=== PATIENT | female | born 1950 | race Caucasian/White ===

== ENCOUNTER → 2018-08-23 | Outpatient (CLI) | payer MEDICARE | LOC: LAB FS 15:24 | PROVIDERS: ATTEND Emergency Medicine | DX: Z22.322 Carrier or suspected carrier of Methicillin resistant Staphylococcus aureus (principal) | CPT/HCPCS: 87081 ==

== ENCOUNTER 2018-12-04 14:20 | Observation (INO) | payer MEDICARE ==
[~2018-12-04] VITALS: Ht 152.4 cm; Wt 79.5 kg
[2018-12-04] MEDS ORDERED: KETOROLAC 15 MG/ML VIAL IVP ONE (14:45)
[2018-12-04] MEDS ORDERED: NS IV 1000 ML 1,000 ML IV SCH (14:45)
[2018-12-04] MEDS ORDERED: ONDANSETRON 4 MG/2 ML (SDV) Z0FRAN IVP ONE (14:45)
--- NOTE | 2018-12-04 15:13 | ED General ---
General Chief Complaint: Abdominal/GI Problems Stated Complaint: SLURRED SPEECH History of Present Illness Date Seen by Provider: Dec 04, 2018 Time Seen by Provider: 15:08 Initial Comments Patient presenting to emergency department for evaluation of multiple symptoms including abdominal pain nausea vomiting diarrhea that started 4-5 days ago and today she has been quite dizzy lightheaded having difficulty ambulating and unsteady as well as slurred speech per the . Patient is chronically ill with some back pain issues and is on chronic pain medications and has decreased mobility. She says her emesis has been nonbloody nonbilious and the diarrhea has been yellowish and nonbloody. Abdominal pain is diffuse crampy. She says she has also been having left-sided chest pain that is sharp off and on for the past month as well. She has had an EKG before in the past and has had a stress test she thinks about 6 years ago that was normal. She appears nontoxic with normal vital signs. Allergies and Home Medications Allergies Coded Allergies: Penicillins (Verified Allergy, Unknown, 12/04/18) sumatriptan (Verified Allergy, Unknown, 12/04/18) Patient Home Medication List Home Medication List Reviewed: Yes Review of Systems Review of Systems Constitutional: no symptoms reported EENTM: no symptoms reported Respiratory: no symptoms reported Cardiovascular: chest pain Gastrointestinal: abdominal pain, diarrhea, nausea, vomiting Genitourinary: no symptoms reported Musculoskeletal: back pain Skin: no symptoms reported Psychiatric/Neurological: Weakness All Other Systems Reviewed Negative Unless Noted: Yes Physical Exam Vital Signs Vital Signs - First Documented 12/04/18 14:25 Temp 36.6 Pulse 70 Resp 18 B/P (MAP) 133/84 (100) Pulse Ox 95 O2 Delivery Room Air Capillary Refill : Height, Weight, BMI Height: 5'0.00" Weight: 175lbs. 0.0oz. 79.325782vh; 34.2 BMI Method: General Appearance: No Apparent Distress, Chronically ill HEENT: PERRL/EOMI Neck: Supple Respiratory: Lungs Clear, No Respiratory Distress Cardiovascular: Regular Rate, Rhythm Gastrointestinal: Soft, Tenderness (diffusely with no rebound or guarding.) Rectal: Deferred Back: Normal Inspection Extremity: Normal Capillary Refill Neurologic/Psychiatric: Alert, Oriented x3 Skin: Warm/Dry Progress/Results/Core Measures Suspected Sepsis SIRS Temperature: Pulse: Respiratory Rate: Laboratory Tests 12/04/18 15:07: White Blood Count 6.2 Blood Pressure / Mean: Laboratory Tests 12/04/18 15:07: Creatinine 0.73, Platelet Count 286, Total Bilirubin 0.4 Results/Orders Lab Results Laboratory Tests Test 12/04/18 15:05 12/04/18 15:07 Range/Units Urine Color YELLOW Urine Clarity SLT CLOUDY Urine pH 6.5 5-9 Urine Specific [place] <1.005 1.016-1.022 Urine Protein NEGATIVE NEGATIVE Urine Glucose (UA) NEGATIVE NEGATIVE Urine Ketones NEGATIVE NEGATIVE Urine Nitrite POSITIVE H NEGATIVE Urine Bilirubin 1+ H NEGATIVE Urine Urobilinogen 0.2 NORMAL MG/DL Urine Leukocyte Esterase 2+ H NEGATIVE Urine RBC (Auto) NEGATIVE NEGATIVE Urine RBC NONE /HPF Urine WBC 10-25 H /HPF Urine Squamous Epithelial Cells 2-5 /HPF Urine Crystals NONE /LPF Urine Bacteria LARGE H /HPF Urine Casts NONE /LPF Urine Mucus NONE /LPF Urine Culture Indicated YES White Blood Count 6.2 4.3-11.0 10^3/uL Red Blood Count 4.86 4.35-5.85 10^6/uL Hemoglobin 13.3 11.5-16.0 G/DL Hematocrit 41 35-52 % Mean Corpuscular Volume 85 80-99 FL Mean Corpuscular Hemoglobin 27 25-34 PG Mean Corpuscular Hemoglobin Concent 32 32-36 G/DL Red Cell Distribution Width 14.6 H 10.0-14.5 % Platelet Count 286 130-400 10^3/uL Mean Platelet Volume 9.3 7.4-10.4 FL Neutrophils (%) (Auto) 59 42-75 % Lymphocytes (%) (Auto) 30 12-44 % Monocytes (%) (Auto) 8 0-12 % Eosinophils (%) (Auto) 3 0-10 % Basophils (%) (Auto) 0 0-10 % Neutrophils # (Auto) 3.7 1.8-7.8 X 10^3 Lymphocytes # (Auto) 1.8 1.0-4.0 X 10^3 Monocytes # (Auto) 0.5 0.0-1.0 X 10^3 Eosinophils # (Auto) 0.2 0.0-0.3 10^3/uL Basophils # (Auto) 0.0 0.0-0.1 10^3/uL Sodium Level 144 135-145 MMOL/L Potassium Level 2.8 L 3.6-5.0 MMOL/L Chloride Level 97 L 98-107 MMOL/L Carbon Dioxide Level 33 H 21-32 MMOL/L Anion Gap 14 5-14 MMOL/L Blood Urea Nitrogen 9 7-18 MG/DL Creatinine 0.73 0.60-1.30 MG/DL Estimat Glomerular Filtration Rate > 60 BUN/Creatinine Ratio 12 Glucose Level 114 H 70-105 MG/DL Calcium Level 8.1 L 8.5-10.1 MG/DL Corrected Calcium 8.3 L 8.5-10.1 MG/DL Magnesium Level 1.6 1.6-2.4 MG/DL Total Bilirubin 0.4 0.1-1.0 MG/DL Aspartate Amino Transf (AST/SGOT) 18 5-34 U/L Alanine Aminotransferase (ALT/SGPT) 9 0-55 U/L Alkaline Phosphatase 100 40-136 U/L Troponin I < 0.30 <0.30 NG/ML Pro-B-Type Natriuretic Peptide 94.3 H <75.0 PG/ML Total Protein 6.1 L 6.4-8.2 GM/DL Albumin 3.7 3.2-4.5 GM/DL Lipase 24 8-78 U/L My Orders Orders - ZAIRA COWAN DO Cbc With Automated Diff (12/04/18 14:33) Comprehensive Metabolic Panel (12/04/18 14:33) Lipase (12/04/18 14:33) Magnesium (12/04/18 14:33) Ua Culture If Indicated (12/04/18 14:33) Ct Abdomen/Pelvis W (12/04/18 14:33) Ns Iv 1000 Ml (Sodium Chloride 0.9%) (12/04/18 14:45) Ondansetron Injection (Zofran Injectio (12/04/18 14:45) Ketorolac Injection (Toradol Injection) (12/04/18 14:45) Troponin I (12/04/18 15:21) Probnp Fs (12/04/18 15:21) Chest 1 View Ap/Pa Only (12/04/18 15:21) Ekg Tracing (12/04/18 15:21) Aspirin Chewable Tablet (Baby Aspirin Ch (12/04/18 15:30) Urine Culture (12/04/18 15:05) Iohexol Injection (Omnipaque 350 Mg/Ml 1 (12/04/18 16:00) Received Contrast (Hold Metformin- Contr (12/04/18 16:00) Sodium Chloride Flush (Catheter Flush Sy (12/04/18 16:00) Ns (Ivpb) (Sodium Chloride 0.9% Ivpb Bag (12/04/18 16:00) Ceftriaxone For Iv Use (Rocephin For I (12/04/18 16:00) Blood Culture (12/04/18 15:55) Lactic Acid Analyzer (12/04/18 15:55) Ns W/Kcl 20 Meq/L (Ns Iv W/Kcl 20 Meq/L) (12/04/18 16:00) Magnesium 1 Gm/100 Ml Ivpb (Magnesium [place] (12/04/18 16:00) Potassium Chloride (Tablet) (K Dur Table (12/04/18 16:00) Magnesium 1 Gm/100 Ml Ivpb (Magnesium [place] (12/04/18 16:15) Medications Given in ED Current Medications Medications Dose Ordered Sig/Mishel Route Start Time Stop Time Status Last Admin Dose Admin Aspirin 324 mg ONCE ONCE PO 12/04/18 15:30 12/04/18 15:31 DC 12/04/18 15:40 324 MG Ketorolac Tromethamine 15 mg ONCE ONCE IVP 12/04/18 14:45 12/04/18 14:46 DC 12/04/18 15:15 15 MG Ondansetron HCl 4 mg ONCE ONCE IVP 12/04/18 14:45 12/04/18 14:46 DC 12/04/18 15:15 4 MG Vital Signs/I&O 12/04/18 14:25 Temp 36.6 Pulse 70 Resp 18 B/P (MAP) 133/84 (100) Pulse Ox 95 O2 Delivery Room Air Capillary Refill : Progress Note : Progress Note Patient does not appear toxic however she has multiple issues going on at this time including the nausea vomiting and diarrhea that is causing her potassium to be low and her magnesium is likely low as well. She has a prolonged QTC possibly related to her electrolytes. She also has a urinary tract infection. We discussed potential outpatient treatment plans however given the conglomeration of all issues going on and being quite immobile and not eating or drinking well home with an abnormal EKG the decision was made for her to be admitted to the hospital. I spoke to Dr. James and the plan is to continue to treat her hypokalemia try and her troponin keep her on antibiotics and IV fluids and have the computer support specialist consult in the morning. Patient will be transferred in stable condition. Departure Impression Primary Impression: Abdominal pain Additional Impressions: Nausea and vomiting Diarrhea Urinary tract infection Chest pain Hypokalemia Abnormal EKG Prolonged Q-T interval on ECG Disposition: ADMITTED INPATIENT Condition: Stable Departure-Patient Inst. Referrals: YOANNA CHAMBERS DO (PCP/Family) Primary Care Physician ZAIRA COWAN DO Dec 04, 2018 15:13
[2018-12-04 15:24] LABS: HEMATOCRIT 41 % (35-52); HEMOGLOBIN 13.3 G/DL (11.5-16.0); MEAN CORPUSCULAR HEMOGLOBIN 27 PG (25-34); MEAN CORPUSCULAR VOLUME 85 FL (80-99); WHITE BLOOD COUNT 6.2 10^3/uL (4.3-11.0)
[2018-12-04 15:25] LABS: BASOPHILS % (AUTO) 0 % (0-10); EOSINOPHILS # (AUTO) 0.2 10^3/uL (0.0-0.3); EOSINOPHILS % (AUTO) 3 % (0-10); LYMPHOCYTES # (AUTO) 1.8 X 10^3 (1.0-4.0); LYMPHOCYTES % (AUTO) 30 % (12-44); MEAN CORPUSCULAR HGB CONC 32 G/DL (32-36); MEAN PLATELET VOLUME 9.3 FL (7.4-10.4); MONOCYTES # (AUTO) 0.5 X 10^3 (0.0-1.0); MONOCYTES % (AUTO) 8 % (0-12); NEUTROPHILS # (AUTO) 3.7 X 10^3 (1.8-7.8); NEUTROPHILS % (AUTO) 59 % (42-75); PLATELET COUNT 286 10^3/uL (130-400); RED CELL DISTRIBUTION WIDTH 14.6 % (10.0-14.5)
[2018-12-04 15:29] LABS: CLARITY,URINE SLT CLOUDY; COLOR,URINE YELLOW; PH,URINE 6.5 (5-9)
[2018-12-04 15:30] LABS: BILIRUBIN,URINE 1+ (NEGATIVE); GLUCOSE, URINE (UA) NEGATIVE (NEGATIVE); KETONES,URINE NEGATIVE (NEGATIVE); NITRITE,URINE POSITIVE (NEGATIVE); PROTEIN,URINE NEGATIVE (NEGATIVE)
[2018-12-04] MEDS ORDERED: ASPIRIN 81 MG CHEW (CHILDREN'S ASA) PO ONE (15:30)
[2018-12-04 15:31] LABS: BACTERIA,URINE LARGE /HPF; LEUKOCYTE ESTERASE ,URINE 2+ (NEGATIVE); UROBILINOGEN,URINE 0.2 MG/DL (NORMAL)
[2018-12-04 15:46] LABS: ALKALINE PHOSPHATASE 100 U/L (40-136); BILIRUBIN,TOTAL 0.4 MG/DL (0.1-1.0); BUN/CREATININE RATIO 12; CALCIUM 8.1 MG/DL (8.5-10.1); CARBON DIOXIDE 33 MMOL/L (21-32); CHLORIDE 97 MMOL/L (98-107); CREATININE SERUM 0.73 MG/DL (0.60-1.30); GFR ESTIMATED > 60; GLUCOSE 114 MG/DL (70-105); MAGNESIUM 1.6 MG/DL (1.6-2.4); POTASSIUM 2.8 MMOL/L (3.6-5.0); SODIUM 144 MMOL/L (135-145)
[2018-12-04 15:47] LABS: ALANINE AMINOTRANSFERASE 9 U/L (0-55); ALBUMIN 3.7 GM/DL (3.2-4.5); LIPASE 24 U/L (8-78); TOTAL PROTEIN 6.1 GM/DL (6.4-8.2)
[2018-12-04] MEDS ORDERED: MAGNESIUM 1 GM/100 ML IVPB 100 ML IV ONE ×2 (16:00→16:15)
[2018-12-04] MEDS ORDERED: NS 100 ML (IVPB) BAG IV ONE (16:00)
[2018-12-04] MEDS ORDERED: IOHEXOL 350 MG/ML 100 ML (OMNIPAQUE 350) VIAL IV ONE (16:00)
[2018-12-04] MEDS ORDERED: KCL 20 MEQ TAB (K-DUR) PO ONE (16:00)
[2018-12-04] MEDS ORDERED: cefTRIAXone FOR IV USE 2,000 MG in WATER (STERILE) FOR INJECTION 20 ML IV ONE (16:00)
[2018-12-04] MEDS ORDERED: NS W/KCL 20 MEQ/L 1,000 ML IV SCH (16:00)
[2018-12-04] MEDS ORDERED: HOLD METFORMIN - RECEIVED CONTRAST 20 ML VIAL IV SCH (16:00)
[2018-12-04] MEDS: CATHETER FLUSH 10 ML SYR IV PRN (16:09)
[2018-12-04] MEDS ORDERED: POTASSIUM CL 10MEQ/50ML IVPB 50 ML IV ONE (16:10)
--- NOTE | 2018-12-04 16:33 | Diagnostic Imaging Report ---
PROCEDURE: CT abdomen and pelvis with contrast. TECHNIQUE: Multiple contiguous axial images were obtained through the abdomen and pelvis after administration of intravenous contrast. Auto Exposure Controls were utilized during the CT exam to meet ALARA standards for radiation dose reduction. INDICATION: Abdominal pain, nausea, and vomiting. COMPARISON: None. FINDINGS: The lung bases are clear. The heart is normal in size. There is no pericardial effusion. The liver demonstrates no focal lesions. There is mild intrahepatic biliary dilatation with marked dilatation of the common bile duct. This may be due to post cholecystectomy changes, although it is greater than typical, with the common bile duct measuring up to 15 mm. The spleen appears normal. The pancreas is normal. The adrenal glands appear normal. The kidneys demonstrate no focal lesions. The bowel loops are nondistended and without obstruction. There are a few mildly prominent loops of jejunum. The stomach is decompressed. The appendix is not seen, but no secondary findings of appendicitis are seen. No free fluid or free air is seen. No lymphadenopathy is seen. No acute osseous abnormality is seen. IMPRESSION: 1. Mildly prominent loops of jejunum, could represent gastroenteritis. No bowel obstruction is seen. 2. Mild intrahepatic biliary dilatation with marked dilatation of the common bile duct. This could be due to post cholecystectomy change, but is greater than typical. Recommend correlation with liver function tests. No calcified stone is seen in the distal bile duct. Dictated by: Dictated on workstation # [id number]
--- NOTE | 2018-12-04 16:33 | Diagnostic Imaging Report ---
PATIENT HISTORY: Nausea, vomiting, dizziness, diarrhea. TECHNIQUE: Single frontal view of the chest. COMPARISON: None. FINDINGS: The lung volumes are large. No focal consolidation is seen. No large pleural effusion or pneumothorax is seen. The cardiomediastinal silhouette is normal in size and contour. No acute osseous abnormality is seen. IMPRESSION: No acute pulmonary abnormality seen. Dictated by: Dictated on workstation # [id number]
[2018-12-04] MEDS: POTASSIUM CL 10MEQ/50ML IVPB 50 ML IV SCH ×2 (16:43→20:22)
--- NOTE | 2018-12-04 18:26 | NUR ---
ALE MORGAN Socorro admitted to room 417-1, with an admitting diagnosis of UTI, on 12/04/18 from [facility] ED via ambulance, accompanied by EMS. ALE MORGAN introduced to surroundings, call light, bed controls, phone, TV, temperature control, lights, meal times, smoking policy, visitor policy, side rail policy, bathrooms and showers. Patient Rights given to patient in the handbook. ALE MORGAN verbalizes understanding that [facility] is not responsible for the loss or damage to any personal effects or valuables that are kept in the patients possession during their hospitalization. The following Patient Care Plans were discussed with the patient: Discharge Planning, medications,pain management, and dehydration. ALE MORGAN verbalizes understanding of Interdisciplinary Patient Education. Patient and/or family were informed about the Rapid Response Team and its purpose.
[2018-12-04] MEDS ORDERED: morphine INJ 4 MG/ML 1 ML (VIAL/SYRINGE) IV PRN (19:30)
[2018-12-04] MEDS ORDERED: CATHETER FLUSH 10 ML SYR IV PRN (19:30)
[2018-12-04] MEDS ORDERED: ONDANSETRON 4 MG/2 ML (SDV) Z0FRAN IV PRN (19:30)
[2018-12-04] MEDS: SODIUM CHLORIDE IV SCH ×2 (20:20)
[2018-12-04] MEDS: POTASSIUM CHLORIDE IV SCH ×2 (20:20)
[2018-12-04 20:39] VITALS: BP 139/63
--- NOTE | 2018-12-04 22:05 | NUR ---
CALLED DR. LINDER AND INFORMED HIM THAT ALTHOUGH PATIENT WILL ANSWER QUESTIONS APPROPRIATELY REGARDING BEING ORIENTED TO SELF, PLACE, AND TIME, PATIENT HAS MADE COMMENTS THAT DO NOT MAKE SENSE AND HAS PULLED OUT NUMEROUS IVs. ATTEMPTED TO EXPLAIN TO PATIENT THE IMPORTANCE OF IV FLUIDS AT THIS TIME. NO NEW ORDERS. WILL CONTINUE TO MONITOR.
[2018-12-05 00:39] VITALS: BP 108/67
[2018-12-05 04:00] VITALS: BP 136/76
[2018-12-05 05:48] LABS: BASOPHILS % (AUTO) 0 % (0-10); EOSINOPHILS # (AUTO) 0.3 10^3/uL (0.0-0.3); EOSINOPHILS % (AUTO) 4 % (0-10); HEMATOCRIT 44 % (35-52); HEMOGLOBIN 13.7 G/DL (11.5-16.0); LYMPHOCYTES # (AUTO) 1.8 X 10^3 (1.0-4.0); LYMPHOCYTES % (AUTO) 28 % (12-44); MEAN CORPUSCULAR HEMOGLOBIN 27 PG (25-34); MEAN CORPUSCULAR HGB CONC 31 G/DL (32-36); MEAN CORPUSCULAR VOLUME 86 FL (80-99); MEAN PLATELET VOLUME 8.8 FL (7.4-10.4); MONOCYTES # (AUTO) 0.7 X 10^3 (0.0-1.0); MONOCYTES % (AUTO) 11 % (0-12); NEUTROPHILS # (AUTO) 3.6 X 10^3 (1.8-7.8); NEUTROPHILS % (AUTO) 57 % (42-75); PLATELET COUNT 279 10^3/uL (130-400); RED CELL DISTRIBUTION WIDTH 15.5 % (10.0-14.5); WHITE BLOOD COUNT 6.3 10^3/uL (4.3-11.0)
[2018-12-05] MEDS: POTASSIUM CHLORIDE IV SCH ×4 (06:06→11:06)
[2018-12-05] MEDS: SODIUM CHLORIDE IV SCH ×4 (06:06→11:06)
[2018-12-05 06:10] LABS: BUN/CREATININE RATIO 10; CALCIUM 8.1 MG/DL (8.5-10.1); CARBON DIOXIDE 32 MMOL/L (21-32); CHLORIDE 104 MMOL/L (98-107); CREATININE SERUM 0.78 MG/DL (0.60-1.30); GFR ESTIMATED > 60; GLUCOSE 92 MG/DL (70-105); MAGNESIUM 2.6 MG/DL (1.6-2.4); POTASSIUM 4.1 MMOL/L (3.6-5.0); SODIUM 143 MMOL/L (135-145)
[2018-12-05 08:00] VITALS: BP 115/89
[2018-12-05] MEDS ORDERED: OMEP40CA36 PO (08:34)
[2018-12-05] MEDS ORDERED: CYCL10TA9 PO (08:34)
[2018-12-05] MEDS ORDERED: ZOLP5TAB7 PO (08:34)
[2018-12-05] MEDS ORDERED: OXYC-465 PO (08:34)
[2018-12-05] MEDS ORDERED: NYST60PO TOP (08:34)
[2018-12-05] MEDS ORDERED: DULO60CA59 PO (08:34)
[2018-12-05] MEDS ORDERED: IPRA4AER IH (08:34)
[2018-12-05] MEDS ORDERED: PROP40TA5 PO (08:34)
[2018-12-05] MEDS ORDERED: ALPR0.5T7 PO (08:34)
[2018-12-05] MEDS ORDERED: OXYC10TA55 PO (08:34)
--- NOTE | 2018-12-05 08:42 | NUR ---
PATIENT HAD HER BOTTLES WITH HER, I WENT OVER THEM WELL THE EXT MED HX AND SHE VERIFIED HOW SHE TAKES THEM. SHE STATES SHE DOES NOT TAKE ANYTHING OTC THAT SHE CAN THINK OF.
[2018-12-05] MEDS: cefTRIAXone 1,000 MG/SWFI 10 ML IV PUSH IV SCH ×2 (09:20)
--- NOTE | 2018-12-05 09:27 | Consultation-Cardiology ---
HPI-Cardiology Cardiology Consultation: Date of Consultation 12/05/18 Time Seen by a Provider: 09:20 Date of Admission Attending Physician Alejandrina James MD Admitting Physician Jacobo Ramos DO Consulting Physician TAMMI DELA CRUZ MD, FACP, FACC, [facility], [facility] Physician requesting consult: Dr James HPI: Chief Complaint: CC: Nausea, vomiting, abdominal and chest pain HPI 68 yo who has been under emotional stress for the past week (ex ) and has been having diarrhea for 4 days. Had had nausea and vomiting for 1-2 days prior to presentation to ER yesterday. Had also had upper abd and l ower cp yesterday. Chest pain: 1st episode yesterday, none since, mid chest, mod in intensity, burning feeling, lasted an hour or so, w/o radiation, w/o aggravating or relieving factors Review of Systems-Cardiology Review of Systems Constitutional: malaise, tiredness; No weight loss, No weight gain Eyes: No vision change Ears/Nose/Throat: No ear discharge, No nasal drainage, No recent hearing loss Respiratory: As described under HPI Cardiovascular: As described under HPI Gastrointestinal: As described under HPI Genitourinary: No dysuria, No hematuria, No urine frequency changes Musculoskeletal: back pain (chronic), joint pain (chronic) Skin: No rash, No ulcerations Psychiatric/Neurological: No seizure, No focal weakness, No syncope Hematologic: No bleeding abnormalities All Other Systems Reviewed Negative Unless Noted: Yes GFP-[id number]-Icfjrz Hx Patient Social History Recent Foreign Travel: No Recent Infectious Disease Expo: No Hospitalization with Isolation: Denies Past Medical History PMH As described under Assessment. Family Medical History Family Medical History: No fam h/o early CAD or SCD Allergies and Home Medications Allergies Coded Allergies: Penicillins (Verified Allergy, Unknown, 12/04/18) sumatriptan (Verified Allergy, Unknown, 12/04/18) Home Medications Albuterol/Ipratropium 4 Gm Aero, 1 PUFF IH QID PRN for SHORTNESS OF BREATH, (Reported) Alprazolam 0.5 Mg Tablet, 0.5 MG PO TID PRN for ANXIETY, (Reported) Cyclobenzaprine HCl 10 Mg Tablet, 10 MG PO TID PRN for MUSCLE SPASMS, (Reported) Duloxetine HCl 60 Mg Capsule.dr, 60 MG PO DAILY, (Reported) Nystatin 60 Gm Powder, TOP TID PRN for RASH, (Reported) Omeprazole 40 Mg Capsule.dr, 40 MG PO DAILY, (Reported) Oxycodone HCl 10 Mg Tab.er.12h, 10 MG PO BID, (Reported) Oxycodone HCl/Acetaminophen 1 Each Tablet, 1 TAB PO TID PRN for BREAKTHROUGH PAIN, (Reported) Propranolol HCl 40 Mg Tablet, 40 MG PO BID, (Reported) Zolpidem Tartrate 5 Mg Tablet, 5 MG PO HS PRN for SLEEP, (Reported) Patient Home Medication List Home Medication List Reviewed: Yes Physical Exam-Cardiology Physical Exam Vital Signs/I&O 12/05/18 12/05/18 12/05/18 12/05/18 00:39 01:00 04:00 07:00 Temp 36.8 36.6 Pulse 75 67 68 65 Resp 19 18 B/P (MAP) 108/67 (81) 136/76 (96) Pulse Ox 96 98 O2 Delivery Room Air Room Air 12/05/18 08:00 Temp 36.7 Pulse 75 Resp 18 B/P (MAP) 115/89 (98) Pulse Ox 93 O2 Delivery Room Air 12/05/18 00:00 Intake Total 1740 ml Output Total 200 ml Balance 1540 ml Capillary Refill : Less Than 3 Seconds Constitutional: AAO x 3, well-developed, well-nourished HEENT: EOMI, hearing is well preserved; No xanthelasmas are seen Neck: carotid pulses are 2 + bilaterally, with good upstrokes Respiratory: No accessory muscle use; other (good bilat air entry) Cardiovascular: regular rate-rhythm, S1 and S2, systolic murmur Gastrointestinal: No tender; soft; No guarding, No rebound; audible bowel sounds Extremities: No clubbing, No cyanosis, No significant edema Neurologic/Psychiatric: oriented x 3, grossly intact, power is 5/5 both on sides Skin: No rash on exposed areas, No ulcerations on exposed areas Data Review Labs Laboratory Tests 12/04/18 15:05: Urine Color YELLOW, Urine Clarity SLT CLOUDY, Urine pH 6.5, Urine Specific [place] <1.005, Urine Protein NEGATIVE, Urine Glucose (UA) NEGATIVE, Urine Ketones NEGATIVE, Urine Nitrite POSITIVEH, Urine Bilirubin 1+H, Urine Urobilinogen 0.2, Urine Leukocyte Esterase 2+H, Urine RBC (Auto) NEGATIVE, Urine RBC NONE, Urine WBC 10-25H, Urine Squamous Epithelial Cells 2-5, Urine Crystals NONE, Urine Bacteria LARGEH, Urine Casts NONE, Urine Mucus NONE, Urine Culture Indicated YES 12/04/18 15:07: White Blood Count 6.2, Red Blood Count 4.86, Hemoglobin 13.3, Hematocrit 41, Mean Corpuscular Volume 85, Mean Corpuscular Hemoglobin 27, Mean Corpuscular Hemoglobin Concent 32, Red Cell Distribution Width 14.6H, Platelet Count 286, Mean Platelet Volume 9.3, Neutrophils (%) (Auto) 59, Lymphocytes (%) (Auto) 30, Monocytes (%) (Auto) 8, Eosinophils (%) (Auto) 3, Basophils (%) (Auto) 0, Neutrophils # (Auto) 3.7, Lymphocytes # (Auto) 1.8, Monocytes # (Auto) 0.5, Eosinophils # (Auto) 0.2, Basophils # (Auto) 0.0, Sodium Level 144, Potassium Level 2.8L, Chloride Level 97L, Carbon Dioxide Level 33H, Anion Gap 14, Blood Urea Nitrogen 9, Creatinine 0.73, Estimat Glomerular Filtration Rate > 60, BUN/Creatinine Ratio 12, Glucose Level 114H, Calcium Level 8.1L, Corrected Calcium 8.3L, Magnesium Level 1.6, Total Bilirubin 0.4, Aspartate Amino Transf (AST/SGOT) 18, Alanine Aminotransferase (ALT/SGPT) 9, Alkaline Phosphatase 100, Troponin I < 0.30, Pro-B-Type Natriuretic Peptide 94.3H, Total Protein 6.1L, Albumin 3.7, Lipase 24 12/04/18 16:37: Lactic Acid Level 1.11 12/04/18 18:40: Troponin I < 0.028 12/05/18 00:45: Troponin I < 0.028 12/05/18 05:05: White Blood Count 6.3, Red Blood Count 5.10, Hemoglobin 13.7, Hematocrit 44, Mean Corpuscular Volume 86, Mean Corpuscular Hemoglobin 27, Mean Corpuscular Hemoglobin Concent 31L, Red Cell Distribution Width 15.5H, Platelet Count 279, Mean Platelet Volume 8.8, Neutrophils (%) (Auto) 57, Lymphocytes (%) (Auto) 28, Monocytes (%) (Auto) 11, Eosinophils (%) (Auto) 4, Basophils (%) (Auto) 0, Neutrophils # (Auto) 3.6, Lymphocytes # (Auto) 1.8, Monocytes # (Auto) 0.7, Eosinophils # (Auto) 0.3, Basophils # (Auto) 0.0 12/05/18 05:30: Sodium Level 143, Potassium Level 4.1, Chloride Level 104, Carbon Dioxide Level 32, Anion Gap 7, Blood Urea Nitrogen 8, Creatinine 0.78, Estimat Glomerular Filtration Rate > 60, BUN/Creatinine Ratio 10, Glucose Level 92, Calcium Level 8.1L, Magnesium Level 2.6H Laboratory Tests 12/04/18 15:07 12/05/18 05:05 12/05/18 05:30 A/P-Cardiology Assessment/Admission Diagnosis Chest discomfort w/o evidence of acute MT, etiology un-established Hypertension GERD Quit tobacco use 2009 H/o COPD Anxiety, by history, controlled Probable acute gastroenteritis, improving, managed Med Svce Hypokalemia due to vomiting and diarrhea, corrected UTI, managed by the Med Svce Discussion and Recomendations * Repeat ECG * Echo * MPI to eval for cor ischemia * Monitor labs * Advised to continue to refrain from tobacco use Clinical Quality Measures DVT/VTE Risk/Contraindication: Risk Factor Score Per Nursin RFS Level Per Nursing on Admit: 4+=Very High TAMMI DELA CRUZ MD FACP [facility] Dec 05, 2018 09:26
[2018-12-05] MEDS ORDERED: REGADENOSON 0.4 MG/5 ML SYR (LEXISCAN) IV ONE (09:45)
[2018-12-05 12:00] VITALS: BP 122/81
[2018-12-05] MEDS: NS W/KCL 40 MEQ/L 1,000 ML IV SCH ×2 (12:00→20:37)
[2018-12-05] MEDS ORDERED: CYCLOBENZAPRINE 10 MG (FLEXERIL) TAB PO PRN (15:00)
[2018-12-05] MEDS ORDERED: POLYETHYLENE GLYCOL 17 GM (MIRALAX) PACK PO PRN (15:00)
[2018-12-05] MEDS ORDERED: NON-FORMULARY MEDICATION 1 EA EA (Zolpidem Tartrate 5 MG) PO PRN (15:00)
[2018-12-05] MEDS ORDERED: oxyCODONE/APAP 10/325MG (PERCOCET 10) TABLET PO PRN (15:00)
[2018-12-05] MEDS ORDERED: NON-FORMULARY MEDICATION 1 EA EA (Albuterol/Ipratropium (Combivent Respimat Inhal Spray) 1 IH PRN (15:00)
[2018-12-05] MEDS ORDERED: MELATONIN 3 MG TABLET PO PRN (15:00)
--- NOTE | 2018-12-05 15:06 | History & Physical-Hospitalist ---
History of Present Illness HPI/Chief Complaint Mariza Marshall is a 68-year-old female who presented with chest pain. She states that her ex- a few days ago of ALS. She states that she has a long history of depression and anxiety. She reports that she has been feeling anxious and tearful. She reports nausea and vomiting yesterday which have resolved. She denies any chest pain on my exam. She denies any fevers or chills. She denies any shortness of breath. She denies any abdominal pain. She denies any constipation or diarrhea. She denies urinary symptoms but does state that she feels like her urine was malodorous. Source: patient Exam Limitations: no limitations Date Seen 12/05/18 Time Seen by a Provider: 09:45 Attending Physician Alejandrina Butler MD PCP Jacobo Ramos DO Referring Physician Date of Admission Dec 04, 2018 at 16:00 Home Medications & Allergies Home Medications Reviewed patient Home Medication Reconciliation performed by pharmacy medication reconciliations automated access systems technician and/or nursing. Patients Allergies have been reviewed. Allergies Allergies Coded Allergies Penicillins (Verified Allergy, Unknown, 12/04/18) sumatriptan (Verified Allergy, Unknown, 12/04/18) Past [id number] Hx Past Med/Social Hx: Reviewed Nursing Past Med/Soc Hx Patient Social History Recent Foreign Travel: No Contact w/other who traveled: No Recent Hopitalizations: No Recent Infectious Disease Expo: No Seasonal Allergies Seasonal Allergies: No Past Medical History Surgeries: Gallbladder, Hysterectomy Neurological: Stroke : No Gastrointestinal: Ulcer Review of Systems Constitutional: no symptoms reported EENTM: no symptoms reported Respiratory: no symptoms reported Cardiovascular: chest pain Gastrointestinal: no symptoms reported Genitourinary: no symptoms reported Musculoskeletal: no symptoms reported Skin: no symptoms reported Psychiatric/Neurological: Anxiety, Depressed Physical Exam Physical Exam Vital Signs Vital Signs - First Documented 12/04/18 14:25 Temp 36.6 Pulse 70 Resp 18 B/P (MAP) 133/84 (100) Pulse Ox 95 O2 Delivery Room Air Capillary Refill : Less Than 3 Seconds Height, Weight, BMI Height: 5'0.00" Weight: 175lbs. 4.3oz. 79.842282bd; 34.00 BMI Method: General Appearance: No Apparent Distress, WD/WN, Anxious HEENT: PERRL/EOMI, Pharynx Normal Neck: Normal Inspection, Supple Respiratory: Lungs Clear, Normal Breath Sounds, No Respiratory Distress Cardiovascular: Regular Rate, Rhythm, No Edema, No Murmur Gastrointestinal: Normal Bowel Sounds, Non Tender, Soft Extremity: Normal Inspection, Non Tender, No Pedal Edema Neurologic/Psychiatric: Alert, Oriented x3 Skin: Normal Color, Warm/Dry Lymphatic: No Adenopathy Results Results/Procedures Labs Laboratory Tests 12/04/18 15:07 12/05/18 05:05 12/05/18 05:30 Patient resulted labs reviewed. Imaging: Reviewed Imaging Report Assessment/Plan Admission Diagnosis Acute gastroenteritis Admission Status: Inpatient Order (span 2 midnights) Reason for Inpatient Admission: Chest pain UTI Hypokalemia Assessment and Plan Acute gastroenteritis CT abdomen with jejunal inflammation indicative of gastroenteritis Nausea and vomiting resolved at this point Continue to monitor Chest pain Hypokalemia EKG with T-wave inversions Troponin normal Potassium 2.8 on admission Magnesium 1.6 Monitor and replace electrolytes as needed Echocardiogram ordered Cardiology consulted, appreciate assistance Planning for stress test tomorrow Anxiety Depression Possibly contributing to chest pain with anxiety attacks Continue antidepressants and anxiolytics Diagnosis/Problems Diagnosis/Problems (1) Urinary tract infection Status: Acute (2) Hypokalemia Status: Acute (3) Nausea and vomiting Status: Acute (4) Abnormal EKG Status: Acute (5) Chest pain Status: Acute (6) Abdominal pain Status: Acute Clinical Quality Measures DVT/VTE Risk/Contraindication: Risk Factor Score Per Nursin RFS Level Per Nursing on Admit: 4+=Very High ALEJANDRINA BUTLER MD Dec 05, 2018 15:06
--- NOTE | 2018-12-05 15:08 | NUR ---
Chaplain Monique Keller provided pastoral support through compassionate presence and active listening. Pt states she is awaiting diagnosis. No spiritual affiliation. Addendum: 12/05/18 at 1510 by RAMIN JOHNSON PAST WRONG PT: Pt reports doing well.
[2018-12-05] MEDS ORDERED: RT-ALBUTEROL/IPRATROPIUM 3 ML (DUONEB) VIAL IH PRN (15:15)
[2018-12-05] MEDS ORDERED: ZOLPIDEM 5 MG (AMBIEN) TAB PO PRN (15:15)
[2018-12-05 16:00] VITALS: BP 149/87
[2018-12-05] MEDS: ALPRAZolam 0.5 MG (XANAX) TAB PO PRN ×2 (16:45→20:37)
[2018-12-05 20:00] VITALS: BP 123/92
[2018-12-05] MEDS: oxyCODONE ER 10 MG (OxyCONTIN CR) TAB PO SCH (20:37)
[2018-12-05] MEDS: PROPRANOLOL 20 MG (INDERAL) TABLET PO SCH (20:37)
[2018-12-05] MEDS: SENNA W/DOCUSATE (SENOKOT S) TABLET PO SCH (20:39)
[2018-12-05] MEDS: DOCUSATE SODIUM 100 MG (COLACE) CAP PO SCH (20:39)
[2018-12-05] MEDS ORDERED: OXYCODONE HCL 10 MG PO SCH (21:00)
[2018-12-05] MEDS ORDERED: NON-FORMULARY MEDICATION 1 EA EA (Propranolol HCl 40 MG) PO SCH (21:00)
[2018-12-06 00:25] VITALS: BP 166/65
[2018-12-06 04:20] VITALS: BP 138/76
[2018-12-06] MEDS: NS W/KCL 40 MEQ/L 1,000 ML IV SCH (06:25)
[2018-12-06 06:29] LABS: BASOPHILS % (AUTO) 0 % (0-10); EOSINOPHILS # (AUTO) 0.3 10^3/uL (0.0-0.3); EOSINOPHILS % (AUTO) 4 % (0-10); HEMATOCRIT 43 % (35-52); HEMOGLOBIN 13.7 G/DL (11.5-16.0); LYMPHOCYTES # (AUTO) 1.7 X 10^3 (1.0-4.0); LYMPHOCYTES % (AUTO) 25 % (12-44); MEAN CORPUSCULAR HEMOGLOBIN 27 PG (25-34); MEAN CORPUSCULAR HGB CONC 32 G/DL (32-36); MEAN CORPUSCULAR VOLUME 86 FL (80-99); MONOCYTES # (AUTO) 0.6 X 10^3 (0.0-1.0); MONOCYTES % (AUTO) 9 % (0-12); NEUTROPHILS # (AUTO) 4.1 X 10^3 (1.8-7.8); NEUTROPHILS % (AUTO) 62 % (42-75); PLATELET COUNT 260 10^3/uL (130-400); RED CELL DISTRIBUTION WIDTH 15.3 % (10.0-14.5); WHITE BLOOD COUNT 6.7 10^3/uL (4.3-11.0)
[2018-12-06 06:51] LABS: BUN/CREATININE RATIO 7; CALCIUM 8.3 MG/DL (8.5-10.1); CARBON DIOXIDE 26 MMOL/L (21-32); CHLORIDE 108 MMOL/L (98-107); CREATININE SERUM 0.67 MG/DL (0.60-1.30); GFR ESTIMATED > 60; GLUCOSE 81 MG/DL (70-105); POTASSIUM 4.1 MMOL/L (3.6-5.0); SODIUM 145 MMOL/L (135-145)
[2018-12-06] MEDS ORDERED: PANTOPRAZOLE 40 MG (PROTONIX) TAB PO SCH (07:00)
--- NOTE | 2018-12-06 07:14 | NUR ---
TAKEN DWON FOR ROSIBEL SCAN
[2018-12-06] MEDS: CATHETER FLUSH 10 ML SYR IV PRN ×2 (07:28→08:18)
[2018-12-06 08:00] VITALS: BP 161/100
[2018-12-06] MEDS ORDERED: REGADENOSON 0.4 MG/5 ML SYR (LEXISCAN) IV ONE (08:02)
[2018-12-06] MEDS ORDERED: ONDANSETRON 4 MG/2 ML (SDV) Z0FRAN ONE (08:07)
[2018-12-06 08:16] VITALS: BP 161/104
--- NOTE | 2018-12-06 08:49 | Progress Note - Cardiology ---
Cardiology SOAP Progress Note Subjective: C/O abdominal pain with n/v this morning, somewhat worse after stress test. No c/o CP, palpitations, syncope, near syncope or dyspnea. Objective: I&O/Vital Signs 12/06/18 12/06/18 12/06/18 12/06/18 01:00 04:20 07:00 08:00 Temp 36.6 36.3 Pulse 69 83 83 81 Resp 18 16 B/P (MAP) 138/76 (96) 161/100 (120) Pulse Ox 95 96 O2 Delivery Room Air Room Air 12/06/18 12/06/18 12/06/18 08:16 09:20 10:40 Temp 36.6 Pulse 106 Resp 16 B/P (MAP) 161/104 (123) Pulse Ox 96 O2 Delivery Room Air Room Air 12/06/18 00:00 Intake Total 1680 ml Balance 1680 ml Weight (Pounds): 175 Weight (Ounces): 4.3 Weight (Calculated Kilograms): 79.688044 Constitutional: AAO x 3, well-developed, well-nourished Respiratory: No accessory muscle use; other (good bilat air entry) Cardiovascular: regular rate-rhythm, S1 and S2, systolic murmur Gastrointestional: No tender; soft; No guarding, No rebound; audible bowel sounds Extremities: No clubbing, No cyanosis, No significant edema Neurologic/Psychiatric: oriented x 3, grossly intact, power is 5/5 both on s ides Skin: No rash on exposed areas, No ulcerations on exposed areas Results/Procedures: Labs Laboratory Tests 12/06/18 05:58: White Blood Count 6.7, Red Blood Count 5.05, Hemoglobin 13.7, Hematocrit 43, Mean Corpuscular Volume 86, Mean Corpuscular Hemoglobin 27, Mean Corpuscular Hemoglobin Concent 32, Red Cell Distribution Width 15.3H, Platelet Count 260, Mean Platelet Volume 9.0, Neutrophils (%) (Auto) 62, Lymphocytes (%) (Auto) 25, Monocytes (%) (Auto) 9, Eosinophils (%) (Auto) 4, Basophils (%) (Auto) 0, Neutrophils # (Auto) 4.1, Lymphocytes # (Auto) 1.7, Monocytes # (Auto) 0.6, Eosinophils # (Auto) 0.3, Basophils # (Auto) 0.0, Sodium Level 145, Potassium Level 4.1, Chloride Level 108H, Carbon Dioxide Level 26, Anion Gap 11, Blood Urea Nitrogen 5L, Creatinine 0.67, Estimat Glomerular Filtration Rate > 60, BUN/Creatinine Ratio 7, Glucose Level 81, Calcium Level 8.3L Microbiology 12/04/18 Blood Culture - Preliminary, Resulted No growth 12/04/18 Urine Culture - Preliminary, Resulted A/P: Assessment: Chest discomfort w/o evidence of acute WI, etiology un-established Hypertension GERD Probable ac gastroenteritis, managed by the [facility] Svce Echo of 12/05/18: LVEF 65-70%, PASP 15 mmHg, grade 1 diastolic dysfunction MPI of 12/06/18: difficult study due to significant patient motion, no distinct evidence of ischemia, LVEF 82% Quit tobacco use 2009 H/o COPD Anxiety, by history, controlled Hypokalemia due to vomiting and diarrhea, corrected UTI, managed by the [facility] Svce Plan: * Echo - pending * MPI to eval for cor ischemia - pending * Monitor labs * Advised to continue to refrain from tobacco use Physician Assessment Physician Assessment Continues with nausea No cp or palp or syncope Gen malaise and tiredness Lungs: good bilat air entry Cor: reg Ext: no c/c/e A&R: * As documented in our note above that I updated (italics) and as noted below * I discussed her CV w/u with her * Monitor labs EMMA PALACIOS IP LITIGATION PAR[place]GAL Dec 06, 2018 08:49 TAMMI DELA CRUZ MD [facility] Dec 06, 2018 12:52
[2018-12-06] MEDS ORDERED: ASPIRIN E.C. 81 MG (ECOTRIN) TAB PO SCH (09:00)
[2018-12-06] MEDS ORDERED: NON-FORMULARY MEDICATION 1 EA EA (Omeprazole 40 MG) PO SCH (09:00)
[2018-12-06] MEDS ORDERED: NON-FORMULARY MEDICATION 1 EA EA (Duloxetine HCl 60 MG) PO SCH (09:00)
[2018-12-06] MEDS ORDERED: DULoxetine 30 MG (CYMBALTA) CAP PO SCH (09:00)
--- NOTE | 2018-12-06 09:13 | NUR ---
pt back on aurelia laurent in rm and voiced pt could drink and eat
[2018-12-06] MEDS: SENNA W/DOCUSATE (SENOKOT S) TABLET PO SCH (10:06)
[2018-12-06] MEDS: DOCUSATE SODIUM 100 MG (COLACE) CAP PO SCH (10:06)
[2018-12-06] MEDS: PROPRANOLOL 20 MG (INDERAL) TABLET PO SCH (10:06)
[2018-12-06] MEDS: oxyCODONE ER 10 MG (OxyCONTIN CR) TAB PO SCH (10:07)
[2018-12-06] MEDS: cefTRIAXone 1,000 MG/SWFI 10 ML IV PUSH IV SCH ×2 (10:36)
--- NOTE | 2018-12-06 13:08 | STRESS TEST ---
DATE OF SERVICE: 12/06/2018 RESTING AND POST REGADENOSON TECHNETIUM-99M TETROFOSMIN SPECT CT IMAGING Baseline images were carried out after injection of 9.94 mCi of technetium-99m Tetrofosmin. This was followed by 0.4 mg regadenoson and 30.1 mCi of technetium-99m Tetrofosmin for stress imaging. The electrocardiogram showed sinus rhythm with subtle nonspecific ST and T-wave abnormality and in the inferolateral leads. The electrocardiogram did not change significantly with regadenoson infusion. The patient noted nausea and headache following regadenoson infusion, which gradually improved. The patient had considerable motion during image acquisition, which limits interpretation. There does not appear to be distinct evidence of myocardial ischemia or infarction on the views available. Gated images show normal global left ventricular systolic function with normal regional wall motion. Left ventricular ejection fraction is calculated to be 83%. Left ventricular end diastolic volume is 15 mL. TID is absent (1.12). CONCLUSIONS: 1. The study is limited by considerable patient motion. 2. No distinct evidence of myocardial ischemia or infarction on this study. 3. Normal to hyperdynamic left ventricular systolic function with a calculated ejection fraction 83%. 4. No regional wall motion abnormalities seen on this study. Job ID: [id number] DocumentID: [id number] Dictated Date: 12/06/2018 09:53:35 [employer] Date: 12/06/2018 13:07:41 Dictated By: TAMMI DELA CRUZ MD, MA, FACP, FACC, MTDD
[2018-12-06] MEDS: ALPRAZolam 0.5 MG (XANAX) TAB PO PRN (13:10)
[2018-12-06] MEDS ORDERED: NITR100C10 PO (13:58)
--- NOTE | 2018-12-06 14:04 | Discharge Summary ---
Discharge Summary Hospital Course Problems/Dx: (1) Urinary tract infection Status: Acute (2) Hypokalemia Status: Resolved (3) Nausea and vomiting Status: Resolved (4) Abnormal EKG Status: Acute (5) Chest pain Status: Resolved (6) Abdominal pain Status: Resolved Hospital Course Date of Admission: Dec 04, 2018 at 16:00 Admission Diagnosis : Chest pain Family Physician/Provider: Jacobo Ramos DO Date of Discharge: 12/06/18 Discharge Diagnosis: Anxiety, Hypokalemia, Urinary Tract Infection Hospital Course: 68-year-old female who presented with chest pain and was found to be severely hypokalemic and also have a urinary tract infection. Her chest pain was thought to be due to an anxiety attack related to the recent passing of her ex-. She will complete a course of Macrobid for her UTI. Cardiology was consulted for her chest pain and she underwent a cardiac stress test which revealed no abnormalities. She will follow up with cardiology in about 2 weeks. She will follow up with her PCP. Labs and Pending Lab Test: Laboratory Tests 12/06/18 05:58: White Blood Count 6.7, Red Blood Count 5.05, Hemoglobin 13.7, Hematocrit 43, Mean Corpuscular Volume 86, Mean Corpuscular Hemoglobin 27, Mean Corpuscular Hemoglobin Concent 32, Red Cell Distribution Width 15.3H, Platelet Count 260, Mean Platelet Volume 9.0, Neutrophils (%) (Auto) 62, Lymphocytes (%) (Auto) 25, Monocytes (%) (Auto) 9, Eosinophils (%) (Auto) 4, Basophils (%) (Auto) 0, Neutrophils # (Auto) 4.1, Lymphocytes # (Auto) 1.7, Monocytes # (Auto) 0.6, Eosinophils # (Auto) 0.3, Basophils # (Auto) 0.0, Sodium Level 145, Potassium Level 4.1, Chloride Level 108H, Carbon Dioxide Level 26, Anion Gap 11, Blood Urea Nitrogen 5L, Creatinine 0.67, Estimat Glomerular Filtration Rate > 60, BUN/Creatinine Ratio 7, Glucose Level 81, Calcium Level 8.3L Microbiology 12/04/18 Blood Culture - Preliminary, Resulted No growth 12/04/18 Urine Culture - Preliminary, Resulted Gram Negative Bacillus 1 Home Meds Active Nitrofurantoin [place]-Mcr 100 mg (Nitrofurantoin Monohyd/M-Cryst) 100 Mg Capsule 100 Mg PO BID 3 Days Reported Combivent Respimat Inhal Zeigler (Albuterol/Ipratropium) 4 Gm Aero 1 Puff IH QID PRN Alprazolam 0.5 Mg Tablet 0.5 Mg PO TID PRN Propranolol HCl 40 Mg Tablet 40 Mg PO BID Omeprazole 40 Mg Capsule.dr 40 Mg PO DAILY Nystop (Nystatin) 60 Gm Powder TOP TID PRN Oxycontin (Oxycodone HCl) 10 Mg Tab.er.12h 10 Mg PO BID Duloxetine HCl 60 Mg Capsule.dr 60 Mg PO DAILY Oxycodone-Acetaminophen 10-325 (Oxycodone HCl/Acetaminophen) 1 Each Tablet 1 Tab PO TID PRN Zolpidem Tartrate 5 Mg Tablet 5 Mg PO HS PRN Cyclobenzaprine HCl 10 Mg Tablet 10 Mg PO TID PRN Assessment/Pt Instructions Take medications as prescribed. Take your full course of antibiotics even if you are feeling better. Follow up with your PCP. Follow up with Dr. Ferraro in about two weeks. Discharge Planning: <30 minutes discharge planning Discharge Instructions Discharge Diet: No Restrictions Activity as Tolerated: Yes Discharge Physical Examination Vital Signs Vital Signs Date Time Temp Pulse Resp B/P (MAP) Pulse Ox O2 Delivery O2 Flow Rate FiO2 12/06/18 10:40 36.6 12/06/18 09:20 Room Air 12/06/18 08:16 106 16 161/104 (123) 96 General Appearance: No Apparent Distress, WD/WN HEENT: PERRL/EOMI, Pharynx Normal Respiratory: Lungs Clear, Normal Breath Sounds, No Respiratory Distress Cardiovascular: Regular Rate, Rhythm, No Edema, No Murmur Gastrointestinal: Normal Bowel Sounds, Non Tender, Soft Extremity: Normal Inspection, Non Tender, No Pedal Edema Skin: Normal Color, Warm/Dry Neurologic/Psychiatric: Alert, Oriented x3 Allergies: Coded Allergies: Penicillins (Verified Allergy, Unknown, 12/04/18) sumatriptan (Verified Allergy, Unknown, 12/04/18) Discharge Summary Date of Admission Dec 04, 2018 at 16:00 Date of Discharge Discharge Date: Dec 06, 2018 Discharge Time: 14:03 Admission Diagnosis Acute gastroenteritis Consults/Procedures Consulations Cardiology Procedures Myocardial perfusion imaging Discharge Diagnosis Acute gastroenteritis CT abdomen with jejunal inflammation indicative of gastroenteritis Nausea and vomiting resolved at this point Continue to monitor Chest pain Hypokalemia EKG with T-wave inversions Troponin normal Potassium 2.8 on admission Magnesium 1.6 Monitor and replace electrolytes as needed Echocardiogram ordered Cardiology consulted, appreciate assistance Planning for stress test tomorrow Anxiety Depression Possibly contributing to chest pain with anxiety attacks Continue antidepressants and anxiolytics (1) Urinary tract infection Status: Acute (2) Hypokalemia Status: Resolved (3) Nausea and vomiting Status: Resolved (4) Abnormal EKG Status: Acute (5) Chest pain Status: Resolved (6) Abdominal pain Status: Resolved Clinical Quality Measures DVT/VTE Risk/Contraindication: Risk Factor Score Per Nursin RFS Level Per Nursing on Admit: 4+=Very High SRINIVAS BUTLER MD Dec 06, 2018 14:04
[2018-12-06 15:50] VITALS: BP 119/86
[2018-12-06 16:00] VITALS: BP 119/86
[2018-12-06] MEDS ORDERED: NITROFURANTOIN 100 MG (MACROBID) CAPSULE PO SCH (21:00)
--- OUTSIDE RECORDS SUMMARY | 2018-12-25 20:22 | XMS REPORT | Encounter Summary ---
Author Author [facility] Organization [facility] Address Unknown Phone Unavailable Care Team Providers Care Piano And Organ Refinisher Name Role Phone PCP Unavailable Encounter Details Care Team Description Date Type Department Keyshawn Burnett MD [address] [place] [address] [phone] Josef Virk DO [address], [facility] [address] [place] [address] [phone] Other encephalopathy 02/13/2012 [facility] - Encounter [address] 02/19/2012 [place] [address] Social History Date Tobacco Use Types Packs/Day Years Used Never Assessed Sex Assigned at Date Recorded Not on file Industry Job Start Date Occupation Not on file Not on file Not on file Travel End Travel History Travel Start No recent travel history available. documented as of this encounter Discharge Summaries * Keyshawn Burnett MD - 05/17/2013 6:59 PM COUNSELLING PSYCHOLOGIST REPORT Name: MARIZA MORGAN Date of : 1950 Attending Physician: PHYSICIAN LIZABETH Date of Admission: 02/13/2012 Date of Discharge: 02/19/2012 DISCHARGE DIAGNOSES: 1. Progressive reversible encephalopathy syndrome or PRES. 2. Hypertension. 3. Acute delirium. 4. Chronic obstructive pulmonary disease. 5. Hypokalemia. 6. Fibromyalgia. 7. Anxiety and depression. HOSPITAL COURSE: The patient is a 61-year-old white female who was transferred to [facility] for further evaluation and management for confusion. A CT scan of her head was suggestive of bilateral occipital lobe infarcts. The patient was placed on stroke pathway and consultation was obtained from Dr. Bhavani Botello from Neurology and Dr. Chris Andrew from Rehabilitation Services. MRA of head and neck did not show any significant stenosis or aneurysm. The patient was unable to complete MRI of her head, but as per Dr. Botello, she does have changes consistent with PRES. She recommended control of her blood pressure for which I initiated treatment with amlodipine and also add beta-blockers subsequently. The patient was treated with haloperidol and olanzapine for her delirium with progressive improvement. At this point her delirium has mostly resolved and her blood pressure is under good control with her most recent blood pressure being 134/77. The patient is ambulatory and very functional and is stable for discharge. She does not have any acute rehabilitation needs. Also note that her echocardiogram was within normal limits. Her HDL was 56. LDL 116. Hemoglobin A1c was 5.5%. I have advised the patient to follow up with Dr. Bhavani Botello MD in 1 month. More than 30 minutes were spent on this discharge. DISCHARGE MEDICATIONS: Electronically generated summary for 1. ADULT LOW DOSE ASPIRIN ORAL 81 mg Daily 2. ALBUTEROL SULFATE INHL 1 puff Every 4 hours PRN as needed for shortness of air 3. ALPRAZOLAM ORAL 0.5 MG 0.5 mg 4 times per day PRN as needed for anxiety 4. AMLODIPINE ORAL 10 mg Daily 5. ATORVASTATIN ORAL 20 mg Bedtime 6. CYMBALTA ORAL 60 MG 60 mg Daily 7. METOPROLOL TARTRATE ORAL 50 mg 2 times per day 8. SPIRIVA WITH HANDIHALER INHL 18 MCG Daily 9. TEMAZEPAM ORAL 15-30 mg Bedtime PRN 10. ZYPREXA ORAL 2.5 mg Bedtime for 7 days then stop Keyshawn Burnett MD Dictated By: cc: Bhavani Botello MD SELLING PSYCHOLOGIST documented in this encounter H&P Notes * Josef Virk, - 05/17/2013 7:04 PM COUNSELLING PSYCHOLOGIST REPORT Name: MARIZA MORGAN Date of : 1950 Attending Physician: PHYSICIAN LIZABETH Date of Admission: 02/13/2012 PRIMARY CARE PHYSICIAN: Jacobo Chambers DO. REASON FOR ADMISSION: The patient was transferred from [place] with bilateral parietal infarctions noted on the CT with change in mental status. HISTORY OF PRESENT ILLNESS: This is a 61-year-old female with a history of hypertension and chronic back pain, who presented to [facility] in [place], [place], after 3 days of progressive symptoms of confusion. I had to Warner Morgan, her , via telephone, to get an accurate history. The patient is confused. He told me that in the last year she has had a progressive decline in terms of her chronic pain and also was diagnosed last fall with COPD. She also was recently diagnosed with fibromyalgia. Her primary care physician had taken her off of oxycodone and started her on some hydrocodone. Subsequently, there was some suspicion that she was depressed and she was started on Cymbalta. However, the patient had some side effects with Cymbalta including somnolence and feeling very sleepy. However, it did help her with her panic attacks. The tells me that she was alert and oriented x3 up until probably Monday. Monday night she had trouble sleeping. She had 1 bout of diarrhea, which has now resolved. She had episodes of nausea and vomiting until Monday morning. The patient told her that she had fallen on Monday. This fall was unwitnessed. She said that she had hit her head at that time. By Monday her confusion continued to worsen. He called the ED in [place], and he was told to give her some Gatorade because they thought that perhaps the nausea and vomiting had caused some electrolyte abnormalities. He tried this, and because her confusion continued to get worse, he called EMS. In the ED the T-max was 100.3. She was in sinus tachycardia with heart rate of [address] scan of her head showed bilateral infarctions with left and right parietal lesions, questionable mass effect versus infarctions. She had some acute delirium and they gave her some Ativan, morphine, and also some normal saline. The decision was made over there to transfer the patient to [facility] for further care. The patient was transported to [facility]. It should be noted that her blood pressure in the hospital per chart review was 157/89. She has been saturating well at 97% on room air. REVIEW OF SYSTEMS: All 12 systems were assessed and are negative except for change in mental status, acute delirium, nausea, and vomiting. She had 1 episode of diarrhea, which has resolved. PAST MEDICAL HISTORY: 1. Chronic back pain. 2. Hypertension. 3. Fibromyalgia. 4. History of migraines. 5. History of history of COPD. 6. History of depression. PAST SURGICAL HISTORY: Hysterectomy. ALLERGIES: PENICILLAMINE, VIBRAMYCIN, AND SULFA. MEDICATIONS ON ADMISSION: I see per the transferring facility paperwork, that this has not been reconciled as of yet. I see - 1. Norvasc 10 mg p.o. daily. 2. Benazepril 10 mg p.o. daily. 3. Wellbutrin 75 mg p.o. b.i.d. 4. Diltiazem CD 120 mg p.o. daily. 5. Fluticasone 1 spray both nostrils. 6. Advair 250/50 mcg 1 puff inhaled b.i.d. 7. Amenia p.r.n. 8. Dulera (mometasone/formoterol). 9. Ambien 10 mg p.o. at bedtime p.r.n. FAMILY HISTORY: Negative for coronary artery disease or cancer. SOCIAL HISTORY: She has a smoking history of 1 pack per day for about 40 years. No alcohol use or illegal drug use. CODE STATUS/ADVANCED DIRECTIVES: She is a full code. The designee is Warner Morgan. He does not have DPOA paperwork he tells me. PHYSICAL EXAMINATION: VITAL SIGNS: Temperature is 99.9, pulse 95, respirations 20, blood pressure 136/83 and oxygen saturation 97% on room air. GENERAL: She is acutely confused. HEENT: Head is normocephalic. Her pupils are mildly dilated bilaterally. HEART: Regular rate and rhythm. No murmurs auscultated. LUNGS: Clear to auscultation bilaterally. ABDOMEN: Soft, nondistended, nontender. LOWER EXTREMITIES: No peripheral edema is seen. She does have a scab on her left anterior tibia. NEUROLOGIC: I was unable to obtain an accurate neurologic exam as the patient is acutely confused and does not participate. However, on muscle strength testing she does have +4/5 muscle strength equally bilaterally in the upper and lower extremities. She is able to get passively elevate her legs bilaterally. LABORATORY DATA/STUDIES: From [facility] a lipase is 121. Alcohol level less than 10. Urine drug screen was negative. Ammonia was 27. Her white count was 15.32, hemoglobin 14.6, platelets of 342,000. Her creatinine was 0.67, sodium 135, potassium 4.3, alkaline phosphatase 159 (elevated). AST and ALT were within normal limits. She did have 84% neutrophils on her CBC differential. CT scan of her head showed parietal lucencies bilaterally, suggestive of bilateral infarction or mass effect. KUB was negative. CT scan of her cervical spine showed no acute fracture, just showed some spondylosis. EKG from the [facility] showed some sinus tachycardia. ASSESSMENT/PLANS: This is a 61-year-old female with the following - 1. Acute cerebrovascular accident: We will initiate the cerebrovascular accident order set. We will check an MRI/MRA of the head and neck. We will get an echocardiogram and Physical Therapy and Speech Therapy evaluations. We will await Neurology evaluation as well. We will initiate aspirin therapy as well. She does have some word-finding difficulty and trouble with speech on my evaluation. 2. Hypertension: Blood pressure is stable at this time. We will allow for some permissive hypertension. 3. Acute delirium, likely secondary to central nervous system process: Given the questionable mass effect noted on the CT scan we will follow up on MRI as well. On my review of the CT scan from the outside facility, I do not see any edema or midline shift where Decadron would be indicated. 4. Fevers: Given the leukocytosis and elevated temperature of 100.9 here (I am told by the nursing staff) and with the elevation of neutrophils, I will cover her with Rocephin at this time. We will see how she does and how the fever curve goes into tomorrow. She certainly can have a lumbar puncture tomorrow if the MRI is unrevealing. However, I strongly suspect that she is suffering from an acute cerebrovascular accident and this may be an inflammatory fever. 5. Chronic pain syndrome: We will make IV Dilaudid p.r.n. available. 6. Disposition: The patient is a full code at this time. She will have SCDs for deep venous thrombosis prophylaxis and we will try to control her agitation with IV Haldol p.r.n. Follow up with Neurology recommendations and imaging studies. Josef Virk DO Dictated By: cc: Jacobo Chambers DO, [place], [place] SELLING PSYCHOLOGIST documented in this encounter Consult Notes * Chris Andrew MD - 05/17/2013 7:03 PM COUNSELLING PSYCHOLOGIST REPORT Name: MARIZA MORGAN Date of : 1950 Attending Physician: LIZABETH, PHYSICIAN Consulting Physician: Chris Andrew MD Date of Consultation: 02/14/2012 Referring physician: Bhavani Botello MD REASON FOR CONSULTATION: Evaluate for rehabilitation needs in a patient with confusion and stroke. HISTORY OF PRESENT ILLNESS: The patient is a 61-year-old female who has had about a 1-year history of chronic pain syndrome consistent with fibromyalgia, who was admitted after she developed somnolence and confusion over the weekend. She apparently went to the local hospital in [facility] and was found to have evidence of bifrontal lobe stroke versus a mass. Transferred here for further workup. Here, she did have a low-grade fever; temperature of 100.3. In any event, she remains confused. She states that she is thinking about the same. She has noted that her short-term memory has been impaired. She denies any focal weakness. She does endorse blurred vision. She believe she may have some diplopia as well. She denies any focal weakness. She states she has had multiple falls at home. She lives with her of 14 years in [place], [place]. She ambulated without assistive devices and independent with basic ADLs. 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 She has about a 30-pack year history of smoking and quit about a year ago. Denies use of alcohol. ALLERGIES: PENICILLAMINE, SULFA, VIBRAMYCIN, CEPHALEXIN. PAST MEDICAL HISTORY: Notable for what is described above as well as hypertension, chronic low back pain, COPD, history of migraines. She has had some depression. MEDICATIONS: Reviewed and noted on the electronic medical record. PRIOR FUNCTION/SOCIAL HISTORY: As described above. She lives in a single-level dwelling with a couple of steps into it. CURRENT FUNCTION: She has not been seen by therapy as of yet. FAMILY HISTORY: Notable for polio, diabetes. REVIEW OF SYSTEMS: A 14-point review of systems is noted for what is described above. In addition, she has had some nausea, vomiting. She has had some loose stools and diarrhea. The rest of her 14-point review of systems is negative. PHYSICAL EXAMINATION: VITAL SIGNS: Temperature 98.5, pulse 93, blood pressure 174/99, respirations 18, oxygen saturation 96% on room air. GENERAL: She is cooperative to examination. HEENT: She will scan to the right and left. Visual thacker appear to be intact. Oral mucosa is pink and moist. Visual acuity appears to be generally intact. Extraocular movements intact. NECK: Supple with no lymphadenopathy. CHEST: Clear to auscultation. HEART: Regular rate and rhythm. ABDOMEN: Soft, nontender, nondistended. Normoactive bowel sounds. EXTREMITIES: Negative for cyanosis or clubbing. She has some ecchymoses on the right knee and right forearm. NEUROLOGIC: She is alert and oriented to name and location but details remain sketchy. Her speech is fluent with good repetition and comprehension. Strength to the upper limbs showed her abductors and flexors, although flexor extensors and block operator grade out 5/5 through the legs, hip flexors, knee extensors, plantar flexors 5/5. Motor movements are somewhat slow but there is no cogwheeling. IMPRESSION: Confusion/encephalopathy. She has a gait disturbance with history of falls and evidence of bilateral strokes. PLAN: 1. Agree with MRI of the head. 2. Will get speech therapy working on cognitive issues. 3. Will have PT and OT work on mobility and self care as well as coordination of strength and visual scanning. 4. She may need acute inpatient rehabilitation once her workup is completed and she is medically stabilized. Given the fact that she lives in [facility], the [facility] has a small rehabilitation unit; that would be a good option for her. Thank you for this consultation. Hopefully these efforts are helpful to you. I will follow along with you. Chris Andrew MD Dictated By: cc: Jacobo Courtney DO SELLING PSYCHOLOGIST * Bhavani Botello MD - 05/17/2013 7:03 PM COUNSELLING PSYCHOLOGIST REPORT Name: MARIZA MORGAN Date of : 1950 Attending Physician: PHYSICIAN LIZABETH Consulting Physician: Bhavani Botello MD Date of Consultation: 02/14/2012 REASON FOR CONSULTATION: Stroke. HISTORY OF PRESENT ILLNESS: The patient is a 61-year-old right-handed white female who was transferred from [facility] to [facility] yesterday for an abnormal CAT scan and abnormal behaviors. She was really not able to provide much history, but her was present. About 5 days ago she became very hot. She turned up the heat in the room, so he went to sleep in a different room. She apparently was up all night with nausea and vomiting. She did better the next day, but 3 days ago became very confused. This is very different from her baseline. She was unstable in her walking and she was not sleeping. Her became very concerned about leaving her alone. She was doing a lot of bizarre behaviors like trying to lie down on the dining room table or on the bathroom counter. She was doing things that did not make sense. Her speech then became unintelligible. She did not seem to recognize her . He called her physician to schedule an appointment. When things progressively worsened, EMS was called as she was uncooperative to go to the hospital and then transferred here. She is much better today. There has never been similar episodes. There was some concern that this was related to medications as she has taken multiple medications for her mood, fibromyalgia, and chronic pain. There was also a concern that this was related to her chronic narcotics. The patient feels much better. She has never had similar prior episodes. She does report that about a year ago she had some unsteadiness with walking, but did not have cognitive issues. Over those several months though, he has noted some forgetfulness at times and some difficulty performing more complex tasks such as learning new things on a computer. She denies headache or changes in her vision. There has been no facial numbness or droop. No trouble with swallowing. No focal weakness. In fact, he reports that she was quite agitated and required multiple assistance at the outside emergency room with no evidence of weakness. PAST MEDICAL HISTORY: Positive for fibromyalgia with chronic pain on narcotics, panic attacks and anxiety disorder and depression. She also was recently diagnosed with COPD and hypertension. There is a remote history of migraines. PAST SURGICAL HISTORY: Hysterectomy. MEDICATIONS: Medications at home are: 1. Norvasc. 2. Benazepril. 3. Wellbutrin. 4. Diltiazem. 5. Fluticasone. 6. Advair. 7. Amenia p.r.n. 8. Sular. 9. Ambien. 10. She was treated with vancomycin and Rocephin, at least one dose. ALLERGIES: SHE IS ALLERGIC TO CEPHALEXIN, PENICILLAMINE, SULFA, AND VIBRAMYCIN. SOCIAL HISTORY: The patient is and lives with her for the past 15 years. 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 She and he quit smoking a year ago. She does not drink alcohol. FAMILY HISTORY: Mother with polio. Father with diabetes and tobaccoism. REVIEW OF SYSTEMS: There had been nausea, vomiting, and subjective fevers several days ago. There were also issues with sleep. She denies chest pain, shortness of breath, cough, abdominal pain, or pedal edema. The remainder of twelve-point review of systems is negative and is documented in the chart. PHYSICAL EXAMINATION: VITAL SIGNS: Temperature 98.5, pulse 107, respiratory rate 20, blood pressure 141/96. On admit, blood pressure was 136/83. GENERAL: She is a well-developed, well-nourished pleasant female who is resting in bed comfortably in no acute distress. NECK: Her neck is supple. There is no nuchal rigidity. No carotid bruits. CARDIOVASCULAR: Regular rate and rhythm without murmur. MENTAL STATUS: She is alert to person, place, and time. She recognizes her . She is able to name simple objects. Her attention and concentration are intact. She knew the month and the year. She had trouble stating the President and named President Ant, although she did start to say President Obronnell. She was able to follow commands. She was a bit repetitive. Fundi: Left disk is without edema. Cranial nerves: Her pupils are dilated, but reactive and equal. Extraocular movements are full without nystagmus. Face symmetric, facial sensation is intact to light touch. Tongue midline, palate elevates bilaterally. Shoulder shrug is equal. Hearing is intact to finger rubbing bilaterally. There appears to be a left upper quadranopsia on visual thacker to confrontation. MOTOR: Strength is 5/5 throughout. Her tone is normal. There are no involuntary movements. Sensation is intact to light touch and pinprick throughout. DTRs are 2/4 throughout. Plantar responses are downgoing. COORDINATION: No dysmetria on [id number] or metd-oe-omym. Gait deferred. LABORATORY, X-RAY AND SPECIAL PROCEDURES: I reviewed the noncontrasted CT scan of her head, which showed bilateral occipital areas of hypodensity seen bilaterally. There is no bleed. EKG - sinus rhythm. PT 13.9, INR 1.1, PTT 26. TSH 1.42. Total thyroxine 5.2. Cholesterol 200, triglycerides 141, HDL 56, LDL 116, albumin 4. Urinalysis - nitrite negative, leukocyte esterase negative. Sodium 141, potassium 3.1, chloride 107, CO2 23, BUN 23, creatinine 0. glucose 97. White blood cell count 12.8, hemoglobin 13.4, hematocrit 40, platelet count 286,000. IMPRESSION: 1. Stroke, multiple and bilaterally with evidence of bilateral parieto-occipital hypodensities in a patient with encephalopathy and delirium over the course of several days. Must rule out embolic phenomenon. Rule out posterior reversible leukoencephalopathy related to hypertension, although blood pressure was not significantly elevated here, she has had problems with blood pressure issues in the past. I am also concerned about infectious process. I am concerned about the possibility of brainstem ischemia as well, with her symptomatology of nausea, vomiting, and gait ataxia. 2. Hypertension. 3. Fibromyalgia with chronic pain syndrome and chronic narcotics. 4. Fever and leukocytosis. 5. Chronic obstructive pulmonary disease. 6. Anxiety and depression. RECOMMENDATIONS: 1. MRI of the brain. 2. MR angiogram of the head and neck. 3. Telemetry monitoring. 4. Stroke pathway. 5. Would recommend beginning statin for a goal LDL less than 100. 6. Hemoglobin A1c. 7. Echocardiogram with bubble study. 8. Check sedimentation rate, ASIYA, and RPR. 9. Would consider spinal fluid analysis pending above results to exclude infectious process or evidence of inflammatory conditions such as DIRECTOR OF [employer] SALES vasculitis. 10. The above was discussed in detail with the patient and her . 11. We will follow along with you. Thank you for this consultation. Bhavani Botello MD Dictated By: cc: SELLING PSYCHOLOGIST documented in this encounter Plan of Treatment Not on filedocumented as of this encounter Procedures Comments Procedure Name Priority Date/Time Associated Diagnosis GLUCOSE POC Routine 02/18/2012 7:41 AM COUNSELLING PSYCHOLOGIST GLUCOSE POC Routine 02/18/2012 1:11 AM COUNSELLING PSYCHOLOGIST GLUCOSE POC Routine 02/17/2012 5:03 PM COUNSELLING PSYCHOLOGIST GLUCOSE POC Routine 02/17/2012 12:20 PM COUNSELLING PSYCHOLOGIST GLUCOSE POC Routine 02/17/2012 8:32 AM COUNSELLING PSYCHOLOGIST BASIC METABOLIC PANEL Routine 02/17/2012 1:36 AM COUNSELLING PSYCHOLOGIST GLUCOSE POC Routine 02/16/2012 9:11 PM COUNSELLING PSYCHOLOGIST GLUCOSE POC Routine 02/16/2012 6:03 PM COUNSELLING PSYCHOLOGIST GLUCOSE POC Routine 02/16/2012 11:36 AM COUNSELLING PSYCHOLOGIST GLUCOSE POC Routine 02/16/2012 7:24 AM COUNSELLING PSYCHOLOGIST GLUCOSE POC Routine 02/16/2012 4:54 AM COUNSELLING PSYCHOLOGIST BASIC METABOLIC PANEL Routine 02/16/2012 1:32 AM COUNSELLING PSYCHOLOGIST GLUCOSE POC Routine 02/16/2012 1:03 AM COUNSELLING PSYCHOLOGIST GLUCOSE POC Routine 02/15/2012 5:50 PM COUNSELLING PSYCHOLOGIST GLUCOSE POC Routine 02/15/2012 11:29 AM COUNSELLING PSYCHOLOGIST VANCOMYCIN TROUGH Routine 02/15/2012 10:22 AM COUNSELLING PSYCHOLOGIST GLUCOSE POC Routine 02/15/2012 7:52 AM COUNSELLING PSYCHOLOGIST CBC AND DIFF (MANUAL DIFF Routine 02/15/2012 IF NECESSARY) 1:16 AM COUNSELLING PSYCHOLOGIST BASIC METABOLIC PANEL Routine 02/15/2012 1:16 AM COUNSELLING PSYCHOLOGIST MRA HEAD WO CONTRAST Routine 02/14/2012 8:54 PM COUNSELLING PSYCHOLOGIST GLUCOSE POC Routine 02/14/2012 5:03 PM COUNSELLING PSYCHOLOGIST ECHO TRANSTHORACIC Routine 02/14/2012 4:37 PM COUNSELLING PSYCHOLOGIST GLUCOSE POC Routine 02/14/2012 1:25 PM COUNSELLING PSYCHOLOGIST GLUCOSE POC Routine 02/14/2012 9:58 AM COUNSELLING PSYCHOLOGIST CULTURE, BLOOD WITH SANDY Routine 02/14/2012 3:50 AM COUNSELLING PSYCHOLOGIST LIPID PANEL Routine 02/14/2012 3:50 AM COUNSELLING PSYCHOLOGIST HEMOGLOBIN A1C Routine 02/14/2012 3:50 AM COUNSELLING PSYCHOLOGIST ERYTHROCYTE SEDIMENTATION Routine 02/14/2012 RATE 3:50 AM COUNSELLING PSYCHOLOGIST CREATINE KINASE Routine 02/14/2012 3:50 AM COUNSELLING PSYCHOLOGIST COMPREHENSIVE METABOLIC Routine 02/14/2012 PANEL 3:[address] HEAD WO CONTRAST Routine 02/14/2012 1:51 AM COUNSELLING PSYCHOLOGIST GLUCOSE POC Routine 02/14/2012 1:40 AM COUNSELLING PSYCHOLOGIST GLUCOSE POC Routine 02/14/2012 12:08 AM COUNSELLING PSYCHOLOGIST ASIYA QUALITATIVE Routine 02/13/2012 9:45 PM COUNSELLING PSYCHOLOGIST CULTURE, BLOOD Routine 02/13/2012 9:43 PM COUNSELLING PSYCHOLOGIST TROPONIN Routine 02/13/2012 9:43 PM COUNSELLING PSYCHOLOGIST TOTAL THYROXINE Routine 02/13/2012 9:43 PM COUNSELLING PSYCHOLOGIST THYROID STIMULATING Routine 02/13/2012 [place] 9:43 PM COUNSELLING PSYCHOLOGIST RAPID PLASMA REAGIN Routine 02/13/2012 9:43 PM COUNSELLING PSYCHOLOGIST MAGNESIUM Routine 02/13/2012 9:43 PM COUNSELLING PSYCHOLOGIST COMPLETE BLOOD COUNT Routine 02/13/2012 9:43 PM COUNSELLING PSYCHOLOGIST COAGULATION SCREEN Routine 02/13/2012 9:43 PM COUNSELLING PSYCHOLOGIST BASIC METABOLIC PANEL Routine 02/13/2012 9:43 PM COUNSELLING PSYCHOLOGIST GLUCOSE POC Routine 02/13/2012 8:29 PM COUNSELLING PSYCHOLOGIST URINE NITRITE Routine 02/13/2012 6:40 PM COUNSELLING PSYCHOLOGIST URINALYSIS (INCLUDES Routine 02/13/2012 MICROSCOPIC REVIEW, IF 6:40 PM COUNSELLING PSYCHOLOGIST INDICATED) CULTURE, URINE Routine 02/13/2012 6:40 PM COUNSELLING PSYCHOLOGIST documented in this encounter Results * GLUCOSE POC (02/18/2012 7:41 AM COUNSELLING PSYCHOLOGIST) Only the most recent of 20 results within the time period is included. Glucose POC 97 70 - 100 MG/DL [facility] Specimen Blood Performing Organization Address City/State/Zipcode Phone Number [facility] [address] [place] [address] [facility] * Basic Metabolic Panel (02/17/2012 1:36 AM COUNSELLING PSYCHOLOGIST) Only the most recent of 4 results within the time period is included. Sodium 136 133 - 147 MEQ/L [facility] Potassium 3.8 3.5 - 5.1 MEQ/L [facility] Chloride 104 96 - 112 MEQ/L [facility] Carbon Dioxide 25 20 - 30 MEQ/L [facility] Anion Gap 6 5 - 17 [facility] Creatinine 0.6 0.4 - 1.1 MG/DL [facility] Blood Urea 16 7 - 26 MG/DL [facility] Nitrogen Glucose 102 (H) 70 - 100 MG/DL [facility] Calcium 9.8 8.4 - 10.2 MG/DL [facility] eGFR Female AA 123 [facility] Comment: Chronic Kidney Disease less than 60 mL/min/1.73 sq.m Kidney failure less than 15 mL/min/1.73 sq.m eGFR Female 102 [facility] Non-AA Comment: Chronic Kidney Disease less than 60 mL/min/1.73 sq.m Kidney failure less than 15 mL/min/1.73 sq.m Specimen Blood Performing Organization Address [facility] Phone Number [facility] [address] [place] [address] [facility] * Vancomycin Trough (02/15/2012 10:22 AM COUNSELLING PSYCHOLOGIST) VANCOMYCIN 5 (L) 10 - 20 UG/ML [facility] TROUGH Specimen Blood Performing Organization Address [facility] Phone Number [facility] [address] [place] [address] [facility] * CBC and Diff (manual diff if necessary) (02/15/2012 1:16 AM COUNSELLING PSYCHOLOGIST) WBC 10.61 4.00 - 11.00 TH/UL [facility] RBC 4.66 4.00 - 5.00 MIL/UL [facility] Hemoglobin 12.5 12.0 - 15.0 G/DL [facility] Hematocrit 37 36 - 45 % [facility] MCV 79 (L) 80 - 99 FL [facility] MCH 27 27 - 34 PG [facility] MCHC 34 32 - 36 % [facility] RDW 13.4 9.0 - 14.5 % [facility] Platelet Count 273 140 - 400 TH/UL [facility] MPV 9.0 (L) 9.4 - 12.3 FL [facility]QUEST % Neutrophils 76 45 - 78 % [facility] %Lymphocytes 17 15 - 47 % [facility] %Monocytes 7 0 - 12 % [facility] # Basophils 0.02 0.00 - 0.10 TH/UL [facility] %Basophils 0 0 - 2 % [facility] # Monocytes 0.72 0.20 - 0.90 TH/UL [facility] # Lymphocytes 1.80 1.00 - 3.30 TH/UL [facility] # Granulocytes 8.07 (H) 1.70 - 6.80 TH/UL [facility] Specimen Blood Performing Organization Address City/State/Zipcode Phone Number [facility] [address] [place] [address] [facility] * MRA Head wo contrast (02/14/2012 8:54 PM COUNSELLING PSYCHOLOGIST) Specimen Narrative Performed At REPORT [facility] Patient: MARIZA MORGAN Phone #: Med Rec#: [id number] Sex: F : 1950 [place]#: [id number] Location: EA9 9434 01 Check-in#: [id number] Procedure Requested: [id number] MRA HEAD WO CONTRAST Reason For Exam: KNOWN CVA Exam Ordered: 02/13/20122035 Exam Date/Time: 02/14/20122143 Check-in Date/Time: 02/14/20122152 Attendin HOSPITALIST, PHYSICIAN "" Requestin HOSPITALIST, PHYSICIAN "" Referrin DELVIS, REFERRING DR Primary Care: [id number] JACOBO CHAMBERS "" DO MRA HEAD WO CONTRAST DATE: Feb 14, 2012 09:44:00 PM INDICATION: Confusion. TIA Technique: 3D time of flight MRA of the [place] was performed without contrast. MIP reconstruction was performed. Limited diffusion weighted sequences were additionally performed. Findings: Both distal internal carotid, anterior, middle and posterior cerebral arteries are normal. The vertebrobasilar system is normal. The right posterior cerebral artery is in origin. No aneurysm or AVM is seen. No stenosis or occlusion is identified. Small areas of subcortical restricted diffusion in the bilateral posterior occipital lobes consistent with infarct. IMPRESSION: Normal MRA of the [place]. Small areas of subcortical restricted diffusion in the bilateral posterior occipital lobes consistent with infarct/hypertensive encephalopathy. READING SITE: [facility]. ATTESTATION STATEMENT: The Staff Radiologist has personally reviewed the images and dictated, reviewed, or edited the final report. Signed (Authenticated, Released) Date-Time: 02/15/2012 0951 [employer] Operator Truck Driver- KELLEY YANES M.D., Staff Radiologist Dictated By- BRONWYN HANSEN M.D., Resident Staff Physician- KELLEY YANES M.D., Staff Radiologist Authenticated By- KELLEY JOAQUÍN M.D., Staff Radiologist Procedure Note Interface, Rad Conversion - 05/17/2013 10:15 PM COUNSELLING PSYCHOLOGIST REPORT Patient: MARIZA MORGAN Phone #: Elevate HR Rec#: [id number] Sex: F : 1950 [place]#: [id number] Location: [facility] 9434 Check-in#: [id number] Procedure Requested: [id number] MRA HEAD WO CONTRAST Reason For Exam: KNOWN CVA Exam Ordered: 02/13/20122035 Exam Date/Time: 02/14/20122143 Check-in Date/Time: 02/14/20122152 Attendin HOSPITALIST PHYSICIAN "" Requestin HOSPITALIST PHYSICIAN "" Referrin DELVIS, REFERRING Primary Care: [id number] JACOBO CHAMBERS "" DO MRA HEAD WO CONTRAST DATE: Feb 14, 2012 09:44:00 PM INDICATION: Confusion. TIA Technique: 3D time of flight MRA of the [place] was performed without contrast. MIP reconstruction was performed. Limited diffusion weighted sequences were additionally performed. Findings: Both distal internal carotid, anterior, middle and posterior cerebral arteries are normal. The vertebrobasilar system is normal. The right posterior cerebral artery is in origin. No aneurysm or AVM is seen. No stenosis or occlusion is identified. Small areas of subcortical restricted diffusion in the bilateral posterior occipital lobes consistent with infarct. IMPRESSION: Normal MRA of the [place]. Small areas of subcortical restricted diffusion in the bilateral posterior occipital lobes consistent with infarct/hypertensive encephalopathy. READING SITE: [facility]. ATTESTATION STATEMENT: The Staff Radiologist has personally reviewed the images and dictated, reviewed, or edited the final report. Signed (Authenticated, Released) Date-Time: 02/15/2012 0951 [employer] Owner Operator Truck Driver- KELLEY YANES M.D., Staff Radiologist Dictated By- BRONWYN HANSEN M.D., Resident Staff Physician- KELLEY YANES M.D., Staff Radiologist Authenticated By- KELLEY YANES M.D., Staff Radiologist Performing Organization Address City/State/[facility] Phone Number [facility] * ECHO TRANSTHORACIC (02/14/2012 4:37 PM COUNSELLING PSYCHOLOGIST) Specimen Narrative Performed At [facility] RAD ECHOCARDIOGRAM REPORT [facility] Name: MARIZA MORGAN Date: 02/14/2012 16:37 Chart #: [id number] : 1950 Location: [facility] IP Sono: lmurrell Age: 61 Gender: F Referring: KEYSHAWN DICKEY Room #: 9434 Fellow: Indication -TIA Procedure -[id number] Complete Echo 2D/Colorflow/Doppler [id number] BP: 174 / 99 HR: 89 Ht: 62 Wt: 121 BSA: 1.5 2D ECHO MEASUREMENTS LV Diastolic Diameter Bas 3.2 cm 3.6-5.4 IVS Diastolic Thickness 0.89 cm 0.6-1.1 LV Systolic Diameter Base 1.7 cm 2.3-4.0 LVPW Diastolic Thickness 0.86 cm 0.6-1.1 LA Systolic Diameter LX 2.4 cm 2.3-3.8 AORTIC VALVE DOPPLER AV Peak Velocity 111 cm/s LVOT AV Melchor Ratio 0.86 AV Peak Gradient 4.9 mmHg WALL SEGMENT ANALYSIS: ROUTINE LVSI : 1 %FM : 100 LAD : 1 LCX : 1 RCA : 1 FINDINGS LV Ejection Fraction: 60 Technically difficult study. Optison was injected to enhance left ventricular border definition. Normal left ventricular systolic function, with an estimated ejection fraction of 60%. Normal wall thickness. Normal wall motion. Normal left ventricular chamber dimensions. Normal right ventricular size and systolic function. Normal right and left atrial size. Aortic valve is not well visualized. Normal mitral valve with trivial regurgitation. Normal pulmonic valve with trivial regurgitation. Normal tricuspid valve with trivial regurgitation. Unable to accurately estimate pulmonary artery pressure. No pericardial effusion. IVC is responsive to inspiration indicating normal RA pressure. Normal ascending aorta. No obvious intracardiac masses or thrombi. No evidence for right to left shunting, following an injection of agitated saline. CONCLUSIONS: 1. Normal left ventricular systolic function, with an estimated ejection fraction of 60%. 2. No significant valvular disease. 3. No evidence for asfet-xo-jmaw-shunting following an injection of agitated saline. Dr Leta Blackburn (Electronically Signed) Final Date: 14 February 2012 18:13 Procedure Note Interface, Rad Conversion - 05/28/2013 11:34 AM CDT RESULT ECHOCARDIOGRAM REPORT [facility] Name: MARIZA MORGAN Date: 02/14/2012 16:37 Chart #: [id number] : 1950 Location: [facility] Sono: ana maría Age: 61 Gender: F Referring: KEYSHAWN DICKEY Room #: 9434 Fellow: Indication -TIA Procedure -[id number] Complete Echo 2D/Colorflow/Doppler [id number] BP: 174 / 99 HR: 89 Ht: 62 Wt: 121 BSA: 1.5 2D ECHO MEASUREMENTS LV Diastolic Diameter Bas 3.2 cm 3.6-5.4 IVS Diastolic Thickness 0.89 cm 0.6-1.1 LV Systolic Diameter Base 1.7 cm 2.3-4.0 LVPW Diastolic Thickness 0.86 cm 0.6-1.1 LA Systolic Diameter LX 2.4 cm 2.3-3.8 AORTIC VALVE DOPPLER AV Peak Velocity 111 cm/s LVOT AV Melchor Ratio 0.86 AV Peak Gradient 4.9 mmHg WALL SEGMENT ANALYSIS: ROUTINE LVSI : 1 %FM : 100 LAD : 1 LCX : 1 RCA : 1 FINDINGS LV Ejection Fraction: 60 Technically difficult study. Optison was injected to enhance left ventricular border definition. Normal left ventricular systolic function, with an estimated ejection fraction of 60%. Normal wall thickness. Normal wall motion. Normal left ventricular chamber dimensions. Normal right ventricular size and systolic function. Normal right and left atrial size. Aortic valve is not well visualized. Normal mitral valve with trivial regurgitation. Normal pulmonic valve with trivial regurgitation. Normal tricuspid valve with trivial regurgitation. Unable to accurately estimate pulmonary artery pressure. No pericardial effusion. IVC is responsive to inspiration indicating normal RA pressure. Normal ascending aorta. No obvious intracardiac masses or thrombi. No evidence for right to left shunting, following an injection of agitated saline. CONCLUSIONS: 1. Normal left ventricular systolic function, with an estimated ejection fraction of 60%. 2. No significant valvular disease. 3. No evidence for egqhz-tm-fkop-shunting following an injection of agitated saline. Dr Leta Blackburn (Electronically Signed) Final Date: 14 February 2012 18:13 Performing Organization Address City/State/Zipcode Phone Number [facility] [address] [facility] [place] [address] * Culture, Blood with SANDY (02/14/2012 3:50 AM COUNSELLING PSYCHOLOGIST) Specimen Blood Narrative Performed At [facility] Specimen/Source: BLOOD/BLOOD Collected: 02/14/2012 03:50 Status: Final Last Updated: 02/20/2012 08:40 Culture result (Final) No Growth at 5 days Performing Organization Address City/[facility]/[employer] Phone Number RL [address] [place] [address] [facility] * Comprehensive Metabolic Panel (02/14/2012 3:50 AM COUNSELLING PSYCHOLOGIST) Albumin 4.0 3.5 - 5.0 G/DL [facility] Aspartate 24 15 - 46 IU/L [facility] Aminotransferas e Bilirubin Total 0.8 0.2 - 1.3 MG/DL [facility] Protein Total 6.2 6.0 - 8.2 G/DL [facility] Serum Calcium 9.5 8.4 - 10.2 MG/DL [facility] Creatinine 0.6 0.4 - 1.1 MG/DL [facility] Glucose 97 70 - 100 MG/DL [facility] Alkaline 109 42 - 140 IU/L [facility] Phosphatase Sodium 141 133 - 147 MEQ/L [facility] Potassium 3.1 (L) 3.5 - 5.1 MEQ/L [facility] Chloride 107 96 - 112 MEQ/L [facility] Carbon Dioxide 23 20 - 30 MEQ/L [facility] Blood Urea 23 7 - 26 MG/DL [facility] Nitrogen Anion Gap 12 5 - 17 [facility] Alanine 31 13 - 69 IU/L [facility] Aminotransferas e eGFR Female AA 123 [facility] Comment: Chronic Kidney Disease less than 60 mL/min/1.73 sq.m Kidney failure less than 15 mL/min/1.73 sq.m eGFR Female 102 [facility] Non-AA Comment: Chronic Kidney Disease less than 60 mL/min/1.73 sq.m Kidney failure less than 15 mL/min/1.73 sq.m Specimen Blood Performing Organization Address City/State/Zipcode Phone Number [facility] [address] [place] [address] [facility] * Creatine Kinase (02/14/2012 3:50 AM COUNSELLING PSYCHOLOGIST) Creatine Kinase 81 IU/L [facility] Comment: White Female: 30 - 160 IU/L Black Female: 30 - 430 IU/L White Male: 40 - 425 IU/L Black Male: 50 - 850 IU/L Specimen Blood Performing Organization Address [facility] Phone Number RL [address] [place] [address] [facility] * Lipid Panel (02/14/2012 3:50 AM COUNSELLING PSYCHOLOGIST) Cholesterol 200 100 - 200 MG/DL [facility] Triglycerides 141 0 - 150 MG/DL [facility] HDL Cholesterol 56 40 - 110 MG/DL [facility] LDL Cholesterol 116 (H) 0 - 99 MG/DL [facility] Cholesterol/HDL 3.6 0.0 - 4.5 [facility] Ratio Non-HDL 144 (H) 0 - 130 MG/DL [facility] Cholesterol Specimen Blood Performing Organization Address [facility] Phone Number R [address] [place] [address] [facility] * Hemoglobin A1C (02/14/2012 3:50 AM COUNSELLING PSYCHOLOGIST) HEMOGLOBIN A1C 5.5 4.0 - 5.6 % [facility] Comment: Non-diabetic 4.0 - 5.6 % Prediabetes 5.7 - 6.4 % Diabetes >=6.5 % Specimen Blood Performing Organization Address [facility] Phone Number [address] [place] [address] [facility] * Erythrocyte Sedimentation Rate (02/14/2012 3:50 AM COUNSELLING PSYCHOLOGIST) Sed Rate 7 0 - 17 MM/H [facility] Specimen Blood Performing Organization Address [facility] Phone Number [facility] [address] [place] [address] [facility] * CT Head wo contrast (02/14/2012 1:51 AM COUNSELLING PSYCHOLOGIST) Specimen Narrative Performed At [facility] Patient: MARIZA MORGAN Phone #: Elevate HR Rec#: [id number] Sex: F : 1950 [place]#: [id number] Location: [facility] [address] [place] [address]-in#: [id number] Procedure Requested: [id number] CT HEAD WO CONTRAST Reason For Exam: MENTAL STATUS CHANGE Exam Ordered: 02/14/2012 014 Exam Date/Time: 02/14/2012 0217 Check-in Date/Time: 02/14/2012 0144 Attendin HOSPITALIST, PHYSICIAN "" Requestin JOSEF VIRK Referrin NO, REFERRING Primary Care: [id number] JACOBO CHAMBERS "" DO CT HEAD WO CONTRAST DATE: Feb 14, 2012 02:17:00 AM INDICATION: MENTAL STATUS CHANGE Comparison: CT head from [facility] dated February 13, 2012 Technique: Multiple axial tomographic images were obtained through the head without contrast enhancement. Findings: There is no midline shift. No intra or extra-axial mass or hemorrhage is identified. Unchanged ill-defined hypoattenuation the bilateral posterior occipital lobes. Cerebral volume loss. Periventricular hypoattenuation consistent with chronic small vessel ischemic disease. The castro-white matter junction is otherwise normal. The ventricles are age appropriate in size shape and location. Opacification of the left frontal sinus. Otherwise the visible sinuses and orbits are normal. No soft tissue abnormality seen. No acute osseous abnormality. No lytic calvarial lesions. IMPRESSION: Stable ill-defined hypoattenuation in the bilateral posterior occipital lobes suggestive of acute infarct/ hypertensive encephalopathy. No intracranial hemorrhage. Cerebral atrophy and chronic small vessel ischemic disease. READING SITE: [facility]. ATTESTATION STATEMENT: The Staff Radiologist has personally reviewed the images and dictated, reviewed, or edited the final report. Signed (Authenticated, Released) Date-Time: 02/14/2012 1312 [employer] Operator Truck Driver- KELLEY YANES M.D., Staff Radiologist Dictated By- BRONWYN HANSEN M.D., Resident Staff Physician- KELLEY YANES M.D., Staff Radiologist Authenticated By- KELLEY YANES M.D., Staff Radiologist Procedure Note Interface, Rad Conversion - 05/17/2013 10:17 PM COUNSELLING PSYCHOLOGIST REPORT Patient: MARIZA MORGAN Phone #: Med Rec#: [id number] Sex: F : 1950 [place]#: [id number] Location: EA9 9434 01 Check-in#: [id number] Procedure Requested: [id number] CT HEAD WO CONTRAST Reason For Exam: MENTAL STATUS CHANGE Exam Ordered: 02/14/2012 0142 Exam Date/Time: 02/14/2012216 Check-in Date/Time: 02/14/2012143 Attendin HOSPITALIST, PHYSICIAN "" Requestin JOSEF VIRK Referrin DELVIS, REFERRING DR Primary Care: [id number] JACOBO CHAMBERS "" DO CT HEAD WO CONTRAST DATE: Feb 14, 2012 02:17:00 AM INDICATION: MENTAL STATUS CHANGE Comparison: CT head from [facility] dated February 13, 2012 Technique: Multiple axial tomographic images were obtained through the head without contrast enhancement. Findings: There is no midline shift. No intra or extra-axial mass or hemorrhage is identified. Unchanged ill-defined hypoattenuation the bilateral posterior occipital lobes. Cerebral volume loss. Periventricular hypoattenuation consistent with chronic small vessel ischemic disease. The castro-white matter junction is otherwise normal. The ventricles are age appropriate in size shape and location. Opacification of the left frontal sinus. Otherwise the visible sinuses and orbits are normal. No soft tissue abnormality seen. No acute osseous abnormality. No lytic calvarial lesions. IMPRESSION: Stable ill-defined hypoattenuation in the bilateral posterior occipital lobes suggestive of acute infarct/ hypertensive encephalopathy. No intracranial hemorrhage. Cerebral atrophy and chronic small vessel ischemic disease. READING SITE: [facility]. ATTESTATION STATEMENT: The Staff Radiologist has personally reviewed the images and dictated, reviewed, or edited the final report. Signed (Authenticated, Released) Date-Time: 02/14/2012 1312 [employer] Driver- KELLEY YANES M.D., Staff Radiologist Dictated By- BRONWYN HANSEN M.D., Resident Staff Physician- KELLEY YANES M.D., Staff Radiologist Authenticated By- KELLEY YANES M.D., Staff Radiologist Performing Organization Address [facility] Phone Number [facility] * ASIYA Qualitative (02/13/2012 9:45 PM COUNSELLING PSYCHOLOGIST) Pathologist [facility] ASIYA Qualitative Negative Negative [facility] Specimen Blood Performing Organization Address [facility] Phone Number [facility] [address] [place] [address] [facility]QUEST * Rapid Plasma Reagin (02/13/2012 9:43 PM COUNSELLING PSYCHOLOGIST) Pathologist [facility] RPR Non-reactive Non-reactive [facility]QUEST Specimen Blood Performing [facility] Phone Number [address] [place] [address] [facility]QUEST * Culture, Blood (02/13/2012 9:43 PM COUNSELLING PSYCHOLOGIST) Specimen Blood Narrative Performed At REPORT [facility] Specimen/Source: BLOOD/BLOOD Collected: 02/13/2012 21:43 Status: Final Last Updated: 02/18/2012 22:42 Culture result (Final) No Growth at 5 days Performing [facility] Address [facility] Phone Number [facility] [address] [place] [address] SUNQUEST * Complete Blood Count (02/13/2012 9:43 PM COUNSELLING PSYCHOLOGIST) Pathologist [facility] WBC 12.83 (H) 4.00 - 11.00 TH/UL [facility]QUEST RBC 5.08 (H) 4.00 - 5.00 MIL/UL [facility]QUEST Hemoglobin 13.4 12.0 - 15.0 G/DL [facility]QUEST Hematocrit 40 36 - 45 % SUNQUEST MCV 79 (L) 80 - 99 FL SUNQUEST MCH 26 (L) 27 - 34 PG SUNQUEST MCHC 34 32 - 36 % SUNQUEST RDW 13.8 9.0 - 14.5 % SUNQUEST Platelet Count 286 140 - 400 TH/UL SUNQUEST MPV 9.0 (L) 9.4 - 12.3 FL SUNQUEST Specimen Blood Performing Organization Address [facility] Phone Number [facility] [address] [place] [address] [facility]QUEST * Coagulation Screen (02/13/2012 9:43 PM COUNSELLING PSYCHOLOGIST) Protime 13.9 11.7 - 14.3 SEC [facility]QUEST INR 1.1 0.9 - 1.1 [facility]QUEST APTT 26 22 - 34 SEC [facility]QUEST Fibrinogen 343 146 - 390 MG/DL SUNQUEST Assay Specimen Blood Performing Organization Address [facility] Phone Number [address] [place] [address] [facility]QUEST * Troponin (02/13/2012 9:43 PM COUNSELLING PSYCHOLOGIST) Troponin 0.02 0.00 - 0.03 NG/ML SUNQUEST Comment: Troponin Value Interpretation 0.00 - 0.03 Healthy 0.04 - 0.12 Increased Cardiac Risk >0.12 Myocardial Infarction Troponin may not become elevated until 6 to 8 hours after onset of symptoms. Specimen Blood Performing Organization Address [facility] Phone Number [address] [place] [address] [facility] * Magnesium (02/13/2012 9:43 PM COUNSELLING PSYCHOLOGIST) Magnesium 2.0 1.4 - 2.7 MG/DL [facility] Specimen Blood Performing Organization Address [facility] Phone Number [address] [place] [address] [facility] * Thyroid Stimulating Hormone (02/13/2012 9:43 PM COUNSELLING PSYCHOLOGIST) Thyroid 1.42 0.47 - 4.68 UIU/ML [facility] Stimulating Hormone Specimen Blood Performing Organization Address [facility] Phone Number [address] [place] [address] [facility] * Total Thyroxine (02/13/2012 9:43 PM COUNSELLING PSYCHOLOGIST) Total Thyroxine 5.2 (L) 5.5 - 11.0 UG/DL [facility] Specimen Blood Performing Organization Address [facility] Phone Number [address] [place] [address] [facility] * Culture, Urine (02/13/2012 6:40 PM COUNSELLING PSYCHOLOGIST) Specimen Urine Narrative Performed At REPORT [facility] Specimen/Source: URINE/CATHETER URINE Collected: 02/13/2012 18:40 Status: Final Last Updated: 02/14/2012 22:14 Culture result (Final) No growth Performing Organization Address [facility] Phone Number R [address] [place] [address] [facility]QUEST * Urine Nitrite (02/13/2012 6:40 PM COUNSELLING PSYCHOLOGIST) Nitrite Urine Negative Negative [facility] Specimen Urine Performing Organization Address [facility] Phone Number R [address] [place] [address] [facility]QUEST * Urinalysis (02/13/2012 6:40 PM COUNSELLING PSYCHOLOGIST) Appearance, Dark Yellow [facility] Urine Specific 1.036 (H) 1.001 - 1.030 SUNQUEST [place], [facility]A PH Urine 5.5 5.0 - 8.0 [facility]QUEST Hemoglobin Negative Negative [facility] Urine Leukocyte Negative Negative [facility] Esterase Bilirubin Urine Small (A) Negative [facility] Glucose Urine Negative Negative MG/DL SUNQUEST Ketones Urine Trace (A) Negative MG/DL [facility] Protein Urine 30 (A) Negative MG/DL [facility]QUEST Qual Urobilinogen Negative Negative EU/DL [facility]QUEST Urine Specimen Urine Performing Organization Address [facility] Phone Number R [address] [place] [address] SUNQUEST documented in this encounter Visit Diagnoses Diagnosis Other encephalopathy documented in this encounter
--- OUTSIDE RECORDS SUMMARY | 2018-12-25 20:22 | XMS REPORT | Encounter Summary ---
Author Author [facility] Organization [facility] Address Unknown Phone Unavailable Care Team Providers Care Mutton Puncher Name Role Phone PCP Unavailable Encounter Details Care Team Description Date Type Department Mehdi Acosta MD [address] [place] [id number] 06/17/2013 Immunization [facility] Social History Date Tobacco Use Types Packs/Day Years Used Never Assessed Sex Assigned at Date Recorded Not on file Industry Job Start Date Occupation Not on file Not on file Not on file Travel End Travel History Travel Start No recent travel history available. documented as of this encounter Miscellaneous Notes * Immunizations - Historical - Mehdi Acosta MD - 06/17/2013 9:55 AM CDT Name: MARIZA MARSHALL CPI: [id number] : 1950 Code: 140 Immunization: Influenza, seasonal, injectable, preservative free Admin date: 02/18/2012 Administered By: Type/Amt/Units: Single dose - 0.5 ml Lot#: [id number] [employer] Worker: emily Comment: documented in this encounter Plan of Treatment Not on filedocumented as of this encounter Visit Diagnoses Not on filedocumented in this encounter
--- OUTSIDE RECORDS SUMMARY | 2018-12-25 20:22 | XMS REPORT | Clinical Summary ---
Author Author [facility] Organization [facility] Address Unknown Phone Unavailable Care Team Providers Care Back Tender Cylinder Name Role Phone PCP Unavailable Allergies Not on File Medications Not on file Active Problems Not on file Social History Date Tobacco Use Types Packs/Day Years Used Never Assessed Sex Assigned at Date Recorded Not on file Industry Job Start Date Occupation Not on file Not on file Not on file Travel End Travel History Travel Start No recent travel history available. Last Filed Vital Signs Not on file Plan of Treatment Not on file Results Not on filefrom Last 3 Months
--- OUTSIDE RECORDS SUMMARY | 2018-12-25 20:23 | XMS REPORT | Continuity of Care Document ---
Author Organization Unknown Address Unknown Phone Unavailable Allergies Active Description Code Type Severity Reaction Onset Reported/Identified Relationship to Patient Clinical Status Yes No Known Drug Allergies [id number] Drug Allergy Unknown N/A 12/04/2018 Yes Penicillins [id number] Drug Allergy Unknown N/A 12/04/2018 Yes sumatriptan [id number] Drug Allergy Unknown N/A 12/04/2018 Medications There is no data. Problems Date Dx Coded Attending Type Code Diagnosis Diagnosed By 11/27/2015 JOHN BARTHOLOMEW MD, Ot G89.4 CHRONIC PAIN SYNDROME 11/27/2015 JOHN BARTHOLOMEW MD, Ot M51.16 INTERVERTEBRAL DISC DISORDERS W RADICULO 11/27/2015 JOHN BARTHOLOMEW MD, Ot Z79.899 OTHER SENIOR LIVING (CURRENT) DRUG THERAPY 12/28/2015 JOHN BARTHOLOMEW MD, Ot G89.4 CHRONIC PAIN SYNDROME 12/28/2015 JOHN BARTHOLOMEW MD, Ot M51.16 INTERVERTEBRAL DISC DISORDERS W RADICULO 12/28/2015 JOHN BARTHOLOMEW MD, Ot Z79.899 OTHER SENIOR LIVING (CURRENT) DRUG THERAPY 12/31/2015 JOHN BARTHOLOMEW MD, Ot G89.4 CHRONIC PAIN SYNDROME 12/31/2015 JOHN BARTHOLOMEW MD, Ot M51.16 INTERVERTEBRAL DISC DISORDERS W RADICULO 12/31/2015 JOHN BARTHOLOMEW MD, Ot 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 08/28/2018 YOANNA CHAMBERS DO Ot Z22.322 CARRIER OR SUSPECTED CARRIER OF METHICIL 09/10/2018 YOANNA CHAMBERS DO Ot Z22.322 CARRIER OR SUSPECTED CARRIER OF METHICIL 12/05/2018 YOANNA CHAMBERS DO Ot Z22.322 CARRIER OR SUSPECTED CARRIER OF METHICIL 12/06/2018 SRINIVAS BUTLER MD Ot E87.6 HYPOKALEMIA 12/06/2018 SRINIVAS BUTLER MD Ot F41.9 ANXIETY DISORDER, UNSPECIFIED 12/06/2018 SRINIVAS BUTLER MD Ot F43.9 REACTION TO SEVERE STRESS, UNSPECIFIED 12/06/2018 SRINIVAS BUTLER MD Ot G89.29 OTHER CHRONIC PAIN 12/06/2018 SRINIVAS BUTLER MD, Ot I10 ESSENTIAL (PRIMARY) HYPERTENSION 12/06/2018 SRINIVAS BUTLER MD, Ot I45.81 LONG QT SYNDROME 12/06/2018 SRINIVAS BUTLER MD, Ot J44.9 CHRONIC OBSTRUCTIVE PULMONARY DISEASE, U 12/06/2018 SRINIVAS BUTLER MD, Ot K21.9 GASTRO-ESOPHAGEAL REFLUX DISEASE WITHOUT 12/06/2018 SRINIVAS BUTLER MD, Ot K52.9 NONINFECTIVE GASTROENTERITIS AND COLITIS 12/06/2018 SRINIVAS BUTLER MD, Ot N39.0 URINARY TRACT INFECTION, SITE NOT SPECIF 12/06/2018 SRINIVAS BUTLER MD, Ot R07.89 OTHER CHEST PAIN 12/06/2018 SRINIVAS BUTLER MD, Ot R26.81 UNSTEADINESS ON FEET 12/06/2018 SRINIVAS BUTLER MD, Ot R47.81 SLURRED SPEECH 12/06/2018 SRINIVAS BUTLER MD Ot R53.1 WEAKNESS 12/06/2018 SRINIVAS BUTLER MD, Ot R94.31 ABNORMAL ELECTROCARDIOGRAM [ECG] [EKG] 12/06/2018 SRINIVAS BUTLER MD, Ot Z87.891 PERSONAL HISTORY OF NICOTINE DEPENDENCE Procedures There is no data. Results Test Result Range Methicillin resistant Staphylococcus aureus (MRSA) screening culture - 08/23/18 15:47 Methicillin resistant Staphylococcus aureus (MRSA) screening culture NEG NRG Complete urinalysis with reflex to culture - 12/04/18 15:05 Urine color determination YELLOW NRG Urine clarity determination SLT CLOUDY NRG Urine pH measurement by test strip 6.5 5-9 Specific gravity of urine by test strip < 1.016-1.022 Urine protein assay by test strip, semi-quantitative NEGATIVE NEGATIVE Urine glucose detection by automated test strip NEGATIVE NEGATIVE Erythrocytes detection in urine sediment by light microscopy NEGATIVE NEGATIVE Urine ketones detection by automated test strip NEGATIVE NEGATIVE Urine nitrite detection by test strip POSITIVE NEGATIVE Urine total bilirubin detection by test strip 1+ NEGATIVE Urine urobilinogen measurement by automated test strip (mass/volume) 0.2 mg/dL NORMAL Urine leukocyte esterase detection by dipstick 2+ NEGATIVE Automated urine sediment erythrocyte count by microscopy (number/high power field) NONE NRG Automated urine sediment leukocyte count by microscopy (number/high power field) [HPF] NRG Bacteria detection in urine sediment by light microscopy LARGE NRG Squamous epithelial cells detection in urine sediment by light microscopy 2-5 NRG Crystals detection in urine sediment by light microscopy NONE NRG Casts detection in urine sediment by light microscopy NONE NRG Mucus detection in urine sediment by light microscopy NONE NRG Complete urinalysis with reflex to culture YES NRG Bacterial urine culture - 12/04/18 15:05 Bacterial urine culture [id number] NRG COLONY COUNT >100,000/ML NRG FTX;REPORTABLE SUSCEPTIBILITY REPORTED [id number]. NRG Dirithromycin susceptibility test by disk diffusion - 12/04/18 15:05 Gentamicin susceptibility test by minimum inhibitory concentration <= NRG Trimethoprim/sulfamethoxazole susceptibility test by minimum inhibitoryconcentration <= NRG Levofloxacin susceptibility test by minimum inhibitory concentration <= NRG Ampicillin susceptibility test by minimum inhibitory concentration <= NRG Cefazolin susceptibility test by minimum inhibitory concentration <= NRG Ceftriaxone susceptibility test by minimum inhibitory concentration <= NRG Ciprofloxacin susceptibility test by minimum inhibitory concentration <= NRG Meropenem susceptibility test by minimum inhibitory concentration <= NRG Nitrofurantoin susceptibility test by minimum inhibitory concentration <= NRG Amoxicillin and clavulanate potassium susc HIPOLITO <= NRG Complete blood count (CBC) with automated white blood cell (WBC) differential - 12/04/18 15:07 Blood leukocytes automated count (number/volume) 6.2 10*3/uL 4.3-11.0 Blood erythrocytes automated count (number/volume) 4.86 10*6/uL 4.35-5.85 Venous blood hemoglobin measurement (mass/volume) 13.3 g/dL 11.5-16.0 Blood hematocrit (volume fraction) 41 % 35-52 Automated erythrocyte mean corpuscular volume 85 [foz_us] 80-99 Automated erythrocyte mean corpuscular hemoglobin (mass per erythrocyte) 27 pg 25-34 Automated erythrocyte mean corpuscular hemoglobin concentration measurement (mass/volume) 32 g/dL 32-36 Automated erythrocyte distribution width ratio 14.6 % 10.0- 14.5 Automated blood platelet count (count/volume) 286 10*3/uL 130-400 Automated blood platelet mean volume measurement 9.3 [foz_us] 7.4-10.4 Automated blood neutrophils/100 leukocytes 59 % 42-75 Automated blood lymphocytes/100 leukocytes 30 % 12-44 Blood monocytes/100 leukocytes 8 % 0-12 Automated blood eosinophils/100 leukocytes 3 % 0-10 Automated blood basophils/100 leukocytes 0 % 0-10 Blood neutrophils automated count (number/volume) 3.7 10*3 1.8-7.8 Blood lymphocytes automated count (number/volume) 1.8 10*3 1.0-4.0 Blood monocytes automated count (number/volume) 0.5 10*3 0.0- 1.0 Automated eosinophil count 0.2 10*3/uL 0.0-0.3 Automated blood basophil count (count/volume) 0.0 10*3/uL 0.0-0.1 Comprehensive metabolic panel - 12/04/18 15:07 Serum or plasma sodium measurement (moles/volume) 144 mmol/L 135-145 Serum or plasma potassium measurement (moles/volume) 2.8 mmol/L 3.6-5.0 Serum or plasma chloride measurement (moles/volume) 97 mmol/L 98-107 Carbon dioxide 33 mmol/L 21-32 Serum or plasma anion gap determination (moles/volume) 14 mmol/L 5-14 Serum or plasma urea nitrogen measurement (mass/volume) 9 mg/dL 7-18 Serum or plasma creatinine measurement (mass/volume) 0.73 mg/dL 0.60-1.30 Serum or plasma urea nitrogen/creatinine mass ratio 12 NRG Serum or plasma creatinine measurement with calculation of estimated glomerular filtration rate > NRG Serum or plasma glucose measurement (mass/volume) 114 mg/dL 70-105 Serum or plasma calcium measurement (mass/volume) 8.1 mg/dL 8.5-10.1 Serum or plasma total bilirubin measurement (mass/volume) 0.4 mg/dL 0.1-1.0 Serum or plasma alkaline phosphatase measurement (enzymatic activity/volume) 100 U/L 40-136 Serum or plasma aspartate aminotransferase measurement (enzymatic activity/volume) 18 U/L 5-34 Serum or plasma alanine aminotransferase measurement (enzymatic activity/volume) 9 U/L 0-55 Serum or plasma protein measurement (mass/volume) 6.1 g/dL 6.4-8.2 Serum or plasma albumin measurement (mass/volume) 3.7 g/dL 3.2-4.5 CALCIUM CORRECTED 8.3 mg/dL 8.5-10.1 Magnesium - 12/04/18 15:07 Magnesium 1.6 mg/dL 1.6-2.4 Lipase - 12/04/18 15:07 Lipase 24 U/L 8-78 Serum or plasma troponin i.cardiac measurement (mass/volume) - 12/04/18 15:07 Serum or plasma troponin i.cardiac measurement (mass/volume) < ng/mL <0.30 PROBNP FS - 12/04/18 15:07 PROBNP FS 94.3 pg/mL <75.0 Blood lactic acid measurement (moles/volume) - 12/04/18 16:37 Blood lactic acid measurement (moles/volume) 1.11 mmol/L 0.50- 2.00 Bacterial blood culture - 12/04/18 16:37 QUANTITY OF GROWTH . [facility] Bacterial blood culture SEE COMMEN [facility] Bacterial blood culture - 12/04/18 16:45 Bacterial blood culture NG [facility] Serum or plasma troponin i.cardiac measurement (mass/volume) - 12/04/18 18:40 Serum or plasma troponin i.cardiac measurement (mass/volume) < ng/mL <0.028 Serum or plasma troponin i.cardiac measurement (mass/volume) - 12/05/18 00:45 Serum or plasma troponin i.cardiac measurement (mass/volume) < ng/mL <0.028 Complete blood count (CBC) with automated white blood cell (WBC) differential - 12/05/18 05:05 Blood leukocytes automated count (number/volume) 6.3 10*3/uL 4.3-11.0 Blood erythrocytes automated count (number/volume) 5.10 10*6/uL 4.35-5.85 Venous blood hemoglobin measurement (mass/volume) 13.7 g/dL 11.5-16.0 Blood hematocrit (volume fraction) 44 % 35-52 Automated erythrocyte mean corpuscular volume 86 [foz_us] 80-99 Automated erythrocyte mean corpuscular hemoglobin (mass per erythrocyte) 27 pg 25-34 Automated erythrocyte mean corpuscular hemoglobin concentration measurement (mass/volume) 31 g/dL 32-36 Automated erythrocyte distribution width ratio 15.5 % 10.0- 14.5 Automated blood platelet count (count/volume) 279 10*3/uL 130-400 Automated blood platelet mean volume measurement 8.8 [foz_us] 7.4-10.4 Automated blood neutrophils/100 leukocytes 57 % 42-75 Automated blood lymphocytes/100 leukocytes 28 % 12-44 Blood monocytes/100 leukocytes 11 % 0-12 Automated blood eosinophils/100 leukocytes 4 % 0-10 Automated blood basophils/100 leukocytes 0 % 0-10 Blood neutrophils automated count (number/volume) 3.6 10*3 1.8-7.8 Blood lymphocytes automated count (number/volume) 1.8 10*3 1.0-4.0 Blood monocytes automated count (number/volume) 0.7 10*3 0.0- 1.0 Automated eosinophil count 0.3 10*3/uL 0.0-0.3 Automated blood basophil count (count/volume) 0.0 10*3/uL 0.0-0.1 Whole blood basic metabolic panel - 12/05/18 05:30 Serum or plasma sodium measurement (moles/volume) 143 mmol/L 135-145 Serum or plasma potassium measurement (moles/volume) 4.1 mmol/L 3.6-5.0 Serum or plasma chloride measurement (moles/volume) 104 mmol/L 98-107 Carbon dioxide 32 mmol/L 21-32 Serum or plasma anion gap determination (moles/volume) 7 mmol/L 5-14 Serum or plasma urea nitrogen measurement (mass/volume) 8 mg/dL 7-18 Serum or plasma creatinine measurement (mass/volume) 0.78 mg/dL 0.60-1.30 Serum or plasma urea nitrogen/creatinine mass ratio 10 NRG Serum or plasma creatinine measurement with calculation of estimated glomerular filtration rate > NRG Serum or plasma glucose measurement (mass/volume) 92 mg/dL 70-105 Serum or plasma calcium measurement (mass/volume) 8.1 mg/dL 8.5-10.1 Magnesium - 12/05/18 05:30 Magnesium 2.6 mg/dL 1.6-2.4 Complete blood count (CBC) with automated white blood cell (WBC) differential - 12/06/18 05:58 Blood leukocytes automated count (number/volume) 6.7 10*3/uL 4.3-11.0 Blood erythrocytes automated count (number/volume) 5.05 10*6/uL 4.35-5.85 Venous blood hemoglobin measurement (mass/volume) 13.7 g/dL 11.5-16.0 Blood hematocrit (volume fraction) 43 % 35-52 Automated erythrocyte mean corpuscular volume 86 [foz_us] 80-99 Automated erythrocyte mean corpuscular hemoglobin (mass per erythrocyte) 27 pg 25-34 Automated erythrocyte mean corpuscular hemoglobin concentration measurement (mass/volume) 32 g/dL 32-36 Automated erythrocyte distribution width ratio 15.3 % 10.0- 14.5 Automated blood platelet count (count/volume) 260 10*3/uL 130-400 Automated blood platelet mean volume measurement 9.0 [foz_us] 7.4-10.4 Automated blood neutrophils/100 leukocytes 62 % 42-75 Automated blood lymphocytes/100 leukocytes 25 % 12-44 Blood monocytes/100 leukocytes 9 % 0-12 Automated blood eosinophils/100 leukocytes 4 % 0-10 Automated blood basophils/100 leukocytes 0 % 0-10 Blood neutrophils automated count (number/volume) 4.1 10*3 1.8-7.8 Blood lymphocytes automated count (number/volume) 1.7 10*3 1.0-4.0 Blood monocytes automated count (number/volume) 0.6 10*3 0.0- 1.0 Automated eosinophil count 0.3 10*3/uL 0.0-0.3 Automated blood basophil count (count/volume) 0.0 10*3/uL 0.0-0.1 Whole blood basic metabolic panel - 12/06/18 05:58 Serum or plasma sodium measurement (moles/volume) 145 mmol/L 135-145 Serum or plasma potassium measurement (moles/volume) 4.1 mmol/L 3.6-5.0 Serum or plasma chloride measurement (moles/volume) 108 mmol/L 98-107 Carbon dioxide 26 mmol/L 21-32 Serum or plasma anion gap determination (moles/volume) 11 mmol/L 5-14 Serum or plasma urea nitrogen measurement (mass/volume) 5 mg/dL 7-18 Serum or plasma creatinine measurement (mass/volume) 0.67 mg/dL 0.60-1.30 Serum or plasma urea nitrogen/creatinine mass ratio 7 NRG Serum or plasma creatinine measurement with calculation of estimated glomerular filtration rate > NRG Serum or plasma glucose measurement (mass/volume) 81 mg/dL 70-105 Serum or plasma calcium measurement (mass/volume) 8.3 mg/dL 8.5-10.1 Encounters ACCT No. Visit Date/Time Discharge Status Pt. Type Provider Facility Loc./Unit Complaint [id number] 12/04/2018 18:26:00 12/06/2018 13:48:00 DIS Inpatient CARRIE TATUM, SRINIVAS Gold [facility] 4TH UTI, HYPOKALEMIA, CHEST PAIN, ABNORMAL EKG [id number] 08/23/2018 15:24:00 08/23/2018 23:59:59 CLS Outpatient YOANNA CHAMBERS DO [facility] LAB FS Z22.32 [id number] 12/31/2015 13:45:00 12/31/2015 15:35:00 DIS Outpatient JOHN BARTHOLOMEW MD [facility] CARD DISC DISORDER [id number] 11/27/2015 09:22:00 11/27/2015 11:07:00 DIS Outpatient JOHN BARTHOLOMEW MD [facility] CARD DISC DISORDER W/RADICULOPATHY
--- OUTSIDE RECORDS SUMMARY | 2018-12-25 20:23 | XMS REPORT | Clinical Summary ---
Author Author [facility] Organization [facility] Address Unknown Phone Unavailable Care Team Providers Care Non Clinical Advisor Name Role Phone Jacobo Ramos PCP Source Comments Some departments are not documenting in the electronic medical record. If you d o not see the information that you expected, contact Release of Information in [facility] Information Management department at [phone] for further assistan ce in locating additional records.[facility] Allergies Comments Active Allergy Reactions Severity Noted Date Patient states she cannot take this medication due to history of bleeding ulcers. Aspirin SEE COMMENTS Low 04/05/2016 States she cannot take this medication due to 2 strokes Sumatriptan Succinate SEE COMMENTS Low 04/05/2016 Penicillins FLUSHING Medium 04/05/2016 (SKIN), NAUSEA ONLY, RASH Sulfa (Sulfonamide ITCHING Low 04/05/2016 Antibiotics) Medications End Date Status Medication Sig Dispensed Refills Start Date Active pantoprazole DR Take 40 mg by 0 (PROTONIX) 40 mg tablet mouth daily. Active duloxetine DR (CYMBALTA) Take 60 mg by 0 60 mg capsule mouth daily. Active amLODIPine (NORVASC) 10 Take 10 mg by 0 mg tablet mouth daily. Active traZODone (DESYREL) 50 mg Take 50 mg by 0 tablet mouth at bedtime as needed for Sleep. Active oxyCODONE (OXYCONTIN) 30 Take 30 mg by 0 mg tablet mouth every 12 hours Active oxyCODONE/acetaminophen Take 4 Tabs 0 (PERCOCET; ENDOCET) by mouth 10/325 mg tablet every 4 hours as needed for Pain Active butalbital/acetaminophen/ Take 1 Tab by 0 caffeine(+) (FIORICET) mouth every 4 50/325/40 mg tablet hours as needed for Headache. Active metaxalone(+) (SKELAXIN) Take 400 mg 0 800 mg tablet by mouth three times daily. Active ALPRAZolam (XANAX) 0.5 mg Take 0.25 mg 0 tablet by mouth at bedtime as needed for Anxiety. Active lidocaine HCl (ASPERCREME Apply 0 (LIDOCAINE)) 4 % crea topically to affected area. Active zolpidem (AMBIEN) 5 mg Take 5 mg by 0 tablet mouth at bedtime as needed for Sleep. Active pregabalin (LYRICA) 25 mg one tab po 60 Cap 1 capsuleIndications: qhs x 1 week, 7 fibromyalgia then take one tab po bid Indications: FIBROMYALGIA Active Problems Problem Noted Date Pain in both lower legs 06/28/2016 Family History Medical History Relation Name Comments Heart problem Mother Stroke Mother Relation Name Status Comments Father Mother Alive Social History Date Tobacco Use Types Packs/Day Years Used Former Smoker Drinks/Week oz/Week Comments Alcohol Use No Sex Assigned at Date Recorded Not on file Industry Job Start Date Occupation Not on file Not on file Not on file Travel End Travel History Travel Start No recent travel history available. Last Filed Vital Signs Reading Time Taken Comments Vital Sign 122/79 09/06/2016 2:15 PM CDT Blood Pressure 117 09/06/2016 2:15 PM CDT Pulse 36.6 C (97.9 F) 07/20/2016 3:23 PM CDT Temperature 16 09/06/2016 2:15 PM CDT Respiratory Rate 98% 09/06/2016 2:15 PM CDT Oxygen Saturation - - Inhaled Oxygen Concentration 76.2 kg (168 lb) 09/06/2016 2:15 PM CDT Weight 152.4 cm (5') 09/06/2016 2:15 PM CDT Height 32.81 09/06/2016 2:15 PM CDT Body Mass Index Plan of Treatment Health Maintenance Due Date Last Done Comments HEPATITIS C SCREENING 1950 DTAP/TDAP VACCINES (1 - 1970 Tdap) PHYSICAL (COMPREHENSIVE) 1970 EXAM BREAST CANCER SCREENING 1992 COLORECTAL CANCER 2002 SCREENING SHINGLES RECOMBINANT 2002 VACCINE (1 of 2) OSTEOPOROSIS 2017 SCREENING/MONITORING PNEUMONIA (PCV13/PPSV23) 2017 VACCINES (1 of 2 - PCV13) INFLUENZA VACCINE 10/18/2018 Results Not on filefrom Last 3 Months Insurance Type Payer Benefit Subscriber ID Effective Phone Address Plan / Dates Group MEDICA MEDICA xxxxxxxxxx [id number] [place] (Home) [place] [id number] Advance 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
== END 2018-12-06 13:48 | disposition home or self-care (01) ==
LOC: EDUNIT# 14:20 → ER FS 14:22 → UNDOADMIN 16:00 → 4TH 16:00 → UNDODISIN 12-06 16:47
PROVIDERS: ADMIT Internal Medicine; ATTEND Internal Medicine
DX: N39.0 Urinary tract infection, site not specified (principal); E87.6 Hypokalemia; K52.9 Noninfective gastroenteritis and colitis, unspecified; I45.81 Long QT syndrome; I10 Essential (primary) hypertension; K21.9 Gastro-esophageal reflux disease without esophagitis; J44.9 Chronic obstructive pulmonary disease, unspecified; F43.9 Reaction to severe stress, unspecified; G89.29 Other chronic pain; R47.81 Slurred speech; R53.1 Weakness; R26.81 Unsteadiness on feet; Z87.891 Personal history of nicotine dependence; F41.0 Panic disorder [episodic paroxysmal anxiety]
CPT/HCPCS: 36415; 71045; 74177; 78452; 80048; 80053; 81000; 83605; 83690; 83735; 83880; 84484; 85025; 87040; 87077; 87088; 87186; 93005; 93017; 93306; 96361; 96365; 96375; G0378

== ENCOUNTER 2019-03-19 07:25 | Emergency (ER) | payer MEDICARE ==
[~2019-03-19] VITALS: Ht 152.4 cm; Wt 75.0 kg
[~2019-03-19 07:25] MED LIST: ALPR0.5T7 PO; CYCL10TA9 PO; DULO60CA59 PO; IPRA4AER IH; NITR100C10 PO; NYST60PO TOP; OMEP40CA36 PO; OXYC-465 PO; OXYC10TA55 PO; PROP40TA5 PO; ZOLP5TAB7 PO
[2019-03-19] MEDS ORDERED: ONDANSETRON 4 MG/2 ML (SDV) Z0FRAN ONE (07:38)
--- NOTE | 2019-03-19 07:44 | ED Dyspnea ---
General Stated Complaint: SOB Source of Information: Patient, EMS Exam Limitations: No Limitations History of Present Illness Date Seen by Provider: Mar 19, 2019 Time Seen by Provider: 07:30 Initial Comments The patient is a pleasant 68-year-old female who presents for evaluation of shortness of breath which began earlier this morning. She reports some sub jective chills but does not believe that she had a fever. The patient mentions that she was recently at [facility] in [place] after having had a stroke 2 weeks ago. She is speaking clearly and arrives via EMS. Her only complaint is shortness of breath at this time. EMS reports that the patient is slightly tachycardic to approximately 112 but is saturating well on room air. The patient reports a history of COPD and states that she quit smoking cigarettes when she was diagnosed. The patient and her mention that her kidney function was recently elevated with a creatinine of 1.7 which was later repeated at her doctor's office and decreased to 1.3. Timing/Duration: 1 Hour Severity: Moderate Associated Symptoms: Denies Symptoms Allergies and Home Medications Allergies Coded Allergies: Penicillins (Verified Allergy, Unknown, 12/04/18) sumatriptan (Verified Allergy, Unknown, 12/04/18) Home Medications Albuterol/Ipratropium 4 Gm Aero, 1 PUFF IH QID PRN for SHORTNESS OF BREATH, (Reported) Alprazolam 0.5 Mg Tablet, 0.5 MG PO TID PRN for ANXIETY, (Reported) Cyclobenzaprine HCl 10 Mg Tablet, 10 MG PO TID PRN for MUSCLE SPASMS, (Reported) Duloxetine HCl 60 Mg Capsule.dr, 60 MG PO DAILY, (Reported) Nitrofurantoin Monohyd/M-Cryst 100 Mg Capsule, 100 MG PO BID Prescribed by: SRINIVAS BUTLER on 12/06/18 1358 Nystatin 60 Gm Powder, TOP TID PRN for RASH, (Reported) Omeprazole 40 Mg Capsule.dr, 40 MG PO DAILY, (Reported) Oxycodone HCl 10 Mg Tab.er.12h, 10 MG PO BID, (Reported) Oxycodone HCl/Acetaminophen 1 Each Tablet, 1 TAB PO TID PRN for BREAKTHROUGH PAIN, (Reported) Propranolol HCl 40 Mg Tablet, 40 MG PO BID, (Reported) Zolpidem Tartrate 5 Mg Tablet, 5 MG PO HS PRN for SLEEP, (Reported) Patient Home Medication List Home Medication List Reviewed: Yes Review of Systems Review of Systems Constitutional: chills EENTM: no symptoms reported Respiratory: short of breath Cardiovascular: no symptoms reported Gastrointestinal: no symptoms reported Genitourinary: no symptoms reported : No Musculoskeletal: no symptoms reported Skin: no symptoms reported Psychiatric/Neurological: No Symptoms Reported Endocrine: No Symptoms Reported Hematologic/Lymphatic: No Symptoms Reported All Other Systems Reviewed Negative Unless Noted: Yes Past Zlfomsh-Wojpvf-Okyjnp Hx Past Med/Social Hx: Reviewed Nursing Past Med/Soc Hx Patient Social History Recent Foreign Travel: Yes Recent Hopitalizations: No Seasonal Allergies Seasonal Allergies: No Past Medical History Surgeries: Yes Gallbladder, Hysterectomy Respiratory: No Cardiac: No Neurological: Yes Stroke Genitourinary: No Gastrointestinal: Yes Ulcer Musculoskeletal: No Endocrine: No HEENT: No Cancer: No Psychosocial: No Integumentary: No Physical Exam Vital Signs Vital Signs - First Documented 03/19/19 07:26 Temp 36.4 Pulse 115 Resp 16 B/P (MAP) 176/108 (130) Pulse Ox 96 O2 Delivery Room Air Capillary Refill : Height, Weight, BMI Height: 5'0.00" Weight: 175lbs. 4.3oz. 79.922641fo; 34.00 BMI Method: General Appearance: No Apparent Distress, WD/WN HEENT: PERRL/EOMI, TMs Normal Neck: Full Range of Motion, Normal Inspection, Non Tender, Supple Respiratory: Chest Non Tender, Lungs Clear, Normal Breath Sounds, No Accessory Muscle Use, No Respiratory Distress Cardiovascular: No Edema, No Gallop, No JVD, Tachycardia Gastrointestinal: Normal Bowel Sounds, No Pulsatile Mass, Non Tender, Soft Extremity: Normal Capillary Refill, Normal Range of Motion, Non Tender, No Calf Tenderness Neurologic/Psychiatric: Alert, Oriented x3, No Motor/Sensory Deficits, Normal Mood/Affect Skin: Normal Color, Warm/Dry Focused Exam Lactate Level 03/19/19 07:30: Lactic Acid Level 1.84 Lactic Acid Level Laboratory Tests Test 03/19/19 07:30 Lactic Acid Level 1.84 MMOL/L (0.50-2.00) Progress/Results/Core Measures Results/Orders Lab Results Laboratory Tests Test 03/19/19 07:30 Range/Units White Blood Count 11.5 H 4.3-11.0 10^3/uL Red Blood Count 4.79 4.35-5.85 10^6/uL Hemoglobin 13.3 11.5-16.0 G/DL Hematocrit 41 35-52 % Mean Corpuscular Volume 86 80-99 FL Mean Corpuscular Hemoglobin 28 25-34 PG Mean Corpuscular Hemoglobin Concent 32 32-36 G/DL Red Cell Distribution Width 14.4 10.0-14.5 % Platelet Count 363 130-400 10^3/uL Mean Platelet Volume 9.0 7.4-10.4 FL Neutrophils (%) (Auto) 70 42-75 % Lymphocytes (%) (Auto) 17 12-44 % Monocytes (%) (Auto) 9 0-12 % Eosinophils (%) (Auto) 3 0-10 % Basophils (%) (Auto) 0 0-10 % Neutrophils # (Auto) 8.1 H 1.8-7.8 X 10^3 Lymphocytes # (Auto) 1.9 1.0-4.0 X 10^3 Monocytes # (Auto) 1.0 0.0-1.0 X 10^3 Eosinophils # (Auto) 0.4 H 0.0-0.3 10^3/uL Basophils # (Auto) 0.0 0.0-0.1 10^3/uL D-Dimer 0.78 H 0.00-0.49 UG/ML Sodium Level 142 135-145 MMOL/L Potassium Level 2.9 L 3.6-5.0 MMOL/L Chloride Level 96 L 98-107 MMOL/L Carbon Dioxide Level 32 21-32 MMOL/L Anion Gap 14 5-14 MMOL/L Blood Urea Nitrogen 13 7-18 MG/DL Creatinine 1.38 H 0.60-1.30 MG/DL Estimat Glomerular Filtration Rate 38 BUN/Creatinine Ratio 9 Glucose Level 127 H 70-105 MG/DL Lactic Acid Level 1.84 0.50-2.00 MMOL/L Calcium Level 9.4 8.5-10.1 MG/DL Corrected Calcium 9.6 8.5-10.1 MG/DL Magnesium Level 1.6 1.6-2.4 MG/DL Total Bilirubin 0.3 0.1-1.0 MG/DL Aspartate Amino Transf (AST/SGOT) 18 5-34 U/L Alanine Aminotransferase (ALT/SGPT) 10 0-55 U/L Alkaline Phosphatase 110 40-136 U/L Troponin I < 0.30 <0.30 NG/ML Pro-B-Type Natriuretic Peptide 212.0 H <75.0 PG/ML Total Protein 6.9 6.4-8.2 GM/DL Albumin 3.7 3.2-4.5 GM/DL Amylase Level 85 25-125 U/L Lipase 24 8-78 U/L My Orders Orders - VICTOR [place]GO BOB DO Cbc With Automated Diff (03/19/19 07:30) Comprehensive Metabolic Panel (03/19/19 07:30) Blood Culture (03/19/19 07:30) Chest 1 View Ap/Pa Only (03/19/19 07:30) Fibrin Degradation Products (03/19/19 07:30) Ekg Tracing (03/19/19 07:30) O2 (03/19/19 07:30) Ed Iv/Invasive Line Start (03/19/19 07:30) Monitor-Rhythm Ecg Trace Only (03/19/19 07:30) Lactic Acid Analyzer (03/19/19 07:30) Probnp Fs (03/19/19 07:30) Troponin I Fs (03/19/19 07:30) Ondansetron Injection (Zofran Injectio (03/19/19 07:38) Ondansetron Injection (Zofran Injectio (03/19/19 07:45) Lipase (03/19/19 08:04) Amylase (03/19/19 08:04) Potassium Chloride (Tablet) (K Dur Table (03/19/19 08:45) Potassium Cl 10meq/50ml Ivpb (Kcl 10 Meq (03/19/19 08:45) Magnesium (03/19/19 08:44) Albuterol/Ipra Inhalation Soln (Duoneb I (03/19/19 09:15) Svn Small Volume Nebulizer (03/19/19 09:05) Methylprednisolone Sod Succ (Solu-Medrol (03/19/19 09:15) Aspirin Chewable Tablet (Baby Aspirin Ch (03/19/19 09:30) Medications Given in ED Current Medications Medications Dose Ordered Sig/Mishel Route Start Time Stop Time Status Last Admin Dose Admin Ondansetron HCl 4 mg ONCE ONCE IVP 03/19/19 07:45 03/19/19 07:47 DC 03/19/19 07:54 4 MG Vital Signs/I&O 03/19/19 07:26 Temp 36.4 Pulse 115 Resp 16 B/P (MAP) 176/108 (130) Pulse Ox 96 O2 Delivery Room Air Progress Progress Note : Progress Note @0905 - Pt and updated on lab and imaging results. Pt informed she will need VQ scan and admission. Pt refuses [facility] admission and prefers [facility] as she was there a few weeks ago for her stroke care and was very happy with the care. @0910 - [facility] transfer line called at this time. Initial ECG Impression Date: Mar 19, 2019 Initial ECG Impression Time: 07:39 Comment @0739 - Sinus tachycardia, rate of 107, left axis deviation, no acute ischemic findings noted, no STEMI, reviewed and interpreted by myself Diagnostic Imaging Diagonstic Imaging: Xray Comments [facility], [facility]. [place], [place] NAME: ALE MORGAN MED REC#: [id number] PT STATUS: REG ER : 1950 PHYSICIAN: VICTOR [place] BOB DO ADMIT DATE: 03/19/19/ER FS Draft Date of Exam:03/19/19 CHEST 1 VIEW AP/PA ONLY INDICATION: Shortness of breath. Comparison made with prior examination 12/04/2018 FINDINGS: The heart size is normal. Lungs are clear. There is no pleural effusion or pneumothorax. Mediastinum is unremarkable. IMPRESSION: No acute cardiopulmonary abnormality. Dictated on workstation # [id number] Dict: 03/19/19 0758 Trans: 03/19/19 0811 [id number] Interpreted by: JARROD HURD MD Electronically signed by: Departure Impression Primary Impression: Hypokalemia Additional Impressions: Tachycardia Dyspnea D-dimer, elevated Chest pain Renal insufficiency Disposition: XF SHT-TRM HOSP Condition: Stable Transfer Transfer Reason: Patient preference Time Spoke to Accepting Phy: 09:18 Transfer Progress Notes @0918 - Dr. Aiden Hyde accepts the transfer to [facility]. He states he will perform imaging there to r/o PE. (unable to perform VQ here) Departure-Patient Inst. Referrals: YOANNA CHAMBERS DO (PCP/Family) Primary Care Physician VICTOR [place]GO BOB DO Mar 19, 2019 07:44
[2019-03-19] MEDS ORDERED: ONDANSETRON 4 MG/2 ML (SDV) Z0FRAN IVP ONE ×2 (07:45→09:45)
[2019-03-19 07:51] LABS: HEMATOCRIT 41 % (35-52); HEMOGLOBIN 13.3 G/DL (11.5-16.0); MEAN CORPUSCULAR HEMOGLOBIN 28 PG (25-34); MEAN CORPUSCULAR HGB CONC 32 G/DL (32-36); MEAN CORPUSCULAR VOLUME 86 FL (80-99); PLATELET COUNT 363 10^3/uL (130-400); RED CELL DISTRIBUTION WIDTH 14.4 % (10.0-14.5); WHITE BLOOD COUNT 11.5 10^3/uL (4.3-11.0)
[2019-03-19 07:52] LABS: BASOPHILS % (AUTO) 0 % (0-10); EOSINOPHILS # (AUTO) 0.4 10^3/uL (0.0-0.3); EOSINOPHILS % (AUTO) 3 % (0-10); LYMPHOCYTES # (AUTO) 1.9 X 10^3 (1.0-4.0); LYMPHOCYTES % (AUTO) 17 % (12-44); MONOCYTES % (AUTO) 9 % (0-12); NEUTROPHILS # (AUTO) 8.1 X 10^3 (1.8-7.8); NEUTROPHILS % (AUTO) 70 % (42-75)
[2019-03-19 08:10] LABS: CHLORIDE 96 MMOL/L (98-107); POTASSIUM 2.9 MMOL/L (3.6-5.0); SODIUM 142 MMOL/L (135-145)
[2019-03-19 08:11] LABS: ALANINE AMINOTRANSFERASE 10 U/L (0-55); ALKALINE PHOSPHATASE 110 U/L (40-136); BILIRUBIN,TOTAL 0.3 MG/DL (0.1-1.0); BUN/CREATININE RATIO 9; CALCIUM 9.4 MG/DL (8.5-10.1); CARBON DIOXIDE 32 MMOL/L (21-32); CREATININE SERUM 1.38 MG/DL (0.60-1.30); GFR ESTIMATED 38; GLUCOSE 127 MG/DL (70-105)
[2019-03-19 08:12] LABS: ALBUMIN 3.7 GM/DL (3.2-4.5); TOTAL PROTEIN 6.9 GM/DL (6.4-8.2)
--- NOTE | 2019-03-19 08:12 | Diagnostic Imaging Report ---
INDICATION: Shortness of breath. Comparison made with prior examination 12/04/2018 FINDINGS: The heart size is normal. Lungs are clear. There is no pleural effusion or pneumothorax. Mediastinum is unremarkable. IMPRESSION: No acute cardiopulmonary abnormality. Dictated by: Dictated on workstation # [id number]
[2019-03-19 08:24] LABS: AMYLASE 85 U/L (25-125); LIPASE 24 U/L (8-78)
[2019-03-19] MEDS ORDERED: KCL 20 MEQ TAB (K-DUR) PO ONE (08:45)
[2019-03-19] MEDS ORDERED: methylPREDNISolone 125 MG (Solu-MEDROL) VIAL IVP ONE (09:15)
[2019-03-19] MEDS ORDERED: RT-ALBUTEROL/IPRATROPIUM 3 ML (DUONEB) VIAL INH ONE (09:15)
[2019-03-19] MEDS: POTASSIUM CL 10MEQ/50ML IVPB 50 ML IV SCH ×3 (09:18→10:20)
[2019-03-19] MEDS ORDERED: ASPIRIN 81 MG CHEW (CHILDREN'S ASA) PO ONE (09:30)
[2019-03-19] MEDS ORDERED: morphine INJ 10 MG/ML 1ML (SYR OR VIAL) IVP STA (09:31)
[2019-03-19] MEDS ORDERED: KETOROLAC 30 MG/ML VIAL IVP ONE (10:15)
[2019-03-19] MEDS ORDERED: NS IV 1000 ML 1,000 ML ONE (10:22)
[2019-03-19 10:53] VITALS: BP 152/93
== END 2019-03-19 10:53 | disposition short-term general hospital (02) ==
LOC: EDUNIT# 07:25 → ER FS 07:27
DX: E87.6 Hypokalemia (principal); R00.0 Tachycardia, unspecified; R06.00 Dyspnea, unspecified; R07.9 Chest pain, unspecified; R79.1 Abnormal coagulation profile; N28.9 Disorder of kidney and ureter, unspecified; J44.9 Chronic obstructive pulmonary disease, unspecified; Z87.891 Personal history of nicotine dependence; Z88.0 Allergy status to penicillin; Z88.8 Allergy status to other drugs, medicaments and biological substances; Z90.710 Acquired absence of both cervix and uterus; Z86.73 Personal history of transient ischemic attack (TIA), and cerebral infarction without residual deficits
CPT/HCPCS: 36415; 71045; 80053; 82150; 83605; 83690; 83735; 83880; 84484; 85025; 85379; 87040; 93041; 96361; 96374; 96375; 96376

== ENCOUNTER 2019-12-12 14:08 | Inpatient (IN) | payer MEDICARE ==
[~2019-12-12] VITALS: Ht 152 cm; Wt 75.6 kg
[2019-12-12] VITALS (9 sets, daily range): BP systolic 130–195; BP diastolic 60–112
[~2019-12-12 14:08] MED LIST changes: +EZET10TA49 PO; +HYDR-3923 PO; +OMEP40CA27 PO; -OMEP40CA36 PO; -OXYC-465 PO; +OXYC-556 PO; +PROP60TA17 PO; +SUCR1TAB
[2019-12-12] MEDS ORDERED: CATHETER FLUSH 10 ML SYR IV PRN ×2 (14:30→20:00)
[2019-12-12] MEDS ORDERED: DICYCLOMINE 10 MG/ML (BENTYL) 2 ML AMP IM ONE (14:30)
[2019-12-12] MEDS ORDERED: HOLD METFORMIN - RECEIVED CONTRAST 20 ML VIAL IV SCH (14:30)
[2019-12-12] MEDS ORDERED: KETOROLAC 30 MG/ML VIAL IVP ONE (14:30)
[2019-12-12] MEDS ORDERED: IOHEXOL 350 MG/ML 100 ML (OMNIPAQUE 350) VIAL IV ONE (14:30)
[2019-12-12] MEDS ORDERED: NS 100 ML (IVPB) BAG IV ONE (14:30)
[2019-12-12] MEDS ORDERED: ONDANSETRON 4 MG/2 ML (SDV) Z0FRAN IVP ONE (14:30)
[2019-12-12] MEDS ORDERED: NS IV 1000 ML 1,000 ML IV SCH (14:30)
--- NOTE | 2019-12-12 14:31 | ED GI ---
General Chief Complaint: Abdominal/GI Problems Stated Complaint: NAUSEA; VOMITING; DIARRHEA Nursing Triage Note: Started having nausea, vomiting, and diarrhea yesterday. Has had chills. States several weeks ago she was seen and had swallowed a coin. Sepsis Screen: No Definite Risk Source of Information: Patient Exam Limitations: No Limitations History of Present Illness Date Seen by Provider: Dec 12, 2019 Time Seen by Provider: 14:15 Initial Comments The patient is a pleasant 69-year-old female who presents via EMS for evaluation of nausea, vomiting, and diarrhea since yesterday as well as some chills. She is also complaining of some generalized abdominal discomfort and mentions that he she had an x-ray of her abdomen recently which showed evidence of a foreign body which appeared to be a coin. She states she does not recall swallowing a coin and does not know why there would be coin inside of her. She is alert and o riented 4, calm, and appears to be in no distress. She denies fever, chest pain or shortness of breath, back or flank pain, urinary complaints, hematemesis, rectal bleeding, dizziness or syncope. She is also complaining of some chronic right ear discomfort. She denies any recent antibiotics, travel, or sick contacts. Allergies and Home Medications Allergies Coded Allergies: Penicillins (Verified Allergy, Unknown, 12/04/18) atorvastatin (Verified Allergy, Unknown, 03/19/19) sumatriptan (Verified Allergy, Unknown, 12/04/18) Home Medications Albuterol/Ipratropium 4 Gm Aero, 1 PUFF IH QID PRN for SHORTNESS OF BREATH, (Reported) Alprazolam 0.5 Mg Tablet, 0.5 MG PO TID PRN for ANXIETY, (Reported) Cyclobenzaprine HCl 10 Mg Tablet, 10 MG PO TID PRN for MUSCLE SPASMS, (Reported) Duloxetine HCl 60 Mg Capsule.dr, 60 MG PO DAILY, (Reported) Omeprazole 40 Mg Capsule.dr, 40 MG PO DAILY, (Reported) Oxycodone HCl 10 Mg Tab.er.12h, 10 MG PO BID, (Reported) Oxycodone HCl/Acetaminophen 1 Each Tablet, 1 TAB PO TID PRN for BREAKTHROUGH PAIN, (Reported) Propranolol HCl 60 Mg Tablet, 60 MG PO BID, (Reported) Zolpidem Tartrate 5 Mg Tablet, 5 MG PO HS PRN for SLEEP, (Reported) Patient Home Medication List Home Medication List Reviewed: Yes Review of Systems Review of Systems Constitutional: no symptoms reported EENTM: No Symptoms Reported, Ear Pain (chronic right ear discomfort) Respiratory: No Symptoms Reported Cardiovascular: No Symptoms Reported Gastrointestinal: Abdominal Pain, Diarrhea, Nausea, Vomiting Genitourinary: No Symptoms Reported Musculoskeletal: no symptoms reported Skin: no symptoms reported Psychiatric/Neurological: No Symptoms Reported Endocrine: No Symptoms Reported Hematologic/Lymphatic: No Symptoms Reported All Other Systems Reviewed Negative Unless Noted: Yes Past Eerphhn-Nxecjz-Zfgbep Hx Past Med/Social Hx: Reviewed Nursing Past Med/Soc Hx Patient Social History Alcohol Use: Denies Use Recreational Drug Use: Yes Drug of Choice: marijuana occasionally Smoking Status: Former Smoker Type Used: Cigarettes Former Smoker, Quit: Mar 20, 2010 2nd Hand Smoke Exposure: No Recent Foreign Travel: No Contact w/Someone Who Travel: No Recent Infectious Disease Expo: No Recent Hopitalizations: No Seasonal Allergies Seasonal Allergies: No Past Medical History Surgeries: Yes Appendectomy, Gallbladder, Hysterectomy, Orthopedic Respiratory: Yes COPD Cardiac: Yes Hypertension 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 4.3oz. 79.595926ul; 32.00 BMI Method: General Appearance: WD/WN, no apparent distress HEENT: normal ENT inspection, pharynx normal, other (right TM with mild fluid, no erythema, no bulging/perforation, canal normal) Respiratory: lungs clear, normal breath sounds, no respiratory distress, no accessory muscle use Cardiovascular: regular rate, rhythm, no edema, no JVD Gastrointestinal: normal bowel sounds, non tender, soft, no pulsatile mass Progress/Results/Core Measures Results/Orders Lab Results Laboratory Tests Test 12/12/19 15:33 Range/Units White Blood Count 15.0 H 4.3-11.0 10^3/uL Red Blood Count 5.19 4.35-5.85 10^6/uL Hemoglobin 14.4 11.5-16.0 G/DL Hematocrit 44 35-52 % Mean Corpuscular Volume 85 80-99 FL Mean Corpuscular Hemoglobin 28 25-34 PG Mean Corpuscular Hemoglobin Concent 33 32-36 G/DL Red Cell Distribution Width 13.2 10.0-14.5 % Platelet Count 412 H 130-400 10^3/uL Mean Platelet Volume 8.2 7.4-10.4 FL Immature Granulocyte % (Auto) 0 % Neutrophils (%) (Auto) 87 H 42-75 % Lymphocytes (%) (Auto) 9 L 12-44 % Monocytes (%) (Auto) 4 0-12 % Eosinophils (%) (Auto) 0 0-10 % Basophils (%) (Auto) 0 0-10 % Neutrophils # (Auto) 13.0 H 1.8-7.8 X 10^3 Lymphocytes # (Auto) 1.3 1.0-4.0 X 10^3 Monocytes # (Auto) 0.6 0.0-1.0 X 10^3 Eosinophils # (Auto) 0.0 0.0-0.3 10^3/uL Basophils # (Auto) 0.0 0.0-0.1 10^3/uL Immature Granulocyte # (Auto) 0.1 0.0-0.1 10^3/uL Neutrophils % (Manual) 84 % Lymphocytes % (Manual) 12 % Monocytes % (Manual) 4 % Eosinophils % (Manual) 0 % Basophils % (Manual) 0 % Band Neutrophils 0 % Sodium Level 140 135-145 MMOL/L Potassium Level 4.1 3.6-5.0 MMOL/L Chloride Level 99 98-107 MMOL/L Carbon Dioxide Level 26 21-32 MMOL/L Anion Gap 15 H 5-14 MMOL/L Blood Urea Nitrogen 12 7-18 MG/DL Creatinine 1.02 0.60-1.30 MG/DL Estimat Glomerular Filtration Rate 54 BUN/Creatinine Ratio 12 Glucose Level 122 H 70-105 MG/DL Calcium Level 9.5 8.5-10.1 MG/DL Corrected Calcium 9.2 8.5-10.1 MG/DL Magnesium Level 2.1 1.6-2.4 MG/DL Total Bilirubin 0.3 0.1-1.0 MG/DL Aspartate Amino Transf (AST/SGOT) 17 5-34 U/L Alanine Aminotransferase (ALT/SGPT) 9 0-55 U/L Alkaline Phosphatase 97 40-136 U/L Troponin I < 0.30 <0.30 NG/ML Pro-B-Type Natriuretic Peptide 37.8 <75.0 PG/ML Total Protein 7.4 6.4-8.2 GM/DL Albumin 4.4 3.2-4.5 GM/DL Amylase Level 120 25-125 U/L Lipase 20 8-78 U/L My Orders Orders - VICTOR [place] BOB DO Cbc With Automated Diff (12/12/19 14:16) Comprehensive Metabolic Panel (12/12/19 14:16) Lipase (12/12/19 14:16) Magnesium (12/12/19 14:16) Ua Culture If Indicated (12/12/19 14:16) Ed Iv/Invasive Line Start (12/12/19 14:16) Ns Iv 1000 Ml (Sodium Chloride 0.9%) (12/12/19 14:30) Ondansetron Injection (Zofran Injectio (12/12/19 14:30) Continuous Ekg Monitoring (12/12/19 14:16) Ekg Tracing (12/12/19 14:16) Troponin I Fs (12/12/19 14:16) Probnp Fs (12/12/19 14:16) Amylase (12/12/19 14:16) Ketorolac Injection (Toradol Injection) (12/12/19 14:30) Dicyclomine Injection (Bentyl Injection) (12/12/19 14:30) Iohexol Injection (Omnipaque 350 Mg/Ml 1 (12/12/19 14:30) Received Contrast (Hold Metformin- Contr (12/12/19 14:30) Sodium Chloride Flush (Catheter Flush Sy (12/12/19 14:30) Ns (Ivpb) (Sodium Chloride 0.9% Ivpb Bag (12/12/19 14:30) Ct Abdomen/Pelvis Wo (12/12/19 14:16) Ondansetron Oral Dissolve Tab (Zofran (12/12/19 15:00) Morphine Injection (Morphine Injection (12/12/19 15:00) Ondansetron Oral Dissolve Tab (Zofran (12/12/19 14:55) Ondansetron Injection (Zofran Injectio (12/12/19 15:30) Manual Differential (12/12/19 15:33) Medications Given in ED Current Medications Medications Dose Ordered Sig/Mishel Route Start Time Stop Time Status Last Admin Dose Admin Dicyclomine HCl 20 mg ONCE ONCE IM 12/12/19 14:30 12/12/19 14:31 DC 12/12/19 15:24 20 MG Ketorolac Tromethamine 30 mg ONCE ONCE IVP 12/12/19 14:30 12/12/19 14:31 DC 12/12/19 15:24 30 MG Ondansetron HCl 4 mg ONCE ONCE IVP 12/12/19 14:30 12/12/19 14:31 DC 12/12/19 15:23 4 MG Vital Signs/I&O 12/12/19 14:15 Temp 36.5 Pulse 123 Resp 13 B/P (MAP) 177/81 (113) Pulse Ox 97 Blood Pressure Mean: 113 Progress Progress Note : Progress Note @1620 - Patient updated on lab and imaging results and is agreeable to admission. Dr. Wallace excepts admission at [facility] at this time. Comment EKG@1424 - Sinus tachycardia, rate of 121, left axis deviation is present, no acute ischemic findings noted, no STEMI, reviewed and interpreted by myself Diagnostic Imaging Diagonstic Imaging: CT Comments PHYSICIAN: VICTOR [place] BOB DO ADMIT DATE: 12/12/19/ER FS Draft Date of Exam:12/12/19 CT ABDOMEN/PELVIS WO EXAMINATION: CT Abdomen Pelvis without contrast. TECHNIQUE: Multiple contiguous axial images were obtained through the abdomen and pelvis without the use of intravenous contrast. All CT scans use one or more of the following dose optimizing techniques: automated exposure control, MA and/or KvP adjustment based on a patient size and exam type, or iterative reconstruction. HISTORY: Abdominal pain, nausea and vomiting COMPARISON: 02/07/2020 FINDINGS: Limited views of the lower thorax are unremarkable. The liver is normal without focal lesion. There is no biliary ductal dilation. Gallbladder is surgically absent. Pancreas is normal. Spleen is normal. Adrenal glands are normal. The kidneys are normal. There is no hydronephrosis. Urinary bladder is normal. Visualized bowel is normal in caliber without obstruction or inflammation. Again seen is a round and thin foreign body dependently within the stomach. No bowel obstruction or inflammation. Ingested contents are present in the stomach. No free fluid or air. No abdominal or pelvic lymphadenopathy. Aorta is normal in caliber without aneurysm. There are no suspicious osseus lesions. IMPRESSION: 1. Thin and round foreign body within the stomach in a similar position to the last exam with the shape of a coin. Dictated on workstation # [id number] Dict: 12/12/19 1530 Trans: 12/12/[address] [facility] [id number] Interpreted by: ESDRAS LICONA MD Electronically signed by: Departure Communication (Admissions) Time/Spoke to Admitting Phy: 16:22 Dr. Wallace excepts the admission at [facility] Impression Primary Impression: Nausea vomiting and diarrhea Additional Impressions: Dehydration Foreign body in stomach Disposition: ADMITTED INPATIENT Condition: Stable Admissions Decision to Admit Reason: Admit from ER (General) Decision to Admit/Date: Dec 12, 2019 Time/Decision to Admit Time: 16:25 Departure-Patient Inst. Referrals: YOANNA CHAMBERS DO (PCP/Family) Primary Care Physician VICTOR [place] BOB DO Dec 12, 2019 14:31
[2019-12-12] MEDS ORDERED: ONDANSETRON 4 MG (ZOFRAN) ORAL DISSOLVE TAB ONE (14:55)
[2019-12-12] MEDS ORDERED: ONDANSETRON 4 MG (ZOFRAN) ORAL DISSOLVE TAB PO STA (15:00)
[2019-12-12] MEDS ORDERED: morphine INJ 10 MG/ML 1ML (SYR OR VIAL) IM STA (15:00)
[2019-12-12] MEDS ORDERED: ONDANSETRON 4 MG/2 ML (SDV) Z0FRAN IM ONE (15:30)
--- NOTE | 2019-12-12 15:36 | Diagnostic Imaging Report ---
EXAMINATION: CT Abdomen Pelvis without contrast. TECHNIQUE: Multiple contiguous axial images were obtained through the abdomen and pelvis without the use of intravenous contrast. All CT scans use one or more of the following dose optimizing techniques: automated exposure control, MA and/or KvP adjustment based on a patient size and exam type, or iterative reconstruction. HISTORY: Abdominal pain, nausea and vomiting COMPARISON: 02/07/2020 FINDINGS: Limited views of the lower thorax are unremarkable. The liver is normal without focal lesion. There is no biliary ductal dilation. Gallbladder is surgically absent. Pancreas is normal. Spleen is normal. Adrenal glands are normal. The kidneys are normal. There is no hydronephrosis. Urinary bladder is normal. Visualized bowel is normal in caliber without obstruction or inflammation. Again seen is a round and thin foreign body dependently within the stomach. No bowel obstruction or inflammation. Ingested contents are present in the stomach. No free fluid or air. No abdominal or pelvic lymphadenopathy. Aorta is normal in caliber without aneurysm. There are no suspicious osseus lesions. IMPRESSION: 1. Thin and round foreign body within the stomach in a similar position to the last exam with the shape of a coin. Dictated by: Dictated on workstation # [id number]
[2019-12-12 15:45] LABS: HEMATOCRIT 44 % (35-52); HEMOGLOBIN 14.4 G/DL (11.5-16.0); MEAN CORPUSCULAR HEMOGLOBIN 28 PG (25-34); MEAN CORPUSCULAR HGB CONC 33 G/DL (32-36); MEAN CORPUSCULAR VOLUME 85 FL (80-99)
[2019-12-12 15:46] LABS: BASOPHILS % (AUTO) 0 % (0-10); EOSINOPHILS % (AUTO) 0 % (0-10); LYMPHOCYTES # (AUTO) 1.3 X 10^3 (1.0-4.0); LYMPHOCYTES % (AUTO) 9 % (12-44); MEAN PLATELET VOLUME 8.2 FL (7.4-10.4); MONOCYTES # (AUTO) 0.6 X 10^3 (0.0-1.0); MONOCYTES % (AUTO) 4 % (0-12); NEUTROPHILS % (AUTO) 87 % (42-75); PLATELET COUNT 412 10^3/uL (130-400)
--- NOTE | 2019-12-12 16:00 | NUR ---
Attempted to call , Warner, with no answer.
[2019-12-12 16:03] LABS: BAND NEUTROPHILS 0 %; BASOPHILS % (MANUAL) 0 %; EOSINOPHILS % (MANUAL) 0 %; LYMPHOCYTES % (MANUAL) 12 %; MONOCYTES % (MANUAL) 4 %; NEUTROPHILS % (MANUAL) 84 %
[2019-12-12 16:14] LABS: ALANINE AMINOTRANSFERASE 9 U/L (0-55); ALBUMIN 4.4 GM/DL (3.2-4.5); ALKALINE PHOSPHATASE 97 U/L (40-136); BILIRUBIN,TOTAL 0.3 MG/DL (0.1-1.0); BUN/CREATININE RATIO 12; CALCIUM 9.5 MG/DL (8.5-10.1); CARBON DIOXIDE 26 MMOL/L (21-32); CHLORIDE 99 MMOL/L (98-107); CREATININE SERUM 1.02 MG/DL (0.60-1.30); GFR ESTIMATED 54; GLUCOSE 122 MG/DL (70-105); MAGNESIUM 2.1 MG/DL (1.6-2.4); POTASSIUM 4.1 MMOL/L (3.6-5.0); SODIUM 140 MMOL/L (135-145); TOTAL PROTEIN 7.4 GM/DL (6.4-8.2)
[2019-12-12 16:15] LABS: AMYLASE 120 U/L (25-125); LIPASE 20 U/L (8-78)
[2019-12-12] MEDS ORDERED: morphine INJ 10 MG/ML 1ML (SYR OR VIAL) IVP STA (16:29)
--- NOTE | 2019-12-12 19:20 | NUR ---
ALE MORGAN [place] admitted to room 412-1, with an admitting diagnosis of N/V/D, METALLIC FB IN STOMACH, DEHYDRATION, on 12/12/19 from [facility] via [facility], accompanied by EMS.ALE MORGAN introduced to surroundings, call light, bed controls, phone, TV, temperature control, lights, meal times, smoking policy, visitor policy, side rail policy, bathrooms and showers. Patient Rights given to patient in the handbook. ALE MORGAN verbalizes understanding that [facility] is not responsible for the loss or damage to any personal effects or valuables that are kept in the patients posession during their hospitalization. ALE MORGAN verbalizes understanding of Interdisciplinary Patient Education. Patient and/or family were informed about the Rapid Response Team and its purpose.
--- NOTE | 2019-12-12 19:53 | NUR ---
CONSENT OBTAINED FOR EGD AT THIS TIME BY THIS RN.
--- NOTE | 2019-12-12 19:56 | NUR ---
PT DOWN TO ENDO AT THIS TIME VIA WHEELCHAIR.
[2019-12-12] MEDS ORDERED: fentaNYL INJECTION 100 MCG/2 ML AMP ONE (20:04)
[2019-12-12] MEDS ORDERED: LIDOCAINE JELLY 2% 6 ML SYRINGE ONE (20:04)
--- NOTE | 2019-12-12 20:04 | Conscious Sedation/ASA ---
Conscious Sedation Pre-Proced Time 20:00 ASA Score 2 For ASA 3 and 4: Consider anesthesia and medical clearance. Also, for patients with a history of failed moderate sedation consider anesthesia. Airway Lungs Heart ASA score ASA 1: a normal healthy patient ASA 2: a patient with a mild systemic disease (mid diabetes, controlled hypertension, obesity ASA 3: a patient with a severe systemic disease that limits activity (angina, COPD, prior Myocardial infarction) ASA 4: a patient with an incapacitating disease that is a constant threat to life (CHF, renal failure) ASA 5: a moribund patient not expected to survive 24 hrs. (ruptured aneurysm) ASA 6: a declared brain- patient whose organs are being harvested. For emergent operations, add the letter E after the classification Mallampati Classification Grade 2 Sedation Plan Analgesia, Amnesia, Plan communicated to team members, Discussed options with patient/fam, Discussed risks with patient/fam The patient is an appropriate candidate to undergo the planned procedure, sedation, and anesthesia. The patient immediately re-assessed prior to indication. BERNARD LEUNG MD Dec 12, 2019 20:04
--- NOTE | 2019-12-12 20:04 | Progress Note-Pre Operative ---
Pre-Operative Progress Note H&P Reviewed The H&P was reviewed, patient examined and no changes noted. Date Seen by Provider: Dec 12, 2019 Time Seen by Provider: 20:00 Date H&P Reviewed: Dec 12, 2019 Time H&P Reviewed: 20:00 Pre-Operative Diagnosis: gastric foreign body with nausea/vomiting BERNARD LEUNG MD Dec 12, 2019 20:04
[2019-12-12] MEDS ORDERED: HURRICAINE EXT TUBE (BENZOCAINE) ONE (20:05)
[2019-12-12] MEDS ORDERED: MIDAZOLAM 5 MG/5 ML (VERSED) VIAL ONE ×2 (20:05)
[2019-12-12] MEDS ORDERED: PANT40TA2 PO (20:06)
--- NOTE | 2019-12-12 20:07 | Discharge Inst-Surgical ---
D/C Lap Instructions-KIDO New, Converted, or Re-Newed RX: RX on Chart Follow Up PRN Activity as tolerated High Fiber Diet 25g or more per day Avoid Alcohol, Caffeine, Spicy [place] and Acid foods. Drink 64 fluid oz or more of fluids per day. Symptoms to Report: Fever over 101 degree F, Nausea/Vomiting If any problems/questions: Contact your physician or go to Emergency Room BERNARD LEUNG MD Dec 12, 2019 20:07
--- NOTE | 2019-12-12 20:21 | CONSULTATION REPORT ---
DATE OF SERVICE: HISTORY OF PRESENT ILLNESS: The patient is a 69-year-old female who presented to [facility] with nausea and vomiting as well as diarrhea. She states that she had some crampy abdominal pain approximately 6 weeks ago and she had an x-ray performed, which did show evidence of a foreign body, which appeared to be a coin. She does not recall ever swallowing a coin. She is in no acute distress; however, it appears that she is slightly dehydrated and will be admitted. A CT scan was performed, which did show the same foreign body in the dependent portion of the stomach. She does not report any hematemesis nor coffee ground emesis. PAST MEDICAL HISTORY: Gastroesophageal reflux disease, history of stroke 02/2019, degenerative joint disease, low back, COPD, hypertension. PAST SURGICAL HISTORY: Appendectomy, cholecystectomy and hysterectomy. ALLERGIES: PENICILLIN, ATORVASTATIN and SUMATRIPTAN. MEDICATIONS: Albuterol 1 puff q.i.d. p.r.n., Alprazolam 0.5 mg t.i.d., cyclobenzaprine 10 mg t.i.d., duloxetine 60 mg daily, omeprazole 40 mg daily, oxycodone 10 mg b.i.d., propranolol 60 mg b.i.d., zolpidem 5 mg at bedtime p.r.n. SOCIAL HISTORY: Previous smoker, quit 2010, 40 pack years. Negative alcohol. FAMILY HISTORY: Noncontributory. VITAL SIGNS: Temperature 36.5, blood pressure 177/81, pulse 123, respirations 13, pulse ox 97% on room air. REVIEW OF SYSTEMS: A well-nourished female, currently in no acute distress. She is not experiencing any shortness of breath or difficulty breathing. No chest pain, palpitations, diaphoresis. Intermittent episodes of nausea and vomiting for the past two days. No hematemesis, no coffee ground emesis. She also has had some diarrhea, no red blood per rectum, no dark tarry stools. No fever, chills, no recent inadvertent weight loss. All other review of systems negative. PHYSICAL EXAMINATION: CHEST: Clear. Good breath sounds bilaterally. HEART: Regular, no murmurs. EXTREMITIES: No lower extremity edema, negative Homans sign. HEENT: No scleral icterus or cervical lymphadenopathy. ABDOMEN: Soft, nondistended. There is mild discomfort in the epigastric region upon deep palpation. No peritoneal signs. No hernias. SKIN: Warm, dry. LABORATORY DATA: WBC 15.0, hemoglobin 14.4, hematocrit 44, platelets 412. BUN 12, creatinine 1.02). ASSESSMENT AND PLAN: A 69-year-old female with retained foreign body of the stomach, which may be responsible for intermittent episodes of nausea and vomiting and we will proceed with an EGD as well as removal of foreign body as well as biopsies as appropriate. Job ID: [id number] DocumentID: [id number] Dictated Date: 12/12/2019 16:45:33 Plant Sprayer Date: 12/12/2019 20:20:13 Dictated By: BERNARD LEUNG MD
--- NOTE | 2019-12-12 21:10 | NUR ---
PT RETURNED FROM ENDO AT THIS TIME.
--- NOTE | 2019-12-12 21:10 | Progress Note-Post Operative ---
Post-Operative Progess Note Surgeon (s)/Printmaker (s) Surgeon BERNARD LEUNG MD Printmaker: none Pre-Operative Diagnosis gastric foreign body with nausea/vomiting Post-Operative Diagnosis same with gastric outlet obstruction. Procedure & Operative Findings Date of Procedure 12/12/19 Procedure Performed/Findings EGD Anesthesia Type cs Estimated Blood Loss Estimated blood loss (mL): minimal Specimens/Packing Specimens Removed none BERNARD LEUNG MD Dec 12, 2019 21:10
--- NOTE | 2019-12-12 21:30 | NUR ---
NOTIFIED DR. NEVAREZ OF PT BEING ADMITTED WITH N/V/D AND ABD. PAIN WITH NO MEDICATIONS ORDERED FOR NAUSEA OR PAIN. NEW ORDERS RECEIVED AT THIS TIME.
[2019-12-12] MEDS ORDERED: fentaNYL INJECTION 100 MCG/2 ML AMP IVP ONE (21:45)
[2019-12-12] MEDS ORDERED: MIDAZOLAM 5 MG/5 ML (VERSED) VIAL IV ONE (21:45)
[2019-12-12] MEDS ORDERED: ONDANSETRON 4 MG/2 ML (SDV) Z0FRAN IVP PRN (21:45)
[2019-12-12] MEDS ORDERED: HURRICAINE EXT TUBE (BENZOCAINE) XX PRN (21:45)
[2019-12-12] MEDS ORDERED: LIDOCAINE JELLY 2% 6 ML SYRINGE MM PRN (21:45)
[2019-12-12] MEDS: PANTOPRAZOLE 40 MG (PROTONIX) VIAL IV SCH (22:15)
[2019-12-12] MEDS: NS IV 1000 ML 1,000 ML IV SCH (22:15)
--- NOTE | 2019-12-12 22:32 | OPERATIVE REPORT ---
DATE OF SERVICE: 12/12/2019 ATTENDING PRIMARY CARE PHYSICIAN: Jacobo Ramos DO PREOPERATIVE DIAGNOSES: Nausea, vomiting with the retained gastric foreign body. POSTOPERATIVE DIAGNOSES: Nausea, vomiting with the retained gastric foreign body with gastric outlet obstruction. PROCEDURE: EGD. SURGEON: Bernard Leung MD ANESTHESIA: Conscious sedation. ESTIMATED BLOOD LOSS: Minimal. FINDINGS: Reflux esophagitis between stage II and III, small hiatal hernia 2 cm in size, retained food within the stomach, gastric outlet obstruction and the endoscope was unable to pass through this region. DISPOSITION: The patient tolerated the procedure well. INDICATIONS: The patient is a 69-year-old female who presented to [facility] with nausea and vomiting as well as diarrhea. She has had some crampy abdominal pain for 6 weeks. An x-ray was performed, which did show evidence of a foreign body at that time. She was supposed to follow up with surgery; however, was not able to. Upon further questioning, she reports that she has had issues with taking in solids for several months if not years. She was admitted for dehydration. A CT scan was performed, which did show the retained foreign body in the dependent portion of the stomach again. She does not report any hematemesis, no coffee ground emesis. DESCRIPTION OF PROCEDURE: The patient was brought to the endoscopy suite, laid in the left lateral decubitus position with head elevated. After adequate IV pain and stated medications and conscious sedation anesthesia, the mouthpiece was applied. The endoscope was placed in the mouth, visualizing the pharynx and hypopharyngeal region. Vocal cords, epiglottis and vallecula identified and appeared to be normal. The endoscope was then gently intubated into the esophageal opening and esophagus insufflated. The endoscope was then advanced to the first, second and third portion of esophagus. At the level of the GE junction, a reflux esophagitis stage II and III identified. There were no ulcers or strictures identified in this region. The endoscope was then advanced to the stomach and endoscope retroflexed, visualizing a small hiatal hernia approximately 2 cm in size. There was significant amount of retained food substance within the stomach and it was unable to visualize the foreign body. Upon further exploration, there was a gastric outlet obstruction at the distal antrum likely consistent with severe peptic ulcer disease. The stricture was so small that the endoscope was unable to pass through this region. The endoscope was then slowly withdrawn while taking a second look and suctioning of residual air with no additional findings. The patient tolerated the procedure well. We will start her on Protonix 40 mg b.i.d. as well as a clear liquid diet. We will also consult another surgeon to see if he does do antrectomies or Billroth II bypasses. If not, he may need to be referred to a tertiary center. Job ID: [id number] DocumentID: [id number] Dictated Date: 12/12/2019 21:15:53 Rail Car Repairman Date: 12/12/2019 22:31:55 Dictated By: BERNARD LEUNG MD
[2019-12-13] VITALS (11 sets, daily range): BP systolic 136–197; BP diastolic 83–107
[2019-12-13] MEDS: ACETAMINOPHEN 325 MG TABLET PO PRN ×4 (02:57→22:36)
[2019-12-13] MEDS: NS IV 1000 ML 1,000 ML IV SCH ×3 (05:39→17:56)
[2019-12-13] MEDS: PANTOPRAZOLE 40 MG (PROTONIX) VIAL IV SCH ×2 (07:38→20:02)
[2019-12-13] MEDS ORDERED: KETOROLAC 30 MG/ML VIAL IVP ONE (08:45)
[2019-12-13] MEDS ORDERED: PANTOPRAZOLE 40 MG (PROTONIX) VIAL IV SCH (09:00)
[2019-12-13] MEDS: ALPRAZolam 0.5 MG (XANAX) TAB PO PRN ×2 (09:05→20:02)
--- NOTE | 2019-12-13 09:14 | Progress Note ---
LUCIO MESSER PRESS OPERATOR ASSISTANT 12/13/19 0914: Subjective Date Seen by a Provider: Dec 13, 2019 Time Seen by a Provider: 08:15 Subjective/Events-last exam Patient reports that she is feeling better this morning and her nausea is improved but still there. Denies any vomiting since last night. Minimal a bdominal pain. Reports that she was having heartburn earlier. She reports that she is a very anxious person is has been under lots of stress lately due to her mother not doing well and helping to take care of her. She does report a headache. She reports that she has not tried any liquids yet. She reports a history of bleeding peptic ulcers in the past. Objective Exam Vital Signs Date Time Temp Pulse Resp B/P (MAP) Pulse Ox O2 Delivery O2 Flow Rate FiO2 12/13/19 03:47 36.5 98 20 136/83 (100) 95 Room Air 12/13/19 00:00 36.7 105 18 139/85 (103) 94 Room Air 12/12/19 20:50 112 20 98 Room Air 12/12/19 20:45 116 20 100 OxyMask 10 12/12/19 20:40 120 20 100 OxyMask 10 12/12/19 20:35 115 20 100 OxyMask 10 12/12/19 20:32 36.8 118 20 130/60 97 12/12/19 20:30 112 20 100 OxyMask 10 12/12/19 20:25 123 20 100 OxyMask 10 12/12/19 20:20 117 20 100 OxyMask 10 12/12/19 20:15 113 20 100 OxyMask 10 12/12/19 19:20 Room Air 12/12/19 18:40 112 13 154/91 95 12/12/19 14:15 36.5 123 13 177/81 (113) 97 I & O 12/13/19 07:00 Intake Total 800 ml Balance 800 ml Capillary Refill : Less Than 3 Seconds General Appearance: No Apparent Distress, WD/WN Neck: Normal Inspection, Supple Respiratory: Normal Breath Sounds, No Accessory Muscle Use, No Respiratory Distress Cardiovascular: Regular Rate, Rhythm, No Edema Gastrointestinal: soft, tenderness (minimal) Extremity: Normal Inspection, Normal Range of Motion Neurologic/Psychiatric: Alert, Oriented x3 Skin: Normal Color, Warm/Dry Results Lab Laboratory Tests 9/24/20 15:33: White Blood Count 15.0H, Red Blood Count 5.19, Hemoglobin 14.4, Hematocrit 44, Mean Corpuscular Volume 85, Mean Corpuscular Hemoglobin 28, Mean Corpuscular Hemoglobin Concent 33, Red Cell Distribution Width 13.2, Platelet Count 412H, Mean Platelet Volume 8.2, Immature Granulocyte % (Auto) 0, Neutrophils (%) (Auto) 87H, Lymphocytes (%) (Auto) 9L, Monocytes (%) (Auto) 4, Eosinophils (%) (Auto) 0, Basophils (%) (Auto) 0, Neutrophils # (Auto) 13.0H, Lymphocytes # (Auto) 1.3, Monocytes # (Auto) 0.6, Eosinophils # (Auto) 0.0, Basophils # (Auto) 0.0, Immature Granulocyte # (Auto) 0.1, Neutrophils % (Manual) 84, Lymphocytes % (Manual) 12, Monocytes % (Manual) 4, Eosinophils % (Manual) 0, Basophils % (Manual) 0, Band Neutrophils 0, Sodium Level 140, Potassium Level 4.1, Chloride Level 99, Carbon Dioxide Level 26, Anion Gap 15H, Blood Urea Nitrogen 12, Creatinine 1.02, Estimat Glomerular Filtration Rate 54, BUN/Creatinine Ratio 12, Glucose Level 122H, Calcium Level 9.5, Corrected Calcium 9.2, Magnesium Level 2.1, Total Bilirubin 0.3, Aspartate Amino Transf (AST/SGOT) 17, Alanine Aminotransferase (ALT/SGPT) 9, Alkaline Phosphatase 97, Troponin I < 0.30, Pro-B-Type Natriuretic Peptide 37.8, Total Protein 7.4, Albumin 4.4, Amylase Level 120, Lipase 20 Assessment/Plan Assessment/Plan Assess & Plan/Chief Complaint A 69-year-old female with retained foreign body of the stomach, which may be responsible for intermittent episodes of nausea and vomiting, gastric outlet obstruction VSS Will continue with Protonix BID Will start carafate QID Toradol 30 mg IV for her headache Restart her xanax as needed for anxiety Continue with clear liquid diet Will await to see if patient needs transfer to another surgeon to see if he does do antrectomies or Billroth II bypasses. If not, he may need to be referred to a tertiary center. Clinical Quality Measures DVT/VTE Risk/Contraindication: Risk Factor Score Per Nursin RFS Level Per Nursing on Admit: 4+=Very High FARRAH BOLES DO 12/13/19 1035: Subjective Time Seen by a Provider: 09:51 Subjective/Events-last exam Pt seen and examined, states she is doing ok but very anxious. Denies abdominal pain. Review of Systems General: No Chills, No Night Sweats Pulmonary: No Dyspnea, No Cough Cardiovascular: No: Chest Pain, Palpitations Gastrointestinal: No: Nausea, Vomiting, Abdominal Pain Objective Exam General Appearance: No Apparent Distress, Anxious Respiratory: Lungs Clear, Normal Breath Sounds, No Accessory Muscle Use, No Respiratory Distress Cardiovascular: Regular Rate, Rhythm, No Murmur Gastrointestinal: non tender, soft, no organomegaly Skin: Normal Color, Warm/Dry Assessment/Plan Assessment/Plan Assess & Plan/Chief Complaint Retained Foreign object Pylorus stricture Pt was put on clears to try and wash out stomach, Dr. Ryder unable to find the object (possible coin) because of retained food in stomach. She also has pylo agustina stricture and may need surgical bypass. Plan to repeat EGD tomorrow hoping that the clear liquids flush out some of the food. Will relook at pylorus and then discuss with pt the next step. LUCIO MESSER PRESS OPERATOR ASSISTANT Dec 13, 2019 09:14 FARRAH BOLES DO Dec 13, 2019 10:35
--- NOTE | 2019-12-13 10:00 | NUR ---
BP 177/94, XANAX GIVEN FOR ANXIETY, TORDAL 30MG GIVEN IV TIMES ONE FOR HEADACHE ORDERED BY DAVONTE, BP 171/83 DR MORALES NOTIFIED OF ELEVATED BP
--- NOTE | 2019-12-13 11:34 | History & Physical-Hospitalist ---
History of Present Illness HPI/Chief Complaint Pt is a 69yoCF with a PMH of HTN, CVA, anxiety, GERD who presented to the ER due to intractable nausea and vomiting. She was seen in the ER on 10/28 for similar symptoms and was found to have a foreign body in her stomach that was presumed to be a coin. Repaet imaging in the ER revealed the foreign object was still there. She reports her symptoms have not persisted since October but just started yesterday. She has been unable to keep anything down. She has no recollection of ingesting a coin or any small metallic objects. Source: patient Date Seen 12/13/19 Time Seen by a Provider: 11:29 Attending Physician Darci Wallace MD PCP Jacobo Ramos DO Referring Physician Date of Admission Dec 12, 2019 at 19:36 Home Medications & Allergies Home Medications Reviewed patient Home Medication Reconciliation performed by pharmacy medication reconciliations polygraph technician and/or nursing. Patients Allergies have been reviewed. Allergies Allergies Coded Allergies Penicillins (Verified Allergy, Unknown, 12/04/18) atorvastatin (Verified Allergy, Unknown, 03/19/19) sumatriptan (Verified Allergy, Unknown, 12/04/18) Past Kefcnup-Ghfeac-Ehepzl Hx Past Med/Social Hx: Reviewed Nursing Past Med/Soc Hx Patient Social History Alcohol Use: Denies Use Recreational Drug Use: Yes Drug of Choice: marijuana occasionally Smoking Status: Former Smoker Former Smoker, Quit: Mar 20, 2010 Type Used: Cigarettes 2nd Hand Smoke Exposure: No Recent Foreign Travel: No Contact w/other who traveled: No Recent Hopitalizations: No Recent Infectious Disease Expo: No Immunizations Up To Date Date of Pneumonia Vaccine: Nov 19, 2015 Seasonal Allergies Seasonal Allergies: No Past Medical History Surgeries: Appendectomy, Gallbladder, Hysterectomy, Orthopedic Cardiac: Hypertension Neurological: Stroke : No Gastrointestinal: Ulcer Musculoskeletal: Chronic Back Pain History of Blood Disorders: No Review of Systems Constitutional: No chills, No fever EENTM: no symptoms reported Respiratory: No cough, No short of breath Cardiovascular: No chest pain, No palpitations Gastrointestinal: No abdominal pain; diarrhea, nausea, vomiting Genitourinary: No dysuria, No frequency Musculoskeletal: no symptoms reported Skin: no symptoms reported Psychiatric/Neurological: Anxiety, Headache Physical Exam Physical Exam Vital Signs Vital Signs - First Documented 12/12/19 12/12/19 12/12/19 14:15 19:20 20:15 Temp 36.5 Pulse 123 Resp 13 B/P (MAP) 177/81 (113) Pulse Ox 97 O2 Delivery Room Air O2 Flow Rate 10 Capillary Refill : Less Than 3 Seconds Height, Weight, BMI Height: 5'0.00" Weight: 175lbs. 4.3oz. 79.809888hr; 32.46 BMI Method: General Appearance: No Apparent Distress, WD/WN, Anxious HEENT: PERRL/EOMI, Moist Mucous Membranes Neck: Normal Inspection, Supple Respiratory: Lungs Clear, No Accessory Muscle Use, No Respiratory Distress Cardiovascular: Regular Rate, Rhythm, No JVD, No Murmur Gastrointestinal: Normal Bowel Sounds, Non Tender, Soft Extremity: Normal Capillary Refill, No Calf Tenderness, No Pedal Edema Neurologic/Psychiatric: Alert, Oriented x3, Other (very anxious, to the point of tears) Skin: Normal Color, Warm/Dry Results Results/Procedures Labs Laboratory Tests 12/12/19 15:33 Patient resulted labs reviewed. Imaging: Reviewed Imaging Report Imaging [facility], [place] NAME: [facility] REC#: [id number] PT STATUS: ADM IN : 1950 PHYSICIAN: VICTOR HUGO BOB DO ADMIT DATE: 12/12/19 Signed Date of Exam:12/12/19 CT ABDOMEN/PELVIS WO EXAMINATION: CT Abdomen Pelvis without contrast. TECHNIQUE: Multiple contiguous axial images were obtained through the abdomen and pelvis without the use of intravenous contrast. All CT scans use one or more of the following dose optimizing techniques: automated exposure control, MA and/or KvP adjustment based on a patient size and exam type, or iterative reconstruction. HISTORY: Abdominal pain, nausea and vomiting COMPARISON: 02/07/2020 FINDINGS: Limited views of the lower thorax are unremarkable. The liver is normal without focal lesion. There is no biliary ductal dilation. Gallbladder is surgically absent. Pancreas is normal. Spleen is normal. Adrenal glands are normal. The kidneys are normal. There is no hydronephrosis. Urinary bladder is normal. Visualized bowel is normal in caliber without obstruction or inflammation. Again seen is a round and thin foreign body dependently within the stomach. No bowel obstruction or inflammation. Ingested contents are present in the stomach. No free fluid or air. No abdominal or pelvic lymphadenopathy. Aorta is normal in caliber without aneurysm. There are no suspicious osseus lesions. IMPRESSION: 1. Thin and round foreign body within the stomach in a similar position to the last exam with the shape of a coin. Dictated by: Dictated on workstation # [id number] Dict: 12/12/19 1530 Trans: 12/13/19 1446 [facility] [phone] Interpreted by: ESDRAS LICONA MD Electronically signed by: ESDRAS LICONA MD 12/13/19 1446 Assessment/Plan Admission Diagnosis Intractable Nausea and vomiting Admission Status: Inpatient Order (span 2 midnights) Reason for Inpatient Admission: see below Assessment and Plan Intractable Nausea and vomiting Foreign body in stomach pyloric stricture Continue with IVF Continue antiemetics CLD EGD revealed pyloric stricture, unable to locate foreign body due to food contents may need surgical bypass, surgery consulted, appreciate recs Continue carafate and PPI Anxiety disorder Resume home benzos HTN continue home meds Diagnosis/Problems Diagnosis/Problems (1) metalic foreign body in stomach Status: Acute (2) Nausea vomiting and diarrhea Status: Acute (3) Dehydration Status: Acute (4) Pyloric antral stenosis Status: Acute (5) Anxiety Status: Chronic (6) Hyperlipidemia Status: Chronic Qualifiers: Hyperlipidemia type: unspecified Qualified Codes: E78.5 - Hyperlipidemia, unspecified (7) Essential (primary) hypertension Status: Chronic (8) GERD (gastroesophageal reflux disease) Status: Acute Qualifiers: Esophagitis presence: with esophagitis Qualified Codes: K21.0 - Gastro- esophageal reflux disease with esophagitis Clinical Quality Measures DVT/VTE Risk/Contraindication: Risk Factor Score Per Nursin RFS Level Per Nursing on Admit: 4+=Very High DARCI WALLACE MD Dec 13, 2019 11:34
[2019-12-13] MEDS ORDERED: NITROGLYCERIN 2% OINT 1 GM UNIT DOSE PACKET TOP PRN (12:15)
[2019-12-13] MEDS: SUCRALFATE 1 GM (CARAFATE) TAB PO SCH ×3 (12:28→20:02)
--- NOTE | 2019-12-13 13:49 | NUR ---
BP 193/88, NITRO PASTE APPLIED ORDERED, CONSENT SIGNED FOR EGD WITH ISIAH BREWSTER SWAB DONE PER PROTOCOL.
--- NOTE | 2019-12-13 13:59 | NUR ---
RD ASSESSMENT PMHx: GERD; stroke; COPD; HTN PT INTERACTION: Pt was awake and pleasant during nutrition assessment. Pt states current appetite is not good, and has been this way for a few days. Note avg PO intake <25% x2meal, per chart review. Pt became tearful during nutrition assessment, explaining that she was admitted for swallowing a coin, "but I don't remember swallowing a coin." Pt states following a regular diet at home, and has some issues with chewing food, as she is missing teeth. Pt states some recent issues with nausea, constipation, and diarrhea, and that her last BM was 12/10. Note pt is not currently on bowel regimen per chart review. Pt states recent wt loss of "a little bit." Note recent 14# wt loss x3w, per chart review. ABNORMAL NUTRITION-RELATED LAB VALUES LOW: HIGH: glu 122 Est. kcal needs: 1125 kcal | 15 kcal/kg Est. Pro needs: 60 g Pro | 0.8 g Pro/kg PES STATEMENT: Inadequate oral intake (NI-2.1) related to loss of appetite | nausea | constipation | diarrhea as evidenced by pt interview | avg PO intake <25% x2meal INTERVENTION: Note pt currently NPO, pending procedure. Would recommend diet advancement when medically able and as tolerated. Will continue to follow and reassess as pt needs, intake, and status change. Fam Lora, MS, RD, LD
[2019-12-13] MEDS ORDERED: ZOLP10TA PO (14:29)
[2019-12-13] MEDS ORDERED: POLY17PO6 PO (14:29)
[2019-12-13] MEDS ORDERED: PEG15DRO9 OU (14:29)
[2019-12-13] MEDS ORDERED: MULT-1136 PO (14:29)
[2019-12-13] MEDS ORDERED: POTA-51 PO (14:29)
[2019-12-13] MEDS ORDERED: ACET-2267 PO (14:29)
[2019-12-13] MEDS ORDERED: DULO30CA49 PO (14:29)
[2019-12-13] MEDS ORDERED: CHOL200074 PO (14:29)
--- NOTE | 2019-12-13 14:53 | NUR ---
SPOKE WITH THE PT AND WENT THRU THE EXT MED HISTORY TO COMPLETE THE MED REC WHEN I FIRST SAW THE PT THIS MORNING SHE WANTED ME TO WAIT UNTIL HER GOT HERE SINCE HE TAKES CARE OF HER MEDICATIONS. I CHECKED BACK LATER IN THE DAY AND ACCORDING TO THE PT HER WAS NO LONGER COMING HERE DUE TO A MIGRAINE. BUPROPION IS LISTED ON THE EXT MED HISTORY HOWEVER PT SAYS DUE TO THE SIDE EFFECTS SHE IS NO LONGER TAKING DULOXETINE- PT IS TAKING 60MG DAILY AND 30MG @ 1999 PT WAS ABLE TO TELL ME HOW SHE TAKES HER MEDICATIONS TO THE BEST OF HER ABILITY. ALE KEPT APOLOGIZING THAT SHE DIDNT KNOW MORE AND WISHING HER WAS HERE- I REASSURED HER THAT SHE WAS DOING GREAT AND EVERYTHING WOULD BE OK. OTC MEDS: TYLENOL VIT D MTV VISINE MIRALAX
[2019-12-13] MEDS ORDERED: hydrALAZINE (APESOLINE) 20 MG/ML VIAL IV NR (16:15)
[2019-12-13] MEDS: fentaNYL INJECTION 100 MCG/2 ML AMP IVP PRN ×3 (16:23→23:20)
--- NOTE | 2019-12-13 16:36 | NUR ---
c/o headache and dizziness since nitro paste applied, Dr Wallace notified and order given to remove nitropaste patch, and give hydralize 5mg iv times one for elevated blood pressure
[2019-12-13] MEDS ORDERED: hydrALAZINE (APESOLINE) 20 MG/ML VIAL IV PRN (20:45)
[2019-12-14] VITALS (10 sets, daily range): BP systolic 109–184; BP diastolic 63–97
--- NOTE | 2019-12-14 00:01 | NUR ---
2245- PT'S BP 185/107 WITH A PULSE OF 108- PT RATING PAIN 8/10 D/T HEADACHE. 2246- HYDRALAZINE 5MG IV PRN Q4 GIVEN PER ORDER AT THIS TIME. PRN TYLENOL AND FENTANYL GIVEN PER ORDERS, ALSO. 2356- 197/104 WITH A PULSE OF 111. PT STATES "I FEEL LIKE MY HEAD IS GOING TO EXPLODE." WHILE RATING PAIN 10/10 D/T HEADACHE. 0001- DR MORALES NOTIFIED OF EVENTS. ORDERS TO GIVE ANOTHER DOSE OF FENTANYL 25 MCG IV TO HELP CONTROL HEADACHE. IF STILL NO CHANGES, GIVE ANOTHER DOSE OF HYDRALAZINE 5MG IV X1 NOW.
[2019-12-14] MEDS ORDERED: fentaNYL INJECTION 100 MCG/2 ML AMP IVP ONE (00:15)
[2019-12-14] MEDS ORDERED: hydrALAZINE (APESOLINE) 20 MG/ML VIAL IV ONE (00:15)
[2019-12-14] MEDS: ALPRAZolam 0.5 MG (XANAX) TAB PO PRN ×3 (00:22→21:15)
[2019-12-14] MEDS: fentaNYL INJECTION 100 MCG/2 ML AMP IVP PRN (03:54)
[2019-12-14] MEDS: SUCRALFATE 1 GM (CARAFATE) TAB PO SCH ×4 (04:55→21:13)
--- NOTE | 2019-12-14 05:04 | NUR ---
0340- PT'S BLOOD PRESSURE 200/101 WITH PULSE OF 115. PT SHOWING SIGNS OF EXTREME ANXIETY- SOBBING, FIXATING ON HER HEADACHE, STATING, "I HOPE I'M NOT HAVING A STROKE." "DO YOU THINK I'M DYING." "I DON'T WANT TO END UP IN A USP." THIS RN HELPED PT CALM DOWN THROUGH DEEP BREATHING EXERCISES AND THERAPEUTIC COMMUNICATION. ONCE CALMED, PT STILL RATING HEADACHE 8/10 ON THE PAIN SCALE. 0354- GAVE FENTANYL PAIN MEDICATION PER ORDER AT THIS TIME. 0405- RECHECKED VS- BP 139/70 WITH A PULSE OF 109. PT'S RATING HER PAIN 1/10, STATING HER HEAD, "FEELS MUCH BETTER, THANK YOU." PT ENCOURAGED TO CONTINUE TAKING DEEP BREATHS IN THROUGH HER NOSE AND OUT THROUGH HER MOUTH TO HELP RELAX. PT ACKNOWLEDGES AND AGREES. ANXIETY SEEMS TO BE THE CAUSATIVE FACTOR BEHIND HYPERTENSION EPISODES THIS EVENING. WILL CONTINUE TO MONITOR AND UTILIZE ANXIETY-RELIEVING TECHNIQUES.
[2019-12-14] MEDS: NS IV 1000 ML 1,000 ML IV SCH ×2 (05:23→15:10)
--- NOTE | 2019-12-14 08:32 | Diagnostic Imaging Report ---
Indication: Abdominal pain, foreign body ingestion. Comparison: 10/29/2019. Discussion: Single supine view of the abdomen was obtained. There is a metallic foreign body projected over the L1-L2 vertebral body, either within the stomach or likely the transverse colon. No evidence of obstruction. No pneumatosis or pneumoperitoneum on this supine view. No acute osseous abnormality. Impression: 1. Metallic rounded foreign body projected over the upper abdomen. Dictated by: Dictated on workstation # [id number]
[2019-12-14] MEDS: PANTOPRAZOLE 40 MG (PROTONIX) VIAL IV SCH ×2 (08:36→21:15)
[2019-12-14] MEDS ORDERED: LACTATED RINGERS 1,000 ML IV ONE (08:45)
[2019-12-14] MEDS ORDERED: PROPOFOL INJECTION 50 ML IV ONE (08:50)
[2019-12-14] MEDS ORDERED: MIDAZOLAM 2 MG/2 ML (VERSED) VIAL ONE (08:50)
--- NOTE | 2019-12-14 09:00 | NUR ---
SCOPE ROOM NURSE AWARE OF BP-169/98 P=110
[2019-12-14] MEDS ORDERED: ESMOLOL 100 MG/10 ML (BREVIBLOC) VIAL ONE (09:04)
--- NOTE | 2019-12-14 09:04 | Progress Note - Surgery ---
Subjective Time Seen by a Provider: 08:56 Subjective/Events-last exam Pt seen and examined, no new complaints. Has been NPO since midnight and stated she had no trouble with the clear liquid yesterday. Review of Systems General: No Chills, No Night Sweats Pulmonary: No Dyspnea, No Cough Cardiovascular: No: Chest Pain, Palpitations Gastrointestinal: No: Nausea, Vomiting, Abdominal Pain Objective Exam Vital Signs Date Time Temp Pulse Resp B/P (MAP) Pulse Ox O2 Delivery O2 Flow Rate FiO2 12/14/19 08:00 37.1 118 18 166/94 (118) 96 Room Air 12/14/19 04:05 37.2 109 22 139/70 (93) 98 Room Air 12/14/19 02:17 37.1 114 20 184/86 (118) 96 Room Air 12/13/19 23:56 111 197/104 (135) 12/13/19 23:08 37.0 104 16 184/100 (128) 94 Room Air 12/13/19 22:46 185/107 (133) 12/13/19 20:16 37.8 108 20 174/106 (128) 98 Room Air 12/13/19 20:00 Room Air 12/13/19 18:43 35.7 108 20 171/83 (112) 97 Room Air 12/13/19 16:12 37.1 105 18 182/91 (121) 95 Room Air 12/13/19 12:00 37.3 99 20 193/88 (123) 97 Room Air 12/13/19 09:59 102 171/83 (112) 12/13/19 09:16 Room Air I & O 12/14/19 07:00 Intake Total 4872 ml Balance 4872 ml Capillary Refill : Less Than 3 Seconds General Appearance: No Apparent Distress, Anxious Respiratory: Lungs Clear, Normal Breath Sounds, No Accessory Muscle Use, No Respiratory Distress Cardiovascular: Regular Rate, Rhythm, No Murmur Gastrointestinal: non tender, soft, no organomegaly Extremity: No Calf Tenderness, No Pedal Edema Neurologic/Psychiatric: Alert, Oriented x3 Skin: Normal Color, Warm/Dry Results Lab Laboratory Tests 12/13/19 13:55: Coronavirus (COVID-19)(PCR) Negative Assessment/Plan Assessment/Plan Assessment/Plan Retained Foreign object Pylorus stricture Pt had clears yesterday to try and wash out stomach, will try today to find the object in stomach; hopefully food had been flushed out. She also has pylorus stricture and may need surgical bypass; will look again today and take pictures. Plan EGD today. Clinical Quality Measures DVT/VTE Risk/Contraindication: Risk Factor Score Per Nursin RFS Level Per Nursing on Admit: 4+=Very High Contraindications-Pharm: Other *list below* Other: EDG in FARRAH BOO DO Dec 14, 2019 09:03
--- NOTE | 2019-12-14 09:05 | NUR ---
TO SCOPE ROOM PER W/C.
[2019-12-14] MEDS ORDERED: LACTATED RINGERS 1,000 ML IV STA (09:12)
[2019-12-14] MEDS ORDERED: HURRICAINE EXT TUBE (BENZOCAINE) XX PRN (09:15)
--- NOTE | 2019-12-14 09:30 | Progress Note - Hospitalist ---
Subjective HPI/CC On Admission Date Seen by Provider: Dec 14, 2019 Time Seen by Provider: 09:30 Pt is a 69yoCF with a PMH of HTN, CVA, anxiety, GERD who presented to the ER due to intractable nausea and vomiting. Sh Subjective/Events-last exam Pt reports feeling very relieved post EGD. Quarter was removed this morning. Will start on CLD. Patient sitting on toilet during my interview so exam limited Objective Exam Vital Signs Vital Signs Date Time Temp Pulse Resp B/P (MAP) Pulse Ox O2 Delivery O2 Flow Rate FiO2 12/14/19 10:00 37.0 98 18 170/97 (121) 96 Room Air 12/14/19 09:33 10 Capillary Refill : Less Than 3 Seconds General Appearance: No Apparent Distress, WD/WN, Anxious Respiratory: No Accessory Muscle Use, No Respiratory Distress Neurologic/Psychiatric: Alert, Oriented x3 Results/Procedures Lab Patient resulted labs reviewed. Assessment/Plan Assessment and Plan Assess & Plan/Chief Complaint Intractable Nausea and vomiting Foreign body in stomach pyloric stricture Continue with IVF Continue antiemetics as needed CLD EGD today was able to retrieve foreign body (quarter)- patient still unsure how she swallowed a quarter may need surgical bypass, surgery consulted, appreciate recs Continue carafate and PPI Anxiety disorder home Xanax prn HTN BP very elevated overnight, associated with anxiety Will resume home antihypertensives, prns available as well DVT ppx: Lovenox Diagnosis/Problems Diagnosis/Problems (1) metalic foreign body in stomach Status: Acute (2) Nausea vomiting and diarrhea Status: Acute (3) Dehydration Status: Acute (4) Pyloric antral stenosis Status: Acute (5) Anxiety Status: Chronic (6) Hyperlipidemia Status: Chronic Qualifiers: Hyperlipidemia type: unspecified Qualified Codes: E78.5 - Hyperlipidemia, unspecified (7) Essential (primary) hypertension Status: Chronic (8) GERD (gastroesophageal reflux disease) Status: Acute Qualifiers: Esophagitis presence: with esophagitis Qualified Codes: K21.0 - Gastro- esophageal reflux disease with esophagitis Clinical Quality Measures DVT/VTE Risk/Contraindication: Risk Factor Score Per Nursin RFS Level Per Nursing on Admit: 4+=Very High Contraindications-Pharm: Other *list below* Other: EDG in DARCI HERNANDEZ MD Dec 14, 2019 09:30
[2019-12-14] MEDS ORDERED: HURRICAINE EXT TUBE (BENZOCAINE) ONE (09:31)
--- NOTE | 2019-12-14 09:31 | Progress Note-Post Operative ---
Post-Operative Progess Note Surgeon (s)/Milk Wagon Driver (s) Surgeon FARRAH BOLES DO Milk Wagon Driver: none Pre-Operative Diagnosis gastric foreign body with nausea/vomiting Post-Operative Diagnosis Retained foreign body (quarter) pyloric stenosis Procedure & Operative Findings Date of Procedure 12/14/19 Procedure Performed/Findings EGD with removal of foreign object EGD with bx Anesthesia Type IV sedation by JOB SETTER Estimated Blood Loss Estimated blood loss (mL): scant Specimens/Packing Specimens Removed pyloric bx quarter FARRAH BOLES DO Dec 14, 2019 09:31
--- NOTE | 2019-12-14 09:31 | Anesthesia-General Post-Op ---
MAC Patient Condition Mental Status/LOC: Same as Preop Cardiovascular: Satisfactory Nausea/Vomiting: Absent Respiratory: Satisfactory Pain: Controlled Complications: Absent Post Op Complications Complications None Follow Up Care/Instructions Patient Instructions None needed. Anesthesiology Discharge Order Discharge Order Patient is doing well, no complaints, stable vital signs, no apparent adverse anesthesia problems. No complications reported per nursing. CHARITY OCAMPO CRNA Dec 14, 2019 09:31
--- NOTE | 2019-12-14 09:41 | NUR ---
DR. MORALES HERE AND AWARE OF PTS. HIGH BP
--- NOTE | 2019-12-14 09:55 | NUR ---
RETURNED FROM SCOPE ROOM. NJ=473/90 P=98 O2 SAT=99 ON R/A. ALERT AND ORIENTED. SKIN W/D. RESP. REGULAR. DEEP BREATHING ENCOURAGED. C/O OF FEELING ANXIOUS. VERY TALKATIVE AND NERVOUS ACTING. STAYED WITH PT. AND TALKED FOR A WHILE TO CALM HER.
[2019-12-14] MEDS ORDERED: ENOXAPARIN 40 MG/0.4 ML (LOVENOX) SYR SQ SCH (12:00)
[2019-12-14] MEDS: oxyCODONE/APAP 10/325MG (PERCOCET 10) TABLET PO PRN ×4 (12:17→21:14)
[2019-12-14] MEDS: DULoxetine 30 MG (CYMBALTA) CAP PO SCH (12:17)
[2019-12-14] MEDS: PROPRANOLOL 20 MG (INDERAL) TABLET PO SCH ×2 (12:18→21:14)
[2019-12-14] MEDS: hydrALAZINE (APRESOLINE) 25 MG TAB PO SCH ×2 (12:18→21:15)
[2019-12-14] MEDS: eZETimibe 10 MG (ZETIA) TABLET PO SCH (12:21)
--- NOTE | 2019-12-14 16:23 | OPERATIVE REPORT ---
DATE OF SERVICE: 12/14/2019 PREOPERATIVE DIAGNOSES: Retained foreign object and pyloric stenosis. POSTOPERATIVE DIAGNOSIS: Retained foreign object and pyloric stenosis. It was a quarter. Hiatal Hernia PROCEDURES PERFORMED: 1. EGD with removal of foreign object. 2. EGD with biopsy. SURGEON: Fran Miller DO STAMP MACHINE SERVICER: None. ANESTHESIA: IV sedation by the BAND SPLICER. SPECIMEN: Biopsy from the pylorus as well as foreign object, which was a quarter. BLOOD LOSS: Scant. FLUIDS: Per anesthesia. POSTOPERATIVE CONDITION: Stable. INDICATION FOR PROCEDURE: The patient is a 69-year-old female, who has a foreign object in her stomach and also noted to have a pyloric stenosis and needed to try and retrieve this object and check on the pyloric stenosis. FINDINGS: The patient had a quarter in her stomach. We were able to remove this. The pyloric stenosis was very small, maybe 2 to 3 mm opening. Biopsy was done. PROCEDURE NOTE: After informed consent was obtained, the patient was brought to the endoscopy suite and placed in bed in a left lateral decubitus position. She was administered IV sedation by the BAND SPLICER, who then monitored her vitals the entire time, heart rate, blood pressure and pulse ox and the scope was inserted down the mouth through the esophagus into the stomach. Comparing to the picture from yesterday there was much less food in the stomach. I was able to actually visualize what looked like a coin. I elected to try and grab it; had actually pulled out some of the food that was in there that was still covering the coin. So, I actually grasped some food with a William Net, pulled it out and then pushed the scope back in and then I was able to visualize the coin and able to get the William Net completely around the coin and then slowly start pulling it out. There was some resistance right at the GE junction, so had to gently pull and able to finally pop this through the GE junction. There was also a hiatal hernia here. I was able to then pull this coin and the scope all the way up and out the esophagus. I placed the scope back down. It looked like there was a just a small tear in the serosa from where the coin popped through. I pushed in and then went and looked at the pylorus; it was very small, about 2 or 3 mm. I elected to do a biopsy of this, grasped with a biopsy forceps. I could kind of see past this. There was definitely an opening, but it was very small, did a biopsy of the pylorus. Retroflexed the scope and saw hiatal hernia, took a picture of this. Biopsy was taken out and put in formalin to be sent to pathology. At this point, the esophagus looked good. Very minimal tear with some bleeding. At this point, then suctioned out the stomach, took all the air out and then pulled the scope up the esophagus and out the mouth. The patient tolerated the procedure. She was recovered in the endoscopy suite. Job ID: [id number] DocumentID: [id number] Dictated Date: 12/14/2019 09:34:36 Shipping Agent Date: 12/14/2019 13:58:21 Dictated By: DO AL RAMIREZ
[2019-12-14] MEDS ORDERED: DULoxetine 30 MG (CYMBALTA) CAP PO SCH (20:00)
[2019-12-14] MEDS ORDERED: PROPRANOLOL 20 MG (INDERAL) TABLET PO SCH (21:00)
[2019-12-14] MEDS: ZOLPIDEM 5 MG (AMBIEN) TAB PO SCH ×2 (21:00→21:14)
[2019-12-15] MEDS: ACETAMINOPHEN 325 MG TABLET PO PRN ×2 (02:27→10:43)
[2019-12-15 04:00] VITALS: BP 174/92
[2019-12-15] MEDS: SUCRALFATE 1 GM (CARAFATE) TAB PO SCH ×2 (06:45→10:43)
[2019-12-15 07:46] VITALS: BP 165/93
[2019-12-15] MEDS: eZETimibe 10 MG (ZETIA) TABLET PO SCH (07:49)
[2019-12-15] MEDS: PROPRANOLOL 20 MG (INDERAL) TABLET PO SCH (07:50)
[2019-12-15] MEDS: hydrALAZINE (APRESOLINE) 25 MG TAB PO SCH (07:50)
[2019-12-15] MEDS: ALPRAZolam 0.5 MG (XANAX) TAB PO PRN (07:50)
[2019-12-15] MEDS: oxyCODONE/APAP 10/325MG (PERCOCET 10) TABLET PO PRN (07:50)
[2019-12-15] MEDS: DULoxetine 30 MG (CYMBALTA) CAP PO SCH (07:50)
[2019-12-15] MEDS: PANTOPRAZOLE 40 MG (PROTONIX) VIAL IV SCH (07:51)
[2019-12-15] MEDS ORDERED: eZETimibe 10 MG (ZETIA) TABLET PO SCH (09:00)
[2019-12-15] MEDS ORDERED: DULoxetine 30 MG (CYMBALTA) CAP PO SCH (09:00)
--- NOTE | 2019-12-15 10:06 | Progress Note - Surgery ---
Subjective Time Seen by a Provider: 09:03 Subjective/Events-last exam Pt seen and examined, states she is doing great today. Denies abdominal pain, nausea or vomiting. Tolerating clears. Review of Systems Pulmonary: No Dyspnea, No Cough Cardiovascular: No: Chest Pain, Palpitations Gastrointestinal: No: Nausea, Vomiting, Abdominal Pain Objective Exam Vital Signs Date Time Temp Pulse Resp B/P (MAP) Pulse Ox O2 Delivery O2 Flow Rate FiO2 12/15/19 07:46 37.1 76 18 165/93 (117) 98 Room Air 12/15/19 04:00 36.9 86 174/92 (119) 94 Room Air 12/14/19 23:48 36.8 75 15 149/88 (108) 96 Room Air 12/14/19 20:00 Room Air 12/14/19 19:25 36.3 83 19 172/94 (120) 92 Room Air 12/14/19 15:50 37.6 81 15 142/83 (102) 97 Room Air 12/14/19 11:25 37.0 98 16 182/88 (119) 98 Room Air I & O 12/15/19 07:00 Intake Total 1000 ml Balance 1000 ml Capillary Refill : Less Than 3 Seconds General Appearance: No Apparent Distress, Anxious HEENT: PERRL/EOMI, Moist Mucous Membranes Respiratory: Lungs Clear, Normal Breath Sounds, No Accessory Muscle Use, No Respiratory Distress Cardiovascular: Regular Rate, Rhythm, No Murmur Gastrointestinal: non tender, soft, no organomegaly Extremity: No Calf Tenderness, No Pedal Edema Neurologic/Psychiatric: Alert, Oriented x3, Other (very anxious, to the point of tears) Assessment/Plan Assessment/Plan Assessment/Plan Retained Foreign object -removed Pylorus stricture Able to retrieve the object in stomach; it was a quarter. She had a very severe pylorus stricture; maybe 2-3 mm opening. I did a biopsy of this and think we should wait to find out what it shows. She will need some type of surgical intervention to fix this; may need surgical bypass or Bilroth II, possibly pyloroplasty. I think it would be best to send her home and have her increase protein intake; she will need to be on clears/liquids only, nothing solid. I will see her in my office in a week. Clinical Quality Measures DVT/VTE Risk/Contraindication: Risk Factor Score Per Nursin RFS Level Per Nursing on Admit: 4+=Very High Contraindications-Pharm: Other *list below* Other: EDG in FARRAH BOO DO Dec 15, 2019 10:06
[2019-12-15] MEDS: NS IV 1000 ML 1,000 ML IV SCH (10:27)
--- NOTE | 2019-12-15 10:56 | Discharge Inst-Simple/Standard ---
Discharge Inst-Standard Discharge Medications New, Converted or Re-Newed RX: Transmitted to Pharmacy Patient Instructions/Follow Up Plan of Care/Instructions/FU: Please continue to take your medications as written. Please follow up with Dr Miller as recommened and with your primary care doctor in the next week to follow up this hospital stay. Activity as Tolerated: Yes Discharge Diet: Liquid Diet (full liquids supplemented with Ensure) Return to The Hospital For: Chest pain, shortness of breath, fever, nausea or vomiting, worsening abdominal pain, if you feel you are getting worse. DARCI MORALES MD Dec 15, 2019 10:56
--- NOTE | 2019-12-15 11:07 | Discharge Summary ---
Diagnosis/Chief Complaint Date of Admission Dec 12, 2019 at 19:36 Date of Discharge Discharge Date: Dec 15, 2019 Admission Diagnosis Intractable Nausea and vomiting Primary Care Jacobo Ramos DO Discharge Diagnosis (1) metalic foreign body in stomach Status: Acute (2) Nausea vomiting and diarrhea Status: Acute (3) Dehydration Status: Acute (4) Pyloric antral stenosis Status: Acute (5) Anxiety Status: Chronic (6) Hyperlipidemia Status: Chronic (7) Essential (primary) hypertension Status: Chronic (8) GERD (gastroesophageal reflux disease) Status: Acute Discharge Summary Discharge Physical Exam Allergies: Coded Allergies: Penicillins (Verified Allergy, Unknown, 12/04/18) atorvastatin (Verified Allergy, Unknown, 03/19/19) sumatriptan (Verified Allergy, Unknown, 12/04/18) Vitals & I&Os Vital Signs Date Time Temp Pulse Resp B/P (MAP) Pulse Ox O2 Delivery O2 Flow Rate FiO2 12/15/19 08:00 Room Air 12/15/19 07:46 37.1 76 18 165/93 (117) 98 12/14/19 09:33 10 General Appearance: No Apparent Distress, WD/WN Respiratory: Lungs Clear, No Respiratory Distress Cardiovascular: Regular Rate, Rhythm, No Murmur Neurologic/Psychiatric: Alert, Oriented x3 Hospital Course Pt was admitted due to intractable nausea and vomiting and foreign body in stomach. She underwent EGD which revealed severe pyloric stricture and a quarter that was originally unable to be removed. Repeat EGD was done by Dr Miller and quarter was retrieved. She was treated with PPIs and tolerated a clear diet. She was discharged home at her request to follow up as an outpatient with Dr Miller for possible pyloromyotomy. She was advised to stick to a full liquid diet supplemented with Ensure upon discharge. Labs (last 24 hrs) Patient resulted labs reviewed. Imaging: Reviewed Imaging Report Discussion & Recommendations Discharge Planning: >30 minutes discharge planning Discharge Home Medications: Active Scripts Active Protonix (Pantoprazole Sodium) 40 Mg Tablet. 40 Mg PO DAILY Reported Miralax (Polyethylene Glycol 3350) 17 Gm Powd.pack 17 Gm PO DAILY PRN Visine Dry Eye Relief Drop (Peg 400/Hypromellose/Glycerin) 15 Ml Drops 2 Drops OU PRN PRN Multivitamin 1 Each Tablet 1 Each PO DAILY Vitamin D3 (Cholecalciferol (Vitamin D3)) 50 Mcg Capsule 50 Mcg PO DAILY Tylenol Extra Strength (Acetaminophen) 500 Mg Tablet 500-1,000 Mg PO Q8H PRN Potassium Chloride 20 Meq Tablet.er 20 Meq PO Q72H Ambien (Zolpidem Tartrate) 10 Mg Tablet 10 Mg PO HS Duloxetine HCl 30 Mg Capsule.dr 30 Mg PO 2000 Ezetimibe 10 Mg Tablet 10 Mg PO DAILY Propranolol HCl 60 Mg Tablet 60 Mg PO BID Hydralazine HCl 25 Mg Tablet 25 Mg PO TID Alprazolam 0.5 Mg Tablet 0.5 Mg PO QID PRN Duloxetine HCl 60 Mg Capsule.dr 60 Mg PO DAILY Oxycodone-Acetaminophen 10-325 (Oxycodone HCl/Acetaminophen) 1 Each Tablet 1 Tab PO Q4 -6H PRN Instructions to patient/family Please see electronic discharge instructions given to patient. Clinical Quality Measures DVT/VTE Risk/Contraindication: Risk Factor Score Per Nursin RFS Level Per Nursing on Admit: 4+=Very High Contraindications-Pharm: Other *list below* Other: EDG in AM Copy Copies To 1: JACOBO RAMOS DO Problem Qualifiers (1) Hyperlipidemia: Hyperlipidemia type: unspecified Qualified Codes: E78.5 - Hyperlipidemia, unspecified (2) GERD (gastroesophageal reflux disease): Esophagitis presence: with esophagitis Qualified Codes: K21.0 - Gastro- esophageal reflux disease with esophagitis DARCI MORALES MD Dec 15, 2019 11:07
[2019-12-15 11:33] VITALS: BP 148/86
[2019-12-15 12:00] VITALS: BP 148/86
--- NOTE | 2019-12-15 12:00 | NUR ---
ALE MORGAN demonstrates understanding of discharge instructions and accurately returns instructions upon questioning. Copy of Post-Discharge Instructions given to PT. ALE MORGAN is able to manage continuing needs after discharge. Patients belongings returned to PT. Patient discharged from 412-1 on 12/15/19 at 1200. ALE MORGAN left floor via W/C, accompanied by STAFF AND PER AUTO.
== END 2019-12-15 12:00 | disposition home or self-care (01) | DRG 394 ==
LOC: EDUNIT# 14:08 → ER FS 14:09 → 4TH 19:36
PROVIDERS: ADMIT Family Medicine; ATTEND Family Medicine
PROC: 0DJ08ZZ Inspection of Upper Intestinal Tract, Via Natural or Artificial Opening Endoscopic (ICD-10-PCS; 2019-12-12)
PROC: 0DB78ZX Excision of Stomach, Pylorus, Via Natural or Artificial Opening Endoscopic, Diagnostic (ICD-10-PCS; 2019-12-14)
PROC: 0DC78ZZ Extirpation of Matter from Stomach, Pylorus, Via Natural or Artificial Opening Endoscopic (ICD-10-PCS; principal; 2019-12-14 09:02)
DX: T18.2XXA Foreign body in stomach, initial encounter (principal); K31.1 Adult hypertrophic pyloric stenosis; E86.0 Dehydration; F41.9 Anxiety disorder, unspecified; E78.5 Hyperlipidemia, unspecified; I10 Essential (primary) hypertension; K21.9 Gastro-esophageal reflux disease without esophagitis; M19.90 Unspecified osteoarthritis, unspecified site; J44.9 Chronic obstructive pulmonary disease, unspecified; K44.9 Diaphragmatic hernia without obstruction or gangrene; Z86.73 Personal history of transient ischemic attack (TIA), and cerebral infarction without residual deficits; Z90.49 Acquired absence of other specified parts of digestive tract; Z88.0 Allergy status to penicillin
CPT/HCPCS: 36415; 74018; 74176; 80053; 82150; 83690; 83735; 83880; 84484; 85007; 85027; 87635; 93005

== ENCOUNTER 2020-03-05 22:30 | Observation (INO) | payer MEDICARE ==
[~2020-03-05] VITALS: Ht 152.4 cm; Wt 76.6 kg
[~2020-03-05 22:30] MED LIST changes: +ACET-2267 PO; +CHOL200074 PO; +DULO30CA49 PO; +MULT-1136 PO; +PANT40TA2 PO; +PEG15DRO9 OU; +POLY17PO6 PO; +POTA-51 PO; +ZOLP10TA PO
[2020-03-05] MEDS ORDERED: METOCLOPRAMIDE INJ 10 MG/2 ML (REGLAN) IVP STA (22:45)
[2020-03-05] MEDS ORDERED: LORazepam INJ 2 MG/ML (ATIVAN) VIAL IVP STA (22:45)
[2020-03-05] MEDS ORDERED: PANTOPRAZOLE 40 MG (PROTONIX) VIAL IV STA (22:45)
[2020-03-05] MEDS ORDERED: NS IV 1000 ML 1,000 ML IV STA (22:45)
--- NOTE | 2020-03-05 22:50 | ED GI ---
General Chief Complaint: Abdominal/GI Problems Stated Complaint: VOMITING Source of Information: Patient, EMS History of Present Illness Date Seen by Provider: Mar 05, 2020 Time Seen by Provider: 22:36 Initial Comments 69 yo female presenting by EMS with complaints of n/v and abdominal pain that has been going on all day. She reports that she ate a lot of cookies that had nuts in them yesterday. Then she has been vomiting all day today. She has a history of problems with her pylorus having stricture. She was told she needed surgery to have the stricture of her pylorus widened but did not want to have it done because of too many patients in the hospital with COVID. She states that she has had episodes of vomiting like this before but when she could not keep the Zofran tablets down and was having pain she called EMS. She was feeling a l ittle bit better after the Zofran and they gave by IV but continued to vomit after arrival to the emergency department. Allergies and Home Medications Allergies Coded Allergies: Penicillins (Verified Allergy, Unknown, 12/04/18) atorvastatin (Verified Allergy, Unknown, 03/19/19) sumatriptan (Verified Allergy, Unknown, 12/04/18) Home Medications Acetaminophen 500 Mg Tablet, 500-1,000 MG PO Q8H PRN for PAIN-MILD (1-4), (Reported) Alprazolam 0.5 Mg Tablet, 0.5 MG PO QID PRN for ANXIETY, (Reported) Cholecalciferol (Vitamin D3) 50 Mcg Capsule, 50 MCG PO DAILY, (Reported) Duloxetine HCl 60 Mg Capsule.dr, 60 MG PO DAILY, (Reported) Duloxetine HCl 30 Mg Capsule.dr, 30 MG PO 1999, (Reported) Ezetimibe 10 Mg Tablet, 10 MG PO DAILY, (Reported) Hydralazine HCl 25 Mg Tablet, 25 MG PO TID, (Reported) Multivitamin 1 Each Tablet, 1 EACH PO DAILY, (Reported) Oxycodone HCl/Acetaminophen 1 Each Tablet, 1 TAB PO Q4 -6H PRN for PAIN-MODERATE (5-7), (Reported) Pantoprazole Sodium 40 Mg Tablet.dr, 40 MG PO DAILY Prescribed by: BERNARD LEUNG on 12/12/192005 Peg 400/Hypromellose/Glycerin 15 Ml Drops, 2 DROPS OU PRN PRN for DRY EYES, (Reported) Polyethylene Glycol 3350 17 Gm Powd.pack, 17 GM PO DAILY PRN for CONSTIPATION- 2ND LINE, (Reported) Potassium Chloride 20 Meq Tablet.er, 20 MEQ PO Q72H, (Reported) Propranolol HCl 60 Mg Tablet, 60 MG PO BID, (Reported) Zolpidem Tartrate 10 Mg Tablet, 10 MG PO HS, (Reported) Patient Home Medication List Home Medication List Reviewed: Yes Review of Systems Review of Systems Constitutional: No chills, No fever; malaise EENTM: No Symptoms Reported Respiratory: No Symptoms Reported Cardiovascular: No Symptoms Reported Gastrointestinal: See HPI, Abdominal Pain (diffuse but also feels similar to when she had sphincter of oddi dysfunction and a quarter stuck in her sphincter); Denies Diarrhea, Denies Difficulty Swallowing; Nausea; Denies Rectal Bleeding; Vomiting Genitourinary: Denies Burning Musculoskeletal: no symptoms reported Skin: no symptoms reported Psychiatric/Neurological: Anxiety Past Snaofzs-[place] Hx Past Med/Social Hx: Reviewed Nursing Past Med/Soc Hx Patient Social History Drug of Choice: marijuana occasionally Type Used: Cigarettes Former Smoker, Quit: Mar 20, 2010 2nd Hand Smoke Exposure: No Recent Hopitalizations: No Immunizations Up To Date Date of Pneumonia Vaccine: Nov 19, 2015 Seasonal Allergies Seasonal Allergies: No Past Medical History Surgeries: Yes Appendectomy, Gallbladder, Hysterectomy, Orthopedic Respiratory: Yes COPD Cardiac: Yes Hypertension Neurological: Yes (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 4.3oz. [id number]; 32.72 BMI Method: General Appearance: severe distress Neck: supple Respiratory: chest non-tender, lungs clear, normal breath sounds Cardiovascular: normal peripheral pulses, tachycardia Gastrointestinal: soft, no pulsatile mass, abnormal bowel sounds (hypoactive with tinkling), distended, guarding; No rebound; tenderness (diffuse but worse in epigastric area) Rectal: deferred Extremities: normal range of motion, normal capillary refill Neurologic/Psychiatric: alert, oriented x 3 Skin: normal color, warm/dry Images 1 - diffuse abdominal pain but worse in epigastric area. slightly distended abdomen with hypoactive bowel sounds and tinkling sounds Focused Exam Lactate Level 03/06/20 01:30: Lactic Acid Level Lactic Acid Level Laboratory Tests Test 03/06/20 01:30 Lactic Acid Level MMOL/L (0.50-2.00) Progress/Results/Core Measures Results/Orders Lab Results Laboratory Tests Test 03/06/20 00:05 03/06/20 01:30 Range/Units White Blood Count 14.1 H 4.3-11.0 10^3/uL Red Blood Count 4.78 4.35-5.85 10^6/uL Hemoglobin 13.1 11.5-16.0 G/DL Hematocrit 44 35-52 % Mean Corpuscular Volume 92 80-99 FL Mean Corpuscular Hemoglobin 27 25-34 PG Mean Corpuscular Hemoglobin Concent 30 L 32-36 G/DL Red Cell Distribution Width 15.9 H 10.0-14.5 % Platelet Count 325 130-400 10^3/uL Mean Platelet Volume 8.3 7.4-10.4 FL Immature Granulocyte % (Auto) 0 % Neutrophils (%) (Auto) 88 H 42-75 % Lymphocytes (%) (Auto) 7 L 12-44 % Monocytes (%) (Auto) 4 0-12 % Eosinophils (%) (Auto) 0 0-10 % Basophils (%) (Auto) 0 0-10 % Neutrophils # (Auto) 12.4 H 1.8-7.8 X 10^3 Lymphocytes # (Auto) 1.0 1.0-4.0 X 10^3 Monocytes # (Auto) 0.6 0.0-1.0 X 10^3 Eosinophils # (Auto) 0.0 0.0-0.3 10^3/uL Basophils # (Auto) 0.0 0.0-0.1 10^3/uL Immature Granulocyte # (Auto) 0.1 0.0-0.1 10^3/uL Neutrophils % (Manual) 91 % Lymphocytes % (Manual) 6 % Monocytes % (Manual) 3 % Sodium Level 140 135-145 MMOL/L Potassium Level 5.6 H 3.6-5.0 MMOL/L Chloride Level 108 H 98-107 MMOL/L Carbon Dioxide Level 18 L 21-32 MMOL/L Anion Gap 14 5-14 MMOL/L Blood Urea Nitrogen 15 7-18 MG/DL Creatinine 0.89 0.60-1.30 MG/DL Estimat Glomerular Filtration Rate > 60 BUN/Creatinine Ratio 17 Glucose Level 134 H 70-105 MG/DL Lactic Acid Level 0.50-2.00 MMOL/L Calcium Level 9.1 8.5-10.1 MG/DL Corrected Calcium 9.0 8.5-10.1 MG/DL Total Bilirubin 0.3 0.1-1.0 MG/DL Aspartate Amino Transf (AST/SGOT) 28 5-34 U/L Alanine Aminotransferase (ALT/SGPT) 7 0-55 U/L Alkaline Phosphatase 97 40-136 U/L Total Protein 7.0 6.4-8.2 GM/DL Albumin 4.1 3.2-4.5 GM/DL Lipase 23 8-78 U/L My Orders Orders - HOUSTON CELESTIN MD Comprehensive Metabolic Panel (03/05/20 22:45) Lipase (03/05/20 22:45) Ua Culture If Indicated (03/05/20 22:45) Ed Iv/Invasive Line Start (03/05/20 22:45) Cbc With Automated Diff (03/05/20 22:45) Lactic Acid Analyzer (03/05/20 22:45) Ns Iv 1000 Ml (Sodium Chloride 0.9%) (03/05/20 22:45) Lorazepam Injection (Ativan Injection) (03/05/20 22:45) Pantoprazole Injection (Protonix Injecti (03/05/20 22:45) Metoclopramide Injection (Reglan Injecti (03/05/20 22:45) Ct Abdomen/Pelvis Wo (03/05/20 22:50) Manual Differential (03/06/20 00:05) Ondansetron Injection (Zofran Injectio (03/06/20 00:41) Ketorolac Injection (Toradol Injection) (03/06/20 01:29) Lorazepam Injection (Ativan Injection) (03/06/20 01:29) Prochlorperazine Injection (Compazine In (03/06/20 01:29) Diphenhydramine Injection (Benadryl Inje (03/06/20 01:29) Vital Signs/I&O 03/05/20 03/06/20 22:38 02:22 Temp 36.8 Pulse 104 114 Resp 18 18 B/P (MAP) 187/104 (131) 178/110 Pulse Ox 98 98 O2 Delivery Room Air Room Air 03/06/20 00:00 Intake Total 1000 ml Balance 1000 ml Progress Progress Note #1: Progress Note check labs and CT abd/pelvis to evaluate for obstruction or pancreatitis or acute process causing her symptoms. Give IVF for hydration, Protonix for her epigastric pain, Ativan 0.5 mg for anxiety, Reglan for nausea. Progress Note #2: Progress Note Unable to obtain labs on patient so CT scan changed to noncontrast study. CBC s howed elevated WBC count with left shift. Progress Note #3: Progress Note CT does not show obstruction or blockage. she does have distended stomach with gastric contents. No diverticulitis. she continued to have retching so repeated meds and tried zofran and alternated with reglan, repeated ativan with compazine and benadryl. She was slowing down some on retching but still sick so d/w Dr. Shabazz for hospitalist and will admit. D/w pt an NG and pt wanted to hold off and try the medicine a little longer. Diagnostic Imaging Diagonstic Imaging: CT Plain Films/CT/US/NM/MRI: abdomen, pelvis Departure Communication (Admissions) Time/Spoke to Admitting Phy: 01:18 d/w Dr. Shabazz for Hospitalist service and will admit for intractable n/v. She has had similar episode Dec 11 where she had pyloric stricture. CT tonight did not show obstruction or blockage but she does have distended stomach with stomach contents despite repeated retching in ED. Despite multiple medicines she continues to retch. Will give fluids and continue meds for pain and nausea. Consult surgery in am regarding pyloric stricture in case they need to do anything more with her as well. D/w pt possible NG tube placement. Impression Primary Impression: Intractable nausea and vomiting Additional Impressions: Acquired pyloric stricture Epigastric abdominal pain Disposition: 30 STILL A PATIENT Condition: Stable Admissions Decision to Admit Reason: Admit from ER (General) Decision to Admit/Date: Mar 06, 2020 Time/Decision to Admit Time: 01:18 Departure-Patient Inst. Referrals: YOANNA CHAMBERS DO (PCP/Family) Primary Care Physician HOUSTON CELESTIN MD Mar 05, 2020 22:50
[2020-03-06] VITALS (10 sets, daily range): BP systolic 135–168; BP diastolic 60–82
[2020-03-06 00:09] LABS: BASOPHILS % (AUTO) 0 % (0-10); EOSINOPHILS % (AUTO) 0 % (0-10); HEMATOCRIT 44 % (35-52); HEMOGLOBIN 13.1 G/DL (11.5-16.0); LYMPHOCYTES % (AUTO) 7 % (12-44); MEAN CORPUSCULAR HEMOGLOBIN 27 PG (25-34); MEAN CORPUSCULAR HGB CONC 30 G/DL (32-36); MEAN CORPUSCULAR VOLUME 92 FL (80-99); MEAN PLATELET VOLUME 8.3 FL (7.4-10.4); MONOCYTES # (AUTO) 0.6 X 10^3 (0.0-1.0); MONOCYTES % (AUTO) 4 % (0-12); NEUTROPHILS # (AUTO) 12.4 X 10^3 (1.8-7.8); NEUTROPHILS % (AUTO) 88 % (42-75); PLATELET COUNT 325 10^3/uL (130-400); WHITE BLOOD COUNT 14.1 10^3/uL (4.3-11.0)
[2020-03-06] MEDS ORDERED: ONDANSETRON 4 MG/2 ML (SDV) Z0FRAN IVP STA (00:41)
[2020-03-06] MEDS ORDERED: LORazepam INJ 2 MG/ML (ATIVAN) VIAL IVP STA (01:29)
[2020-03-06] MEDS ORDERED: diphenhydrAMINE 50 MG/ML INJ (BENADRYL) IVP STA (01:29)
[2020-03-06] MEDS ORDERED: PROCHLORPERAZINE 10 MG/2ML INJ (COMPAZINE) IV STA (01:29)
[2020-03-06] MEDS ORDERED: KETOROLAC 30 MG/ML VIAL IVP STA (01:29)
[2020-03-06 01:50] LABS: SODIUM 140 MMOL/L (135-145)
[2020-03-06 01:51] LABS: ALANINE AMINOTRANSFERASE 7 U/L (0-55); ALBUMIN 4.1 GM/DL (3.2-4.5); ALKALINE PHOSPHATASE 97 U/L (40-136); BILIRUBIN,TOTAL 0.3 MG/DL (0.1-1.0); BUN/CREATININE RATIO 17; CALCIUM 9.1 MG/DL (8.5-10.1); CARBON DIOXIDE 18 MMOL/L (21-32); CHLORIDE 108 MMOL/L (98-107); CREATININE SERUM 0.89 MG/DL (0.60-1.30); GFR ESTIMATED > 60; GLUCOSE 134 MG/DL (70-105); LIPASE 23 U/L (8-78); POTASSIUM 5.6 MMOL/L (3.6-5.0)
[2020-03-06 02:14] LABS: LYMPHOCYTES % (MANUAL) 6 %; MONOCYTES % (MANUAL) 3 %; NEUTROPHILS % (MANUAL) 91 %
[2020-03-06] MEDS ORDERED: LORazepam INJ 2 MG/ML (ATIVAN) VIAL IVP PRN (04:00)
[2020-03-06] MEDS ORDERED: METOCLOPRAMIDE INJ 10 MG/2 ML (REGLAN) IVP PRN (04:00)
--- NOTE | 2020-03-06 04:00 | NUR ---
ALE MORGAN admitted to room 412-1, with an admitting diagnosis of nausea and vomiting abd pain, on 03/06/20 from [facility] ED, via [facility], accompanied by EMS.ALE MORGAN introduced to surroundings, call light, bed controls, phone, TV, temperature control, lights, meal times, smoking policy, visitor policy, side rail policy, bathrooms and showers. Patient Rights given to patient in the handbook. ALE MORGAN verbalizes understanding that [facility] is not responsible for the loss or damage to any personal effects or valuables that are kept in the patients posession during their hospitalization. ALE MORGAN verbalizes understanding of Interdisciplinary Patient Education.
[2020-03-06] MEDS: NS IV 1000 ML 1,000 ML IV SCH ×2 (04:23→17:04)
--- NOTE | 2020-03-06 04:30 | NUR ---
Tried to go over home medications with Pt. she could not tell me generic or name brand medications that she takes, even when they were read off to her. She stated "I take 2 orange ones" when asked about BP meds. Pt stated that her [facility] takes care of her medications and knows what she takes. She also stated [facility] does not wake up until 10am. will ask daysksft nurse if she would like me to call around 0730 to confirm meds with .
[2020-03-06] MEDS: ONDANSETRON 4 MG/2 ML (SDV) Z0FRAN IVP PRN ×2 (05:23→09:40)
[2020-03-06] MEDS: PANTOPRAZOLE 40 MG (PROTONIX) VIAL IV SCH ×2 (07:51→20:15)
[2020-03-06] MEDS ORDERED: FLU QUAD HIGH DOSE 240 MCG/0.7 ML 2020-21 (FLUZONE) IM ONE (08:00)
--- NOTE | 2020-03-06 08:13 | Consultation - Surgery ---
ALLEGRA VILLELA MED STUDENT 03/06/20 0813: History of Present Illness History of Present Illness Patient Consulted On(anjana/time) 03/06/20 03:59 Date Seen by Provider: Mar 06, 2020 Time Seen by Provider: 07:20 Reason for Visit: Intractable nausea/vomiting History of Present Illness Pt is a 69yo female that presented to the ED yesterday due to severe nausea and projectile vomiting. She has a history of pyloric stricture, GERD, HTN, and HLD. She had an EGD in November that showed a pyloric stricture and a swallowed coin. ED management with IV fluids and Zofran has helps with her symptoms, and she states that her symptoms have improved significantly, with some nausea and no vomiting since yesterday. She states that she does experience chills but was afebrile at time of exam. Denies abd pain, chest pain, SOB. Allergies and Home Medications Allergies Coded Allergies: Penicillins (Verified Allergy, Unknown, 12/04/18) atorvastatin (Verified Allergy, Unknown, 03/19/19) sumatriptan (Verified Allergy, Unknown, 12/04/18) Home Medications Acetaminophen 500 Mg Tablet, 500-1,000 MG PO Q8H PRN for PAIN-MILD (1-4), (Reported) Alprazolam 0.5 Mg Tablet, 0.5 MG PO QID PRN for ANXIETY, (Reported) Bupropion HCl 75 Mg Tablet, 75 MG PO BID, (Reported) Cholecalciferol (Vitamin D3) 50 Mcg Capsule, 50 MCG PO DAILY, (Reported) Duloxetine HCl 60 Mg Capsule.dr, 60 MG PO DAILY, (Reported) Duloxetine HCl 30 Mg Capsule.dr, 30 MG PO 2000, (Reported) Hydralazine HCl 25 Mg Tablet, 25 MG PO TID, (Reported) Multivitamin 1 Each Tablet, 1 EACH PO DAILY, (Reported) Oxycodone HCl/Acetaminophen 1 Each Tablet, 1 TAB PO Q4 -6H PRN for PAIN-MODERATE (5-7), (Reported) Pantoprazole Sodium 40 Mg Tablet.dr, 40 MG PO DAILY Prescribed by: BENRARD LEUNG on 12/12/192005 Peg 400/Hypromellose/Glycerin 15 Ml Drops, 2 DROPS OU PRN PRN for DRY EYES, (Reported) Polyethylene Glycol 3350 17 Gm Powd.pack, 17 GM PO DAILY PRN for CONSTIPATION- 2ND LINE, (Reported) Potassium Chloride 20 Meq Tablet.er, 20 MEQ PO Q72H, (Reported) Zolpidem Tartrate 5 Mg Tablet, 5 MG PO HS, (Reported) Patient Home Medication List Home Medication List Reviewed: No (nursing is working on contacting for med list) Past Wcqwrkw-Ytojqy-Kpcnxr Hx Patient Social History Alcohol Use: Denies Use Recreational Drug Use: No Drug of Choice: marijuana occasionally Smoking Status: Never a Smoker Former Smoker, Quit: Mar 20, 2010 Type Used: Cigarettes 2nd Hand Smoke Exposure: No Recent Foreign Travel: No Contact w/Someone Who Travel: No Recent Infectious Disease Expo: Yes (COVID ONE MONTH AGO) Recent Hopitalizations: No Immunizations Up To Date Date of Pneumonia Vaccine: Nov 19, 2015 Seasonal Allergies Seasonal Allergies: No Surgeries History of Surgeries: Yes Surgeries: Appendectomy, Gallbladder, Hysterectomy, Orthopedic Respiratory History of Respiratory Disorde: Yes Respiratory Disorders: COPD Cardiovascular History of Cardiac Disorders: Yes Cardiac Disorders: Hypertension Neurological History of Neurological Disord: Yes (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) Neurological Disorders: Stroke Genitourinary History of Genitourinary Disor: No Gastrointestinal History of Gastrointestinal Di: Yes Gastrointestinal Disorders: Ulcer Musculoskeletal History of Musculoskeletal Dis: Yes Musculoskeletal Disorders: Chronic Back Pain Endocrine History of Endocrine Disorders: No HEENT History of HEENT Disorders: No Cancer History of Cancer: No Psychosocial History of Psychiatric Problem: No Integumentary History of Skin or Integumenta: No Blood Transfusions History of Blood Disorders: No Review of Systems-General Constitutional: chills, diaphoresis EENTM: No hearing loss, No vision loss Respiratory: No short of breath Cardiovascular: No chest pain, No edema, No palpitations Gastrointestinal: No abdominal pain, No constipation, No diarrhea, No dysphagia, No hematemesis; nausea, vomiting Genitourinary: No dysuria Musculoskeletal: other (no muscular tenderness, Full ROM) Skin: other (no skin rashes/lesions, erythema, ecchymosis) Psychiatric/Neurological: Anxiety Physical Exam-General Problems Physical Exam Vital Signs Vital Signs - First Documented 03/05/20 22:38 Temp 36.8 Pulse 104 Resp 18 B/P (MAP) 187/104 (131) Pulse Ox 98 O2 Delivery Room Air Capillary Refill : Less Than 3 Seconds General Appearance: WD/WN, no apparent distress, obese HEENT: PERRL/EOMI Neck: non-tender, full range of motion, supple, normal inspection Respiratory: chest non-tender, lungs clear, normal breath sounds, no respiratory distress, no accessory muscle use Cardiovascular: normal peripheral pulses, no edema, no JVD, tachycardia Gastrointestinal: normal bowel sounds, non tender, soft, no organomegaly Rectal: deferred Back: normal inspection, no CVA tenderness, no vertebral tenderness Extremities: normal range of motion, non-tender, normal inspection, no pedal edema, normal capillary refill Neurologic/Psychiatric: no motor/sensory deficits, alert, normal mood/affect, oriented x 3 Skin: normal color, warm/dry Lymphatic: no adenopathy Data Review Labs Laboratory Tests 03/06/20 00:05: White Blood Count 14.1H, Red Blood Count 4.78, Hemoglobin 13.1, Hematocrit 44, Mean Corpuscular Volume 92, Mean Corpuscular Hemoglobin 27, Mean Corpuscular Hemoglobin Concent 30L, Red Cell Distribution Width 15.9H, Platelet Count 325, Mean Platelet Volume 8.3, Immature Granulocyte % (Auto) 0, Neutrophils (%) (Auto) 88H, Lymphocytes (%) (Auto) 7L, Monocytes (%) (Auto) 4, Eosinophils (%) (Auto) 0, Basophils (%) (Auto) 0, Neutrophils # (Auto) 12.4H, Lymphocytes # (Auto) 1.0, Monocytes # (Auto) 0.6, Eosinophils # (Auto) 0.0, Basophils # (Auto) 0.0, Immature Granulocyte # (Auto) 0.1, Neutrophils % (Manual) 91, Lymphocytes % (Manual) 6, Monocytes % (Manual) 3 03/06/20 01:30: Sodium Level 140, Potassium Level 5.6H, Chloride Level 108H, Carbon Dioxide Level 18L, Anion Gap 14, Blood Urea Nitrogen 15, Creatinine 0.89, Estimat Glomerular Filtration Rate > 60, BUN/Creatinine Ratio 17, Glucose Level 134H, Lactic Acid Level , Calcium Level 9.1, Corrected Calcium 9.0, Total Bilirubin 0.3, Aspartate Amino Transf (AST/SGOT) 28, Alanine Aminotransferase (ALT/SGPT) 7, Alkaline Phosphatase 97, Total Protein 7.0, Albumin 4.1, Lipase 23 Assessment/Plan Assessment/Plan Admission Diagonsis Intractable nausea/vomiting Assessment/Plan Severe pyloric stenosis Hyperkalemia - 5.6 HTN - nursing staff is working on contacting for home med list Tachycardia GERD HLD Pt's symptoms have improved from yesterday but still needs surgical management eg. pyloromyotomy Continue PPI, NPO status, Zofran Clinical Quality Measures DVT/VTE Risk/Contraindication: Risk Factor Score Per Nursin RFS Level Per Nursing on Admit: 4+=Very High FARRAH BOLES DO 03/06/20 1134: History of Present Illness History of Present Illness Time Seen by Provider: 10:51 History of Present Illness HPI per ED: 69 yo female presenting by EMS with complaints of n/v and abdominal pain that has been going on all day. She reports that she ate a lot of cookies that had nuts in them yesterday. Then she has been vomiting all day today. She has a history of problems with her pylorus having stricture. She was told she needed surgery to have the stricture of her pylorus widened but did not want to have it done because of too many patients in the hospital with COVID. She states that she has had episodes of vomiting like this before but when she could not keep the Zofran tablets down and was having pain she called EMS. She was feeling a little bit better after the Zofran and they gave by IV but continued to vomit after arrival to the emergency department. When I spoke to pt this morning; she stated she was still having some pain and nausea, but hadn't vomited in a while. She was supposed to follow up with me in the clinic, but unfortunately got COVID-19 and hasn't been ableto make it in. Allergies and Home Medications Allergies Coded Allergies: Penicillins (Verified Allergy, Unknown, 12/04/18) atorvastatin (Verified Allergy, Unknown, 03/19/19) sumatriptan (Verified Allergy, Unknown, 12/04/18) Home Medications Acetaminophen 500 Mg Tablet, 500-1,000 MG PO Q8H PRN for PAIN-MILD (1-4), (Reported) Alprazolam 0.5 Mg Tablet, 0.5 MG PO QID PRN for ANXIETY, (Reported) Bupropion HCl 75 Mg Tablet, 75 MG PO BID, (Reported) Cholecalciferol (Vitamin D3) 50 Mcg Capsule, 50 MCG PO DAILY, (Reported) Duloxetine HCl 60 Mg Capsule.dr, 60 MG PO DAILY, (Reported) Duloxetine HCl 30 Mg Capsule.dr, 30 MG PO 1999, (Reported) Hydralazine HCl 25 Mg Tablet, 25 MG PO TID, (Reported) Multivitamin 1 Each Tablet, 1 EACH PO DAILY, (Reported) Oxycodone HCl/Acetaminophen 1 Each Tablet, 1 TAB PO Q4 -6H PRN for PAIN-MODERATE (5-7), (Reported) Pantoprazole Sodium 40 Mg Tablet.dr, 40 MG PO DAILY Prescribed by: BERNARD LEUNG on 12/12/192005 Peg 400/Hypromellose/Glycerin 15 Ml Drops, 2 DROPS OU PRN PRN for DRY EYES, (Reported) Polyethylene Glycol 3350 17 Gm Powd.pack, 17 GM PO DAILY PRN for CONSTIPATION- 2ND LINE, (Reported) Potassium Chloride 20 Meq Tablet.er, 20 MEQ PO Q72H, (Reported) Zolpidem Tartrate 5 Mg Tablet, 5 MG PO HS, (Reported) Patient Home Medication List Home Medication List Reviewed: Yes (nursing is working on contacting for med list) Past Rrnjeen-Ouzmwv-Leghdi Hx Patient Social History Alcohol Use: Denies Use Smoking Status: Former Smoker Surgeries History of Surgeries: Yes Family Medical History Significant Family History: Heart Disease (Father), Cancer (Aunt had Colon CA), Diabetes (Gfather), Hypertension (mother) Review of Systems-General Constitutional: chills, diaphoresis, weakness EENTM: No hearing loss, No vision loss, No epistaxis, No throat swelling Respiratory: No dyspnea on exertion, No phlegm, No short of breath Cardiovascular: No chest pain, No edema, No palpitations Gastrointestinal: abdominal pain, constipation; No diarrhea, No dysphagia, No hematemesis; nausea, vomiting Genitourinary: No dysuria, No frequency Musculoskeletal: joint pain, joint swelling, muscle stiffness Skin: No change in color, No change in hair/nails, No lesions, No lumps Psychiatric/Neurological: Anxiety; Denies Depressed, Denies Seizure, Denies Tremors Other Pt denies any hx of abnormal bleeding or bruising Physical Exam-General Problems Physical Exam General Appearance: WD/WN, mild distress Eyes: Bilateral Eye PERRL, Bilateral Eye EOMI HEENT: pharynx normal; No scleral icterus (R), No scleral icterus (L); other (mucous membranes moist) Neck: non-tender, full range of motion, supple Respiratory: chest non-tender, lungs clear, normal breath sounds, no respiratory distress, no accessory muscle use Cardiovascular: normal peripheral pulses, no edema, tachycardia Gastrointestinal: normal bowel sounds, soft, no organomegaly Rectal: deferred Back: no CVA tenderness, no vertebral tenderness Extremities: normal range of motion, non-tender, no pedal edema, normal capillary refill Neurologic/Psychiatric: dba II-XII nml as tested, no motor/sensory deficits, alert, oriented x 3 Skin: normal color, warm/dry Lymphatic: no adenopathy (neck, axilla or groin) Data Review Radiology Date of Exam:03/05/20 CT ABDOMEN/PELVIS WO PROCEDURE: CT abdomen and pelvis without contrast. TECHNIQUE: Multiple contiguous axial images were obtained through the abdomen and pelvis without the use of intravenous contrast. Auto Exposure Controls were utilized during the CT exam to meet ALARA standards for radiation dose reduction. INDICATION: Diffuse abdominal pain with nausea and vomiting. Correlation is made with prior CT from 12/12/2019. The lung bases are clear. No discrete liver mass is identified. The gallbladder is surgically absent. No biliary ductal dilatation is seen. The pancreas and spleen are unremarkable. No adrenal mass is identified. No renal calculi or hydronephrosis is identified. The aorta is non-aneurysmal. Note is made of a retroaortic left renal vein, a normal variant. The bowel loops appear normal caliber. There is no obstruction. There is moderate stool throughout the colon, particularly the transverse colon. There is no free fluid or fluid collection. No inflammatory changes are seen. The bladder is unremarkable. The uterus appears to be surgically absent. The bony structures are nonacute. IMPRESSION: Essentially unremarkable noncontrast CT of the abdomen and pelvis. No acute abnormality is identified. Dictated on workstation # [id number] Dict: 03/06/20903 Trans: 03/06/20910 CVB [id number] Interpreted by: SOTO ORTEGA MD Assessment/Plan Assessment/Plan Assessment/Plan Nausea and Vomiting Pyloric Stenosis Hyperkalemia GERD Tachycardia HTN Anxiety I looked at the CT of the ABD/Pelvis myself and believe I can see the pyloric stenosis; in addtion, there is a lot of retained food and fluid in the stomach. CT also shows a lot of stool throughout the large intestine; which means some food does get through. I talked to pt and we discussed options; Pyloromyotomy, EGD with Dilation or doing nothing. I think at this time her best option is the EGD and then see what she needs after that. She agreed and we will plan to do that today. Discussed risks and complications not limited to pain, bleeding, infection and even possible perforation and then need for open surgery. She is getting meds for nausea, pain, anxiety and GERD. We are also monitoring her potassium with labs and will adjust accordingly. She is npo and will get consent for procedure. All questions answered to her satisfaction. Supervisory-Addendum Brief Verification & Attestation Participated in pt care: history, MDM, physical Personally performed: exam, history, MDM Care discussed with: Medical Student Procedures: n/a Verification and Attestation of Medical Student E/M Service A medical student performed and documented this service. I then reviewed and verified all information documented by the medical student and made m odifications to such information, when appropriate. I personally performed a physical exam, medical decision making and then discussed any differences between the notes and made revisions as necessary to create one note. Farrah Boles , 03/06/20 , 11:35 ALLEGRA VILLELA MED STUDENT Mar 06, 2020 08:13 FARRAH BOLES DO Mar 06, 2020 11:34
[2020-03-06] MEDS ORDERED: BUPR-168 PO (08:23)
--- NOTE | 2020-03-06 09:12 | Diagnostic Imaging Report ---
PROCEDURE: CT abdomen and pelvis without contrast. TECHNIQUE: Multiple contiguous axial images were obtained through the abdomen and pelvis without the use of intravenous contrast. Auto Exposure Controls were utilized during the CT exam to meet ALARA standards for radiation dose reduction. INDICATION: Diffuse abdominal pain with nausea and vomiting. Correlation is made with prior CT from 12/12/2019. The lung bases are clear. No discrete liver mass is identified. The gallbladder is surgically absent. No biliary ductal dilatation is seen. The pancreas and spleen are unremarkable. No adrenal mass is identified. No renal calculi or hydronephrosis is identified. The aorta is non-aneurysmal. Note is made of a retroaortic left renal vein, a normal variant. The bowel loops appear normal caliber. There is no obstruction. There is moderate stool throughout the colon, particularly the transverse colon. There is no free fluid or fluid collection. No inflammatory changes are seen. The bladder is unremarkable. The uterus appears to be surgically absent. The bony structures are nonacute. IMPRESSION: Essentially unremarkable noncontrast CT of the abdomen and pelvis. No acute abnormality is identified. Dictated by: Dictated on workstation # [id number]
[2020-03-06] MEDS ORDERED: ZOLP5TAB PO (10:38)
[2020-03-06] MEDS ORDERED: hydrALAZINE (APESOLINE) 20 MG/ML VIAL IV PRN (11:00)
[2020-03-06] MEDS: fentaNYL INJECTION 100 MCG/2 ML AMP IVP PRN ×2 (11:15→17:04)
[2020-03-06] MEDS: ALPRAZolam 0.25 MG (XANAX) TAB PO PRN ×2 (11:55→20:16)
[2020-03-06] MEDS: ENOXAPARIN 40 MG/0.4 ML (LOVENOX) SYR SC SCH (11:56)
--- NOTE | 2020-03-06 12:59 | History & Physical-Hospitalist ---
History of Present Illness HPI/Chief Complaint Pt is a 69yoCF known to me from previous admission that presented to the ER due to nausea and vomiting. She states ordered a box of [place] Wedding Cookies that arrived yesterday and she ate an entire box. After that she developed nausea and vomiting prompting her to seek evaluation in the ER. Despite multiple IV medic ations given to control vomiting she continued to retch and was admitted for intractable nausea and vomiting. Source: patient Date Seen 03/06/20 Time Seen by a Provider: 12:47 Attending Physician Annalise Shabazz MD PCP Jacobo Ramos DO Referring Physician Date of Admission Mar 06, 2020 at 01:18 Home Medications & Allergies Home Medications Reviewed patient Home Medication Reconciliation performed by pharmacy medication reconciliations archives technician and/or nursing. Patients Allergies have been reviewed. Allergies Allergies Coded Allergies Penicillins (Verified Allergy, Unknown, 12/04/18) atorvastatin (Verified Allergy, Unknown, 03/19/19) sumatriptan (Verified Allergy, Unknown, 12/04/18) Past Annicsa-Jbyrtp-Wnhxwg Hx Past Med/Social Hx: Reviewed Nursing Past Med/Soc Hx Patient Social History Alcohol Use: Denies Use Recreational Drug Use: No Drug of Choice: marijuana occasionally Smoking Status: Former Smoker Former Smoker, Quit: Mar 20, 2010 Type Used: Cigarettes 2nd Hand Smoke Exposure: No Recent Foreign Travel: No Contact w/other who traveled: No Recent Hopitalizations: No Recent Infectious Disease Expo: Yes (COVID ONE MONTH AGO) Immunizations Up To Date Date of Pneumonia Vaccine: Nov 19, 2015 Seasonal Allergies Seasonal Allergies: No Past Medical History Surgeries: Appendectomy, Gallbladder, Hysterectomy, Orthopedic Cardiac: Hypertension Neurological: Stroke Gastrointestinal: Ulcer Musculoskeletal: Chronic Back Pain History of Blood Disorders: No Family History Heart Disease (Father), Cancer (Aunt had Colon CA), Diabetes (Gfather), Hypertension (mother) Review of Systems Constitutional: No chills, No fever EENTM: no symptoms reported Respiratory: no symptoms reported Cardiovascular: no symptoms reported Gastrointestinal: abdominal pain, nausea, vomiting Genitourinary: no symptoms reported Musculoskeletal: no symptoms reported Skin: no symptoms reported Psychiatric/Neurological: Anxiety Physical Exam Physical Exam Vital Signs Vital Signs - First Documented 03/05/20 03/06/20 22:38 14:40 Temp 36.8 Pulse 104 Resp 18 B/P (MAP) 187/104 (131) Pulse Ox 98 O2 Delivery Room Air O2 Flow Rate 10 Capillary Refill : Less Than 3 Seconds Height, Weight, BMI Height: 5'0.00" Weight: 175lbs. 4.3oz. 79.333805lp; 32.98 BMI Method: General Appearance: No Apparent Distress, Anxious, Chronically ill HEENT: PERRL/EOMI, Moist Mucous Membranes Respiratory: Lungs Clear, No Respiratory Distress Cardiovascular: Regular Rate, Rhythm, No Murmur Gastrointestinal: Normal Bowel Sounds, Soft; No Distended, No Guarding; Tenderness (mild, diffuse) Extremity: No Calf Tenderness, No Pedal Edema Neurologic/Psychiatric: Alert, Oriented x3, Normal Mood/Affect Results Results/Procedures Labs Laboratory Tests 03/06/20 00:05 03/06/20 01:30 03/06/20 12:43 Patient resulted labs reviewed. Imaging: Reviewed Imaging Report Assessment/Plan Admission Diagnosis Intractable nausea and vomiting due to pyloric stenosis Admission Status: Observation Reason for Inpatient Admission: see below Assessment and Plan Intractable nausea and vomiting due to pyloric stenosis Surgery consulted, appreciate recs Continue antiemetics Continue IVF HTN Anxiety disorder Continue home meds when able to take PO hyperkalemia Repeat BMP, had significant difficulties getting labs and likely due to hemolysis but is on K supplementation at home so will hold DVT ppx: SCDs Clinical Quality Measures DVT/VTE Risk/Contraindication: Risk Factor Score Per Nursin RFS Level Per Nursing on Admit: 4+=Very High DARCI MORALES MD Mar 06, 2020 12:59
[2020-03-06 13:04] LABS: CALCIUM 7.6 MG/DL (8.5-10.1); CREATININE SERUM 1.02 MG/DL (0.60-1.30)
--- NOTE | 2020-03-06 13:21 | NUR ---
MIDLINE INSERTED BY IV TEAM, JERRY WELL, REMAINS NPO FOR EGD, CONSENT SIGNED, MRSA NASAL SWAB DONE, COVID SWAB DONE, CALL LIGHT WITHIN REACH.
[2020-03-06] MEDS ORDERED: PROPOFOL INJECTION 50 ML IV ONE (14:20)
[2020-03-06] MEDS ORDERED: MIDAZOLAM 2 MG/2 ML (VERSED) VIAL ONE (14:20)
[2020-03-06] MEDS ORDERED: LACTATED RINGERS 1,000 ML IV ONE (14:27)
[2020-03-06] MEDS ORDERED: LACTATED RINGERS 1,000 ML IV STA (14:50)
[2020-03-06] MEDS ORDERED: HURRICAINE EXT TUBE (BENZOCAINE) XX PRN (15:00)
--- NOTE | 2020-03-06 19:17 | OPERATIVE REPORT ---
DATE OF SERVICE: PREOPERATIVE DIAGNOSES: Intractable nausea, vomiting, some epigastric pain and pyloric stenosis. POSTOPERATIVE DIAGNOSES: Intractable nausea, vomiting, some epigastric pain and pyloric stenosis. PROCEDURE: EGD with dilation. SURGEON: Fran Miller DO COTTON EXPERT: None. ANESTHESIA: IV sedation by ELECTRIC MOTOR AND GENERATOR ASSEMBLER. SPECIMENS: None. BLOOD LOSS: Scant. FLUIDS: Per anesthesia. POSTOPERATIVE CONDITION: Stable. INDICATION FOR PROCEDURE: The patient is a 69-year-old female who has had a previous EGD. At that time, she had a foreign object removed from her stomach and noted to have very severe pyloric stenosis. She had been lost to follow up because of COVID-19 and actually got the disease and came back in with intractable nausea and vomiting. FINDINGS: The patient had very small. It looked like it was maybe 2 or 3 mm opening from the pylorus and this needed to be dilated. PROCEDURE NOTE: After informed consent was obtained, the patient was brought to the endoscopy suite, placed in bed in left lateral decubitus position. She was administered IV sedation by the ELECTRIC MOTOR AND GENERATOR ASSEMBLER who then monitored her vitals the entire time, heart rate, blood pressure and pulse ox. At this point, I then inserted the scope down the mouth through the esophagus and into the stomach. There was some ulceration at the base of this at the distal esophagus, probably from her vomiting, took a picture of this, pushed pass this into the stomach, took a picture of the very small pylorus. Retroflexed the scope, saw hiatal hernia. At this point, then got out the balloon dilator able to easily pass this through the pylorus and then carefully dilated up to 10 mm, held for one minute and then dilated up to 11 mm, held for another minute and then elected to let this down to see what looked like a little bit of bleeding, so the assessment, there was some tearing. We elected to not try and dilated up to 12. At this point, then suctioned the air out of the stomach and pulled the scope up the esophagus and out the mouth. The patient tolerated the procedure, recovered in endoscopy suite. She will need to have this repeated in 4-6 weeks so we can dilate a little bit more. Job ID: [id number] DocumentID: [id number] Dictated Date: 03/06/2020 15:55:26 Green Building Architect Date: 03/06/2020 19:15:17 Dictated By: FRAN MILLER DO
[2020-03-06] MEDS ORDERED: DULoxetine 30 MG (CYMBALTA) CAP PO SCH (20:00)
[2020-03-06] MEDS: buPROPion 75 MG (WELLBUTRIN) TAB PO SCH (20:16)
[2020-03-06] MEDS: oxyCODONE/APAP 10/325MG (PERCOCET 10) TABLET PO PRN (20:16)
[2020-03-06] MEDS: hydrALAZINE (APRESOLINE) 25 MG TAB PO SCH (20:17)
[2020-03-06] MEDS ORDERED: ZOLPIDEM 5 MG (AMBIEN) TAB PO SCH (21:00)
[2020-03-07 00:08] VITALS: BP 171/97
[2020-03-07] MEDS: fentaNYL INJECTION 100 MCG/2 ML AMP IVP PRN (00:14)
[2020-03-07 04:15] VITALS: BP 191/94
[2020-03-07] MEDS: ALPRAZolam 0.25 MG (XANAX) TAB PO PRN (04:30)
[2020-03-07 04:42] LABS: MEAN PLATELET VOLUME 8.2 fL (9.0-12.2); WHITE BLOOD COUNT 9.7 10^3/uL (4.3-11.0)
[2020-03-07 04:54] LABS: POTASSIUM 3.5 MMOL/L (3.6-5.0)
[2020-03-07 04:59] LABS: CREATININE SERUM 0.93 MG/DL (0.60-1.30)
[2020-03-07] MEDS ORDERED: ACETAMINOPHEN 325 MG TABLET ONE (06:00)
[2020-03-07] MEDS ORDERED: ACETAMINOPHEN 325 MG TABLET PO PRN (06:00)
[2020-03-07] MEDS: NS IV 1000 ML 1,000 ML IV SCH ×2 (06:40→10:16)
[2020-03-07] MEDS: PANTOPRAZOLE 40 MG (PROTONIX) VIAL IV SCH (08:55)
[2020-03-07] MEDS: hydrALAZINE (APRESOLINE) 25 MG TAB PO SCH (08:55)
[2020-03-07] MEDS: oxyCODONE/APAP 10/325MG (PERCOCET 10) TABLET PO PRN (08:56)
[2020-03-07] MEDS: buPROPion 75 MG (WELLBUTRIN) TAB PO SCH (08:56)
[2020-03-07] MEDS: ENOXAPARIN 40 MG/0.4 ML (LOVENOX) SYR SC SCH (08:56)
[2020-03-07] MEDS ORDERED: NON-FORMULARY MEDICATION 1 EA EA (Cholecalciferol (Vitamin D3) (Vitamin D3) 50 MCG) PO SCH (09:00)
[2020-03-07] MEDS ORDERED: VITAMIN D3 25 MCG (1,000 UNITS) TABLET PO SCH (09:00)
[2020-03-07] MEDS ORDERED: DULoxetine 30 MG (CYMBALTA) CAP PO SCH (09:00)
[2020-03-07] MEDS ORDERED: NON-FORMULARY MEDICATION 1 EA EA (Duloxetine HCl 60 MG) PO SCH (09:00)
[2020-03-07] MEDS ORDERED: PANTOPRAZOLE 40 MG (PROTONIX) TAB PO SCH (09:00)
--- NOTE | 2020-03-07 09:13 | Progress Note - Surgery ---
ALLEGRA VILLELA MED STUDENT 03/07/20 0913: Subjective Date Seen by a Provider: Mar 07, 2020 Time Seen by a Provider: 08:10 Subjective/Events-last exam Pt seen and examined. She was awake, resting in bed in NAD. She complains of a headache, beginning yesterday, but she says that she has a history of migraines that it's nothing new. She also has a sore throat s/p EGD with dilation yesterday; she has been on a clear liquid diet since that she has been tolerating well. Denies episodes of N/V since yesterday morning. She is asking about when she will be able to go home Review of Systems General: No Chills HEENT: Head Aches, Sore Throat Pulmonary: No Dyspnea Cardiovascular: No: Chest Pain, Palpitations, Lt Headedness Gastrointestinal: No: Nausea, Vomiting, Abdominal Pain Genitourinary: No Dysuria Neurological: No: Weakness, Numbness Focused Exam Lactate Level 03/06/20 01:30: Lactic Acid Level Objective Exam Vital Signs Date Time Temp Pulse Resp B/P (MAP) Pulse Ox O2 Delivery O2 Flow Rate FiO2 03/07/20 07:00 105 03/07/20 04:15 36.2 104 18 191/94 (126) 96 Room Air 03/07/20 01:00 107 03/07/20 00:08 37.0 111 20 171/97 (121) 94 03/06/20 20:00 95 Room Air 03/06/20 19:00 105 03/06/20 19:00 35.9 102 20 168/79 (108) 98 03/06/20 16:00 36.4 104 16 163/69 (100) 95 Room Air 03/06/20 15:00 93 16 96 Room Air 03/06/20 14:55 93 16 95 Room Air 03/06/20 14:50 91 16 100 OxyMask 10 03/06/20 14:45 93 16 100 OxyMask 10 03/06/20 14:40 93 16 100 OxyMask 10 03/06/20 14:25 37.05025 03/06/20 13:00 114 03/06/20 12:10 70 18 137/63 (87) 96 Room Air I & O 03/07/20 07:00 Intake Total 1070 ml Output Total 1000 ml Balance 70 ml Capillary Refill : Less Than 3 Seconds General Appearance: No Apparent Distress, Anxious, Obese HEENT: PERRL/EOMI, Moist Mucous Membranes Neck: Full Range of Motion, Normal Inspection, Non Tender, Supple Respiratory: Chest Non Tender, Lungs Clear, Normal Breath Sounds, No Accessory Muscle Use, No Respiratory Distress Cardiovascular: Regular Rate, Rhythm, No JVD, No Murmur Gastrointestinal: non tender, soft Extremity: Normal Inspection, Normal Range of Motion, Non Tender, No Pedal Edema Neurologic/Psychiatric: Alert, Oriented x3, No Motor/Sensory Deficits, Normal Mood/Affect Skin: Normal Color, Warm/Dry Lymphatic: No Adenopathy Results Lab Laboratory Tests 03/06/20 12:00: Coronavirus 2019 (JACQUELINE) Negative 03/06/20 12:43: Sodium Level 140, Potassium Level 4.0, Chloride Level 109H, Carbon Dioxide Level 23, Anion Gap 8, Blood Urea Nitrogen 13, Creatinine 1.02, Estimat Glomerular Filtration Rate 54, BUN/Creatinine Ratio 13, Glucose Level 107H, Calcium Level 7.6L 03/07/20 04:30: Sodium Level 140, Potassium Level 3.5L, Chloride Level 106, Carbon Dioxide Level 24, Anion Gap 10, Blood Urea Nitrogen 9, Creatinine 0.93, Estimat Glomerular Filtration Rate 60, BUN/Creatinine Ratio 10, Glucose Level 99, Calcium Level 8. 0L, White Blood Count 9.7, Red Blood Count 4.03, Hemoglobin 11.0L, Hematocrit 35, Mean Corpuscular Volume 87, Mean Corpuscular Hemoglobin 27, Mean Corpuscular Hemoglobin Concent 32, Red Cell Distribution Width 15.6H, Platelet Count 262, Mean Platelet Volume 8.2L Assessment/Plan Assessment/Plan Assessment/Plan Nausea and Vomiting - resolved Pyloric Stenosis - EGD w/ dilation performed yesterday Hyperkalemia GERD Tachycardia HTN - 191/94 Anxiety Pt underwent EGD w/ dilation yesterday for pyloric stenosis. She complains of headache and sore throat, but otherwise feels well She tolerated clear liquids last night and this morning without further episodes of N/V Plan to continue clear liquid diet for a couple days longer Continue to monitor for complications of stenosis or s/p dilation Clinical Quality Measures DVT/VTE Risk/Contraindication: Risk Factor Score Per Nursin RFS Level Per Nursing on Admit: 4+=Very High FRAN BOLES DO 03/07/20 1123: Subjective Time Seen by a Provider: 11:14 Subjective/Events-last exam Pt seen and examined, states she is doing well and wants to go home. Tolerating diet. Review of Systems General: No Chills HEENT: Head Aches Pulmonary: No Dyspnea Cardiovascular: No: Chest Pain, Palpitations Gastrointestinal: No: Nausea, Vomiting, Abdominal Pain Objective Exam General Appearance: No Apparent Distress, Anxious, Obese HEENT: PERRL/EOMI, Moist Mucous Membranes Respiratory: Lungs Clear, Normal Breath Sounds, No Accessory Muscle Use, No Respiratory Distress Cardiovascular: No Murmur, Tachycardia Gastrointestinal: non tender, soft, no organomegaly Neurologic/Psychiatric: Alert, Oriented x3 Assessment/Plan Assessment/Plan Assessment/Plan N/V - resolved Pyloric Stenosis - S/P dilation will need repeat in 4-6 weeks. Pt told she must stay on liquid or very soft diet (everything must be consistency of mashed potatoes). Make sure she is getting enough protein. Anemia and now Hypokalemia - probably due to being rehydrated Tachycardia HTN - pt to resume home meds Supervisory-Addendum Brief Verification & Attestation Participated in pt care: history, MDM, physical Personally performed: exam, history, MDM Care discussed with: Medical Student Procedures: n/a Verification and Attestation of Medical Student E/M Service A medical student performed and documented this service. I then reviewed and verified all information documented by the medical student and made modifications to such information, when appropriate. I personally performed a physical exam, medical decision making and then discussed any differences between the notes and made revisions as necessary to create one note. Fran Boles , 03/07/20 , 11:23 ALLEGRA VILLELA MED STUDENT Mar 07, 2020 09:13 FRAN BOLES DO Mar 07, 2020 11:23
[2020-03-07] MEDS ORDERED: KETOROLAC 15 MG/ML VIAL IVP ONE (10:15)
[2020-03-07 10:17] VITALS: BP 167/78
--- NOTE | 2020-03-07 11:41 | Discharge Inst-Simple/Standard ---
Discharge Inst-Standard Patient Instructions/Follow Up Plan of Care/Instructions/FU: Please continue to take your medications as written. Please follow up this hospital stay with Dr Ramos and Dr Miller. Activity as Tolerated: Yes Discharge Diet: Soft Diet Return to The Hospital For: Chest pain, shortness of breath, fever, nausea, vomiting, abdominal pain, if you feel you are getting worse. Planned Outpatient Orders/Ref. Pneu Vac Indicated: Yes DARCI MORALES MD Mar 07, 2020 11:41
--- NOTE | 2020-03-07 11:44 | Discharge Summary ---
Diagnosis/Chief Complaint Date of Admission Mar 06, 2020 at 01:18 Date of Discharge Discharge Date: Mar 07, 2020 Admission Diagnosis Intractable nausea and vomiting due to pyloric stenosis Primary Care Jacobo Ramos DO Discharge Summary Discharge Physical Exam Allergies: Coded Allergies: Penicillins (Verified Allergy, Unknown, 12/04/18) atorvastatin (Verified Allergy, Unknown, 03/19/19) sumatriptan (Verified Allergy, Unknown, 12/04/18) Vitals & I&Os Vital Signs Date Time Temp Pulse Resp B/P (MAP) Pulse Ox O2 Delivery O2 Flow Rate FiO2 03/07/20 12:15 36.2 105 18 167/78 97 Room Air 03/06/20 14:50 10 General Appearance: No Apparent Distress, Anxious, Chronically ill Respiratory: Lungs Clear, No Respiratory Distress Cardiovascular: Regular Rate, Rhythm, No Murmur Neurologic/Psychiatric: Alert, Oriented x3 Hospital Course Pt was admitted due to intractable nausea and vomiting from known severe pyloric stenosis. Surgery was consulted and she underwent EGD with dilatation and did very well. She was able to tolerate a soft diet and did well. She was requesting discharge home on day of discharge. She is to continue on a soft diet and to follow up with Dr Miller and Dr Ramos to follow up this hospital stay. Labs (last 24 hrs) Microbiology 03/06/20 MRSA Screen - Final, Complete MRSA not isolated Patient resulted labs reviewed. Pending Labs Imaging: Reviewed Imaging Report Discussion & Recommendations Discharge Planning: >30 minutes discharge planning Discharge Home Medications: Active Scripts Active Protonix (Pantoprazole Sodium) 40 Mg Tablet. 40 Mg PO DAILY Reported Ambien (Zolpidem Tartrate) 5 Mg Tablet 5 Mg PO HS 7 Days Bupropion HCl 75 Mg Tablet 75 Mg PO BID Miralax (Polyethylene Glycol 3350) 17 Gm Powd.pack 17 Gm PO DAILY PRN Visine Dry Eye Relief Drop (Peg 400/Hypromellose/Glycerin) 15 Ml Drops 2 Drops OU PRN PRN Multivitamin 1 Each Tablet 1 Each PO DAILY Vitamin D3 (Cholecalciferol (Vitamin D3)) 50 Mcg Capsule 50 Mcg PO DAILY Tylenol Extra Strength (Acetaminophen) 500 Mg Tablet 500-1,000 Mg PO Q8H PRN Potassium Chloride 20 Meq Tablet.er 20 Meq PO Q72H Duloxetine HCl 30 Mg Capsule. 30 Mg PO 2000 Hydralazine HCl 25 Mg Tablet 25 Mg PO TID Alprazolam 0.5 Mg Tablet 0.5 Mg PO QID PRN Duloxetine HCl 60 Mg Capsule.dr 60 Mg PO DAILY Oxycodone-Acetaminophen 10-325 (Oxycodone HCl/Acetaminophen) 1 Each Tablet 1 Tab PO Q4 -6H PRN Instructions to patient/family Please see electronic discharge instructions given to patient. Clinical Quality Measures DVT/VTE Risk/Contraindication: Risk Factor Score Per Nursin RFS Level Per Nursing on Admit: 4+=Very High DARCI MORALES MD Mar 07, 2020 11:44
[2020-03-07 12:15] VITALS: BP 167/78
== END 2020-03-07 12:15 | disposition home or self-care (01) ==
LOC: EDUNIT# 22:30 → ER FS 22:31 → 4TH 03-06 01:18 → ER FS 03-06 03:07
PROVIDERS: ADMIT Internal Medicine; ATTEND Internal Medicine
DX: K31.1 Adult hypertrophic pyloric stenosis (principal); K44.9 Diaphragmatic hernia without obstruction or gangrene; I10 Essential (primary) hypertension; J44.9 Chronic obstructive pulmonary disease, unspecified; F41.9 Anxiety disorder, unspecified; E87.5 Hyperkalemia; G89.29 Other chronic pain; M54.5 Low back pain; Z79.899 Other long term (current) drug therapy; Z88.0 Allergy status to penicillin; Z88.8 Allergy status to other drugs, medicaments and biological substances; Z90.710 Acquired absence of both cervix and uterus; Z87.891 Personal history of nicotine dependence; Z86.73 Personal history of transient ischemic attack (TIA), and cerebral infarction without residual deficits; Z20.828 Contact with and (suspected) exposure to other viral communicable diseases
CPT/HCPCS: 36410; 36415; 43249; 74176; 76937; 80048 ×2; 80053; 83690; 85007; 85027 ×2; 87081; 96361; 96374; 96375; 96376; 99284; U0002; 87635; 90662

== ENCOUNTER 2020-04-09 05:42 | Outpatient (RCR) | payer MEDICARE ==
[~2020-04-09] VITALS: Ht 152.4 cm; Wt 76.5 kg
[~2020-04-09 05:42] MED LIST changes: +BUPR-168 PO; +ZOLP5TAB PO
[2020-04-13] MEDS ORDERED: DULO60CA59 PO (11:27)
[2020-04-13] MEDS ORDERED: SUCR1TAB PO (11:27)
[2020-04-13] MEDS ORDERED: BUPR-168 PO (11:27)
[2020-04-13] MEDS ORDERED: ATOR40TA70 PO (11:27)
[2020-04-13] MEDS ORDERED: OXYC-464 PO (11:27)
[2020-04-13] MEDS ORDERED: HYDR-3923 PO (11:27)
[2020-04-13] MEDS ORDERED: ALPR0.5T7 PO (11:27)
[2020-04-13] MEDS ORDERED: ZOLP5TAB7 PO (11:27)
[2020-04-13] MEDS ORDERED: ASPI-999 PO (11:27)
[2020-04-13] MEDS ORDERED: BUTA1TAB9 PO (11:27)
== END 2020-04-13 15:28 | disposition home or self-care (01) ==
LOC: PREOP 05:42
PROVIDERS: ATTEND Surgery
DX: Z01.812 Encounter for preprocedural laboratory examination (principal); K31.1 Adult hypertrophic pyloric stenosis

== ENCOUNTER → 2020-04-17 | Outpatient (CLI) | payer MEDICARE ==
[~2020-04-17] MED LIST changes: +ASPI-999 PO; +ATOR40TA70 PO; +BUTA1TAB9 PO; +OXYC-464 PO; +SUCR1TAB PO
== END ==
LOC: LAB FS 10:20
PROVIDERS: ATTEND Surgery
DX: Z01.812 Encounter for preprocedural laboratory examination (principal); K31.1 Adult hypertrophic pyloric stenosis; Z20.822 Contact with and (suspected) exposure to COVID-19
CPT/HCPCS: 87635

== ENCOUNTER 2020-04-20 10:16 | Day surgery (SDC) | payer MEDICARE ==
[~2020-04-20] VITALS: Ht 152.4 cm; Wt 76.5 kg
[2020-04-20] MEDS ORDERED: LACTATED RINGERS 1,000 ML IV STA (10:35)
[2020-04-20] MEDS ORDERED: LACTATED RINGERS 1,000 ML IV ONE (10:37)
--- NOTE | 2020-04-20 10:39 | Progress Note-Pre Operative ---
Pre-Operative Progress Note H&P Reviewed The H&P was reviewed, patient examined and no changes noted. Time Seen by Provider: 10:37 Date H&P Reviewed: Apr 20, 2020 Time H&P Reviewed: 10:38 Pre-Operative Diagnosis: Pyloric Stenosis FARRAH BOLES DO Apr 20, 2020 10:39
[2020-04-20 10:40] VITALS: BP 145/95
[2020-04-20] MEDS ORDERED: HURRICAINE EXT TUBE (BENZOCAINE) XX PRN (10:45)
[2020-04-20] MEDS ORDERED: proPOfol 200 MG/20 ML (DIPRIVAN) VIAL IV ONE (11:03)
[2020-04-20] MEDS ORDERED: MIDAZOLAM 2 MG/2 ML (VERSED) VIAL ONE (11:03)
[2020-04-20] MEDS ORDERED: HURRICAINE EXT TUBE (BENZOCAINE) ONE (11:28)
[2020-04-20 11:55] VITALS: BP 120/65
--- NOTE | 2020-04-20 11:55 | Progress Note-Post Operative ---
Post-Operative Progess Note Surgeon (s)/Boiler House Supervisor (s) Surgeon FARRAH BOLES DO Boiler House Supervisor: none Pre-Operative Diagnosis Pyloric Stenosis Post-Operative Diagnosis Gastritis Pyloric stenosis Duodenal stenosis Hiatal hernia Procedure & Operative Findings Date of Procedure 04/20/20 Procedure Performed/Findings EGD with bx EGD with dilation Anesthesia Type IV sedation by CREDIT UNION TELLER Estimated Blood Loss Estimated blood loss (mL): scant Specimens/Packing Specimens Removed antral bx pylorus bx pyloric mass bx FARRAH BOLES DO Apr 20, 2020 11:55
--- NOTE | 2020-04-20 11:56 | Endoscopy Discharge Instruct ---
Endo Procedure/Findings Findings 1.: Gastritis 2.: Other Findings (Pyloric Stenosis) 3.: Hiatal Hernia Discharge Instructions - Activity: You might feel a little sleepy until tomorrow. This is due to the medicine you received to relax you. Until tomorrow, you should: NOT drive a car, operate machinery or power tools. NOT drink any alcoholic beverages. NOT make any important decisions or sign importortant papers. Do not return to work until tomorrow, unless otherwise instructed. Resume previous activities tomorrow. Diet: Start by taking liquids. If you tolerate liquids, advance to solid food. 1.: EGD in 6-8 weeks Notify Physician - If you experience excessive bleeding, unusual abdominal pain, fever, or chest pain, contact your doctor immediately. FARRAH BOLES DO Apr 20, 2020 11:56
[2020-04-20 12:00] VITALS: BP_SYST 120; BP_SYST 121; BP_DIAS 65; BP_DIAS 70
--- NOTE | 2020-04-20 12:05 | Anesthesia-General Post-Op ---
MAC Patient Condition Mental Status/LOC: Same as Preop Cardiovascular: Satisfactory Nausea/Vomiting: Absent Respiratory: Satisfactory Pain: Controlled Complications: Absent Post Op Complications Complications None Follow Up Care/Instructions Patient Instructions None needed. Anesthesiology Discharge Order Discharge Order Patient is doing well, no complaints, stable vital signs, no apparent adverse anesthesia problems. No complications reported per nursing. LIZETTE BROWN CRNA Apr 20, 2020 12:05
[2020-04-20 12:30] VITALS: BP 132/78
[2020-04-20 12:50] VITALS: BP 132/78
--- NOTE | 2020-04-20 23:23 | OPERATIVE REPORT ---
DATE OF SERVICE: 04/20/2020 PREOPERATIVE DIAGNOSIS: Pyloric stenosis. POSTOPERATIVE DIAGNOSES: Gastritis, pyloric stenosis, duodenal stenosis, and hiatal hernia. PROCEDURES: 1. EGD with biopsy. 2. EGD with dilatation. SURGEON: Fran Miller DO CLIENT PROJECT COORDINATOR: None. ANESTHESIA: IV sedation by the REFUELING RAMP ATTENDANT. SPECIMEN: Antral biopsy, pylorus biopsy, had a pyloric mass biopsy. BLOOD LOSS: Scant. FLUIDS: Per anesthesia. POSTOPERATIVE CONDITION: Stable. INDICATION FOR PROCEDURE: The patient is a 69-year-old female, who has been seen before with trouble eating and been diagnosed with pyloric stenosis on EGD. At that time, had dilated up to about 11 mm, elected not to go any further; needed to get this repeated. FINDINGS: The patient's pylorus was again mildly stenosed, able to open this, but then she had a stenosis in the duodenum as well. Both of these had to be dilated. She also had a hiatal hernia and some gastritis. PROCEDURE NOTE: After informed consent was obtained, the patient was brought to the endoscopy suite, placed in bed in left lateral decubitus position. She was administered IV sedation by the REFUELING RAMP ATTENDANT who then monitored her vitals the entire time, heart rate, blood pressure and pulse oximeter, we placed the scope down the mouth through the esophagus into the stomach. Upon entering the stomach, noted the pylorus was very small, but not as small as it was before. Placed a balloon and dilated the balloon, first did get a biopsy of the antrum, dilated the balloon to 11 mm and held it for a minute and then dilated to 12 and held it for a minute and half, and then removed the balloon. Now, able to get into the first part of the duodenum, but we encountered another stricture, ballooned this, opened to 11 and then able to get past this into the second and third portion of the duodenum, took a picture, these looked fine. Pulled back and in the pylorus it looked like there was some inflammation and possibly a mass and we did a biopsy of this, then pulled the scope into the stomach, retroflexed the scope, saw hiatal hernia, pulled the scope up into the GE junction, looked okay and at this point then pulled the scope up the esophagus and out the mouth after suctioning the air out of the stomach. The patient tolerated the procedure, recovered in endoscopy suite. Job ID: [id number] DocumentID: [id number] Dictated Date: 04/20/2020 18:49:00 Multiple Needle Stitcher Date: 04/20/2020 23:22:38 Dictated By: DO AL RAMIREZ
== END 2020-04-20 12:50 | disposition home or self-care (01) ==
LOC: ENDO 10:16
PROVIDERS: ATTEND Surgery
DX: K29.51 Unspecified chronic gastritis with bleeding (principal); K44.9 Diaphragmatic hernia without obstruction or gangrene; K31.1 Adult hypertrophic pyloric stenosis; K31.5 Obstruction of duodenum; I10 Essential (primary) hypertension; J44.9 Chronic obstructive pulmonary disease, unspecified; E66.9 Obesity, unspecified; Z68.32 Body mass index [BMI] 32.0-32.9, adult; Z79.899 Other long term (current) drug therapy; Z88.0 Allergy status to penicillin; Z88.8 Allergy status to other drugs, medicaments and biological substances; Z87.891 Personal history of nicotine dependence; Z86.73 Personal history of transient ischemic attack (TIA), and cerebral infarction without residual deficits
CPT/HCPCS: 88305

== ENCOUNTER 2020-07-03 14:40 | Emergency (ER) | payer MEDICARE ==
[~2020-07-03 14:40] MED LIST changes: +BUTA-235 PO; -BUTA1TAB9 PO
--- NOTE | 2020-07-03 14:44 | ED General ---
General Stated Complaint: FATIGUE History of Present Illness Date Seen by Provider: Jul 03, 2020 Time Seen by Provider: 14:44 Initial Comments 69-year-old female brought in by EMS. Patient was at [facility]. Patient went to sleep. She was asleep for about 45 minutes. When staff went to wake her up after her hair was finished she was diaphoretic and sonorous. reports that she has been had a lot of back pain and takes narcotics for it. Upon arrival patient is somnolent and slightly arousable with sternal rub. Patient does have a stroke history. Patient was normal per [facility] staff when she went to sleep. No other HPI available Allergies and Home Medications Allergies Coded Allergies: Penicillins (Verified Allergy, Unknown, 12/04/18) atorvastatin (Verified Allergy, Unknown, 03/19/19) sumatriptan (Verified Allergy, Unknown, 12/04/18) Home Medications Alprazolam 0.5 Mg Tablet, 0.5 MG PO QID, (Reported) Aspirin 81 Mg Tab.chew, 81 MG PO DAILY, (Reported) Atorvastatin Calcium 40 Mg Tablet, 40 MG PO DAILY, (Reported) Bupropion HCl 75 Mg Tablet, 75 MG PO BID, (Reported) Butalb/Acetaminophen/Caffeine 1 Each Tablet, 1 EACH PO PRN, (Reported) Duloxetine HCl 60 Mg Capsule.dr, 90 MG PO DAILY, (Reported) Hydralazine HCl 25 Mg Tablet, 25 MG PO TID, (Reported) Oxycodone HCl/Acetaminophen 1 Each Tablet, 1 EACH PO Q6H PRN for PAIN-MODERATE, (Reported) Pantoprazole Sodium 40 Mg Tablet.dr, 40 MG PO DAILY Prescribed by: BERNARD LEUNG on 12/12/192005 Sucralfate 1 Gm Tablet, 1 GM PO ACHS, (Reported) Zolpidem Tartrate 5 Mg Tablet, 5 MG PO HS, (Reported) Patient Home Medication List Home Medication List Reviewed: Yes Review of Systems Review of Systems Constitutional: see HPI EENTM: no symptoms reported Respiratory: see HPI Cardiovascular: no symptoms reported Gastrointestinal: no symptoms reported Genitourinary: no symptoms reported Musculoskeletal: no symptoms reported Skin: see HPI Psychiatric/Neurological: See HPI Past Isrhxlf-Unowsu-Hpxvdl Hx Patient Social History Drug of Choice: marijuana occasionally Type Used: Cigarettes Former Smoker, Quit: Mar 20, 2019 2nd Hand Smoke Exposure: No Recent Hopitalizations: No Immunizations Up To Date Date of Pneumonia Vaccine: Nov 19, 2015 Date of Influenza Vaccine: Mar 07, 2020 Seasonal Allergies Seasonal Allergies: No Past Medical History Surgeries: Yes Appendectomy, Gallbladder, Hysterectomy, Orthopedic Respiratory: Yes COPD Cardiac: Yes Hypertension Neurological: Yes (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 4.3oz. [id number]; 32.93 BMI Method: General Appearance: Other (Snore S, somnolent) Eyes: Bilateral Eye Other (Sluggish, pinpoint) Respiratory: Lungs Clear, Normal Breath Sounds Cardiovascular: Regular Rate, Rhythm, No Edema Neurologic/Psychiatric: Other (Somnolent, slightly arousable with sternal rub) Focused Exam Lactate Level 07/03/20 15:26: Lactic Acid Level 1.56 Lactic Acid Level Laboratory Tests Test 07/03/20 15:26 Lactic Acid Level 1.56 MMOL/L (0.50-2.00) Progress/Results/Core Measures Suspected Sepsis SIRS Temperature: Pulse: Respiratory Rate: Laboratory Tests 07/03/20 14:56: White Blood Count 8.6 Blood Pressure / Mean: 07/03/20 15:26: Lactic Acid Level 1.56 Laboratory Tests 07/03/20 14:56: INR Comment 0.9, Platelet Count 384 07/03/20 15:26: Creatinine 1.18, Total Bilirubin 0.2 Results/Orders Lab Results Laboratory Tests Test 07/03/20 14:56 07/03/20 15:26 07/03/20 15:53 Range/Units White Blood Count 8.6 4.3-11.0 10^3/uL Red Blood Count 4.55 4.35-5.85 10^6/uL Hemoglobin 12.4 11.5-16.0 G/DL Hematocrit 39 35-52 % Mean Corpuscular Volume 86 80-99 FL Mean Corpuscular Hemoglobin 27 25-34 PG Mean Corpuscular Hemoglobin Concent 32 32-36 G/DL Red Cell Distribution Width 15.6 H 10.0-14.5 % Platelet Count 384 130-400 10^3/uL Mean Platelet Volume 8.7 7.4-10.4 FL Immature Granulocyte % (Auto) 0 % Neutrophils (%) (Auto) 58 42-75 % Lymphocytes (%) (Auto) 26 12-44 % Monocytes (%) (Auto) 11 0-12 % Eosinophils (%) (Auto) 4 0-10 % Basophils (%) (Auto) 1 0-10 % Neutrophils # (Auto) 5.0 1.8-7.8 X 10^3 Lymphocytes # (Auto) 2.2 1.0-4.0 X 10^3 Monocytes # (Auto) 1.0 0.0-1.0 X 10^3 Eosinophils # (Auto) 0.3 0.0-0.3 10^3/uL Basophils # (Auto) 0.1 0.0-0.1 10^3/uL Immature Granulocyte # (Auto) 0.0 0.0-0.1 10^3/uL Prothrombin Time 12.1 L 12.2-14.7 SEC INR Comment 0.9 0.8-1.4 Activated Partial Thromboplast Time 25 24-35 SEC Sodium Level 141 135-145 MMOL/L Potassium Level 4.1 3.6-5.0 MMOL/L Chloride Level 102 98-107 MMOL/L Carbon Dioxide Level 28 21-32 MMOL/L Anion Gap 11 5-14 MMOL/L Blood Urea Nitrogen 16 7-18 MG/DL Creatinine 1.18 0.60-1.30 MG/DL Estimat Glomerular Filtration Rate 46 BUN/Creatinine Ratio 14 Glucose Level 94 70-105 MG/DL Lactic Acid Level 1.56 0.50-2.00 MMOL/L Calcium Level 9.1 8.5-10.1 MG/DL Corrected Calcium 8.9 8.5-10.1 MG/DL Total Bilirubin 0.2 0.1-1.0 MG/DL Aspartate Amino Transf (AST/SGOT) 17 5-34 U/L Alanine Aminotransferase (ALT/SGPT) 9 0-55 U/L Alkaline Phosphatase 97 40-136 U/L Troponin I < 0.30 <0.30 NG/ML Total Protein 6.9 6.4-8.2 GM/DL Albumin 4.3 3.2-4.5 GM/DL Glucometer 96 70-110 MG/DL My Orders Orders - BRUCE,ALPESH L DO Cbc With Automated Diff (07/03/20 14:45) Comprehensive Metabolic Panel (07/03/20 14:45) Blood Culture (07/03/20 14:45) Sputum Culture (07/03/20 14:45) Urinalysis (07/03/20 14:45) Urine Culture (07/03/20 14:45) Protime With Inr (07/03/20 14:45) Partial Thromboplastin Time (07/03/20 14:45) Chest 1 View Ap/Pa Only (07/03/20 14:45) Ed Iv/Invasive Line Start (07/03/20 14:45) O2 (07/03/20 14:45) Remove Rings In Anticipation O (07/03/20 14:45) Lactic Acid Analyzer (07/03/20 14:45) Influenza A And B Antigens (07/03/20 14:45) Ns Iv 1000 Ml (Sodium Chloride 0.9%) (07/03/20 14:45) Naloxone Injection (Narcan Injection) (07/03/20 14:45) Accucheck Stat ONCE (07/03/20 14:45) Ekg Tracing (07/03/20 14:45) Monitor-Rhythm Ecg Trace Only (07/03/20 14:45) Drug Screen Stat (Urine) (07/03/20 14:45) Troponin I Fs (07/03/20 14:45) Ct Head Wo-R/O Stroke (07/03/20 14:45) Ondansetron Injection (Zofran Injectio (07/03/20 16:00) Ondansetron Injection (Zofran Injectio (07/03/20 15:42) Medications Given in ED Current Medications Medications Dose Ordered Sig/Mishel Route Start Time Stop Time Status Last Admin Dose Admin Naloxone HCl 2 mg ONCE ONCE IV 07/03/20 14:45 07/03/20 14:48 DC 07/03/20 14:56 2 MG Ondansetron HCl 4 mg ONCE ONCE IVP 07/03/20 16:00 07/03/20 16:01 DC 07/03/20 15:54 4 MG Vital Signs/I&O Capillary Refill : Progress Note #1: Time: 15:02 Progress Note Patient was given 2 of Narcan. Patient symptoms drastically improved following add ministration of Narcan. Patient much more alert however slightly confused from what was going on. Progress Note #2: Time: 16:26 Progress Note Patient remained alert throughout her stay following the Narcan. Patient is asking to go home. Patient has no acute findings on lab, CT or chest x-ray. I suspect she had an accidental narcotic overdose. Patient stable and discharged home with her ECG Initial ECG Impression Date: Jul 03, 2020 Initial ECG Impression Time: 14:46 Initial ECG Rate: 67 Comment no acute changes Diagnostic Imaging Diagonstic Imaging: Xray Plain Films/CT/US/NM/MRI: chest [facility] [place] [place] NAME: [facility] REC#: [id number] PT STATUS: REG ER : 1950 PHYSICIAN: ALPESH BRUCE DO ADMIT DATE: 07/03/20/ER FS Draft Date of Exam:07/03/20 CHEST 1 VIEW AP/PA ONLY INDICATION: Sepsis, decreased responsiveness.. TECHNIQUE: Single view chest 11/19/2019. CORRELATION STUDY: None FINDINGS: The heart size, mediastinal configuration and pulmonary vascularity are within normal limits. The lungs are clear with no consolidating infiltrate. There is no significant effusion or pneumothorax. IMPRESSION: 1. Generally stable, negative appearing portable chest. Reviewed: Reviewed by Me Diagonstic Imaging: CT Plain Films/CT/US/NM/MRI: head Comments [facility], [facility]. [place], [place] NAME: [facility] REC#: [id number] PT STATUS: REG ER : 1950 PHYSICIAN: ALPESH BRUCE DO ADMIT DATE: 07/03/20/ER FS Draft Date of Exam:07/03/20 CT HEAD WO-R/O STROKE INDICATION: Episodes of unresponsiveness. TECHNIQUE: Multiple contiguous axial images were obtained through the brain without the use of intravenous contrast. Auto Exposure Controls were utilized during the CT exam to meet ALARA standards for radiation dose reduction. COMPARISON: 11/19/2019 There are no extra-axial fluid collections. No intracranial hemorrhage. No intracranial mass or mass effect. No midline shift. The ventricles are normal in size and position. There were no focal parenchymal abnormalities in the brain. Calvarial windows are unremarkable. There is some mucosal thickening in the maxillary sinuses. IMPRESSION: No acute intracranial abnormality. Mucosal thickening in maxillary sinuses. No change from 11/19/2019. Departure Impression Primary Impression: Acute narcotic intoxication Qualified Codes: F11.920 - Opioid use, unspecified with intoxication, uncomplicated Disposition: HOME, SELF-CARE Condition: Stable Departure-Patient Inst. Referrals: YOANNA CHAMBERS DO (PCP/Family) Primary Care Physician Patient Instructions: Accidental Overdose (DC), Opioid Overdose ED, Preventing an Opioid Overdose Add. Discharge Instructions: Follow-up with your primary care provider as needed Return to the ER if symptoms worsen ALPESH BRUCE DO Jul 03, 2020 14:44
[2020-07-03] MEDS ORDERED: NALOXONE 2 MG/2 ML (NARCAN) SYR IV ONE (14:45)
[2020-07-03] MEDS ORDERED: NS IV 1000 ML 1,000 ML IV SCH (14:45)
[2020-07-03 15:04] LABS: WHITE BLOOD COUNT 8.6 10^3/uL (4.3-11.0)
[2020-07-03 15:05] LABS: BASOPHILS % (AUTO) 1 % (0-10); EOSINOPHILS % (AUTO) 4 % (0-10); HEMATOCRIT 39 % (35-52); HEMOGLOBIN 12.4 G/DL (11.5-16.0); LYMPHOCYTES % (AUTO) 26 % (12-44); MEAN CORPUSCULAR HEMOGLOBIN 27 PG (25-34); MEAN CORPUSCULAR HGB CONC 32 G/DL (32-36); MEAN CORPUSCULAR VOLUME 86 FL (80-99); MEAN PLATELET VOLUME 8.7 FL (7.4-10.4); MONOCYTES % (AUTO) 11 % (0-12); NEUTROPHILS % (AUTO) 58 % (42-75); PLATELET COUNT 384 10^3/uL (130-400)
[2020-07-03 15:06] LABS: BASOPHILS # (AUTO) 0.1 10^3/uL (0.0-0.1); EOSINOPHILS # (AUTO) 0.3 10^3/uL (0.0-0.3); LYMPHOCYTES # (AUTO) 2.2 X 10^3 (1.0-4.0)
--- NOTE | 2020-07-03 15:18 | Diagnostic Imaging Report ---
INDICATION: Sepsis, decreased responsiveness.. TECHNIQUE: Single view chest 11/19/2019. CORRELATION STUDY: None FINDINGS: The heart size, mediastinal configuration and pulmonary vascularity are within normal limits. The lungs are clear with no consolidating infiltrate. There is no significant effusion or pneumothorax. IMPRESSION: 1. Generally stable, negative appearing portable chest. Dictated by: Dictated on workstation # [id number]
--- NOTE | 2020-07-03 15:23 | Diagnostic Imaging Report ---
INDICATION: Episodes of unresponsiveness. TECHNIQUE: Multiple contiguous axial images were obtained through the brain without the use of intravenous contrast. Auto Exposure Controls were utilized during the CT exam to meet ALARA standards for radiation dose reduction. COMPARISON: 11/19/2019 There are no extra-axial fluid collections. No intracranial hemorrhage. No intracranial mass or mass effect. No midline shift. The ventricles are normal in size and position. There were no focal parenchymal abnormalities in the brain. Calvarial windows are unremarkable. There is some mucosal thickening in the maxillary sinuses. IMPRESSION: No acute intracranial abnormality. Mucosal thickening in maxillary sinuses. No change from 11/19/2019. Dictated by: Dictated on workstation # [id number]
[2020-07-03] MEDS ORDERED: ONDANSETRON 4 MG/2 ML (SDV) Z0FRAN ONE (15:42)
[2020-07-03 15:46] LABS: INR 0.9 (0.8-1.4); PROTHROMBIN TIME PATIENT 12.1 SEC (12.2-14.7)
[2020-07-03 15:57] LABS: ALANINE AMINOTRANSFERASE 9 U/L (0-55); ALKALINE PHOSPHATASE 97 U/L (40-136); BILIRUBIN,TOTAL 0.2 MG/DL (0.1-1.0); BUN/CREATININE RATIO 14; CALCIUM 9.1 MG/DL (8.5-10.1); CARBON DIOXIDE 28 MMOL/L (21-32); CHLORIDE 102 MMOL/L (98-107); CREATININE SERUM 1.18 MG/DL (0.60-1.30); GFR ESTIMATED 46; GLUCOSE 94 MG/DL (70-105); POTASSIUM 4.1 MMOL/L (3.6-5.0); SODIUM 141 MMOL/L (135-145)
[2020-07-03 15:58] LABS: ALBUMIN 4.3 GM/DL (3.2-4.5); TOTAL PROTEIN 6.9 GM/DL (6.4-8.2)
[2020-07-03] MEDS ORDERED: ONDANSETRON 4 MG/2 ML (SDV) Z0FRAN IVP ONE (16:00)
[2020-07-03 16:40] VITALS: BP 142/81
== END 2020-07-03 16:44 | disposition home or self-care (01) ==
LOC: EDUNIT# 14:40 → ER FS 14:43
DX: F11.920 Opioid use, unspecified with intoxication, uncomplicated (principal); G89.29 Other chronic pain; M54.9 Dorsalgia, unspecified; I10 Essential (primary) hypertension; J44.9 Chronic obstructive pulmonary disease, unspecified; Z88.0 Allergy status to penicillin; Z88.8 Allergy status to other drugs, medicaments and biological substances; Z87.891 Personal history of nicotine dependence; Z86.73 Personal history of transient ischemic attack (TIA), and cerebral infarction without residual deficits; Z82.49 Family history of ischemic heart disease and other diseases of the circulatory system; Z83.3 Family history of diabetes mellitus; Z80.9 Family history of malignant neoplasm, unspecified; Z79.82 Long term (current) use of aspirin
CPT/HCPCS: 70450; 71045; 80053; 82962; 83605; 84484; 85610; 85730; 87040; 93005; 93041

== ENCOUNTER 2020-08-28 18:43 | Emergency (ER) | payer MEDICARE ==
[~2020-08-28] VITALS: Ht 165 cm; Wt 82.0 kg
--- NOTE | 2020-08-28 18:56 | ED EENT ---
History of Present Illness General Chief Complaint: Eye Problems Stated Complaint: RT EYE PAIN Source: patient Exam Limitations: no limitations History of Present Illness Date Seen by Provider: Aug 28, 2020 Time Seen by Provider: 18:55 Initial Comments 69-year-old female comes in with sharp pain that she described as stabbing in her right temporal region behind her right eye. She does report a history of migraines. Symptoms started about 3045 minutes prior to arrival. She has no vision changes. She does report some photophobia. She has no pain with eye movement. She has a little bit of pain with palpation of the right temporal region. She has no fevers chills nausea or vomiting. Other systemic complaints Allergies and Home Medications Allergies Coded Allergies: Penicillins (Verified Allergy, Unknown, 12/04/18) atorvastatin (Verified Allergy, Unknown, 03/19/19) sumatriptan (Verified Allergy, Unknown, 12/04/18) Home Medications Alprazolam 0.5 Mg Tablet, 0.5 MG PO QID, (Reported) Aspirin 81 Mg Tab.chew, 81 MG PO DAILY, (Reported) Atorvastatin Calcium 40 Mg Tablet, 40 MG PO DAILY, (Reported) Bupropion HCl 75 Mg Tablet, 75 MG PO BID, (Reported) Butalb/Acetaminophen/Caffeine 1 Each Tablet, 1 EACH PO PRN, (Reported) Duloxetine HCl 60 Mg Capsule.dr, 90 MG PO DAILY, (Reported) Hydralazine HCl 25 Mg Tablet, 25 MG PO TID, (Reported) Oxycodone HCl/Acetaminophen 1 Each Tablet, 1 EACH PO Q6H PRN for PAIN-MODERATE, (Reported) Pantoprazole Sodium 40 Mg Tablet.dr, 40 MG PO DAILY Prescribed by: BERNARD LEUNG on 12/12/192005 Sucralfate 1 Gm Tablet, 1 GM PO ACHS, (Reported) Zolpidem Tartrate 5 Mg Tablet, 5 MG PO HS, (Reported) Patient Home Medication List Home Medication List Reviewed: Yes Review of Systems Review of Systems Constitutional: No chills, No fever Eyes: See HPI Ears: No Symptoms Reported Nose: no symptoms reported Throat: no symptoms reported Respiratory: No cough, No short of breath Cardiovascular: No chest pain, No palpitations Musculoskeletal: no symptoms reported Skin: no symptoms reported Neurological: No Symptoms Reported Past Wbqmdby-Vfbnxe-Ebfxos Hx Past Med/Social Hx: Reviewed Nursing Past Med/Soc Hx Patient Social History Alcohol Use: Denies Use Drug of Choice: marijuana occasionally Smoking Status: Former Smoker Type Used: Cigarettes Former Smoker, Quit: Mar 20, 2019 2nd Hand Smoke Exposure: No Recent Hopitalizations: No Immunizations Up To Date Date of Pneumonia Vaccine: Nov 19, 2015 Date of Influenza Vaccine: Mar 07, 2020 Seasonal Allergies Seasonal Allergies: No Past Medical History Surgeries: Yes Appendectomy, Gallbladder, Hysterectomy, Orthopedic Respiratory: Yes COPD Cardiac: Yes Hypertension Neurological: Yes (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 4.3oz. [id number]; 32.93 BMI Method: General Appearance: other (Patient is very dramatic yelling out in pain whenever the blood pressure cuff goes off that it hurts, with any touch anywhere basically eliciting pain which is chronic per) Eyes: bilateral eye normal inspection, bilateral eye PERRL, bilateral eye EOMI Neck: full range of motion, supple Cardiovascular: normal peripheral pulses, regular rate, rhythm Respiratory: lungs clear, normal breath sounds, no respiratory distress Gastrointestinal: non tender, soft Neurologic/Psychiatric: alert, other (Animated, dramatic) Skin: normal color, warm/dry Progress/Results/Core Measures Results/Orders Lab Results Laboratory Tests Test 08/28/20 19:12 Range/Units White Blood Count 8.6 4.3-11.0 10^3/uL Red Blood Count 4.16 L 4.35-5.85 10^6/uL Hemoglobin 11.2 L 11.5-16.0 G/DL Hematocrit 35 35-52 % Mean Corpuscular Volume 85 80-99 FL Mean Corpuscular Hemoglobin 27 25-34 PG Mean Corpuscular Hemoglobin Concent 32 32-36 G/DL Red Cell Distribution Width 13.7 10.0-14.5 % Platelet Count 350 130-400 10^3/uL Mean Platelet Volume 8.3 7.4-10.4 FL Immature Granulocyte % (Auto) 0 % Neutrophils (%) (Auto) 61 42-75 % Lymphocytes (%) (Auto) 24 12-44 % Monocytes (%) (Auto) 10 0-12 % Eosinophils (%) (Auto) 5 0-10 % Basophils (%) (Auto) 1 0-10 % Neutrophils # (Auto) 5.2 1.8-7.8 X 10^3 Lymphocytes # (Auto) 2.0 1.0-4.0 X 10^3 Monocytes # (Auto) 0.8 0.0-1.0 X 10^3 Eosinophils # (Auto) 0.4 H 0.0-0.3 10^3/uL Basophils # (Auto) 0.0 0.0-0.1 10^3/uL Immature Granulocyte # (Auto) 0.0 0.0-0.1 10^3/uL Erythrocyte Sedimentation Rate 21 0-30 MM/HR Sodium Level 138 135-145 MMOL/L Potassium Level 3.8 3.6-5.0 MMOL/L Chloride Level 98 98-107 MMOL/L Carbon Dioxide Level 29 21-32 MMOL/L Anion Gap 11 5-14 MMOL/L Blood Urea Nitrogen 11 7-18 MG/DL Creatinine 0.95 0.60-1.30 MG/DL Estimat Glomerular Filtration Rate 59 BUN/Creatinine Ratio 12 Glucose Level 99 70-105 MG/DL Calcium Level 8.7 8.5-10.1 MG/DL Corrected Calcium 8.9 8.5-10.1 MG/DL Total Bilirubin < 0.2 0.1-1.0 MG/DL Aspartate Amino Transf (AST/SGOT) 17 5-34 U/L Alanine Aminotransferase (ALT/SGPT) 8 0-55 U/L Alkaline Phosphatase 94 40-136 U/L C-Reactive Protein < 0.30 <0.50 MG/DL Total Protein 6.3 L 6.4-8.2 GM/DL Albumin 3.8 3.2-4.5 GM/DL My Orders Orders - BRUCE,ALPESH L DO Cbc With Automated Diff (08/28/20 19:01) Comprehensive Metabolic Panel (08/28/20 19:01) Crp Fs (08/28/20 19:01) Ct Head Wo-R/O Stroke (08/28/20 19:01) Erythrocyte Sedimentation Rate (08/28/20 19:01) Ketorolac Injection (Toradol Injection) (08/28/20 19:01) Metoclopramide Injection (Reglan Injecti (08/28/20 19:53) Diphenhydramine Injection (Benadryl Inje (08/28/20 19:53) Dexamethasone Injection (Decadron Inje (08/28/20 20:00) Medications Given in ED Current Medications Medications Dose Ordered Sig/Mishel Route Start Time Stop Time Status Last Admin Dose Admin Dexamethasone Sodium Phosphate 10 mg ONCE ONCE IV 08/28/20 20:00 08/28/20 20:01 DC 08/28/20 20:10 10 MG Vital Signs/I&O 08/28/20 08/28/20 18:45 20:14 Temp 37.5 Pulse 97 86 Resp 18 16 B/P (MAP) 181/101 (127) 150/82 (104) Pulse Ox 97 96 O2 Delivery Room Air Room Air Progress Progress Note : Progress Note Patient symptoms and exam is consistent with headache likely migrainous in nature. Patient improved with treatment. Patient stable and discharged home recommend she follow-up with her primary care provider for management management of her chronic issues Diagnostic Imaging Diagonstic Imaging: CT Plain Films/CT/US/NM/MRI: head Comments Date of Exam:08/28/20 CT HEAD WO-R/O STROKE EXAMINATION: CT head without contrast. TECHNIQUE: Multiple contiguous axial images were obtained through the brain without the use of intravenous contrast. All CT scans use one or more of the following dose optimizing techniques: automated exposure control, MA and/or KvP adjustment based on patient size and exam type or iterative reconstruction. HISTORY: Right-sided headache and eye pain. COMPARISON: None available. FINDINGS: The ventricles and sulci are normal. No abnormal attenuation of brain parenchyma is present. No acute intracranial hemorrhage or abnormal extra-axial fluid collections are present. Calcification of the intracranial ICAs. No hyperdense vessel. The calvarium is intact. The mastoid air cells are clear. Mucosal thickening of the sinuses. The orbits are normal. IMPRESSION: No acute intracranial abnormality. Departure Impression Primary Impression: Migraine headache Qualified Codes: G43.909 - Migraine, unspecified, not intractable, without status migrainosus Disposition: 01 HOME, SELF-CARE Condition: Stable Departure-Patient Inst. Referrals: YOANNA CHAMBERS DO (PCP/Family) Primary Care Physician Patient Instructions: Headache, Adult, Migraines in Adults Add. Discharge Instructions: Follow-up with your primary care provider next week for continuation of care and management of your chronic pain and medical conditions All discharge instructions reviewed with patient and/or family. Voiced understanding. ALPESH BRUCE DO Aug 28, 2020 18:55
[2020-08-28] MEDS ORDERED: KETOROLAC 30 MG/ML VIAL IVP STA (19:01)
[2020-08-28 19:18] LABS: HEMATOCRIT 35 % (35-52); HEMOGLOBIN 11.2 G/DL (11.5-16.0); MEAN CORPUSCULAR HEMOGLOBIN 27 PG (25-34); MEAN CORPUSCULAR HGB CONC 32 G/DL (32-36); MEAN CORPUSCULAR VOLUME 85 FL (80-99); MEAN PLATELET VOLUME 8.3 FL (7.4-10.4); NEUTROPHILS % (AUTO) 61 % (42-75); PLATELET COUNT 350 10^3/uL (130-400); WHITE BLOOD COUNT 8.6 10^3/uL (4.3-11.0)
[2020-08-28 19:19] LABS: BASOPHILS % (AUTO) 1 % (0-10); EOSINOPHILS # (AUTO) 0.4 10^3/uL (0.0-0.3); EOSINOPHILS % (AUTO) 5 % (0-10); LYMPHOCYTES % (AUTO) 24 % (12-44); MONOCYTES # (AUTO) 0.8 X 10^3 (0.0-1.0); MONOCYTES % (AUTO) 10 % (0-12); NEUTROPHILS # (AUTO) 5.2 X 10^3 (1.8-7.8)
[2020-08-28 19:36] LABS: ERYTHROCYTE SEDIMENTATION RATE 21 MM/HR (0-30)
[2020-08-28 19:38] LABS: ALANINE AMINOTRANSFERASE 8 U/L (0-55); ALBUMIN 3.8 GM/DL (3.2-4.5); ALKALINE PHOSPHATASE 94 U/L (40-136); BILIRUBIN,TOTAL < 0.2 MG/DL (0.1-1.0); BUN/CREATININE RATIO 12; CALCIUM 8.7 MG/DL (8.5-10.1); CARBON DIOXIDE 29 MMOL/L (21-32); CHLORIDE 98 MMOL/L (98-107); CREATININE SERUM 0.95 MG/DL (0.60-1.30); GFR ESTIMATED 59; GLUCOSE 99 MG/DL (70-105); POTASSIUM 3.8 MMOL/L (3.6-5.0); SODIUM 138 MMOL/L (135-145); TOTAL PROTEIN 6.3 GM/DL (6.4-8.2)
--- NOTE | 2020-08-28 19:42 | Diagnostic Imaging Report ---
EXAMINATION: CT head without contrast. TECHNIQUE: Multiple contiguous axial images were obtained through the brain without the use of intravenous contrast. All CT scans use one or more of the following dose optimizing techniques: automated exposure control, MA and/or KvP adjustment based on patient size and exam type or iterative reconstruction. HISTORY: Right-sided headache and eye pain. COMPARISON: None available. FINDINGS: The ventricles and sulci are normal. No abnormal attenuation of brain parenchyma is present. No acute intracranial hemorrhage or abnormal extra-axial fluid collections are present. Calcification of the intracranial ICAs. No hyperdense vessel. The calvarium is intact. The mastoid air cells are clear. Mucosal thickening of the sinuses. The orbits are normal. IMPRESSION: No acute intracranial abnormality. Dictated by: Dictated on workstation # [id number]
[2020-08-28] MEDS ORDERED: METOCLOPRAMIDE INJ 10 MG/2 ML (REGLAN) IVP STA (19:53)
[2020-08-28] MEDS ORDERED: diphenhydrAMINE 50 MG/ML INJ (BENADRYL) IV STA (19:53)
[2020-08-28 20:55] VITALS: BP 150/82
== END 2020-08-28 20:57 | disposition home or self-care (01) ==
LOC: EDUNIT# 18:43 → ER FS 18:44
DX: G43.909 Migraine, unspecified, not intractable, without status migrainosus (principal); J44.9 Chronic obstructive pulmonary disease, unspecified; I10 Essential (primary) hypertension; G89.29 Other chronic pain; M54.9 Dorsalgia, unspecified; Z86.73 Personal history of transient ischemic attack (TIA), and cerebral infarction without residual deficits; Z87.891 Personal history of nicotine dependence; Z79.82 Long term (current) use of aspirin; Z79.891 Long term (current) use of opiate analgesic
CPT/HCPCS: 36415; 70450; 80053; 85025; 85652; 86141

== ENCOUNTER 2020-10-24 12:23 | Emergency (ER) | payer MEDICARE ==
[~2020-10-24] VITALS: Ht 152.4 cm; Wt 81.6 kg
[~2020-10-24 12:23] MED LIST changes: -OMEP40CA27 PO; +OMEP40CA6 PO; -OXYC-464 PO; +OXYC1TAB15 PO
[2020-10-24 12:28] VITALS: BP 149/66
[2020-10-24] MEDS ORDERED: CYCLOBENZAPRINE 10 MG (FLEXERIL) TAB PO STA (12:37)
[2020-10-24] MEDS ORDERED: KETOROLAC 60 MG/2 ML VIAL ONE (12:43)
[2020-10-24] MEDS ORDERED: CYCLOBENZAPRINE 10 MG (FLEXERIL) TAB ONE (12:43)
[2020-10-24] MEDS ORDERED: KETOROLAC 60 MG/2 ML VIAL IM ONE (12:45)
--- NOTE | 2020-10-24 12:49 | ED Back Pain ---
General Stated Complaint: LOW BACK PAIN History of Present Illness Date Seen by Provider: Oct 24, 2020 Time Seen by Provider: 12:37 Initial Comments 62-year-old female with past medical history significant for chronic back pain, presents with back pain without radiation. No weakness, no paresthesias, no loss of bowel or bladder control. She did take hydrocodone before arrival. Pain worse with movement and located in her lower back. Typical of her low back pain and unsure why it seems worse today. Allergies and Home Medications Allergies Coded Allergies: Penicillins (Verified Allergy, Unknown, 12/04/18) atorvastatin (Verified Allergy, Unknown, 03/19/19) sumatriptan (Verified Allergy, Unknown, 12/04/18) Home Medications Alprazolam 0.5 Mg Tablet, 0.5 MG PO QID, (Reported) Aspirin 81 Mg Tab.chew, 81 MG PO DAILY, (Reported) Atorvastatin Calcium 40 Mg Tablet, 40 MG PO DAILY, (Reported) Bupropion HCl 75 Mg Tablet, 75 MG PO BID, (Reported) Butalb/Acetaminophen/Caffeine 1 Each Tablet, 1 EACH PO PRN, (Reported) Cyclobenzaprine HCl 10 Mg Tablet, 10 MG PO Q8H PRN for SPASMS Prescribed by: MARY JARAMILLO on 10/24/20 1304 Duloxetine HCl 60 Mg Capsule.dr, 90 MG PO DAILY, (Reported) Hydralazine HCl 25 Mg Tablet, 25 MG PO TID, (Reported) Hydrocodone/Acetaminophen 1 Each Tablet, 1 EACH PO Q4H Prescribed by: MARY JARAMILLO on 10/24/20 1305 Oxycodone HCl/Acetaminophen 1 Each Tablet, 1 EACH PO Q6H PRN for PAIN-MODERATE, (Reported) Pantoprazole Sodium 40 Mg Tablet.dr, 40 MG PO DAILY Prescribed by: BERNARD LEUNG on 12/12/192005 Sucralfate 1 Gm Tablet, 1 GM PO ACHS, (Reported) Zolpidem Tartrate 5 Mg Tablet, 5 MG PO HS, (Reported) Patient Home Medication List Home Medication List Reviewed: Yes Review of Systems Constitutional: No fever, No malaise, No weakness Respiratory: no symptoms reported Cardiovascular: no symptoms reported Gastrointestinal: No abdominal pain, No constipation, No diarrhea, No nausea, No vomiting Genitourinary: No dysuria, No hematuria Musculoskeletal: back pain; No joint pain Skin: No change in color, No rash Past Kbxorub-Reugrn-Hitrcw Hx Patient Social History Tobacco Use?: No Seasonal Allergies Seasonal Allergies: No Past Medical History Surgeries: Yes Appendectomy, Gallbladder, Hysterectomy, Orthopedic Respiratory: Yes COPD Cardiac: Yes Hypertension Neurological: Yes (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 4.3oz. 79.945935ss; 30.00 BMI Method: General Appearance: No Apparent Distress, WD/WN Cardiovascular: Regular Rate, Rhythm, No JVD Respiratory: Chest Non Tender, Lungs Clear Gastrointestinal: Normal Bowel Sounds, Non Tender, Soft Back: Normal Inspection, No CVA Tenderness, No Vertebral Tenderness, Decreased Range of Motion, Muscle Spasm (b/l Lumbar paraspinal ms) Extremity: Normal Capillary Refill, Non Tender Neurologic/Psychiatric: Alert, Oriented x3, No Motor/Sensory Deficits, Normal Mood/Affect Skin: Normal Color, Warm/Dry Progress/Results/Core Measures Results/Orders My Orders Orders - MARY JARAMILLO DO Cyclobenzaprine Tablet (Flexeril Tablet) (10/24/20 12:37) Ketorolac Injection (Toradol Injection) (10/24/20 12:45) Ondansetron Oral Dissolve Tab (Zofran (10/24/20 13:27) Ondansetron Oral Dissolve Tab (Zofran (10/24/20 13:28) Cyclobenzaprine Tablet (Flexeril Tablet) (10/24/20 12:43) Ketorolac Injection (Toradol Injection) (10/24/20 12:43) Medications Given in ED Current Medications Medications Dose Ordered Sig/Mishel Route Start Time Stop Time Status Last Admin Dose Admin Ketorolac Tromethamine 60 mg ONCE ONCE IM 10/24/20 12:45 10/24/20 13:33 DC 10/24/20 12:45 60 MG Vital Signs/I&O 10/24/20 12:28 Temp 36.9 Pulse 74 Resp 20 B/P (MAP) 149/66 (93) Pulse Ox 97 O2 Delivery Room Air Progress Progress Note : Progress Note [place] pharmacist called just after Electronic Rx sent....states she filled a Rx for #120 percocet 2 days ago. Rx for hydrocodone cancelled Departure Impression Primary Impression: Chronic lower back pain Qualified Codes: M54.5 - Low back pain; G89.29 - Other chronic pain Disposition: HOME, SELF-CARE Condition: Stable Departure-Patient Inst. Decision time for Depature: 12:49 Referrals: YOANNA CHAMBERS DO (PCP/Family) Primary Care Physician Patient Instructions: Low Back Pain (DC) Scripts Hydrocodone/Acetaminophen (Hydrocodone-Acetamin 5-325 mg) 1 Each Tablet 1 EACH PO Q4H for Abdominal Pain, #10 TAB Prov: MARY JARAMILLO DO 10/24/20 Cyclobenzaprine HCl (Cyclobenzaprine HCl) 10 Mg Tablet 10 MG PO Q8H PRN for SPASMS, #15 TAB 0 Refills Prov: MARY JARAMILLO DO 10/24/20 MARY JARAMILLO DO Oct 24, 2020 12:49
[2020-10-24] MEDS ORDERED: CYCL10TA9 PO (13:04)
[2020-10-24] MEDS ORDERED: ACHD5005 PO (13:04)
[2020-10-24] MEDS ORDERED: ONDANSETRON 4 MG (ZOFRAN) ORAL DISSOLVE TAB PO STA (13:27)
[2020-10-24] MEDS ORDERED: ONDANSETRON 4 MG (ZOFRAN) ORAL DISSOLVE TAB ONE (13:28)
== END 2020-10-24 13:33 | disposition home or self-care (01) ==
LOC: EDUNIT# 12:23 → ER FS 12:27
DX: G89.29 Other chronic pain (principal); M54.5 Low back pain; J44.9 Chronic obstructive pulmonary disease, unspecified; I10 Essential (primary) hypertension; Z86.73 Personal history of transient ischemic attack (TIA), and cerebral infarction without residual deficits; Z79.891 Long term (current) use of opiate analgesic; Z79.82 Long term (current) use of aspirin; Z79.899 Other long term (current) drug therapy
CPT/HCPCS: 96372; 99284

== ENCOUNTER 2022-01-27 12:55 | Inpatient (IN) | payer MEDICARE ==
[~2022-01-27] VITALS: Ht 165.1 cm; Wt 81.6 kg
[~2022-01-27 12:55] MED LIST changes: +ACHD5005 PO; +CYCL10TA25 PO; -CYCL10TA9 PO
[2022-01-27] MEDS ORDERED: NS IV 1000 ML 1,000 ML IV STA (12:57)
--- NOTE | 2022-01-27 13:23 | ED General ---
General Chief Complaint: General Problems/Pain Stated Complaint: POSS STROKE Source of Information: Patient, EMS Exam Limitations: No Limitations History of Present Illness Date Seen by Provider: Jan 27, 2022 Time Seen by Provider: 12:56 Initial Comments 71-year-old female with past medical history of hypertension, chronic pain on oxycodone, chronic anxiety on Xanax coming in via EMS from home due to general malaise and confusion. Reportedly she had a fall several days ago with right flank pain and bruising. She states that she tripped. Unsure if she hit her head. She took an oxycodone 10 mg and Xanax just prior to EMS arriving. They report her glucose was around 150. Her blood pressure initially was in the 80s, but they believe it was incorrect, immediately on repeat it was 150s over 80s without intervention. They report no weakness, no numbness, and no signs of stroke on their exam. Patient denies any cough, chest pain, shortness of breath, abdominal pain, nausea, vomiting, diarrhea, weakness, numbness, rash, or any other concerns. Allergies and Home Medications Allergies Coded Allergies: Penicillins (Verified Allergy, Unknown, 12/04/18) atorvastatin (Verified Allergy, Unknown, 03/19/19) sumatriptan (Verified Allergy, Unknown, 12/04/18) Patient Home Medication List Home Medication List Reviewed: Yes Alprazolam (Alprazolam) 0.5 Mg Tablet, 0.5 MG PO QID, (Reported) Entered as Reported by: WERNER DUMONT on 04/13/201126 Aspirin (Aspirin) 81 Mg Tab.chew, 81 MG PO DAILY, (Reported) Entered as Reported by: WERNER DUMONT on 04/13/201126 Atorvastatin Calcium (Atorvastatin Calcium) 40 Mg Tablet, 40 MG PO DAILY, (Reported) Entered as Reported by: WERNER DUMONT on 04/13/201126 Bupropion HCl (Bupropion HCl) 75 Mg Tablet, 75 MG PO BID, (Reported) Entered as Reported by: WERNER DUMONT on 04/13/201126 Butalb/Acetaminophen/Caffeine (Dcmohn-Xoryflhy-Crld 50-325-40) 1 Each Tablet, 1 EACH PO PRN, (Reported) Entered as Reported by: WERNER DUMONT on 1/25/21 1127 Cyclobenzaprine HCl (Cyclobenzaprine HCl) 10 Mg Tablet, 10 MG PO Q8H PRN for SPASMS Prescribed by: MARY JARAMILLO on 10/24/20 1304 Duloxetine HCl (Duloxetine HCl) 60 Mg Capsule.dr, 90 MG PO DAILY, (Reported) Entered as Reported by: WERNER DUMONT on 04/13/20 112 Hydralazine HCl (Hydralazine HCl) 25 Mg Tablet, 25 MG PO TID, (Reported) Entered as Reported by: WERNER DUMONT on 04/13/20 112 Hydrocodone/Acetaminophen (Hydrocodone-Acetamin 5-325 mg) 1 Each Tablet, 1 EACH PO Q4H Prescribed by: MARY JARAMILLO on 10/24/20 1305 Oxycodone HCl/Acetaminophen (Oxycodon-Acetaminophen 7.5-325) 1 Each Tablet, 1 EACH PO Q6H PRN for PAIN-MODERATE, (Reported) Entered as Reported by: WERNER DUMONT on 04/13/20 112 Pantoprazole Sodium (Protonix) 40 Mg Tablet.dr, 40 MG PO DAILY Prescribed by: BERNARD LEUNG on 12/12/192005 Sucralfate (Sucralfate) 1 Gm Tablet, 1 GM PO ACHS, (Reported) Entered as Reported by: WERNER DUMONT on 04/13/20 112 Zolpidem Tartrate (Zolpidem Tartrate) 5 Mg Tablet, 5 MG PO HS, (Reported) Entered as Reported by: WERNER DUMONT on 04/13/20 112 Review of Systems Review of Systems Constitutional: No fever EENTM: No blurred vision Respiratory: no symptoms reported Cardiovascular: no symptoms reported Gastrointestinal: no symptoms reported Genitourinary: other (Right flank pain) Musculoskeletal: back pain (Chronic) Skin: no symptoms reported Psychiatric/Neurological: Anxiety Hematologic/Lymphatic: No Symptoms Reported Immunological/Allergic: no symptoms reported All Other Systems Reviewed Negative Unless Noted: Yes Past Fdhiwwk-Dqyfqg-Hujpuy Hx Patient Social History Tobacco Use?: No Use of E-Cig and/or Vaping dev: No Substance use?: No Alcohol Use?: No Pt feels they are or have been: No Seasonal Allergies Seasonal Allergies: No Past Medical History Surgeries: Yes Appendectomy, Gallbladder, Hysterectomy, Orthopedic Respiratory: Yes COPD Cardiac: Yes Hypertension Neurological: Yes (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 4.3oz. 79.533780fl; 35.00 BMI Method: General Appearance: No Apparent Distress, WD/WN Eyes: Bilateral Eye Normal Inspection, Bilateral Eye PERRL, Bilateral Eye EOMI HEENT: PERRL/EOMI, Normal ENT Inspection, Pharynx Normal Neck: Full Range of Motion, Normal Inspection, Non Tender, Supple Respiratory: Chest Non Tender, Lungs Clear, Normal Breath Sounds, No Accessory Muscle Use, No Respiratory Distress Cardiovascular: Regular Rate, Rhythm, No Edema, Normal Peripheral Pulses Gastrointestinal: Normal Bowel Sounds, Non Tender, Soft; No Distended, No Guarding Back: Normal Inspection, No Vertebral Tenderness, Other (R flank bruising and tenderness) Extremity: Normal Capillary Refill, Normal Inspection, Normal Range of Motion, Non Tender, No Calf Tenderness, No Pedal Edema Neurologic/Psychiatric: Alert, No Motor/Sensory Deficits, Normal Mood/Affect, physical trainer II-XII Norm as Tested, Other (Normal lnquzz-km-irmo, normal truncal stability, normal visual acuity and visual thacker, oriented to self and situation, unsure of where she is at) Skin: Normal Color, Warm/Dry Lymphatic: No Adenopathy Progress/Results/Core Measures Suspected Sepsis SIRS Temperature: Pulse: Respiratory Rate: Laboratory Tests 01/27/22 13:19: White Blood Count 8.7 Blood Pressure / Mean: Laboratory Tests 01/27/22 13:19: Creatinine 0.85, INR Comment 0.9, Platelet Count 254, Total Bilirubin 0.3 Results/Orders Lab Results Laboratory Tests Test 01/27/22 13:19 01/27/22 13:42 01/27/22 13:47 Range/Units White Blood Count 8.7 4.3-11.0 10^3/uL Red Blood Count 3.78 L 3.80-5.11 10^6/uL Hemoglobin 11.6 11.5-16.0 g/dL Hematocrit 36 35-52 % Mean Corpuscular Volume 96 80-99 fL Mean Corpuscular Hemoglobin 31 25-34 pg Mean Corpuscular Hemoglobin Concent 32 32-36 g/dL Red Cell Distribution Width 15.9 H 10.0-14.5 % Platelet Count 254 130-400 10^3/uL Mean Platelet Volume 8.8 L 9.0-12.2 fL Immature Granulocyte % (Auto) 1 % Neutrophils (%) (Auto) 72 42-75 % Lymphocytes (%) (Auto) 17 12-44 % Monocytes (%) (Auto) 8 0-12 % Eosinophils (%) (Auto) 2 0-10 % Basophils (%) (Auto) 1 0-10 % Neutrophils # (Auto) 6.3 1.8-7.8 10^3/uL Lymphocytes # (Auto) 1.5 1.0-4.0 10^3/uL Monocytes # (Auto) 0.7 0.0-1.0 10^3/uL Eosinophils # (Auto) 0.2 0.0-0.3 10^3/uL Basophils # (Auto) 0.0 0.0-0.1 10^3/uL Immature Granulocyte # (Auto) 0.0 0.0-0.1 10^3/uL Prothrombin Time 12.1 L 12.2-14.7 SEC INR Comment 0.9 0.8-1.4 Activated Partial Thromboplast Time 26 24-35 SEC Sodium Level 137 135-145 MMOL/L Potassium Level 4.5 3.6-5.0 MMOL/L Chloride Level 100 98-107 MMOL/L Carbon Dioxide Level 28 21-32 MMOL/L Anion Gap 9 5-14 MMOL/L Blood Urea Nitrogen 13 7-18 MG/DL Creatinine 0.85 0.60-1.30 MG/DL Estimat Glomerular Filtration Rate 74 BUN/Creatinine Ratio 15 Glucose Level 100 70-105 MG/DL Calcium Level 8.5 8.5-10.1 MG/DL Corrected Calcium 8.8 8.5-10.1 MG/DL Magnesium Level 1.8 1.6-2.4 MG/DL Total Bilirubin 0.3 0.1-1.0 MG/DL Aspartate Amino Transf (AST/SGOT) 14 5-34 U/L Alanine Aminotransferase (ALT/SGPT) 6 0-55 U/L Alkaline Phosphatase 124 40-136 U/L Troponin I < 0.30 <0.30 NG/ML Total Protein 6.5 6.4-8.2 GM/DL Albumin 3.6 3.2-4.5 GM/DL Lipase 21 8-78 U/L Influenza Type A (RT-PCR) Not Detected Not Detecte Influenza Type B (RT-PCR) Not Detected Not Detecte SARS-CoV-2 RNA (RT-PCR) Not Detected Not Detecte Urine Color YELLOW Urine Clarity CLOUDY Urine pH 7.5 5-9 Urine Specific Bozrah 1.015 L 1.016-1.022 Urine Protein NEGATIVE NEGATIVE Urine Glucose (UA) NEGATIVE NEGATIVE Urine Ketones NEGATIVE NEGATIVE Urine Nitrite POSITIVE H NEGATIVE Urine Bilirubin NEGATIVE NEGATIVE Urine Urobilinogen 0.2 < = 1.0 MG/DL Urine Leukocyte Esterase TRACE H NEGATIVE Urine RBC (Auto) NEGATIVE NEGATIVE Urine RBC RARE /HPF Urine WBC 10-25 H /HPF Urine Squamous Epithelial Cells RARE /HPF Urine Crystals NONE /LPF Urine Bacteria LARGE H /HPF Urine Casts NONE /LPF Urine Mucus NEGATIVE /LPF Urine Culture Indicated YES Urine Opiates Screen NEGATIVE NEGATIVE Urine Oxycodone Screen POSITIVE H NEGATIVE Urine Methadone Screen NEGATIVE NEGATIVE Urine Propoxyphene Screen NEGATIVE NEGATIVE Urine Barbiturates Screen NEGATIVE NEGATIVE Ur Tricyclic Antidepressants Screen NEGATIVE NEGATIVE Urine Phencyclidine Screen NEGATIVE NEGATIVE Urine Amphetamines Screen NEGATIVE NEGATIVE Urine Methamphetamines Screen NEGATIVE NEGATIVE Urine Benzodiazepines Screen POSITIVE H NEGATIVE Urine Cocaine Screen NEGATIVE NEGATIVE Urine Cannabinoids Screen POSITIVE H NEGATIVE My Orders Orders - JODI KRISHNAN MD Ct Abdomen/Pelvis Wo (01/27/22 12:57) Ct Head/Cervical Spine Wo (01/27/22 12:57) Cbc With Automated Diff (01/27/22 12:57) Comprehensive Metabolic Panel (01/27/22 12:57) Drug Screen Stat (Urine) (01/27/22 12:57) Lipase (01/27/22 12:57) Magnesium (01/27/22 12:57) Protime With Inr (01/27/22 12:57) Partial Thromboplastin Time (01/27/22 12:57) Ua Culture If Indicated (01/27/22 12:57) Influenza A And B By Pcr (01/27/22 12:57) Troponin I Fs (01/27/22 12:57) Chest 1 View Ap/Pa Only (01/27/22 12:57) Ed Iv/Invasive Line Start (01/27/22 12:57) Ekg Tracing (01/27/22 12:57) Monitor-Rhythm Ecg Trace Only (01/27/22 12:57) Covid 19 Inhouse Test (01/27/22 12:57) Ns Iv 1000 Ml (Sodium Chloride 0.9%) (01/27/22 12:57) Urine Culture (01/27/22 13:47) Ceftriaxone 1 Gm Pre-Mix (Rocephin 1 Gm (01/27/22 14:15) Medications Given in ED Current Medications Medications Dose Ordered Sig/Mishel Route Start Time Stop Time Status Last Admin Dose Admin Ceftriaxone Sodium/Dextrose 50 ml @ 100 mls/hr ONCE ONCE IV 01/27/22 14:15 01/27/22 14:44 DC 01/27/22 14:26 100 MLS/HR Vital Signs/I&O 01/27/22 13:00 Temp 36.5 Pulse 69 Resp 16 B/P (MAP) 136/73 (94) Pulse Ox 94 O2 Delivery Room Air Capillary Refill : Progress Note : Progress Note 71-year-old female with above history coming in due to general malaise and confusion. ABCs were intact and vitals were stable on presentation. Physical exam with no focal neurodeficits although the patient is confused. She repeatedly is asking for her mother. She is very repetitive and not always answering questions appropriately. Her came and added to the history. He states that she normally is more with it, is not confused like this at baseline. She gets around the house with assistance, but does not ambulate very well at baseline. He tries to be in control of her oxycodone and Xanax so that she does not get too much. Urine drug screen was also marijuana which she states she smoked yesterday. Urinalysis with concerns for UTI which certainly could be adding to the confusion. Given the recent fall, CT head, cervical spine, abdomen, pelvis ordered. These were unremarkable for acute findings other than the CT head which could possibly have a subacute stroke in the occipital region, they recommended an MRI. Her symptoms have been ongoing for days, so she would not be a candidate for tPA or any type of procedure. Her NIH at this time is 0 as well. She was given a bolus of IV fluids as well as ceftriaxone for her UTI. I contacted Dr. James to discuss admission. He will admit the patient under observation status ECG Initial ECG Impression Date: Jan 27, 2022 Initial ECG Impression Time: 12:56 Initial ECG Rate: 68 Initial ECG Rhythm: Normal Sinus Comment Narrow QRS, borderline left axis deviation, no significant ST changes or T wave abnormalities Diagnostic Imaging Diagonstic Imaging: Xray (chest), CT (head, c spine, abd/pelvis without) Comments [facility] [place] [place] NAME: DANIELLE MORGAN [facility] REC#: [id number] PT STATUS: REG ER : 1950 PHYSICIAN: JODI KRISHNAN MD ADMIT DATE: 01/27/22/ER FS Draft Date of Exam:01/27/22 CHEST 1 VIEW AP/PA ONLY INDICATION: Confusion. COMPARISON: 07/03/2020. FINDINGS: Portable chest shows the lungs to be well aerated and clear. The heart is not enlarged. No pulmonary edema. No hilar adenopathy. No pneumothorax or pleural effusion. No bony abnormalities. IMPRESSION: Normal portable chest. Dictated on workstation # [id number] Dict: 01/27/22 1318 Trans: 01/27/22 1320 AS6 [id number] Interpreted by: FARRAH CHAVEZ MD Electronically signed by: [facility] [place], [place] NAME: DANIELLE MORGAN [facility] REC#: [id number] PT STATUS: REG ER : 1950 PHYSICIAN: JODI KRISHNAN MD ADMIT DATE: 01/27/22/ER FS Draft Date of Exam:01/27/22 CT ABDOMEN/PELVIS WO INDICATION: Abdominal pain, altered mental status. TECHNIQUE: Multiple contiguous axial images were obtained through the abdomen and pelvis without the use of intravenous contrast. Auto Exposure Controls were utilized during the CT exam to meet ALARA standards for radiation dose reduction. Comparison made to 03/06/2020. FINDINGS: The visualized portions of the lung bases are clear. There were no pleural fluid collections. There is no free intraperitoneal air. The liver shows no focal lesion. Patient has had previous cholecystectomy. Spleen, adrenals, and pancreas are normal. Kidneys bilaterally show no hydronephrosis or stone or focal lesion. There is no retroperitoneal mass or adenopathy. There is no ascites or abnormal fluid collection. There is prominent stool throughout the colon with no overt bowel obstruction or focal bowel wall thickening. There is no pelvic mass or free fluid. IMPRESSION: Prominent stool throughout the colon with no overt bowel obstruction. No abdominal mass or abnormal fluid collection or focal inflammatory process. Dictated on workstation # [id number] Dict: 01/27/22 1409 Trans: 01/27/22 1418 [id number] Interpreted by: MOISES SMITH MD Electronically signed by: [facility] [place] [place] NAME: DANIELLE MORGAN [facility] REC#: [id number] PT STATUS: REG ER : 1950 PHYSICIAN: JODI KRISHNAN MD ADMIT DATE: 01/27/22/ER FS Draft Date of Exam:01/27/22 CT HEAD/CERVICAL SPINE WO PROCEDURE: CT head and CT cervical spine without contrast. TECHNIQUE: Multiple contiguous axial images were obtained through the brain and cervical spine without the use of intravenous contrast. Sagittal and coronal reformations through the cervical spine were then performed. Auto Exposure Controls were utilized during the CT exam to meet ALARA standards for radiation dose reduction. INDICATION: Confusion and altered mental status. CORRELATION is made with prior head CT from 08/28/2020. CT HEAD: Ventricular size is stable. There appears to be some low attenuation in the left posterior parietal-occipital lobe at the castro-white matter junction, not definitely seen on prior CT. This could potentially represent an area of subacute ischemia. No definite intra-axial or extra-axial hemorrhage is detected. There is no midline shift. Cisterns are patent. IMPRESSION: 1. Low attenuation left posterior parietal occipital lobe, perhaps on the basis of subacute ischemia. MRI would be useful for further evaluation. No acute intracranial hemorrhage is detected. CT CERVICAL SPINE: There is normal cervical lordotic curvature. No fracture or subluxation is identified. Prevertebral tissues are within normal limits. Odontoid is intact. IMPRESSION: 1. No acute bony abnormality is detected. Dictated on workstation # [id number] Dict: 01/27/22 1340 Trans: 01/27/22 1352 [facility] [id number] Interpreted by: SOTO ORTEGA MD Electronically signed by: Departure Impression Primary Impression: Urinary tract infection Qualified Codes: N30.00 - Acute cystitis without hematuria Additional Impressions: Confusion Stroke Qualified Codes: I63.89 - Other cerebral infarction Disposition: 30 STILL A PATIENT Condition: Stable Admissions Decision to Admit Reason: Admit from ER (General) Decision to Admit/Date: Jan 27, 2022 Time/Decision to Admit Time: 14:45 Transfer Transfer Facility: [facility] Method of Transfer: EMS Departure-Patient Inst. Referrals: YOANNA CHAMBERS DO (PCP) Primary Care Physician JODI KRISHNAN MD Jan 27, 2022 13:23
[2022-01-27 13:26] LABS: BASOPHILS % (AUTO) 1 % (0-10); EOSINOPHILS # (AUTO) 0.2 10^3/uL (0.0-0.3); EOSINOPHILS % (AUTO) 2 % (0-10); HEMATOCRIT 36 % (35-52); HEMOGLOBIN 11.6 g/dL (11.5-16.0); LYMPHOCYTES # (AUTO) 1.5 10^3/uL (1.0-4.0); LYMPHOCYTES % (AUTO) 17 % (12-44); MEAN CORPUSCULAR HEMOGLOBIN 31 pg (25-34); MEAN CORPUSCULAR HGB CONC 32 g/dL (32-36); MEAN CORPUSCULAR VOLUME 96 fL (80-99); MEAN PLATELET VOLUME 8.8 fL (9.0-12.2); MONOCYTES # (AUTO) 0.7 10^3/uL (0.0-1.0); MONOCYTES % (AUTO) 8 % (0-12); NEUTROPHILS # (AUTO) 6.3 10^3/uL (1.8-7.8); NEUTROPHILS % (AUTO) 72 % (42-75); PLATELET COUNT 254 10^3/uL (130-400); WHITE BLOOD COUNT 8.7 10^3/uL (4.3-11.0)
[2022-01-27 13:43] LABS: INR 0.9 (0.8-1.4); PROTHROMBIN TIME PATIENT 12.1 SEC (12.2-14.7)
--- NOTE | 2022-01-27 13:52 | Diagnostic Imaging Report ---
PROCEDURE: CT head and CT cervical spine without contrast. TECHNIQUE: Multiple contiguous axial images were obtained through the brain and cervical spine without the use of intravenous contrast. Sagittal and coronal reformations through the cervical spine were then performed. Auto Exposure Controls were utilized during the CT exam to meet ALARA standards for radiation dose reduction. INDICATION: Confusion and altered mental status. CORRELATION is made with prior head CT from 08/28/2020. CT HEAD: Ventricular size is stable. There appears to be some low attenuation in the left posterior parietal-occipital lobe at the castro-white matter junction, not definitely seen on prior CT. This could potentially represent an area of subacute ischemia. No definite intra-axial or extra-axial hemorrhage is detected. There is no midline shift. Cisterns are patent. IMPRESSION: 1. Low attenuation left posterior parietal occipital lobe, perhaps on the basis of subacute ischemia. MRI would be useful for further evaluation. No acute intracranial hemorrhage is detected. CT CERVICAL SPINE: There is normal cervical lordotic curvature. No fracture or subluxation is identified. Prevertebral tissues are within normal limits. Odontoid is intact. IMPRESSION: 1. No acute bony abnormality is detected. Dictated by: Dictated on workstation # [id number]
[2022-01-27 13:53] LABS: BILIRUBIN,URINE NEGATIVE (NEGATIVE); CLARITY,URINE CLOUDY; COLOR,URINE YELLOW; GLUCOSE, URINE (UA) NEGATIVE (NEGATIVE); KETONES,URINE NEGATIVE (NEGATIVE); LEUKOCYTE ESTERASE ,URINE TRACE (NEGATIVE); NITRITE,URINE POSITIVE (NEGATIVE); PH,URINE 7.5 (5-9); PROTEIN,URINE NEGATIVE (NEGATIVE)
[2022-01-27 14:03] LABS: ALKALINE PHOSPHATASE 124 U/L (40-136); BILIRUBIN,TOTAL 0.3 MG/DL (0.1-1.0); BUN/CREATININE RATIO 15; CALCIUM 8.5 MG/DL (8.5-10.1); CARBON DIOXIDE 28 MMOL/L (21-32); CHLORIDE 100 MMOL/L (98-107); CREATININE SERUM 0.85 MG/DL (0.60-1.30); GFR ESTIMATED 74; GLUCOSE 100 MG/DL (70-105); MAGNESIUM 1.8 MG/DL (1.6-2.4); POTASSIUM 4.5 MMOL/L (3.6-5.0); SODIUM 137 MMOL/L (135-145)
[2022-01-27 14:04] LABS: ALANINE AMINOTRANSFERASE 6 U/L (0-55); ALBUMIN 3.6 GM/DL (3.2-4.5); LIPASE 21 U/L (8-78); TOTAL PROTEIN 6.5 GM/DL (6.4-8.2)
[2022-01-27 14:08] LABS: BACTERIA,URINE LARGE /HPF; RBC,URINE RARE /HPF; SQUAMOUS EPITHELIAL CELL,UR RARE /HPF
[2022-01-27 14:12] LABS: AMPHETAMINE SCREEN, URINE NEGATIVE (NEGATIVE); BARBITURATE SCREEN URINE NEGATIVE (NEGATIVE); BENZODIAZEPINES SCREEN URINE POSITIVE (NEGATIVE); CANNABINOID SCREEN, URINE POSITIVE (NEGATIVE); COCAINE SCREEN URINE NEGATIVE (NEGATIVE); METHADONE STAT NEGATIVE (NEGATIVE); OPIATE SCREEN URINE NEGATIVE (NEGATIVE); OXYCODONE STAT POSITIVE (NEGATIVE); PROPOXYPHENE STAT NEGATIVE (NEGATIVE); TRICYCLIC ANTIDEPRESSANTS SCRE NEGATIVE (NEGATIVE)
[2022-01-27] MEDS ORDERED: cefTRIAXone 1 GM PRE-MIX 50 ML IV ONE (14:15)
--- NOTE | 2022-01-27 14:19 | Diagnostic Imaging Report ---
INDICATION: Abdominal pain, altered mental status. TECHNIQUE: Multiple contiguous axial images were obtained through the abdomen and pelvis without the use of intravenous contrast. Auto Exposure Controls were utilized during the CT exam to meet ALARA standards for radiation dose reduction. Comparison made to 03/06/2020. FINDINGS: The visualized portions of the lung bases are clear. There were no pleural fluid collections. There is no free intraperitoneal air. The liver shows no focal lesion. Patient has had previous cholecystectomy. Spleen, adrenals, and pancreas are normal. Kidneys bilaterally show no hydronephrosis or stone or focal lesion. There is no retroperitoneal mass or adenopathy. There is no ascites or abnormal fluid collection. There is prominent stool throughout the colon with no overt bowel obstruction or focal bowel wall thickening. There is no pelvic mass or free fluid. IMPRESSION: Prominent stool throughout the colon with no overt bowel obstruction. No abdominal mass or abnormal fluid collection or focal inflammatory process. Dictated by: Dictated on workstation # [id number]
[2022-01-27 17:05] VITALS: BP 140/86
[2022-01-27] MEDS ORDERED: CATHETER FLUSH 10 ML SYR IVP PRN (17:45)
[2022-01-27] MEDS ORDERED: ONDANSETRON 4 MG/2 ML (SDV) Z0FRAN IV PRN (18:00)
[2022-01-27 19:05] VITALS: BP 140/86
[2022-01-27] MEDS: ALPRAZolam 0.5 MG (XANAX) TAB PO PRN (20:59)
[2022-01-27] MEDS: CATHETER FLUSH 10 ML SYR IVP SCH (20:59)
[2022-01-27] MEDS: hydrALAZINE (APRESOLINE) 25 MG TAB PO SCH (20:59)
--- NOTE | 2022-01-27 21:19 | Diagnostic Imaging Report ---
PROCEDURE: MR imaging of the brain without contrast. TECHNIQUE: Multiplanar, multisequence MR imaging of the brain was performed without contrast. INDICATION: Altered mental status with subacute cerebrovascular accident. FINDINGS: Ventricles and sulci are diffusely prominent. Occasional small punctate areas of T2 prolongation are seen in the deep white matter of both hemispheres and may be related to chronic microvascular ischemia. There is, however, more confluent white matter T2 hyperintensity in the medial and posterior left temporal lobe with associated restricted diffusion. There is no MRI evidence of hemorrhage. Flow-voids are seen at the skull base. There is no abnormal mass effect or shift of midline structures. The visualized paranasal sinuses are clear. IMPRESSION: Abnormal signal including restricted diffusion in the posterior and medial left temporal lobe would be most compatible with subacute infarction without mass effect or other acute abnormality detected. Follow-up study would be useful to document expected evolution. Dictated by: Dictated on workstation # [id number]
[2022-01-27 23:59] VITALS: BP 157/81
[2022-01-28] MEDS: ACETAMINOPHEN 500 MG TAB (TYLENOL) PO PRN ×4 (00:22→22:58)
[2022-01-28 03:49] VITALS: BP 169/96
[2022-01-28] MEDS: ALPRAZolam 0.5 MG (XANAX) TAB PO PRN ×3 (04:35→22:28)
[2022-01-28] MEDS: CATHETER FLUSH 10 ML SYR IVP SCH ×3 (05:41→20:43)
[2022-01-28 05:52] LABS: CHOLESTEROL 141 MG/DL (< 200); HDL CHOLESTEROL 46 MG/DL (40-60); TRIGLYCERIDES 141 MG/DL (<150); VLDL CHOLESTEROL 28 MG/DL (5-40)
[2022-01-28 08:00] VITALS: BP 158/85
[2022-01-28] MEDS ORDERED: hydrALAZINE (APESOLINE) 20 MG/ML VIAL IV PRN (08:15)
[2022-01-28] MEDS: cefTRIAXone 1 GM/50 ML (PRE-MIX) IV SCH (09:08)
[2022-01-28] MEDS: PANTOPRAZOLE 40 MG (PROTONIX) TAB PO SCH (09:15)
[2022-01-28] MEDS: hydrALAZINE (APRESOLINE) 25 MG TAB PO SCH ×3 (09:15→20:43)
[2022-01-28] MEDS: ASPIRIN 81 MG CHEW (CHILDREN'S ASA) PO SCH (09:15)
[2022-01-28] MEDS: DULoxetine 30 MG (CYMBALTA) CAP PO SCH (09:15)
--- NOTE | 2022-01-28 11:12 | Physical Therapy Evaluation ---
PT Evaluation-General Medical Diagnosis Admission Date Jan 27, 2022 at 16:40 Medical Diagnosis: UTI/AMS Onset Date: Jan 27, 2022 Therapy Diagnosis Therapy Diagnosis: debility/weakness Height/Weight Height (Feet): 5 Height (Inches): 0.00 Weight (Pounds): 175 Weight (Ounces): 4.3 Precautions Precautions/Isolations: Fall Prevention, Standard Precautions Referral Physician: Jacob Reason for Referral: Evaluation/Treatment Medical History Pertinent Medical History: COPD, CVA, HTN Current History EMS secondary to malaise and confusion Reviewed History: Yes Social History Home: Single Level Current Living Status: Spouse Prior Prior Level of Function SCALE: Activities may be completed with or without assistive devices. 9-Hubdzpvwpc-szscynt completes the activity by him/herself with no assistance from a helper. 5-Set-up or Clean-up Assistance-helper sets up or cleans up; patient completes activity. [place] assists only prior to or following the activity. 4-Supervision or Touching Assistance-helper provides verbal cues and/or touching /steadying and/or contact guard assistance as patient completes activity. Assistance may be provided throughout the activity or intermittently. 3-Partial/Moderate Assistance-helper does LESS THAN HALF the effort. [place] lifts, holds or supports trunk or limbs, but provides less than half the effort. 2-Substantial/Maximal Assistance-helper does MORE THAN HALF the effort. [place] lifts or holds trunk or limbs and provides more than half the effort. 0-Mcgveizef-ubifrs does ALL the effort. Patient does none of the effort to complete the activity. Or, the assistance of 2 or more helpers is required for the patient to complete the activity. If activity was not attempted, code reason: 7-Patient Refused. 9-Not Applicable-not attempted and the patient did not perform the activity before the current illness, exacerbation or injury. 10-Not Attempted due to Environmental Limitations-(lack of equipment, weather restraints, etc.). 88-Not Attempted due to Medical Conditions or Safety Concerns. Bed Mobility: 6 Transfers (B,C,W/C): 6 Gait: 6 Stairs: 6 Indoor Mobility (Ambulation): Independent Stairs: Independent Prior Devices Use: None PT Evaluation-Current Subjective Patient very lethargic and confused. Objective Patient Orientation: Person Attachments: IV ROM/Strength ROM Lower Extremities bilateral LE WFL Strength Lower Extremities 4-/5 grossly bilateral LE Integumentary/Posture Bowel Incontinence: No Bladder Incontinence: No Posture WFL Neuromuscular (Tone, Coordination, Reflexes) grossly intact Sensory Vision: Functional Hearing: Functional Transfers Lying to Sitting/Side of Bed(Q: 6 Sit to Stand (QC): 4 Chair/Jvn-dm-Spbef Xfer(QC): 4 (chair alarm in place) Gait Mode of Locomotion: Walk Anticipated Mode of Locomotion: Walk Walk 10 feet (QC): 4 Walk 50 ft with 2 Turns(QC): 4 Walk 150 ft (QC): 4 Distance: 200' Gait Assistive Device: FWW Comments/Gait Description slow, steady, functional gait sequence Balance Sitting Static: Normal Sitting Dynamic: Normal Standing Static: Normal Standing Dynamic: Normal Assessment/Needs Patient will be seen short term by skilled PT to address functional strength and mobility to ensure safe return to home at maximum LOF. 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 [employer] Goals [facility] Goals PT [facility] Goals Time Frame: Feb 05, 2022 Roll Left & Right (QC): 6 Sit to Lying (QC): 6 Lying-Sitting on Side/Bed(QC): 6 Sit to Stand (QC): 6 Chair/Etn-kf-Wezts Xfer(QC): 6 Toilet Transfer (QC): 6 Walk 10 feet (QC): 6 Walk 50ft with 2 Turns (QC): 6 Walk 150 ft (QC): 6 PT Plan Problem List Problem List: Activity Tolerance, Functional Strength, Safety, Balance, Gait, Transfer Treatment/Plan Treatment Plan: Continue Plan of Care Treatment Plan: Bed Mobility, Education, Functional Activity Mariam, Functional Strength, Gait, Safety, Therapeutic Exercise, Transfers Treatment Duration: Feb 05, 2022 Frequency: 6 times per week Estimated Hrs Per Day: .25 hour per day Time Time In: 950 Time Out: 1000 DATE: Jan 28, 2022 Total Billed Treatment Time: 10 Total Billed Treatment 1 visit EVMod 10 min JOHN MALDONADO PT Jan 28, 2022 11:12
[2022-01-28] MEDS: PROPRANOLOL ER 60 MG CAP (INDERAL LA) PO SCH ×2 (11:31→20:43)
--- NOTE | 2022-01-28 11:38 | Diagnostic Imaging Report ---
PROCEDURE: US carotid duplex, bilateral. TECHNIQUE: Multiple real-time grayscale images were obtained over the carotid arteries in various projections, bilaterally. Additional spectral analysis and color Doppler duplex images were also obtained. INDICATION: Stroke. COMPARISON: None available. FINDINGS: Minimal plaque is noted within the bilateral carotid arterial systems. Peak systolic velocities throughout the bilateral carotid arterial systems are within normal limits. Additionally, the bilateral internal carotid artery to common carotid artery ratios are within normal limits. Antegrade flow within the bilateral vertebral arteries. IMPRESSION: No evidence of hemodynamically significant stenosis. Antegrade flow within the bilateral vertebral arteries. Parameters based on the consensus panel Pryor-Scale and Doppler ultrasound criteria published January 2003, Radiology, Volume 229. DOPPLER (peak systolic velocity M/S Right Left CCA .43 .72 ICA Proximal .51 .58 ICA Mid .49 .78 ICA Distal .61 .97 RATIO 1.2 1.3 ECA .69 .62 VERT .52 .50 Dictated by: Dictated on workstation # [id number]
[2022-01-28 12:00] VITALS: BP 163/95
--- NOTE | 2022-01-28 13:06 | Occ Therapy Progress Note ---
Therapy Progress Note OT orders received and chart reviewed. OT attempted evaluation this AM, but pt was unable to participate in skilled therapy at this time. OT attempted to ask pt about PLOF, and her ability to complete showering and other ADLS, pt kept stating "I'm too cold". Pt unable to answer questions asked by OT. OT attempted to complete UE screen, removed blankets from pt's arms, pt again stated she was cold and didn't want to participate. OT encouraged pt to participate in tx, performed PROM BUES (WFL). Pt unable to follow instructions to complete AROM. OT encouraged pt to complete ADLs, but she refused all due to being cold. Lunch at bedside but pt refused to eat at this time. Pt refused to participate in OT tx at this time, and pt unable to follow instructions to participate in skilled therapy at this time. OT will attempt evaluation again next available date when pt is more able to actively participate in skilled therapy. 1, visit CESILIA WILLARD OT Jan 28, 2022 13:06
[2022-01-28] MEDS ORDERED: PANT40TA52 PO (13:33)
[2022-01-28] MEDS ORDERED: FLUT16SP22 NSEACH (13:33)
[2022-01-28] MEDS ORDERED: CETI10TA17 PO (13:33)
[2022-01-28] MEDS ORDERED: POTA-51 PO (13:33)
[2022-01-28] MEDS ORDERED: PROP60TA17 PO (13:33)
[2022-01-28] MEDS ORDERED: OXYC10TA7 PO (13:33)
[2022-01-28] MEDS ORDERED: ALPR0.5T7 PO (13:34)
[2022-01-28] MEDS ORDERED: amLODIPine 10 MG (NORVASC) TAB PO NR (14:30)
--- NOTE | 2022-01-28 14:45 | Speech Therapy Progress Note ---
Therapy Progress Note Speech pathology received a consultation for a "Bedside Dysphagia/Swallow" assessment and a chart review was completed. Per chart review, the patient is receiving a "General/Regular" Diet consistency with thin liquids. Additionally, the patient is listed as a "stroke" diagnosis, however, a RN Dysphagia Screening has not been completed. Per [facility] Stroke Protocol, a RN Dysphagia Screening should be completed. The clinician contacted the RN, who stated the patient has not displayed difficulty with her oropharyngeal swallow function at this time. While the patient has refused solid consistencies, the patient has consumed water without s/s of suspected aspiration. The clinician requested the RN Dysphagia Screen be documented. The clinician presented to the room to visit with the patient and the patient's regarding possible oropharyngeal swallowing difficulties. Regardless of the clinician's continuous attempts at waking the patient, the patient remained sleeping. Per patient's , he believes the patient may have received medication to help her rest. The patient's additionally states he does not feel the patient is experiencing difficulty swallowing. At this time, oropharyngeal swallowing services do not appear necessary. If concerns arise, please re-consult speech pathology. Speech pathology continues to recommend formal documentation of the RN Dysphagia Screen for chart completeness. LEANNA BYERS Jan 28, 2022 14:45
[2022-01-28 15:43] VITALS: BP 120/80
--- NOTE | 2022-01-28 17:54 | History & Physical-Hospitalist ---
History of Present Illness HPI/Chief Complaint Ora Marshall is a 71 year old female with PMH HTN, HLD, GERD, chronic pain, anxiety, marijuana use, who presented with altered mental status. She is a poor historian. Per ER MD, stated that she is normally not confused at baseline. She does have difficulty ambulating. She is having word finding difficulty. She is also speaking with some "word salad". She has trouble answering questions. Source: patient, RN/MD Exam Limitations: clinical condition Date Seen 01/28/22 Time Seen by a Provider: 11:50 Attending Physician Jacobo Ramos DO PCP Admitting Physician: Alejandrina Butler MD Attending Physician: Alejandrina Butler MD Referring Physician Date of Admission Jan 28, 2022 at 14:16 Home Medications & Allergies Home Medications Reviewed patient Home Medication Reconciliation performed by pharmacy medication reconciliations production line technician and/or nursing. Patients Allergies have been reviewed. Allergies Allergies Coded Allergies Penicillins (Verified Allergy, Unknown, 12/04/18) atorvastatin (Verified Allergy, Unknown, 03/19/19) sumatriptan (Verified Allergy, Unknown, 12/04/18) Past Biglhwi-Ovcwxp-Ybziry Hx Patient Social History Tobacco Use?: No Use of E-Cig and/or Vaping dev: No Substance use?: Yes Substance type: Marijuana Alcohol Use?: No Pt feels they are or have been: No Immunizations Up To Date Date of Influenza Vaccine: Mar 07, 2020 Date of Pneumonia Vaccine: Nov 19, 2015 Seasonal Allergies Seasonal Allergies: No Current Status status: No Advance Directives: No Communicates: Verbally Primary Language: [place] Preferred Spoken Language: [place] Past Medical History Surgeries: Appendectomy, Gallbladder, Hysterectomy, Orthopedic COPD Hypertension Stroke Ulcer Chronic Back Pain Blood Disorders: No Family Medical History Heart Disease, Cancer, Diabetes, Hypertension Review of Systems Constitutional: no symptoms reported Respiratory: no symptoms reported Cardiovascular: no symptoms reported Gastrointestinal: no symptoms reported Physical Exam Physical Exam Vital Signs Vital Signs - First Documented 01/27/22 13:00 Temp 36.5 Pulse 69 Resp 16 B/P (MAP) 136/73 (94) Pulse Ox 94 O2 Delivery Room Air Capillary Refill : Less Than 3 Seconds Height, Weight, BMI Height: 5'0.00" Weight: 175lbs. 4.3oz. [id number]; 29.93 BMI Method: General Appearance: No Apparent Distress, WD/WN HEENT: PERRL/EOMI, Pharynx Normal Neck: Normal Inspection, Supple Respiratory: Lungs Clear, No Respiratory Distress Cardiovascular: Regular Rate, Rhythm, No Murmur Gastrointestinal: Normal Bowel Sounds, Soft Extremity: Normal Inspection, No Pedal Edema Neurologic/Psychiatric: Alert, Aphasia (word finding difficulty, repetetive speech, word salad) Skin: Normal Color, Warm/Dry Results Results/Procedures Labs Laboratory Tests 01/27/22 13:19 Patient resulted labs reviewed. Imaging: Reviewed Imaging Report Assessment/Plan Admission Diagnosis Acute ischemic stroke Admission Status: Inpatient Order (span 2 midnights) Reason for Inpatient Admission: Stroke evaluation and treatment Assessment and Plan Acute ischemic stroke Wernicke aphasia MRI with left temporal stroke Exam consistent with Wernicke aphasia PT/OT/ST IRU denied SW consulted Will need SNF referral UTI Rocephin Await culture results HTN HLD GERD Chronic pain Anxiety Continue home meds as able DVT prophylaxis: Lovenox Diagnosis/Problems Diagnosis/Problems (1) Stroke Status: Acute Qualifiers: CVA mechanism: other Qualified Codes: I63.89 - Other cerebral infarction (2) Wernicke's aphasia Status: Acute (3) Urinary tract infection Status: Acute Qualifiers: Urinary tract infection type: acute cystitis Hematuria presence: without hematuria Qualified Codes: N30.00 - Acute cystitis without hematuria (4) Chronic lower back pain Status: Chronic (5) Anxiety Status: Chronic ALEJANDRINA BUTLER MD Jan 28, 2022 17:54
[2022-01-28] MEDS: ENOXAPARIN 40 MG/0.4 ML (LOVENOX) SYR SC SCH (18:11)
[2022-01-28 19:23] VITALS: BP 130/82
[2022-01-28] MEDS: ROSUVASTATIN 20 MG (CRESTOR) TABLET PO SCH (20:43)
[2022-01-29] VITALS (7 sets, daily range): BP systolic 114–149; BP diastolic 58–87
[2022-01-29] MEDS: CATHETER FLUSH 10 ML SYR IVP SCH ×3 (06:20→20:10)
--- NOTE | 2022-01-29 08:05 | Physical Therapy Progress Note ---
Therapy Progress Note Patient adamantly declined PT stating, "I have been up going to the bathroom and that is enough." PT attempted to educated and encourage patient to participate with therapy, however, patient continued to decline and closed her eyes.. Nursing is aware. 1 ref JOHN MALDONADO PT Jan 29, 2022 08:05
[2022-01-29] MEDS: cefTRIAXone 1 GM/50 ML (PRE-MIX) IV SCH (08:33)
[2022-01-29] MEDS: ASPIRIN 81 MG CHEW (CHILDREN'S ASA) PO SCH (08:40)
[2022-01-29] MEDS: PANTOPRAZOLE 40 MG (PROTONIX) TAB PO SCH (08:40)
[2022-01-29] MEDS: DULoxetine 30 MG (CYMBALTA) CAP PO SCH (08:40)
[2022-01-29] MEDS: hydrALAZINE (APRESOLINE) 25 MG TAB PO SCH ×3 (08:40→20:10)
[2022-01-29] MEDS: PROPRANOLOL ER 60 MG CAP (INDERAL LA) PO SCH ×2 (08:40→20:10)
[2022-01-29] MEDS: amLODIPine 5 MG (NORVASC) TAB PO SCH (08:40)
[2022-01-29 09:07] LABS: BASOPHILS % (AUTO) 0 % (0-10); EOSINOPHILS # (AUTO) 0.1 10^3/uL (0.0-0.3); EOSINOPHILS % (AUTO) 1 % (0-10); HEMATOCRIT 38 % (35-52); HEMOGLOBIN 12.3 g/dL (11.5-16.0); LYMPHOCYTES # (AUTO) 1.2 10^3/uL (1.0-4.0); LYMPHOCYTES % (AUTO) 15 % (12-44); MEAN CORPUSCULAR HEMOGLOBIN 31 pg (25-34); MEAN CORPUSCULAR HGB CONC 33 g/dL (32-36); MEAN CORPUSCULAR VOLUME 94 fL (80-99); MEAN PLATELET VOLUME 8.5 fL (9.0-12.2); MONOCYTES # (AUTO) 0.6 10^3/uL (0.0-1.0); MONOCYTES % (AUTO) 8 % (0-12); NEUTROPHILS # (AUTO) 5.8 10^3/uL (1.8-7.8); NEUTROPHILS % (AUTO) 75 % (42-75); PLATELET COUNT 258 10^3/uL (130-400); WHITE BLOOD COUNT 7.8 10^3/uL (4.3-11.0)
[2022-01-29 09:25] LABS: PROTHROMBIN TIME PATIENT 13.2 SEC (12.2-14.7)
[2022-01-29 09:28] LABS: ALBUMIN 3.8 GM/DL (3.2-4.5); POTASSIUM 3.9 MMOL/L (3.6-5.0)
[2022-01-29 09:29] LABS: CALCIUM 9.3 MG/DL (8.5-10.1)
[2022-01-29 09:31] LABS: TOTAL PROTEIN 6.8 GM/DL (6.4-8.2)
[2022-01-29 09:32] LABS: BILIRUBIN,TOTAL 0.6 MG/DL (0.1-1.0)
[2022-01-29 09:34] LABS: CREATININE SERUM 0.82 MG/DL (0.60-1.30)
[2022-01-29] MEDS: ACETAMINOPHEN 500 MG TAB (TYLENOL) PO PRN ×2 (12:37→20:09)
--- NOTE | 2022-01-29 17:28 | Progress Note - Hospitalist ---
Subjective HPI/CC On Admission Date Seen by Provider: Jan 29, 2022 Time Seen by Provider: 11:45 Ora Marshall is a 71 year old female with PMH HTN, HLD, GERD, chronic pain, anxiety, marijuana use, who presented with altered mental status. She is a poor historian. Per ER MD, stated that she is normally not confused at base line. She does have difficulty ambulating. She is having word finding difficulty. She is also speaking with some "word salad". She has trouble answering questions. Subjective/Events-last exam She is sitting on the edge of the bed on my arrival. She continues to have word finding difficulty. Her is present and was updated. She is tearful and says she wants to go home, says she wants her mother, and calls her by her sister's name (Richelle). Objective Exam Vital Signs Vital Signs Date Time Temp Pulse Resp B/P (MAP) Pulse Ox O2 Delivery O2 Flow Rate FiO2 01/29/22 16:59 36.9 01/29/22 15:33 78 17 127/58 (81) 94 Room Air Capillary Refill : Less Than 3 Seconds General Appearance: No Apparent Distress, Obese Respiratory: Lungs Clear, No Respiratory Distress Cardiovascular: Regular Rate, Rhythm, No Murmur Gastrointestinal: Normal Bowel Sounds, Soft Extremity: Normal Inspection, No Pedal Edema Neurologic/Psychiatric: Alert, Aphasia Results/Procedures Lab Laboratory Tests 01/29/22 08:59 Patient resulted labs reviewed. Imaging: Reviewed Imaging Report Assessment/Plan Assessment and Plan Assess & Plan/Chief Complaint Acute ischemic stroke Wernicke aphasia MRI with left temporal stroke Exam consistent with Wernicke aphasia PT/OT/ST IRU denied SW following SNF referral UTI Rocephin Await culture results HTN HLD GERD Chronic pain Anxiety Continue home meds as able DVT prophylaxis: Lovenox Diagnosis/Problems Diagnosis/Problems (1) Stroke Status: Acute Qualifiers: CVA mechanism: other Qualified Codes: I63.89 - Other cerebral infarction (2) Wernicke's aphasia Status: Acute (3) Urinary tract infection Status: Acute Qualifiers: Urinary tract infection type: acute cystitis Hematuria presence: without hematuria Qualified Codes: N30.00 - Acute cystitis without hematuria (4) Chronic lower back pain Status: Chronic (5) Anxiety Status: Chronic SRINIVAS BUTLER MD Jan 29, 2022 17:28
[2022-01-29] MEDS: ENOXAPARIN 40 MG/0.4 ML (LOVENOX) SYR SC SCH (17:32)
[2022-01-29] MEDS: ROSUVASTATIN 20 MG (CRESTOR) TABLET PO SCH (20:10)
[2022-01-29] MEDS: ALPRAZolam 0.5 MG (XANAX) TAB PO PRN (20:10)
[2022-01-30 04:00] VITALS: BP 154/76
[2022-01-30] MEDS: ACETAMINOPHEN 500 MG TAB (TYLENOL) PO PRN ×3 (04:08→22:20)
[2022-01-30] MEDS: ALPRAZolam 0.5 MG (XANAX) TAB PO PRN ×3 (04:08→22:20)
[2022-01-30] MEDS: CATHETER FLUSH 10 ML SYR IVP SCH ×3 (04:09→21:08)
[2022-01-30 07:33] VITALS: BP 145/87
[2022-01-30 07:37] VITALS: BP 183/80
[2022-01-30] MEDS: cefTRIAXone 1 GM/50 ML (PRE-MIX) IV SCH (09:52)
[2022-01-30] MEDS: hydrALAZINE (APRESOLINE) 25 MG TAB PO SCH ×3 (09:55→19:49)
[2022-01-30] MEDS: ASPIRIN 81 MG CHEW (CHILDREN'S ASA) PO SCH (09:55)
[2022-01-30] MEDS: amLODIPine 5 MG (NORVASC) TAB PO SCH (09:55)
[2022-01-30] MEDS: DULoxetine 30 MG (CYMBALTA) CAP PO SCH (09:55)
[2022-01-30] MEDS: PANTOPRAZOLE 40 MG (PROTONIX) TAB PO SCH (09:55)
[2022-01-30] MEDS: PROPRANOLOL ER 60 MG CAP (INDERAL LA) PO SCH ×2 (09:56→19:49)
[2022-01-30] MEDS: lisINopril 20 MG (PRINIVIL) TABLET PO SCH (09:57)
[2022-01-30 11:58] VITALS: BP 119/79
[2022-01-30 16:23] VITALS: BP 116/69
[2022-01-30] MEDS: ENOXAPARIN 40 MG/0.4 ML (LOVENOX) SYR SC SCH (17:38)
--- NOTE | 2022-01-30 18:53 | Progress Note - Hospitalist ---
Subjective HPI/CC On Admission Date Seen by Provider: Jan 30, 2022 Time Seen by Provider: 10:50 Ora Marshall is a 71 year old female with PMH HTN, HLD, GERD, chronic pain, anxiety, marijuana use, who presented with altered mental status. She is a poor historian. Per ER MD, stated that she is normally not confused at baseline. She does have difficulty ambulating. She is having word finding difficulty. She is also speaking with some "word salad". She has trouble answering questions. Subjective/Events-last exam She is doing well. She is sitting in her chair. She still has some word finding difficulty. She talked to me about her family. Objective Exam Vital Signs Vital Signs Date Time Temp Pulse Resp B/P (MAP) Pulse Ox O2 Delivery O2 Flow Rate FiO2 01/30/22 16:23 36.6 66 20 116/69 (85) 94 Room Air 01/30/22 09:59 0.00 Capillary Refill : Less Than 3 Seconds General Appearance: No Apparent Distress, Obese Respiratory: Lungs Clear, No Respiratory Distress Cardiovascular: Regular Rate, Rhythm, No Murmur Gastrointestinal: Normal Bowel Sounds, Soft Extremity: Normal Inspection, No Pedal Edema Neurologic/Psychiatric: Alert, Aphasia Skin: Normal Color, Warm/Dry Results/Procedures Lab Patient resulted labs reviewed. Imaging: Reviewed Imaging Report Assessment/Plan Assessment and Plan Assess & Plan/Chief Complaint Acute ischemic stroke Wernicke aphasia MRI with left temporal stroke Exam consistent with Wernicke aphasia Aspirin and Crestor PT/OT/ST IRU denied SW following SNF referral UTI Rodas-sensitive E coli Transition to Keflex HTN HLD GERD Chronic pain Anxiety Continue home meds as able DVT prophylaxis: Lovenox Diagnosis/Problems Diagnosis/Problems (1) Stroke Status: Acute Qualifiers: CVA mechanism: other Qualified Codes: I63.89 - Other cerebral infarction (2) Wernicke's aphasia Status: Acute (3) Urinary tract infection Status: Acute Qualifiers: Urinary tract infection type: acute cystitis Hematuria presence: without hematuria Qualified Codes: N30.00 - Acute cystitis without hematuria (4) Chronic lower back pain Status: Chronic (5) Anxiety Status: Chronic SRINIVAS BUTLER MD Jan 30, 2022 18:53
[2022-01-30] MEDS: ROSUVASTATIN 20 MG (CRESTOR) TABLET PO SCH (19:48)
[2022-01-30 20:41] VITALS: BP 120/62
[2022-01-30] MEDS: CEPHALEXIN 250 MG (KEFLEX) CAP PO SCH (21:07)
[2022-01-31 00:09] VITALS: BP 118/56
[2022-01-31 04:00] VITALS: BP 111/58
[2022-01-31] MEDS: CATHETER FLUSH 10 ML SYR IVP SCH ×2 (06:27→14:32)
[2022-01-31 07:28] VITALS: BP 116/60
[2022-01-31] MEDS: CEPHALEXIN 250 MG (KEFLEX) CAP PO SCH ×2 (08:56→11:54)
[2022-01-31] MEDS: PANTOPRAZOLE 40 MG (PROTONIX) TAB PO SCH (08:56)
[2022-01-31] MEDS: ACETAMINOPHEN 500 MG TAB (TYLENOL) PO PRN (08:56)
[2022-01-31] MEDS: ASPIRIN 81 MG CHEW (CHILDREN'S ASA) PO SCH (08:56)
[2022-01-31] MEDS: PROPRANOLOL ER 60 MG CAP (INDERAL LA) PO SCH (08:56)
[2022-01-31] MEDS: lisINopril 20 MG (PRINIVIL) TABLET PO SCH (08:57)
[2022-01-31] MEDS: amLODIPine 5 MG (NORVASC) TAB PO SCH (08:57)
[2022-01-31] MEDS: hydrALAZINE (APRESOLINE) 25 MG TAB PO SCH ×2 (08:57→11:54)
[2022-01-31] MEDS: DULoxetine 30 MG (CYMBALTA) CAP PO SCH (08:57)
--- NOTE | 2022-01-31 09:50 | Physical Therapy Progress Note ---
Therapy Progress Note Patient adamantly declined PT after much encouragement. Patient refused stating, "I hurt and I'm not doing anything. Leave me alone." PT continued to attempt to encourage/educate patient on importance of OOB activity and increasing activity to prevent possible negative side effects. Patient continued to refuse. RN, physician and SW notified. 1 ref JOHN MALDONADO PT Jan 31, 2022 09:50
--- NOTE | 2022-01-31 10:09 | ST Cognitive Linguistic Eval ---
Speech Evaluation-General Medical Diagnosis UTI/AMS Onset Date: Jan 27, 2022 Therapy Diagnosis Therapy Diagnosis: Mixed Aphasia Precautions Precautions: Fall Precautions/Isolations: Fall Prevention, Standard Precautions Referral Referring Physician: Dr. James Reason for Referral: Evaluation/Treatment Medical History Pertinent Medical History: COPD, CVA, HTN Current History The patient is a 71 year-old female with a past medical histor of HTN, HLD, GERD, chronic pain, anxiety, and marijuana use, who presented with altered mental status. Brain MRI: 01/27/22: Abnormal signal including restricted diffusion in the posterior and medial left temporal lobe would be most compatible with subacute infarction without mass effect or other acute abnormality detected. Follow-up study would be useful to document expected evolution. Reviewed History: Yes Social History Current Living Status: Spouse Speech PLF-Current Status Prior Level of Function Per chart review, the patient's does not report confusion or language difficulties prior to the patient's hospitalization. At this time, the patient is unable to provide prior level information due to the present aphasia. Subjective The patient was lying in bed, awake and alert, upon entrance to her room by the clinician. The patient greeted the clinician appropriately and following verbal encouragement from the patient, was agreeable to participation in the language evaluation. Cognitive evaluation will be placed on HOLD pending improvement of the patient's language skills. Language Eval: Auditory Comprehends Simple Yes/No Ques: Severe Indent/Objects Multiple Rowe: Mild (The patient initially verbalizes a whole word paraphasia, however, does self correct to the accurate item.) Follows 1-Step Commands: Moderate (The patient is able to follow simple, one- step commands in correlation with direct modeling by the clinician.) Follows General Conversations: Moderate Language Eval: Verbal Language Completes Spontaneous Greeting: Functional Produces Auto, Serial Info: Functional (The patient provided accurate personal information, however, not during appropriate response times.) Imitates Simple Words/Phrases: Moderate (The patient can repeat single words, the patient is unable to repeat short phrases.) Word Finding: Moderate (The patient displays whole word and single phoneme paraphasia.) Requests Basic Needs: Mild States Basic Personal Info: Functional Cognitive Patient Orientation The patient is unable to respond to simple orientation questions, responding with the year of her when asked questions regarding the current year. Objective Oral Motor/Speech Production The patient does not display dysarthria or apraxia of speech at this time. The patient is 100% intelligible in known and unknown contexts. Impression The patient displays mild to moderate mixed aphasia (expressive, Broca's and receptive, Wernicke's). At this time, the patient would be appropriate for speech pathology treatment following discharge (snf versus outpatient setting). Speech Short Term Goals Short Term Goals Short Term Goals 1. The patient will repeat short phrases with 90% accuracy and mild clinician verbal cueing. 2. The patient will identify familiar objects with 90% accuracy and mild clinician verbal cueing. Time Frame-STG: Four Weeks. Speech Direct Mail Coordinator Goals Half-Way Goals 1. The patient will display improved linguistic skills (expressive and receptive) for safe discharge to the least restrictive environment. Time Frame: Six Weeks. Speech-Plan Treatment Plan Speech Therapy Treatment Plan: Continue Plan of Care Treatment Duration: Jan 27, 2022 Frequency: 2 times per week Estimated Hrs Per Day: .25 hour per day Rehab Potential: Fair Safety Risks/Education Teaching Recipient: Patient Teaching Methods: Discussion Response to Teaching: Unable to Comprehend Education Topics Provided: Results, Recommendations, Plan of Care Time Speech Therapy Time In: 09:30 Speech Therapy Time Out: 09:50 DATE: Jan 31, 2022 Total Billed Time: 20 Billed Treatment Time 1, WENDY SANCHEZ [facility] ST Jan 31, 2022 10:09
--- NOTE | 2022-01-31 11:15 | Occ Therapy Progress Note ---
Therapy Progress Note OT attempted evaluation, pt adamantly refused therapy on this date. OT attempted to provide education on purpose and benefit of OT, but pt continued to refuse, stating "not today". Pt c/o back pain, unable to verbalize pain rating, and kept saying "I want to go home". OT will attempt evaluation again next available date. 1, refusal [id number] CESILIA WILLARD OT Jan 31, 2022 11:15
[2022-01-31 11:43] VITALS: BP 143/80
--- NOTE | 2022-01-31 11:50 | Progress Note - Hospitalist ---
Subjective HPI/CC On Admission Date Seen by Provider: Jan 31, 2022 Ora Marshall is a 71 year old female with PMH HTN, HLD, GERD, chronic pain, anxiety, marijuana use, who presented with altered mental status. She is a poor historian. Per ER MD, stated that she is normally not confused at baseline. She does have difficulty ambulating. She is having word finding difficulty. She is also speaking with some "word salad". She has trouble answering questions. Subjective/Events-last exam Pt reports doing well but having back pain. States she using "marijuana cream" at home for this and it helps but doesn't want us to think she is a "bad person." She asks me multiple times who I am and who her nurse is. Seems to have poor short term recall. She states she walked with PT but they inform me she did not. Objective Exam Vital Signs Vital Signs Date Time Temp Pulse Resp B/P (MAP) Pulse Ox O2 Delivery O2 Flow Rate FiO2 01/31/22 08:00 94 Room Air 01/31/22 07:28 36.0 61 18 116/60 (78) 01/30/22 09:59 0.00 Capillary Refill : Less Than 3 Seconds General Appearance: No Apparent Distress, Obese Respiratory: Lungs Clear, No Respiratory Distress Cardiovascular: Regular Rate, Rhythm, No Murmur Gastrointestinal: Normal Bowel Sounds, Soft Neurologic/Psychiatric: Alert, Oriented x3 Results/Procedures Lab Patient resulted labs reviewed. Imaging: Reviewed Imaging Report Assessment/Plan Assessment and Plan Assess & Plan/Chief Complaint Acute ischemic stroke Wernicke aphasia MRI with left temporal stroke Exam consistent with Wernicke aphasia Aspirin and Crestor PT/OT/ST IRU denied SW following SNF referral Patient hopeful to go home but will have to talk to family about whether or not this is realistic UTI Rodas-sensitive E coli Continue Keflex HTN HLD GERD Chronic pain Anxiety Continue home meds as able DVT prophylaxis: DARCI Grier MD Jan 31, 2022 11:50 am
--- NOTE | 2022-01-31 14:55 | D/C HH Face to Face Order ---
D/C Face to Face Orders Instructions for Patient Via [facility], Patient Instructions/FollowUp: Please continue to take your meidcations as written and follow up with your PCP to follow up this hospital stay. Physician to follow Patient: Dr Ramos Discharge Diet for Home: No Restrictions Patient Data-Allergies,Ht & Wt Patient Allergies: Coded Allergies: Penicillins (Verified Allergy, Unknown, 12/04/18) atorvastatin (Verified Allergy, Unknown, 03/19/19) sumatriptan (Verified Allergy, Unknown, 12/04/18) Height (Feet): 5 Height (Inches): 0.00 Weight (Pounds): 175 Weight (Ounces): 4.3 Home Health Need/Face to Face Date of Face to Face: Jan 31, 2022 Clinical Findings: Generalized weakness and fatigue I have seen Pt [id number]: Yes Discharged To: Home Diagnosis/Conditions: Acute Stroke, Wernicke Aphasia Patient is Homebound due to: Kellie fall risk due to instabilty Homebound Status Due to the above stated illness, injury or surgical procedure (medical condition or diagnosis) and associated clinical findings, the patient is homebound because of his/her inability to leave home except with aid of a supportive device and/or person AND leaving the home requires a considerable and taxing effort or is medically contraindicated. Pt req the following assistanc: Aid of another person Home Health Nursing Orders Home Health Services Order: Nursing Services, Custom Grinder-Evaluate & Treat, Physical Therapy-Evaluate & Treat Home Health Infusion Therapy Line Start Date: Jan 30, 2022 Therapy Orders Therapy Orders: OT (must have SN or PT order), Physical Therapy Therapy Specific Orders: Eval assistive deivces, Teach enviro modifications/safety, Gait training, Increase strength/endurance Certify Stmt I certify that this patient is under my care and that I, a nurse practitioner or a physician; a catering administrative assistant working with me, had a face to face encounter that - meets the physician face to face encounter requirements with this patient as dated. DARCI MORALES MD Jan 31, 2022 2:55 pm
[2022-01-31] MEDS ORDERED: AMLO-250 PO (14:57)
[2022-01-31] MEDS ORDERED: LISI20TA26 PO (14:57)
[2022-01-31] MEDS ORDERED: ASPI81TA64 PO (14:57)
--- NOTE | 2022-01-31 14:58 | Discharge Summary ---
Diagnosis/Chief Complaint Date of Admission Jan 28, 2022 at 14:16 Date of Discharge Discharge Date: Jan 31, 2022 Admission Diagnosis Acute ischemic stroke Primary Care Jacobo Ramos DO Discharge Diagnosis (1) Stroke Status: Acute (2) Wernicke's aphasia Status: Acute (3) Urinary tract infection Status: Acute (4) Chronic lower back pain Status: Chronic (5) Anxiety Status: Chronic Discharge Summary Discharge Physical Exam Allergies: Coded Allergies: Penicillins (Verified Allergy, Unknown, 12/04/18) atorvastatin (Verified Allergy, Unknown, 03/19/19) sumatriptan (Verified Allergy, Unknown, 12/04/18) Vitals & I&Os Vital Signs Date Time Temp Pulse Resp B/P (MAP) Pulse Ox O2 Delivery O2 Flow Rate FiO2 01/31/22 11:43 36.2 72 18 143/80 (101) 94 Room Air 01/30/22 09:59 0.00 Hospital Course Labs (last 24 hrs) Microbiology 01/27/22 Urine Culture - Final, Complete Escherichia coli Patient resulted labs reviewed. Imaging: Reviewed Imaging Report Discharge Home Medications: Active Scripts Active Amlodipine Besylate 5 Mg Tablet 10 Mg PO DAILY Children's Aspirin (Aspirin) 81 Mg Tab.chew 81 Mg PO DAILY@0900 Lisinopril 20 Mg Tablet 20 Mg PO DAILY Reported Alprazolam 0.5 Mg Tablet 0.5 Mg PO QID PRN Fluticasone Propionate 50 Mcg/Actuation Torrey.susp 1 Spr NSEACH DAILY PRN Cetirizine HCl 10 Mg Tablet 10 Mg PO DAILY Pantoprazole Sodium 40 Mg Tablet.dr 40 Mg PO DAILY Oxycodone HCl 10 Mg Tablet 10 Mg PO TID Propranolol HCl 60 Mg Tablet 60 Mg PO BID Potassium Chloride 20 Meq Tablet.er 20 Meq PO MO,WE,FR Hydralazine HCl 25 Mg Tablet 25 Mg PO TID Atorvastatin Calcium 40 Mg Tablet 40 Mg PO HS Duloxetine HCl 60 Mg Capsule.dr 60 Mg PO DAILY Instructions to patient/family Please see electronic discharge instructions given to patient. Problem Qualifiers (1) Stroke: CVA mechanism: other Qualified Codes: I63.89 - Other cerebral infarction (2) Urinary tract infection: Urinary tract infection type: acute cystitis Hematuria presence: without hematuria Qualified Codes: N30.00 - Acute cystitis without hematuria DARCI MORALES MD Jan 31, 2022 14:58
== END 2022-01-31 15:40 | disposition home health service (06) | DRG 65 ==
LOC: EDUNIT# 12:55 → ER FS 12:56 → 4TH 16:40 → OBSVTOIN 01-28 14:16
PROVIDERS: ADMIT Internal Medicine; ATTEND Internal Medicine
DX: I63.9 Cerebral infarction, unspecified (principal); N39.0 Urinary tract infection, site not specified; I10 Essential (primary) hypertension; G89.29 Other chronic pain; F41.9 Anxiety disorder, unspecified; Z79.82 Long term (current) use of aspirin; Z79.899 Other long term (current) drug therapy; J44.9 Chronic obstructive pulmonary disease, unspecified; M54.9 Dorsalgia, unspecified; Z20.822 Contact with and (suspected) exposure to COVID-19; E78.5 Hyperlipidemia, unspecified; K21.9 Gastro-esophageal reflux disease without esophagitis; F12.90 Cannabis use, unspecified, uncomplicated; F80.2 Mixed receptive-expressive language disorder
CPT/HCPCS: 36415; 70450; 70551; 71045; 72125; 74176; 80053; 80061; 80306; 81000; 83690; 83735; 84145; 84484; 85025; 85610; 85730; 87077; 87088; 87186; 87636; 93005; 93041; 93306; 93880; G0378

== ENCOUNTER 2022-07-29 15:45 | Emergency (ER) | payer MEDICARE ==
[~2022-07-29] VITALS: Ht 152.4 cm; Wt 77.1 kg
[~2022-07-29 15:45] MED LIST changes: +AMLO-250 PO; +ASPI81TA64 PO; +CETI10TA17 PO; +FLUT16SP22 NSEACH; +LISI20TA26 PO; +OXYC10TA7 PO; +PANT40TA52 PO
--- NOTE | 2022-07-29 16:19 | ED Fall/Injury ---
General Chief Complaint: Laceration Stated Complaint: FALL Nursing Triage Note: PT TO ROOM FS05 VIA W/C WITH C/O LAC ABOVE LEFT EYE. PT REPORTS SHE TRIPPED AND FELL HITTING FOREHEAD. PT DENIES LOC. PT REPORTS SHE CALLED 911 AND TOLD EMS SHE DID NOT WANT TO BE TRANSPORTED TO ED. PT STATES EMS TOLD HER SHE SHOULD COME TO THE ED. Source: patient History of Present Illness Date Seen by Provider: July 29, 2022 Time Seen by Provider: 15:51 Initial Comments 71-year-old female presenting with complaints of fall at home and hitting her face on the floor. She has a laceration to the left lateral eyebrow with bleeding controlled. She had tripped while she was helping put groceries away. She did not lose consciousness. She has had prior strokes and has expressive aphasia and does not always say the correct words. She has no new neurodeficits since the fall. She does take aspirin as a blood thinner. She denies any nausea, vomiting, change in vision, numbness, weakness in her arms or legs. Her tetanus booster was less than 5 years ago. Occurred: just prior to arrival Severity: mild Injuries/Pain Location: face (Left-sided face and left lateral eyebrow) Context: tripped Loss of Consciousness: no loss of consciousness Modifying Factors: Worse With Movement Associated Symptoms (Fall): No Abdominal Pain, No Chest Pain, No Confusion, No Dizziness; Headache; No Lightheadedness, No Muscle Spasms, No Nausea/Vomiting, No Neck Pain, No Ringing in Ears, No Seizures, No Shortness of Air, No Slurred Speech, No Trouble Walking, No Vision Changes Allergies and Home Medications Allergies Coded Allergies: Penicillins (Verified Allergy, Unknown, 12/04/18) atorvastatin (Verified Allergy, Unknown, 03/19/19) sumatriptan (Verified Allergy, Unknown, 12/04/18) Patient Home Medication List Home Medication List Reviewed: Yes Alprazolam (Alprazolam) 0.5 Mg Tablet, 0.5 MG PO QID PRN for ANXIETY, (Reported) Entered as Reported by: BEREKET COOPER on 01/28/22 1334 Amlodipine Besylate (Amlodipine Besylate) 5 Mg Tablet, 10 MG PO DAILY Prescribed by: DARCI MORALES on 01/31/22 6397 Aspirin (Children's Aspirin) 81 Mg Tab.chew, 81 MG PO DAILY@0900 Prescribed by: DARCI MORALES on 01/31/22 1457 Atorvastatin Calcium (Atorvastatin Calcium) 40 Mg Tablet, 40 MG PO HS, (Reported) Entered as Reported by: WERNER DUMONT on 04/13/20 112 Cetirizine HCl (Cetirizine HCl) 10 Mg Tablet, 10 MG PO DAILY, (Reported) Entered as Reported by: BEREKET COOPER on 01/28/22 133 Duloxetine HCl (Duloxetine HCl) 60 Mg Capsule.dr, 60 MG PO DAILY, (Reported) Entered as Reported by: WERNER UDMONT on 04/13/20 112 Fluticasone Propionate (Fluticasone Propionate) 50 Mcg/Actuation Rector.susp, 1 SPR NSEACH DAILY PRN for CONGESTION, (Reported) Entered as Reported by: BEREKET COOPER on 01/28/22 133 Hydralazine HCl (Hydralazine HCl) 25 Mg Tablet, 25 MG PO TID, (Reported) Entered as Reported by: WERNER DUMONT on 04/13/201126 Lisinopril (Lisinopril) 20 Mg Tablet, 20 MG PO DAILY Prescribed by: DARCI MORALES on 01/31/22 1457 Oxycodone HCl (Oxycodone HCl) 10 Mg Tablet, 10 MG PO TID, (Reported) Entered as Reported by: BEREKET COOPER on 01/28/22 133 Pantoprazole Sodium (Pantoprazole Sodium) 40 Mg Tablet.dr, 40 MG PO DAILY, (Reported) Entered as Reported by: BEREKET COOPER on 01/28/22 133 Potassium Chloride (Potassium Chloride) 20 Meq Tablet.er, 20 MEQ PO MO,WE,FR, (Reported) Entered as Reported by: BEREKET COOPER on 01/28/22 133 Propranolol HCl (Propranolol HCl) 60 Mg Tablet, 60 MG PO BID, (Reported) Entered as Reported by: BEREKET COOPER on 01/28/22 133 Review of Systems Review of Systems Constitutional: No chills, No fever Eyes: Denies Blurred Vision, Denies Photophobia, Denies Vision Changes Ears, Nose, Mouth, Throat: denies ear pain, denies ear discharge, denies nose pain, denies nose discharge, denies epistaxis, denies mouth pain, denies loose teeth Respiratory: no symptoms reported Cardiovascular: no symptoms reported Gastrointestinal: no symptoms reported Genitourinary: no symptoms reported Musculoskeletal: no symptoms reported Skin: see HPI Psychiatric/Neurological: No Symptoms Reported Past Eonvecn-Cyhdkv-Emitsp Hx Patient Social History Tobacco Use?: No Smoking Status: Never a Smoker Smokeless Tobacco Frequency: Never a User Use of E-Cig and/or Vaping dev: No Use of E-Cig and/or Vaping Tono: Never a User Substance use?: No Alcohol Use?: No Pt feels they are or have been: No Seasonal Allergies Seasonal Allergies: No Past Medical History Surgery/Hospitalization HX: CVA x3 Surgeries: Yes Appendectomy, Gallbladder, Hysterectomy, Orthopedic Respiratory: Yes COPD Cardiac: Yes Hypertension Neurological: Yes (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 4.3oz. [id number]; 33.00 BMI Method: General Appearance: WD/WN, no apparent distress HEENT: PERRL/EOMI, normal ENT inspection, TMs normal, pharynx normal Neck: non-tender, full range of motion, supple, normal inspection Cardiovascular: normal peripheral pulses, regular rate, rhythm Respiratory: chest non-tender, lungs clear, normal breath sounds, no respiratory distress, no accessory muscle use Gastrointestinal: normal bowel sounds, non tender, soft, no pulsatile mass Extremities: normal range of motion, non-tender, normal capillary refill Neurologic/Psychiatric: alert Skin: normal color, warm/dry Azucena Coma Score Best Eye Response: (4) Open Spontaneously Best Verbal Response: (5) Oriented Best Motor Response: (6) Obeys Commands Azucena Total: 15 Procedures/Interventions Wound Location: Face Wound Length (cm): 1.9 Wound's Depth, Shape: linear, sub Q Wound Explored: clean Betadine Prep?: Yes Other Closure Supply: Wound Adhesive Progress After obtaining verbal consent from patient and significant other the wound was cleaned with Betadine scrub soap. Then using tissue adhesive the wound edges were approximated. Wound edges were well approximated without any acute complication. Patient tolerated procedure well without any immediate complication. Since she had tenderness with palpation of the left side of the face and had a fall as well as prior stroke history will obtain CT scan of the head and face to ensure that there is no fractures or intracranial hemorrhage. Counseled on tissue adhesive management as well as using ice and elevation to help with pain and swelling and bruising. Avoid using antibiotic ointment or oily skin preparations as they could make the glue fall off too early. Progress/Results/Core Measures Results/Orders My Orders Orders - HOUSTON CELESTIN MD Ct Head/Maxillofacial Wo (07/29/22 16:12) Ice: Apply To Affected Area (07/29/22 16:13) Vital Signs/I&O 07/29/22 15:51 Temp 36.9 Pulse 88 Resp 18 B/P (MAP) 141/82 (101) O2 Delivery Room Air Blood Pressure Mean: 101 Progress Progress Note #1: Progress Note Potential diagnosis of intracranial hemorrhage, skull fracture, facial fracture, facial contusion, laceration of left eyebrow. Once the wound was cleaned and could be evaluated better she had a linear 1.9 cm laceration with bleeding controlled. The wound was cleaned with Betadine scrub soap and then using tissue adhesive the wound edges were approximated. Patient tolerated this well without any immediate complication. As she does take aspirin and has had previous strokes as well as having tenderness to the left side of her face we will obtain a CT scan of the head and face to evaluate for possible acute bony injury or intracranial hemorrhage. Ice pack for pain and sw elling. Counseled on head elevation and ice to help with bruising, swelling, pain. Keep the wound clean with soap and water but do not soak it and did not apply antibiotic ointment or oily substances as they could make the glue come off too early. Progress Note #2: Time: 16:24 Progress Note On my personal interpretation and review I did not appreciate any acute fractures or intracranial hemorrhage on CT head and face without IV contrast. Progress Note #3: Time: 16:50 Progress Note I reviewed the radiologist report on the CT scan of the head and maxillofacial area without contrast. They also did not appreciate any acute fractures or intracranial hemorrhage. Discharged with plan as above. Diagnostic Imaging Diagonstic Imaging: CT Plain Films/CT/US/NM/MRI: facial bones, head Comments NAME: DANIELLE MORGAN [facility] REC#: [id number] PT STATUS: REG ER : 1950 PHYSICIAN: HOUSTON CELESTIN MD ADMIT DATE: 07/29/22/ER FS Draft Date of Exam:07/29/22 CT HEAD/MAXILLOFACIAL WO PROCEDURE: CT head and maxillofacial without contrast. TECHNIQUE: Multiple contiguous axial images were obtained through the head and facial bones without the use of intravenous contrast. Auto Exposure Controls were utilized during the CT exam to meet ALARA standards for radiation dose reduction. INDICATION: Head and face trauma. COMPARISON: MRI brain of 01/27/2022. FINDINGS: HEAD: No intracranial hyperdense hemorrhage or space-occupying mass. No hydrocephalus or midline shift. A small area of encephalomalacia has developed in the inferior left parietal lobe that corresponds to site of previously seen infarct in this region on brain MRI from 01/27/2022. Unchanged mild global atrophy. No skull fracture. Mastoid air cells and middle ear cavities are clear. FACE: No fracture of the nasal bones, osseous nasal septum or anterior nasal spine. Orbits are intact. No fracture in the zygomatic arches, maxillary sinus valles, pterygoid plates or hard palate. The temporomandibular joints are normal in alignment. No mandibular fracture. Globes are symmetric without rupture. No retrobulbar hematoma. Left supraorbital scalp hematoma with small laceration, resulting in subcutaneous gas. IMPRESSION: 1. No acute intracranial hemorrhage or skull fracture. 2. No fracture of the midface or mandible. 3. Left supraorbital small hematoma and laceration. Dictated on workstation # [id number] Dict: 07/29/22 1640 Trans: 07/29/22 1649 [id number] Interpreted by: JARET CHAVEZ MD Electronically signed by: Reviewed: Reviewed by Me Departure Impression Primary Impression: Laceration of left eyebrow without complication Qualified Codes: S01.112A - Laceration without foreign body of left eyelid and periocular area, initial encounter Additional Impressions: Facial contusion Qualified Codes: S00.83XA - Contusion of other part of head, initial encounter Fall at home Qualified Codes: W19.XXXA - Unspecified fall, initial encounter; Y92.009 - Unspecified place in unspecified non-institutional (private) residence as the place of occurrence of the external cause Disposition: HOME, SELF-CARE Condition: Stable Departure-Patient Inst. Decision time for Depature: 16:52 Referrals: YOANNA CHAMBERS DO (PCP/Family) Primary Care Physician Patient Instructions: Skin Glue for Minor Cuts, Laceration Repair With Glue ED, Minor Head Injury, Adult ED Add. Discharge Instructions: Keep wound clean with soap and water. Try to keep head elevated at least 20 to 30 degrees at all times for the next few days to help limit bruising and swelling. May apply ice 15 to 20 minutes every few hours as needed to help with pain and swelling and bruising. May continue to use acetaminophen and/or ibuprofen to help with pain and swelling. Avoid using any antibiotic ointment or lotions or oily skin preparations over t he wound as it could make the glue to come off too early. The glue will peel off on its own over the next 5 to 7 days. All discharge instructions reviewed with patient and/or family. Voiced understanding. HOUSTON CELESTIN MD July 29, 2022 16:19
--- NOTE | 2022-07-29 16:49 | Diagnostic Imaging Report ---
PROCEDURE: CT head and maxillofacial without contrast. TECHNIQUE: Multiple contiguous axial images were obtained through the head and facial bones without the use of intravenous contrast. Auto Exposure Controls were utilized during the CT exam to meet ALARA standards for radiation dose reduction. INDICATION: Head and face trauma. COMPARISON: MRI brain of 01/27/2022. FINDINGS: HEAD: No intracranial hyperdense hemorrhage or space-occupying mass. No hydrocephalus or midline shift. A small area of encephalomalacia has developed in the inferior left parietal lobe that corresponds to site of previously seen infarct in this region on brain MRI from 01/27/2022. Unchanged mild global atrophy. No skull fracture. Mastoid air cells and middle ear cavities are clear. FACE: No fracture of the nasal bones, osseous nasal septum or anterior nasal spine. Orbits are intact. No fracture in the zygomatic arches, maxillary sinus valles, pterygoid plates or hard palate. The temporomandibular joints are normal in alignment. No mandibular fracture. Globes are symmetric without rupture. No retrobulbar hematoma. Left supraorbital scalp hematoma with small laceration, resulting in subcutaneous gas. IMPRESSION: 1. No acute intracranial hemorrhage or skull fracture. 2. No fracture of the midface or mandible. 3. Left supraorbital small hematoma and laceration. Dictated by: Dictated on workstation # [id number]
[2022-07-29 16:56] VITALS: BP 137/86
== END 2022-07-29 16:56 | disposition home or self-care (01) ==
LOC: EDUNIT# 15:45 → ER FS 15:47
DX: S01.112A Laceration without foreign body of left eyelid and periocular area, initial encounter (principal); Z79.82 Long term (current) use of aspirin; W01.198A Fall on same level from slipping, tripping and stumbling with subsequent striking against other object, initial encounter; Y92.009 Unspecified place in unspecified non-institutional (private) residence as the place of occurrence of the external cause
CPT/HCPCS: 70450; 70486

== ENCOUNTER 2022-08-05 13:06 | Emergency (ER) | payer MEDICARE ==
--- NOTE | 2022-08-05 13:30 | ED Upper Extremity ---
General Chief Complaint: Upper Extremity Stated Complaint: RT ARM PAIN Nursing Triage Note: Patient presents to the ED with c/o right shoulder and right arm pain. Reports she has fallen several times over the past couple of weeks. Unsure when pain began but reports approximately ongoing for the past 1 month. Is taking her prescription pain medication. Source: patient, spouse Exam Limitations: clinical condition (expressive aphasia) History of Present Illness Date Seen by Provider: August 05, 2022 Time Seen by Provider: 13:11 Initial Comments 71-year-old female presenting with complaints of right shoulder and arm pain. She has reportedly fallen several times over the last few weeks. Unsure when the pain began but feels that it has been going on for least 1 month. She does take chronic oxycodone pain medication for chronic back pain. She had mentioned this when she was here last week for new fall with laceration to right lateral eyebrow but had not wanted to have further imaging or work-up at that time for her arm pain. She had been counseled to check back with primary care provider about this however today they came to the emergency department about it. She has normal range of motion of the right arm. She does complain of some pain with both abduction and adduction of the shoulder. She denies having any new nu mbness or weakness. Onset: other (increased falls in last few weeks and pain in right shoulder/arm for at least a month) Severity: moderate Pain/Injury Location: right shoulder, right arm, right elbow, right forearm Method of Injury: fell Modifying Factors: Worse With Movement Allergies and Home Medications Allergies Coded Allergies: Penicillins (Verified Allergy, Unknown, 12/04/18) atorvastatin (Verified Allergy, Unknown, 03/19/19) sumatriptan (Verified Allergy, Unknown, 12/04/18) Patient Home Medication List Home Medication List Reviewed: Yes Alprazolam (Alprazolam) 0.5 Mg Tablet, 0.5 MG PO QID PRN for ANXIETY, (Reported) Entered as Reported by: BEREKET COOPER on 01/28/22 1334 Amlodipine Besylate (Amlodipine Besylate) 5 Mg Tablet, 10 MG PO DAILY Prescribed by: DARCI MORALES on 01/31/22 1457 Aspirin (Children's Aspirin) 81 Mg Tab.chew, 81 MG PO DAILY@0900 Prescribed by: DARCI MORALES on 01/31/22 145 Atorvastatin Calcium (Atorvastatin Calcium) 40 Mg Tablet, 40 MG PO HS, (Reported) Entered as Reported by: WERNER DUMONT on 04/13/20 112 Cetirizine HCl (Cetirizine HCl) 10 Mg Tablet, 10 MG PO DAILY, (Reported) Entered as Reported by: BEREKET COOPER on 01/28/221332 Duloxetine HCl (Duloxetine HCl) 60 Mg Capsule.dr, 60 MG PO DAILY, (Reported) Entered as Reported by: WERNER DUMONT on 04/13/20 112 Fluticasone Propionate (Fluticasone Propionate) 50 Mcg/Actuation [place].susp, 1 SPR NSEACH DAILY PRN for CONGESTION, (Reported) Entered as Reported by: BEREKET COOPER on 01/28/221332 Hydralazine HCl (Hydralazine HCl) 25 Mg Tablet, 25 MG PO TID, (Reported) Entered as Reported by: WERNER DUMONT on 04/13/201126 Lisinopril (Lisinopril) 20 Mg Tablet, 20 MG PO DAILY Prescribed by: DARCI MORALES on 01/31/22 145 Oxycodone HCl (Oxycodone HCl) 10 Mg Tablet, 10 MG PO TID, (Reported) Entered as Reported by: BEREKET COOPER on 01/28/221332 Pantoprazole Sodium (Pantoprazole Sodium) 40 Mg Tablet.dr, 40 MG PO DAILY, (Reported) Entered as Reported by: BEREKET COOPER on 01/28/221332 Potassium Chloride (Potassium Chloride) 20 Meq Tablet.er, 20 MEQ PO MO,WE,FR, (Reported) Entered as Reported by: BEREKET COOPER on 01/28/221332 Propranolol HCl (Propranolol HCl) 60 Mg Tablet, 60 MG PO BID, (Reported) Entered as Reported by: BEREKET COOPER on 01/28/221332 Review of Systems Constitutional: No chills, No fever EENTM: no symptoms reported Respiratory: no symptoms reported Cardiovascular: no symptoms reported Gastrointestinal: no symptoms reported Genitourinary: no symptoms reported Musculoskeletal: see HPI Skin: No change in color Psychiatric/Neurological: Denies Numbness, Denies Weakness Past Vsijprq-Uyynnb-Ibcabb Hx Patient Social History Tobacco Use?: No Use of E-Cig and/or Vaping dev: No Substance use?: No Alcohol Use?: No Pt feels they are or have been: No Seasonal Allergies Seasonal Allergies: No Past Medical History Surgery/Hospitalization HX: CVA x3; Chronic back pain Surgeries: Yes Appendectomy, Gallbladder, Hysterectomy, Orthopedic Respiratory: Yes COPD Cardiac: Yes Hypertension Neurological: Yes (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 4.3oz. 79.122745hw; 33.00 BMI Method: General Appearance: WD/WN, no apparent distress HEENT: PERRL/EOMI, other (Healing laceration wound to the left lateral eyebrow. No erythema or fluctuance or induration. No drainage.) Cardiovascular: normal peripheral pulses Shoulder: normal ROM; No deformity; pain (Right shoulder tender to palpation and movement) Elbow/Forearm: normal ROM, pain (Complains of pain to the right elbow and forearm) Neurologic/Tendon: normal sensation, normal motor functions Neurologic/Psychiatric: no motor/sensory deficits, alert, normal mood/affect Skin: normal color, warm/dry Progress/Results/Core Measures Results/Orders My Orders Orders - HOUSTON CELESTIN MD Shoulder 3 View Right (08/05/22 13:18) Forearm 2 View Right (08/05/22 13:18) Vital Signs/I&O 08/05/22 08/05/22 13:10 13:41 Temp 35.7 35.7 Pulse 74 74 Resp 16 16 B/P (MAP) 149/85 (106) 149/85 Pulse Ox 96 96 O2 Delivery Room Air Room Air Blood Pressure Mean: 106 Progress Progress Note #1: Progress Note She does not have any crepitus or obvious deformity and no acute fall today this may all be due to arthritis or rotator cuff injury. We will obtain more formal x-rays of the right shoulder and forearm to further evaluate for acute bony abnormality. She had already taken her oxycodone pain medication for chronic back pain and so will defer any additional pain medicine or treatment at the moment. Progress Note #2: Time: 13:33 Progress Note On my personal interpretation and review of the three-view films of the right shoulder and 2 view films of the right forearm there are no acute fractures or dislocations seen. She does appear to have some arthritic changes. Will director of counseling patient on findings and results. Encouraged to check back with her primary care provider for possible MRI or referral to Ortho if having continued complaints and symptoms. In the meantime she could take acetaminophen up to 650 mg every 4 to 6 hours as needed for pain in addition to her chronic pain medicine of Oxycodone. Diagnostic Imaging Diagonstic Imaging: Xray Plain Films/CT/US/NM/MRI: other (shoulder) Comments [facility] [place], [place] NAME: DANIELLE MORGAN [facility] REC#: [id number] PT STATUS: DEP ER : 1950 PHYSICIAN: HOUSTON CELESTIN MD ADMIT DATE: 08/05/22/ER FS Signed Date of Exam:08/05/22 SHOULDER 3 VIEW RIGHT INDICATION: Pain. EXAMINATION: Right shoulder from 08/05/2022. FINDINGS: Three views of the shoulder. There are no fractures or dislocations. Mild narrowing is seen at the acromioclavicular joint. Visualized right lung is unremarkable. IMPRESSION: 1. No acute osseous abnormality. Dictated by: Dictated on workstation # [id number] Dict: 08/05/22 1352 Trans: 08/05/22 1543 [id number] [id number] Interpreted by: DARIEL CANDELARIO MD Electronically signed by: DARIEL CANDELARIO MD 08/05/22 1543 Reviewed: Reviewed by Me Diagonstic Imaging: Xray Plain Films/CT/US/NM/MRI: forearm Comments [facility] [place] [place] NAME: EDDIEDANIELLE Socorro [facility] REC#: [id number] PT STATUS: DEP ER : 1950 PHYSICIAN: HOUSTON CELESTIN MD ADMIT DATE: 08/05/22/ER FS Draft Date of Exam:08/05/22 FOREARM 2 VIEW RIGHT INDICATION: Right arm pain after fall. AP and lateral views of right forearm are obtained. FINDINGS: No acute fracture or dislocation is identified. No abnormal lytic or sclerotic focus is seen, and there is no radiopaque foreign body. IMPRESSION: No acute abnormality. 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 Decision time for Depature: 13:38 Referrals: YOANNA CHAMBERS DO (PCP/Family) Primary Care Physician Patient Instructions: Shoulder Pain ED, Using Cold for Pain, Osteoarthritis (DC) Add. Discharge Instructions: There are no obvious fractures or broken bones on the x-rays. There does appear to be some arthritic changes. You could take acetaminophen up to 650 mg every 4-6 hours as needed for additional pain control on top of your oxycodone. Check back with Dr. CHAMBERS and the primary care clinic for continued concerns as they may have to refer you to orthopedics, physical therapy, or see about ordering MRI. All discharge instructions reviewed with patient and/or family. Voiced understanding. HOUSTON CELESTIN MD August 05, 2022 13:30
[2022-08-05 13:41] VITALS: BP 149/85
--- NOTE | 2022-08-05 13:44 | Diagnostic Imaging Report ---
INDICATION: Right arm pain after fall. AP and lateral views of right forearm are obtained. FINDINGS: No acute fracture or dislocation is identified. No abnormal lytic or sclerotic focus is seen, and there is no radiopaque foreign body. IMPRESSION: No acute abnormality. Dictated by: Dictated on workstation # [id number]
--- NOTE | 2022-08-05 14:05 | Diagnostic Imaging Report ---
INDICATION: Pain. EXAMINATION: Right shoulder from 08/05/2022. FINDINGS: Three views of the shoulder. There are no fractures or dislocations. Mild narrowing is seen at the acromioclavicular joint. Visualized right lung is unremarkable. IMPRESSION: 1. No acute osseous abnormality. Dictated by: Dictated on workstation # [id number]
== END 2022-08-05 13:41 | disposition home or self-care (01) ==
LOC: EDUNIT# 13:06 → ER FS 13:08
DX: M19.011 Primary osteoarthritis, right shoulder (principal); R29.6 Repeated falls; M54.9 Dorsalgia, unspecified; G89.29 Other chronic pain
CPT/HCPCS: 73030; 73090

== ENCOUNTER → 2023-01-20 | Outpatient (CLI) | payer MEDICARE ==
[~2023-01-20] MED LIST changes: +POTA-330 PO; -POTA-51 PO
--- NOTE | 2023-01-20 13:33 | Diagnostic Imaging Report ---
PROCEDURE: CT head and CT cervical spine without contrast. TECHNIQUE: Multiple contiguous axial images were obtained through the brain and cervical spine without the use of intravenous contrast. Sagittal and coronal reformations through the cervical spine were then performed. Auto Exposure Controls were utilized during the CT exam to meet ALARA standards for radiation dose reduction. INDICATION: Fall with head and neck injury and head and neck pain. COMPARISON is made with prior head CT from 07/29/2022. CT HEAD: Area of encephalomalacia left temporal and posterior parietal lobe appears stable. Ventricular size and sulcal pattern are stable. There is no sulcal effacement or midline shift. No acute intra-axial or extra-axial hemorrhage is detected. Cisterns are patent. The visualized paranasal sinuses are clear. IMPRESSION: Stable chronic changes. No acute intracranial process is detected. CT CERVICAL SPINE: Curvature and alignment of the cervical spine are normal. There is multilevel degenerative disc disease with variable disc space narrowing and marginal spurring. There is multilevel facet arthropathy. No fracture or subluxation is identified. Prevertebral tissues are within normal limits. The odontoid is intact. IMPRESSION: Cervical spondylosis. No acute bony abnormality is detected. Dictated by: Dictated on workstation # [id number]
== END ==
LOC: RAD 13:15
PROVIDERS: ATTEND Emergency Medicine
DX: S00.93XD Contusion of unspecified part of head, subsequent encounter (principal); M50.90 Cervical disc disorder, unspecified, unspecified cervical region
CPT/HCPCS: 70450; 72125